=== PATIENT | female | born 1975 | race Caucasian/White ===

== ENCOUNTER 2016-03-07 22:26 | Emergency (ER) | payer OTHER, MEDICAID ==
[~2016-03-07 22:26] MED LIST: CALCCHW12 OR; CELE40TA OR; CLAR5CHW OR; FERRO SEQUELS PO; FISH1000 OR; GABA600T3 OR; LEVO100T OR; LIDO5DIS EX; MULTIVIT PO; OMEP20TA7 OR; TIZA4TAB OR; TRINTAB11 PO; VICO5TAB OR; VITA-113 SQ; VITAMIN D50000 UNT OR
[2016-03-07] MEDS ORDERED: LORazepam 2 MG/ML VIAL (J2060) As Ordered ONE (23:25)
[2016-03-07 23:46] LABS: BASO # 0.2 K/mm3 (0.0-0.2); BASO % 1.3 % (0.0-1.0); EOS # 0.2 K/mm3 (0.0-0.50); EOS % 1.2 % (0.0-3.0); LARGE UNSTAINED CELL # 0.2 K/mm3 (0.0-0.4); LARGE UNSTAINED CELL % 1.7 % (0.0-4.0); LYMPH # 4.6 K/mm3 (1.5-4.5); LYMPH % 34.6 % (24.0-44.0); MEAN CORPUSCULAR HEMOGLOBIN 24.8 pg (27.0-33.0); MEAN CORPUSCULAR HGB CONC 31.6 g/dl (32.0-36.5); MEAN CORPUSCULAR VOLUME 78.5 fl (80.0-96.0); MONO # 0.6 K/mm3 (0.0-0.8); MONO % 4.9 % (0.0-5.0); NEUTROPHILS # 7.1 K/mm3 (1.8-7.7); NEUTROPHILS % 56.2 % (36.0-66.0); PLATELET COUNT, AUTOMATED 387 k/mm3 (150-450); RED CELL DISTRIBUTION WIDTH 17.3 % (11.5-14.5); WHITE BLOOD COUNT 12.6 K/mm3 (4.0-10.0)
[2016-03-08 00:10] LABS: ANION GAP 9 MEQ/L (8-16); BLOOD UREA NITROGEN 5 MG/DL (7-18); CALCIUM LEVEL 8.6 MG/DL (8.5-10.1); CARBON DIOXIDE LEVEL 24 MEQ/L (21-32); CHLORIDE LEVEL 109 MEQ/L (98-107); CREATININE FOR GFR 0.84 MG/DL (0.55-1.02); FREE T4 1.04 NG/DL (0.76-1.46); GLOMERULAR FILTRATION RATE > 60.0 (>60); GLUCOSE, FASTING 99 MG/DL (70-105); MAGNESIUM LEVEL 1.9 MG/DL (1.8-2.4); POTASSIUM SERUM 3.9 MEQ/L (3.5-5.1); SODIUM LEVEL 142 MEQ/L (136-145)
--- NOTE | 2016-03-08 00:45 | REP ---
Clinical: Chest pain and palpitations . Comparison: None . Technique: PA and lateral. Findings: The mediastinum and cardiac silhouette are normal. The lung warren are clear and without acute consolidation, effusion, or pneumothorax. The skeletal structures are intact and normal. Impression: 1. No acute cardiopulmonary process. Signed by Jamshid Morales MD 03/08/2016 12:36 A
--- NOTE | 2016-03-08 01:40 | EDDOCDS ---
Physician Documentation [facility] Name: Jayne Lawson Age: 40 yrs Sex: Female : 1975 Arrival Date: 03/07/2016 Time: 22:26 Bed 10 Private MD: [facility] - [facility] Disposition: 03/08/16 01:29 Discharged to Home/Self Care. Impression: Generalized anxiety disorder. - Condition is Stable. - Discharge Instructions: Panic Attacks, Generalized Anxiety Disorder, Panic Attacks, Aonf-[id number]-Yqtd. - Medication Reconciliation, Local Pharmacy Hours form. - Follow up: [facility] - Ad[facility]; When: As needed; Reason: Continuance of care. - Problem is an acute exacerbation. - Symptoms have improved. Historical: - Allergies: No known drug Allergies; - Home Meds: 1. levothyroxine 100 mcg Oral tab 1 tab once daily 2. [place] 10-325 mg Oral tab 0.5 tab every 8 hours 3. pregabalin 100 mg Oral cap 1 cap 2 times per day 4. tizanidine 4 mg oral cap 1 cap 3 times per day 5. amlodipine 5 mg Oral tab 1 tab once daily 6. paroxetine HCl 10 mg Oral tab 1 tab once daily - PMHx: Anxiety; Hypertension; Hypothyroidism; left leg pain; - PSHx: Cesearean Section; D & C; Gastric Bypass (2004); - Family history: Father has/had cardiac disorder. - Social history: Smoking status: Patient states was never smoker of tobacco. No barriers to communication noted, The patient speaks fluent Maldivian, Speaks appropriately for age, Preferred Language: Maldivian. - : The pt / caregiver states he / she is not on anticoagulants. Home medication list is obtained from the patient. - Exposure Risk Screening:: None identified. 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 5 in. (165.10 cm) (R); Pain 0/10; 23:17 BP 159 / 92 (auto/); mlc 23:20 Pulse 106 MON; Pulse Ox 97% ; mlc 23:37 BP 147 / 76 (auto/); mlc 23:38 Pulse 100 MON; Pulse Ox 98% ; mlc 23:57 BP 133 / 75 (auto/); mlc 23:57 Pulse 98 MON; Pulse Ox 98% ; [facility] 03/08 00:24 BP 156 / 79 (auto/); mlc 00:26 Pulse 96 MON; Pulse Ox 100% ; mlc 00:37 BP 158 / 74 (auto/); mlc 00:38 Pulse 90 MON; Pulse Ox 99% ; mlc 00:56 Pulse 92 MON; Pulse Ox 99% ; mlc 00:57 Pulse 88 MON; Pulse Ox 99% ; mlc 00:57 BP 143 / 70 (auto/); mlc 01:17 Pulse 92 MON; Pulse Ox 99% ; mlc 01:17 BP 151 / 70 (auto/); mlc 01:37 BP 145 / 69; Pulse 89; Resp 16; Temp 99.2(O); Pulse Ox 97% on R/A; Pain 6/10; [facility] 03/07 22:29 Body Mass Index 36.61 (99.79 kg, 165.10 cm) gr2 MDM: 03/07 22:47 ECG WITH READING ER PHYS+CARDIAG ordered. EDMS 23:13 Store Clerk Checker/Pulse Ox/q 30 min VS ordered. mm11 23:13 IV Saline Lock ordered. mm11 23:13 Rhythm Strip to chart ordered. mm11 23:13 Undress patient appropriately for examination ordered. mm11 23:13 LORazepam 1 mg IVP once ordered. mm11 23:13 Basic Metabolic Profile Ordered. EDMS 23:13 CBC with Diff Ordered. EDMS 23:13 Cardiac Injury Profile Ordered. EDMS 23:13 D-Dimer Quant Ordered. EDMS 23:13 Troponin Ordered. EDMS 23:13 Magnesium Level Ordered. EDMS 23:13 TSH with Free T4 Ordered. EDMS 23:15 Chest, 2 View (pa\E\lat) Ordered. EDMS 23:40 Financial registration complete. pm4 03/08 00:13 Basic Metabolic Profile Reviewed. mm11 00:13 CBC with Diff Reviewed. mm11 00:13 D-Dimer Quant Reviewed. mm11 00:13 Troponin Reviewed. mm11 00:13 Magnesium Level Reviewed. mm11 00:21 Basic Metabolic Profile Reviewed. mm11 00:21 Cardiac Injury Profile Reviewed. mm11 00:21 Troponin Reviewed. mm11 00:21 Magnesium Level Reviewed. mm11 00:21 TSH with Free T4 Reviewed. mm11 00:26 [facility] Payment Agreement was scanned into [employer] and attached to record. pm4 01:24 Chest, 2 View (pa\E\lat) Reviewed. mm11 Administered Medications: 03/07 23:38 Drug: LORazepam 1 mg [lorazepam 2 mg/mL injection solution (0.5 mL)] Route: IVP; Site: [facility] left antecubital; 03/08 00:26 Follow up: Response: Anxiety is improved [facility] Signatures: Dispatcher MedHost EDMS Pilar Doll RN RN lf1 Hipolito Brown, DO mm11 Arabella Trivedi RN RN [facility] Danny Payne, Reg Reg pm4 The chart was reviewed and I authenticate all verbal orders and agree with the evaluation and treatment provided.Attachments: 00:26 [facility] Payment Agreement pm4 MTDD
--- NOTE | 2016-03-08 01:40 | EDDOCDS ---
Nurse's Notes [facility] Name: Jayne Lawson Age: 40 yrs Sex: Female : 1975 Arrival Date: 03/07/2016 Time: 22:26 Bed 10 Private MD: [facility] Diagnosis: Generalized anxiety disorder Presentation: 03/07 22:41 Presenting complaint:. lf1 22:42 Presenting complaint: Patient states: Feels like her heart is racing and she is short lf1 of breath. States palpitations began this afternoon around 4 or 5 and are not getting better. Pt appears very anxious. States she feels like she can't catch her breath. denies pain at this time but reports that she feels like she is he=having heartburn. Adult Sepsis Screening: The patient does not have new or worsening altered mentation. Patient's respiratory rate is less than 22. Systolic blood pressure is greater than 100. Patient has a qSOFA score of 0- Negative Sepsis Screen. Suicide/Homicide risk assessment- the patient denies having any suicidal and/or homicidal ideations and does not present with any other emotional, behavioral or mental health complaints. Status: Patient is not a message and delivery service pricer or dependent. Transition of care: patient was not received from another setting of care. 22:42 Acuity: ALBERT Level 3 lf1 22:42 Method Of Arrival: Walkin/Carried/Asstd lf1 Triage Assessment: 22:42 General: Appears obese, Behavior is anxious, restless. Pain: Denies pain. Pt Declines lf1 HIV testing. Neurological: Level of Consciousness is awake, alert. Cardiovascular: Chest pain is denied Reports palpitations. Respiratory: Respiratory effort is even, unlabored, Reports shortness of breath. GI: Reports nausea. Derm: Skin is normal. 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 levothyroxine 100 mcg Oral tab 1 tab once daily 2. [place] 10-325 mg Oral tab 0.5 tab every 8 hours 3. pregabalin 100 mg Oral cap 1 cap 2 times per day 4. tizanidine 4 mg oral cap 1 cap 3 times per day 5. amlodipine 5 mg Oral tab 1 tab once daily 6. paroxetine HCl 10 mg Oral tab 1 tab once daily - PMHx: Anxiety; Hypertension; Hypothyroidism; left leg pain; - PSHx: Cesearean Section; D & C; Gastric Bypass (2004); - Family history: Father has/had cardiac disorder. - Social history: Smoking status: Patient states was never smoker of tobacco. No barriers to communication noted, The patient speaks fluent Kiswahili, Speaks appropriately for age, Preferred Language: Kiswahili. - : The pt / caregiver states he / she is not on anticoagulants. Home medication list is obtained from the patient. - Exposure Risk Screening:: None identified. Screenin:41 Screening information is obtained from the patient. Fall risk: No risks identified. lf1 Assistance ADL's: requires no assistance with activities of daily living. Abuse/DV Screen: The patient / caregiver reports he/she is: not in a situation that causes fear, pain or injury. Nutritional screening: No deficits noted. Advance Directives: Currently, there is no health care proxy. home support is adequate. Assessment: 22:37 General: Appears obese, Behavior is anxious, restless. Pain: Denies pain. Neurological: lf1 Level of Consciousness is awake, alert, Oriented to person, place, time. EENT: No deficits noted. Cardiovascular: Chest pain is denied Reports palpitations, Pt states she feels like her heart is racing. Respiratory: Respiratory effort is even, unlabored, Respiratory pattern is regular, Reports shortness of breath the patient has mild shortness of breath. GI: Reports nausea. Derm: Skin is normal. Injury Description: No known injury. 23:39 General: Appears in no apparent distress, comfortable, Behavior is anxious, mlc cooperative. Pain: Location: thoracic area Pain currently is 6 out of 10 on a pain scale. Neurological: Level of Consciousness is awake, alert, Oriented to person, place, time. Cardiovascular: Capillary refill < 3 seconds Heart tones S1 S2 present Rhythm is regular Chest pain is denied. Respiratory: Airway is patent Respiratory effort is even, unlabored, Respiratory pattern is regular, Breath sounds are clear bilaterally. Reports shortness of breath at rest. Derm: Skin is normal. 03/08 00:26 Reassessment: Patient appears in no apparent distress at this time. Patient states mlc feeling better. pt reports she is feeling better but pain remains the same. resp easy/unlabored. pt watching tv. . 01:37 General: Appears in no apparent distress, comfortable, Behavior is cooperative. Pain: [facility] Pain currently is 6 out of 10 on a pain scale. Neurological: Level of Consciousness is awake, alert, Oriented to person, place, time. Respiratory: Airway is patent Respiratory effort is even, unlabored, Respiratory pattern is regular. Derm: Skin is normal. Vital Signs: 03/07 22:29 BP 175 / 83; Pulse 116; Resp 18 S; Temp 99.1(O); Pulse Ox 100% on R/A; Weight 99.79 kg gr2 (R); Height 5 ft. 5 in. (165.10 cm) (R); Pain 0/10; 23:17 BP 159 / 92 (auto/); mlc 23:20 Pulse 106 MON; Pulse Ox 97% ; mlc 23:37 BP 147 / 76 (auto/); mlc 23:38 Pulse 100 MON; Pulse Ox 98% ; mlc 23:57 BP 133 / 75 (auto/); mlc 23:57 Pulse 98 MON; Pulse Ox 98% ; mlc 03/08 00:24 BP 156 / 79 (auto/); mlc 00:26 Pulse 96 MON; Pulse Ox 100% ; mlc 00:37 BP 158 / 74 (auto/); mlc 00:38 Pulse 90 MON; Pulse Ox 99% ; mlc 00:56 Pulse 92 MON; Pulse Ox 99% ; mlc 00:57 Pulse 88 MON; Pulse Ox 99% ; mlc 00:57 BP 143 / 70 (auto/); mlc 01:17 Pulse 92 MON; Pulse Ox 99% ; mlc 01:17 BP 151 / 70 (auto/); mlc 01:37 BP 145 / 69; Pulse 89; Resp 16; Temp 99.2(O); Pulse Ox 97% on R/A; Pain 6/10; mlc 03/07 22:29 Body Mass Index 36.61 (99.79 kg, 165.10 cm) gr2 Vitals: 03/07 22:29 Log In Time: March 07, 2016 at 22:29. gr2 22:30 RN notified that patient meets Red Flag criteria. gr2 ED Course: 22:28 Patient visited by Cecilio Lopez. gr2 22:28 [facility] is Private Physician. gr2 22:28 Patient moved to Waiting gr2 22:30 Patient visited by Cecilio Lopez. gr2 22:31 Patient visited by Cecilio Lopez. gr2 22:31 Patient moved to Pre RCE gr2 22:44 Triage Initiated lf1 22:46 Patient moved to PD2 / 27 lf1 22:52 EKG done. (by ED staff). Reviewed by Hipolito Brown DO. ar3 22:54 Arabella Trivedi,RN is Primary Nurse. ar3 22:54 Patient moved to 10 ar3 22:59 Hipolito Brown DO is Attending Physician. mm11 22:59 Patient visited by Hipolito Brown DO. mm11 23:12 Patient visited by Hipolito Brown DO. mm11 23:20 The patient / caregiver is instructed regarding the plan of care and ED course. Cardiac mlc monitor on. Pulse ox on. NIBP on. 23:20 Inserted saline lock: 18 gauge in left antecubital area and blood collected. The mlc patient tolerated the procedure well. 23:39 TSH with Free T4 Sent. mlc 23:39 Magnesium Level Sent. mlc 23:39 Basic Metabolic Profile Sent. mlc 23:39 CBC with Diff Sent. mlc 23:39 Cardiac Injury Profile Sent. mlc 23:39 D-Dimer Quant Sent. mlc 23:39 Troponin Sent. mlc 23:40 Patient visited by Arabella Trivedi RN. [facility] 03/08 00:26 [facility] Payment Agreement was scanned into [employer] and attached to record. pm4 00:28 Patient visited by Arabella Trivedi RN. mlc 00:58 Patient visited by Arabella Trivedi RN. mlc 01:20 Chest, 2 View (pa\E\lat) Returned. EDMS 01:29 [facility] is Referral Physician. mm11 01:39 Discontinued IV lock intact, bleeding controlled, pressure dressing applied, No mlc redness/swelling at site. No procedures done that require assistance. Administered Medications: 03/07 23:38 Drug: LORazepam 1 mg [lorazepam 2 mg/mL injection solution (0.5 mL)] Route: IVP; Site: mlc left antecubital; 03/08 00:26 Follow up: Response: Anxiety is improved mlc Order Results: Lab Order: Basic Metabolic Profile; SPEC'M 03/07/16 23:37 Test: GLUCOSE, FASTING; Value: 99; Range: 70-105; Units: MG/DL; Status: F Test: BLOOD UREA NITROGEN; Value: 5; Range: 7-18; Abnormal: Below low normal; Units: MG/DL; Status: F Test: CREATININE FOR GFR; Value: 0.84; Range: 0.55-1.02; Units: MG/DL; Status: F Test: GLOMERULAR FILTRATION RATE; Value: > 60.0; Range: >60; Status: F Test: SODIUM LEVEL; Value: 142; Range: 136-145; Units: MEQ/L; Status: F Test: POTASSIUM SERUM; Value: 3.9; Range: 3.5-5.1; Units: MEQ/L; Status: F Test: CHLORIDE LEVEL; Value: 109; Range: 98-107; Abnormal: Above high normal; Units: MEQ/L; Status: F Test: CARBON DIOXIDE LEVEL; Value: 24; Range: 21-32; Units: MEQ/L; Status: F Test: ANION GAP; Value: 9; Range: 8-16; Units: MEQ/L; Status: F Test: CALCIUM LEVEL; Value: 8.6; Range: 8.5-10.1; Units: MG/DL; Status: F Test Note: ; Units are mL/min/1.73 m2 Chronic Kidney Disease Staging per NKF: Stage I & II GFR >=60 Normal to Mildly Decreased Stage III GFR 30-59 Moderately Decreased Stage IV GFR 15-29 Severely Decreased Stage V GFR <15 Very Little GFR Left ESRD GFR <15 on PURIFICATION OPERATOR Lab Order: CBC with Diff; SPEC'M 03/07/16 23:37 Test: WHITE BLOOD COUNT; Value: 12.6; Range: 4.0-10.0; Abnormal: Above high normal; Units: K/mm3; Status: F Test: RED BLOOD COUNT; Value: 4.84; Range: 4.00-5.40; Units: M/mm3; Status: F Test: HEMOGLOBIN; Value: 12.0; Range: 12.0-16.0; Units: g/dl; Status: F Test: HEMATOCRIT; Value: 38.0; Range: 36.0-47.0; Units: %; Status: F Test: MEAN CORPUSCULAR VOLUME; Value: 78.5; Range: 80.0-96.0; Abnormal: Below low normal; Units: fl; Status: F Test: MEAN CORPUSCULAR HEMOGLOBIN; Value: 24.8; Range: 27.0-33.0; Abnormal: Below low normal; Units: pg; Status: F Test: MEAN CORPUSCULAR HGB CONC; Value: 31.6; Range: 32.0-36.5; Abnormal: Below low normal; Units: g/dl; Status: F Test: RED CELL DISTRIBUTION WIDTH; Value: 17.3; Range: 11.5-14.5; Abnormal: Above high normal; Units: %; Status: F Test: PLATELET COUNT, AUTOMATED; Value: 387; Range: 150-450; Units: k/mm3; Status: F Test: NEUTROPHILS %; Value: 56.2; Range: 36.0-66.0; Units: %; Status: F Test: LYMPH %; Value: 34.6; Range: 24.0-44.0; Units: %; Status: F Test: MONO %; Value: 4.9; Range: 0.0-5.0; Units: %; Status: F Test: EOS %; Value: 1.2; Range: 0.0-3.0; Units: %; Status: F Test: BASO %; Value: 1.3; Range: 0.0-1.0; Abnormal: Above high normal; Units: %; Status: F Test: LARGE UNSTAINED CELL %; Value: 1.7; Range: 0.0-4.0; Units: %; Status: F Test: NEUTROPHILS #; Value: 7.1; Range: 1.8-7.7; Units: K/mm3; Status: F Test: LYMPH #; Value: 4.6; Range: 1.5-4.5; Abnormal: Above high normal; Units: K/mm3; Status: F Test: MONO #; Value: 0.6; Range: 0.0-0.8; Units: K/mm3; Status: F Test: EOS #; Value: 0.2; Range: 0.0-0.50; Units: K/mm3; Status: F Test: BASO #; Value: 0.2; Range: 0.0-0.2; Units: K/mm3; Status: F Test: LARGE UNSTAINED CELL #; Value: 0.2; Range: 0.0-0.4; Units: K/mm3; Status: F Lab Order: Cardiac Injury Profile; [facility]03/07/16 23:37 Test: CPK CREATINE PHOSPHOKINASE; Value: 78; Range: 26-192; Units: U/L; Status: F Test: CK-MB VALUE MASS; Value: 1.0; Range: 0.0-3.6; Units: NG/ML; Status: F Test: MB/CK RELATIVE INDEX; Value: 1.28; Range: < OR =4; Status: F Test Note: ; DIAGNOSIS CRITERIA MMB ng/ml Relative Index (RI) NON-AMI < or = 5 N/A BRO ZONE > 5 < or = 4 AMI > 5 > 4 Lab Order: D-Dimer Quant; [facility]03/07/16 23:36 Test: D-DIMER QUANT; Value: 361.5; Range: <500; Units: ng/ml; Status: F Lab Order: Troponin; 03/07/16 23:37 Test: TROPONIN I; Value: < 0.02; Range: < 0.10; Units: NG/ML; Status: F Test Note: ; Troponin I Reference Interval for [employer] LOCI: 99th Percentile= 0.00-0.045 ng/ml Risk Stratification: <= 0.10 ng/ml Decreased Risk for Adverse Clinical Events. 0.10-1.50 ng/ml Increased Risk for Adverse Clinical Events. Evaluation of additional criterion and/or repeat testing in 2-6 hours is suggested to rule out myocardial damage. >= 1.50 ng/ml Indicative of Myocardial Injury. Lab Order: Magnesium Level; [facility]03/07/16 23:37 Test: MAGNESIUM LEVEL; Value: 1.9; Range: 1.8-2.4; Units: MG/DL; Status: F Lab Order: TSH with Free T4; [facility]03/07/16 23:37 Test: THYROID STIMULATING HORMONE; Value: 3.630; Range: 0.358-3.740; Units: uIU/ML; Status: F Test: FREE T4; Value: 1.04; Range: 0.76-1.46; Units: NG/DL; Status: F Radiology Order: Chest, 2 View (pa\E\lat) Test: Chest, 2 View (pa\E\lat) REASON FOR EXAMINATION: PALPITATIONS; Clinical: Chest pain and palpitations .; ; Comparison: None .; ; Technique: PA and lateral.; ; Findings:; The mediastinum and cardiac silhouette are normal. The lung warren are clear and; without acute consolidation, effusion, or pneumothorax. The skeletal structures; are intact and normal.; ; Impression:; 1. No acute cardiopulmonary process.; ; ; Signed by; Jamshid Morales MD 03/08/2016 12:36 A; Outcome: :29 Discharge ordered by Provider. mm11 01:39 Discharge Assessment: Patient awake, alert and oriented x 3. No cognitive and/or mlc functional deficits noted. Patient verbalized understanding of disposition instructions. patient administered narcotics - no. The following High Risk Discharge criteria are identified: None. Discharged to home ambulatory. Condition: good Condition: stable. Discharge instructions given to patient, Instructed on discharge instructions, Demonstrated understanding of instructions, Pt was receptive of discharge instructions/ teaching. No special radiology studies were completed. Property sent home with patient. 01:39 Patient left the ED. [facility] Signatures: Dispatcher MedHost EDMS Pilar Doll,RN RN lf1 Hipolito Brown, DO DO mm11 Bárbara Moreau, ROOFING TILE SORTER ROOFING TILE SORTER ar3 Cecilio Lopez gr2 Arabella Trivedi RN RN [facility] Danny Payne, Reg Reg pm4 STEPHANIE
--- NOTE | 2016-03-08 20:46 | ECGEPIP ---
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
--- NOTE | 2016-03-10 02:40 | EDDOCDS ---
Physician Documentation [facility] Name: Jayne Lawson Age: 40 yrs Sex: Female : 1975 Arrival Date: 03/07/2016 Time: 22:26 Bed 10 Private MD: [facility] Disposition: 03/08/16 01:29 Discharged to Home/Self Care. Impression: Generalized anxiety disorder. - Condition is Stable. - Discharge Instructions: Panic Attacks, Generalized Anxiety Disorder, Panic Attacks, Metc-hj-Bany. - Medication Reconciliation, Local Pharmacy Hours form. - Follow up: [facility]; When: As needed; Reason: Continuance of care. - Problem is an acute exacerbation. - Symptoms have improved. Historical: - Allergies: No known drug Allergies; - Home Meds: 1. levothyroxine 100 mcg Oral tab 1 tab once daily 2. [place] 10-325 mg Oral tab 0.5 tab every 8 hours 3. pregabalin 100 mg Oral cap 1 cap 2 times per day 4. tizanidine 4 mg oral cap 1 cap 3 times per day 5. amlodipine 5 mg Oral tab 1 tab once daily 6. paroxetine HCl 10 mg Oral tab 1 tab once daily - PMHx: Anxiety; Hypertension; Hypothyroidism; left leg pain; - PSHx: Cesearean Section; D & C; Gastric Bypass (2004); - Family history: Father has/had cardiac disorder. - Social history: Smoking status: Patient states was never smoker of tobacco. No barriers to communication noted, The patient speaks fluent Haitian, Speaks appropriately for age, Preferred Language: Haitian. - : The pt / caregiver states he / she is not on anticoagulants. Home medication list is obtained from the patient. - Exposure Risk Screening:: None identified. 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 5 in. (165.10 cm) (R); Pain 0/10; 23:17 BP 159 / 92 (auto/); mlc 23:20 Pulse 106 MON; Pulse Ox 97% ; mlc 23:37 BP 147 / 76 (auto/); mlc 23:38 Pulse 100 MON; Pulse Ox 98% ; mlc 23:57 BP 133 / 75 (auto/); mlc 23:57 Pulse 98 MON; Pulse Ox 98% ; [facility] [place] 03/08 00:24 BP 156 / 79 (auto/); mlc 00:26 Pulse 96 MON; Pulse Ox 100% ; mlc 00:37 BP 158 / 74 (auto/); mlc 00:38 Pulse 90 MON; Pulse Ox 99% ; mlc 00:56 Pulse 92 MON; Pulse Ox 99% ; mlc 00:57 Pulse 88 MON; Pulse Ox 99% ; mlc 00:57 BP 143 / 70 (auto/); mlc 01:17 Pulse 92 MON; Pulse Ox 99% ; mlc 01:17 BP 151 / 70 (auto/); mlc 01:37 BP 145 / 69; Pulse 89; Resp 16; Temp 99.2(O); Pulse Ox 97% on R/A; Pain 6/10; [facility] [place] [place] 03/07 22:29 Body Mass Index 36.61 (99.79 kg, 165.10 cm) gr2 MDM: 03/07 22:47 ECG WITH READING ER PHYS+CARDIAG ordered. EDMS 23:13 Superintendent Meter Tests/Pulse Ox/q 30 min VS ordered. mm11 23:13 IV Saline Lock ordered. mm11 23:13 Rhythm Strip to chart ordered. mm11 23:13 Undress patient appropriately for examination ordered. mm11 23:13 LORazepam 1 mg IVP once ordered. mm11 23:13 Basic Metabolic Profile Ordered. EDMS 23:13 CBC with Diff Ordered. EDMS 23:13 Cardiac Injury Profile Ordered. EDMS 23:13 D-Dimer Quant Ordered. EDMS 23:13 Troponin Ordered. EDMS 23:13 Magnesium Level Ordered. EDMS 23:13 TSH with Free T4 Ordered. EDMS 23:15 Chest, 2 View (pa\E\lat) Ordered. EDMS 23:40 Financial registration complete. pm4 03/08 00:13 Basic Metabolic Profile Reviewed. mm11 00:13 CBC with Diff Reviewed. mm11 00:13 D-Dimer Quant Reviewed. mm11 00:13 Troponin Reviewed. mm11 00:13 Magnesium Level Reviewed. mm11 00:21 Basic Metabolic Profile Reviewed. mm11 00:21 Cardiac Injury Profile Reviewed. mm11 00:21 Troponin Reviewed. mm11 00:21 Magnesium Level Reviewed. mm11 00:21 TSH with Free T4 Reviewed. mm11 00:26 [facility] Payment Agreement was scanned into [employer] and attached to record. pm4 01:24 Chest, 2 View (pa\E\lat) Reviewed. mm11 10:03 T-Sheet-- Draft Copy was scanned into [employer] and attached to record. gb 10:03 ECG/EKG was scanned into [employer] and attached to record. gb Administered Medications: 03/07 23:38 Drug: LORazepam 1 mg [lorazepam 2 mg/mL injection solution (0.5 mL)] Route: IVP; Site: [facility] [place] [place] left antecubital; 03/08 00:26 Follow up: Response: Anxiety is improved [facility] [place] Signatures: Dispatcher [employer]Host EDYaneth Jerome, Reg Reg gb Pilar Doll,MILLIE RN lf1 Hipolito Brown, DO DO mm11 Arabella Trivedi RN RN [facility] [place] [place] Danny Payne, Reg Reg pm4 The chart was reviewed and I authenticate all verbal orders and agree with the evaluation and treatment provided.Attachments: 00:26 [facility] Payment Agreement pm4 10:03 T-Sheet-- Draft Copy gb 10:03 ECG/EKG gb Chart Complete MTDD
--- NOTE | 2016-03-10 02:40 | EDDOCDS ---
Physician Documentation [facility] Name: Jayne Lawson Age: 40 yrs Sex: Female : 1975 Arrival Date: 03/07/2016 Time: 22:26 Bed 10 Private MD: [facility] Disposition: 03/08/16 01:29 Discharged to Home/Self Care. Impression: Generalized anxiety disorder. - Condition is Stable. - Discharge Instructions: Panic Attacks, Generalized Anxiety Disorder, Panic Attacks, [id number]. - Medication Reconciliation, Local Pharmacy Hours form. - Follow up: [facility]; When: As needed; Reason: Continuance of care. - Problem is an acute exacerbation. - Symptoms have improved. Historical: - Allergies: No known drug Allergies; - Home Meds: 1. levothyroxine 100 mcg Oral tab 1 tab once daily 2. [place] 10-325 mg Oral tab 0.5 tab every 8 hours 3. pregabalin 100 mg Oral cap 1 cap 2 times per day 4. tizanidine 4 mg oral cap 1 cap 3 times per day 5. amlodipine 5 mg Oral tab 1 tab once daily 6. paroxetine HCl 10 mg Oral tab 1 tab once daily - PMHx: Anxiety; Hypertension; Hypothyroidism; left leg pain; - PSHx: Cesearean Section; D & C; Gastric Bypass (2004); - Family history: Father has/had cardiac disorder. - Social history: Smoking status: Patient states was never smoker of tobacco. No barriers to communication noted, The patient speaks fluent Polish, Speaks appropriately for age, Preferred Language: Polish. - : The pt / caregiver states he / she is not on anticoagulants. Home medication list is obtained from the patient. - Exposure Risk Screening:: None identified. 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 5 in. (165.10 cm) (R); Pain 0/10; 23:17 BP 159 / 92 (auto/); mlc 23:20 Pulse 106 MON; Pulse Ox 97% ; mlc 23:37 BP 147 / 76 (auto/); mlc 23:38 Pulse 100 MON; Pulse Ox 98% ; mlc 23:57 BP 133 / 75 (auto/); mlc 23:57 Pulse 98 MON; Pulse Ox 98% ; [facility] [place] 03/08 00:24 BP 156 / 79 (auto/); mlc 00:26 Pulse 96 MON; Pulse Ox 100% ; mlc 00:37 BP 158 / 74 (auto/); mlc 00:38 Pulse 90 MON; Pulse Ox 99% ; mlc 00:56 Pulse 92 MON; Pulse Ox 99% ; mlc 00:57 Pulse 88 MON; Pulse Ox 99% ; mlc 00:57 BP 143 / 70 (auto/); mlc 01:17 Pulse 92 MON; Pulse Ox 99% ; mlc 01:17 BP 151 / 70 (auto/); mlc 01:37 BP 145 / 69; Pulse 89; Resp 16; Temp 99.2(O); Pulse Ox 97% on R/A; Pain 6/10; [facility] [place] 03/07 22:29 Body Mass Index 36.61 (99.79 kg, 165.10 cm) gr2 MDM: 03/07 22:47 ECG WITH READING ER PHYS+CARDIAG ordered. EDMS 23:13 Transition Of Care Specialist/Pulse Ox/q 30 min VS ordered. mm11 23:13 IV Saline Lock ordered. mm11 23:13 Rhythm Strip to chart ordered. mm11 23:13 Undress patient appropriately for examination ordered. mm11 23:13 LORazepam 1 mg IVP once ordered. mm11 23:13 Basic Metabolic Profile Ordered. EDMS 23:13 CBC with Diff Ordered. EDMS 23:13 Cardiac Injury Profile Ordered. EDMS 23:13 D-Dimer Quant Ordered. EDMS 23:13 Troponin Ordered. EDMS 23:13 Magnesium Level Ordered. EDMS 23:13 TSH with Free T4 Ordered. EDMS 23:15 Chest, 2 View (pa\E\lat) Ordered. EDMS 23:40 Financial registration complete. pm4 03/08 00:13 Basic Metabolic Profile Reviewed. mm11 00:13 CBC with Diff Reviewed. mm11 00:13 D-Dimer Quant Reviewed. mm11 00:13 Troponin Reviewed. mm11 00:13 Magnesium Level Reviewed. mm11 00:21 Basic Metabolic Profile Reviewed. mm11 00:21 Cardiac Injury Profile Reviewed. mm11 00:21 Troponin Reviewed. mm11 00:21 Magnesium Level Reviewed. mm11 00:21 TSH with Free T4 Reviewed. mm11 00:26 [facility] [place] Agreement was scanned into [employer] and attached to record. pm4 01:24 Chest, 2 View (pa\E\lat) Reviewed. mm11 10:03 T-Sheet-- Draft Copy was scanned into MED[employer] and attached to record. gb 10:03 ECG/EKG was scanned into [employer] and attached to record. gb Administered Medications: 03/07 23:38 Drug: LORazepam 1 mg [lorazepam 2 mg/mL injection solution (0.5 mL)] Route: IVP; Site: [facility] [place] left antecubital; 03/08 00:26 Follow up: Response: Anxiety is improved [facility] [place] Signatures: Dispatcher [employer] EDYaneth Jeorme, Reg Reg gb Pilar Doll,MILLIE RN lf1 Hipolito Brown, DO DO mm11 Arabella Trivedi RN RN [facility] [place] Danny Payne, Reg Reg pm4 The chart was reviewed and I authenticate all verbal orders and agree with the evaluation and treatment provided.Attachments: 00:26 [facility] Payment Agreement pm4 10:03 T-Sheet-- Draft Copy gb 10:03 ECG/EKG gb Chart Complete MTDD
--- NOTE | 2016-03-10 02:40 | EDDOCDS ---
Nurse's Notes [facility] Name: Jayne Lawson Age: 40 yrs Sex: Female : 1975 Arrival Date: 03/07/2016 Time: 22:26 Bed 10 Private MD: [facility] Diagnosis: Generalized anxiety disorder Presentation: 03/07 22:41 Presenting complaint:. lf1 22:42 Presenting complaint: Patient states: Feels like her heart is racing and she is short lf1 of breath. States palpitations began this afternoon around 4 or 5 and are not getting better. Pt appears very anxious. States she feels like she can't catch her breath. denies pain at this time but reports that she feels like she is he=having heartburn. Adult Sepsis Screening: The patient does not have new or worsening altered mentation. Patient's respiratory rate is less than 22. Systolic blood pressure is greater than 100. Patient has a qSOFA score of 0- Negative Sepsis Screen. Suicide/Homicide risk assessment- the patient denies having any suicidal and/or homicidal ideations and does not present with any other emotional, behavioral or mental health complaints. Status: Patient is not a vehicle service agent or dependent. Transition of care: patient was not received from another setting of care. 22:42 Acuity: ALBERT Level 3 lf1 22:42 Method Of Arrival: Walkin/Carried/Asstd lf1 Triage Assessment: 22:42 General: Appears obese, Behavior is anxious, restless. Pain: Denies pain. Pt Declines lf1 HIV testing. Neurological: Level of Consciousness is awake, alert. Cardiovascular: Chest pain is denied Reports palpitations. Respiratory: Respiratory effort is even, unlabored, Reports shortness of breath. GI: Reports nausea. Derm: Skin is normal. 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 levothyroxine 100 mcg Oral tab 1 tab once daily 2. [place] 10-325 mg Oral tab 0.5 tab every 8 hours 3. pregabalin 100 mg Oral cap 1 cap 2 times per day 4. tizanidine 4 mg oral cap 1 cap 3 times per day 5. amlodipine 5 mg Oral tab 1 tab once daily 6. paroxetine HCl 10 mg Oral tab 1 tab once daily - PMHx: Anxiety; Hypertension; Hypothyroidism; left leg pain; - PSHx: Cesearean Section; D & C; Gastric Bypass (2004); - Family history: Father has/had cardiac disorder. - Social history: Smoking status: Patient states was never smoker of tobacco. No barriers to communication noted, The patient speaks fluent Wolof, Speaks appropriately for age, Preferred Language: Wolof. - : The pt / caregiver states he / she is not on anticoagulants. Home medication list is obtained from the patient. - Exposure Risk Screening:: None identified. Screenin:41 Screening information is obtained from the patient. Fall risk: No risks identified. lf1 Assistance ADL's: requires no assistance with activities of daily living. Abuse/DV Screen: The patient / caregiver reports he/she is: not in a situation that causes fear, pain or injury. Nutritional screening: No deficits noted. Advance Directives: Currently, there is no health care proxy. home support is adequate. Assessment: 22:37 General: Appears obese, Behavior is anxious, restless. Pain: Denies pain. Neurological: lf1 Level of Consciousness is awake, alert, Oriented to person, place, time. EENT: No deficits noted. Cardiovascular: Chest pain is denied Reports palpitations, Pt states she feels like her heart is racing. Respiratory: Respiratory effort is even, unlabored, Respiratory pattern is regular, Reports shortness of breath the patient has mild shortness of breath. GI: Reports nausea. Derm: Skin is normal. Injury Description: No known injury. 23:39 General: Appears in no apparent distress, comfortable, Behavior is anxious, mlc cooperative. Pain: Location: thoracic area Pain currently is 6 out of 10 on a pain scale. Neurological: Level of Consciousness is awake, alert, Oriented to person, place, time. Cardiovascular: Capillary refill < 3 seconds Heart tones S1 S2 present Rhythm is regular Chest pain is denied. Respiratory: Airway is patent Respiratory effort is even, unlabored, Respiratory pattern is regular, Breath sounds are clear bilaterally. Reports shortness of breath at rest. Derm: Skin is normal. 03/08 00:26 Reassessment: Patient appears in no apparent distress at this time. Patient states mlc feeling better. pt reports she is feeling better but pain remains the same. resp easy/unlabored. pt watching tv. . 01:37 General: Appears in no apparent distress, comfortable, Behavior is cooperative. Pain: [facility] [place] Pain currently is 6 out of 10 on a pain scale. Neurological: Level of Consciousness is awake, alert, Oriented to person, place, time. Respiratory: Airway is patent Respiratory effort is even, unlabored, Respiratory pattern is regular. Derm: Skin is normal. Vital Signs: 03/07 22:29 BP 175 / 83; Pulse 116; Resp 18 S; Temp 99.1(O); Pulse Ox 100% on R/A; Weight 99.79 kg gr2 (R); Height 5 ft. 5 in. (165.10 cm) (R); Pain 0/10; 23:17 BP 159 / 92 (auto/); mlc 23:20 Pulse 106 MON; Pulse Ox 97% ; mlc 23:37 BP 147 / 76 (auto/); mlc 23:38 Pulse 100 MON; Pulse Ox 98% ; mlc 23:57 BP 133 / 75 (auto/); mlc 23:57 Pulse 98 MON; Pulse Ox 98% ; mlc 03/08 00:24 BP 156 / 79 (auto/); mlc 00:26 Pulse 96 MON; Pulse Ox 100% ; mlc 00:37 BP 158 / 74 (auto/); mlc 00:38 Pulse 90 MON; Pulse Ox 99% ; mlc 00:56 Pulse 92 MON; Pulse Ox 99% ; mlc 00:57 Pulse 88 MON; Pulse Ox 99% ; mlc 00:57 BP 143 / 70 (auto/); mlc 01:17 Pulse 92 MON; Pulse Ox 99% ; mlc 01:17 BP 151 / 70 (auto/); mlc 01:37 BP 145 / 69; Pulse 89; Resp 16; Temp 99.2(O); Pulse Ox 97% on R/A; Pain 6/10; mlc 03/07 22:29 Body Mass Index 36.61 (99.79 kg, 165.10 cm) gr2 Vitals: 03/07 22:29 Log In Time: March 07, 2016 at 22:29. gr2 22:30 RN notified that patient meets Red Flag criteria. gr2 ED Course: 22:28 Patient visited by Cecilio Lopez. gr2 22:28 [facility] is Private Physician. gr2 22:28 Patient moved to Waiting gr2 22:30 Patient visited by Cecilio Lopez. gr2 22:31 Patient visited by Cecilio Lopez. gr2 22:31 Patient moved to Pre RCE gr2 22:44 Triage Initiated lf1 22:46 Patient moved to PD2 / 27 lf1 22:52 EKG done. (by ED staff). Reviewed by Tristan Brown DO. ar3 22:54 Arabella Trivedi,RN is Primary Nurse. ar3 22:54 Patient moved to 10 ar3 22:59 Tristan Brown DO is Attending Physician. mm11 22:59 Patient visited by Tristan Brown DO. mm11 23:12 Patient visited by Tristan Brown DO. mm11 23:20 The patient / caregiver is instructed regarding the plan of care and ED course. Cardiac mlc monitor on. Pulse ox on. NIBP on. 23:20 Inserted saline lock: 18 gauge in left antecubital area and blood collected. The mlc patient tolerated the procedure well. 23:39 TSH with Free T4 Sent. mlc 23:39 Magnesium Level Sent. mlc 23:39 Basic Metabolic Profile Sent. mlc 23:39 CBC with Diff Sent. mlc 23:39 Cardiac Injury Profile Sent. mlc 23:39 D-Dimer Quant Sent. mlc 23:39 Troponin Sent. mlc 23:40 Patient visited by rAabella Trivedi RN. [facility] [place] 03/08 00:26 [facility] Payment Agreement was scanned into [employer] and attached to record. pm4 00:28 Patient visited by Arabella Trivedi,MILLIE. mlc 00:58 Patient visited by Arabella Trivedi,MILLIE. mlc 01:20 Chest, 2 View (pa\E\lat) Returned. EDMS 01:29 [facility] is Referral Physician. mm11 01:39 Discontinued IV lock intact, bleeding controlled, pressure dressing applied, No mlc redness/swelling at site. No procedures done that require assistance. 10:03 T-Sheet-- Draft Copy was scanned into [employer] and attached to record. gb 10:03 ECG/EKG was scanned into [employer] and attached to record. gb 21:23 EKG-ADULT Returned. EDMS Administered Medications: 03/07 23:38 Drug: LORazepam 1 mg [lorazepam 2 mg/mL injection solution (0.5 mL)] Route: IVP; Site: mlc left antecubital; 03/08 00:26 Follow up: Response: Anxiety is improved [facility] [place] Order Results: Lab Order: Basic Metabolic Profile; SPEC'M 03/07/16 23:37 Test: GLUCOSE, FASTING; Value: 99; Range: 70-105; Units: MG/DL; Status: F Test: BLOOD UREA NITROGEN; Value: 5; Range: 7-18; Abnormal: Below low normal; Units: MG/DL; Status: F Test: CREATININE FOR GFR; Value: 0.84; Range: 0.55-1.02; Units: MG/DL; Status: F Test: GLOMERULAR FILTRATION RATE; Value: > 60.0; Range: >60; Status: F Test: SODIUM LEVEL; Value: 142; Range: 136-145; Units: MEQ/L; Status: F Test: POTASSIUM SERUM; Value: 3.9; Range: 3.5-5.1; Units: MEQ/L; Status: F Test: CHLORIDE LEVEL; Value: 109; Range: 98-107; Abnormal: Above high normal; Units: MEQ/L; Status: F Test: CARBON DIOXIDE LEVEL; Value: 24; Range: 21-32; Units: MEQ/L; Status: F Test: ANION GAP; Value: 9; Range: 8-16; Units: MEQ/L; Status: F Test: CALCIUM LEVEL; Value: 8.6; Range: 8.5-10.1; Units: MG/DL; Status: F Test Note: ; Units are mL/min/1.73 m2 Chronic Kidney Disease Staging per NKF: Stage I & II GFR >=60 Normal to Mildly Decreased Stage III GFR 30-59 Moderately Decreased Stage IV GFR 15-29 Severely Decreased Stage V GFR <15 Very Little GFR Left ESRD GFR <15 on MINISTER HELPER Lab Order: CBC with Diff; SPEC'M 03/07/16 23:37 Test: WHITE BLOOD COUNT; Value: 12.6; Range: 4.0-10.0; Abnormal: Above high normal; Units: K/mm3; Status: F Test: RED BLOOD COUNT; Value: 4.84; Range: 4.00-5.40; Units: M/mm3; Status: F Test: HEMOGLOBIN; Value: 12.0; Range: 12.0-16.0; Units: g/dl; Status: F Test: HEMATOCRIT; Value: 38.0; Range: 36.0-47.0; Units: %; Status: F Test: MEAN CORPUSCULAR VOLUME; Value: 78.5; Range: 80.0-96.0; Abnormal: Below low normal; Units: fl; Status: F Test: MEAN CORPUSCULAR HEMOGLOBIN; Value: 24.8; Range: 27.0-33.0; Abnormal: Below low normal; Units: pg; Status: F Test: MEAN CORPUSCULAR HGB CONC; Value: 31.6; Range: 32.0-36.5; Abnormal: Below low normal; Units: g/dl; Status: F Test: RED CELL DISTRIBUTION WIDTH; Value: 17.3; Range: 11.5-14.5; Abnormal: Above high normal; Units: %; Status: F Test: PLATELET COUNT, AUTOMATED; Value: 387; Range: 150-450; Units: k/mm3; Status: F Test: NEUTROPHILS %; Value: 56.2; Range: 36.0-66.0; Units: %; Status: F Test: LYMPH %; Value: 34.6; Range: 24.0-44.0; Units: %; Status: F Test: MONO %; Value: 4.9; Range: 0.0-5.0; Units: %; Status: F Test: EOS %; Value: 1.2; Range: 0.0-3.0; Units: %; Status: F Test: BASO %; Value: 1.3; Range: 0.0-1.0; Abnormal: Above high normal; Units: %; Status: F Test: LARGE UNSTAINED CELL %; Value: 1.7; Range: 0.0-4.0; Units: %; Status: F Test: NEUTROPHILS #; Value: 7.1; Range: 1.8-7.7; Units: K/mm3; Status: F Test: LYMPH #; Value: 4.6; Range: 1.5-4.5; Abnormal: Above high normal; Units: K/mm3; Status: F Test: MONO #; Value: 0.6; Range: 0.0-0.8; Units: K/mm3; Status: F Test: EOS #; Value: 0.2; Range: 0.0-0.50; Units: K/mm3; Status: F Test: BASO #; Value: 0.2; Range: 0.0-0.2; Units: K/mm3; Status: F Test: LARGE UNSTAINED CELL #; Value: 0.2; Range: 0.0-0.4; Units: K/mm3; Status: F Lab Order: Cardiac Injury Profile; [facility] 03/07/16 23:37 Test: CPK CREATINE PHOSPHOKINASE; Value: 78; Range: 26-192; Units: U/L; Status: F Test: CK-MB VALUE MASS; Value: 1.0; Range: 0.0-3.6; Units: NG/ML; Status: F Test: MB/CK RELATIVE INDEX; Value: 1.28; Range: < OR =4; Status: F Test Note: ; DIAGNOSIS CRITERIA MMB ng/ml Relative Index (RI) NON-AMI < or = 5 N/A BRO ZONE > 5 < or = 4 AMI > 5 > 4 Lab Order: D-Dimer Quant; 03/07/16 23:36 Test: D-DIMER QUANT; Value: 361.5; Range: <500; Units: ng/ml; Status: F Lab Order: Troponin; 03/07/16 23:37 Test: TROPONIN I; Value: < 0.02; Range: < 0.10; Units: NG/ML; Status: F Test Note: ; Troponin I Reference Interval for [facility] LOCI: 99th Percentile= 0.00-0.045 ng/ml Risk Stratification: <= 0.10 ng/ml Decreased Risk for Adverse Clinical Events. 0.10-1.50 ng/ml Increased Risk for Adverse Clinical Events. Evaluation of additional criterion and/or repeat testing in 2-6 hours is suggested to rule out myocardial damage. >= 1.50 ng/ml Indicative of Myocardial Injury. Lab Order: Magnesium Level; 03/07/16 23:37 Test: MAGNESIUM LEVEL; Value: 1.9; Range: 1.8-2.4; Units: MG/DL; Status: F Lab Order: TSH with Free T4; SPEC03/07/16 23:37 Test: THYROID STIMULATING HORMONE; Value: 3.630; Range: 0.358-3.740; Units: uIU/ML; Status: F Test: FREE T4; Value: 1.04; Range: 0.76-1.46; Units: NG/DL; Status: F Radiology Order: EKG-ADULT Test: EKG-ADULT REASON FOR EXAMINATION: palpitations; Stationary ECG Study; 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; : 1975 Requested By: TRISTAN Daniel; Order Number: [id number] Reading MD: Florence Velazquez; Measurements; Intervals [place]; Rate: 107 P: 70; WI: 114 QRS: 62; QRSD: 76 T: 26; QT: 324; QTc: 433; Interpretive Statements; SINUS TACHYCARDIA WITH SHORT WI INTERVAL; POSSIBLE RIGHT ATRIAL ENLARGEMENT; POSSIBLE LEFT ATRIAL ENLARGEMENT; NONSPECIFIC T-WAVE ABNORMALITY; ABNORMAL RHYTHM ECG; ; Electronically Signed On 03-08-2016 20:46:01 EST by Florence Velazquez; Radiology Order: Chest, 2 View (pa\E\lat) Test: Chest, 2 View (pa\E\lat) REASON FOR EXAMINATION: PALPITATIONS; Clinical: Chest pain and palpitations .; ; Comparison: None .; ; Technique: PA and lateral.; ; Findings:; The mediastinum and cardiac silhouette are normal. The lung warren are clear and; without acute consolidation, effusion, or pneumothorax. The skeletal structures; are intact and normal.; ; Impression:; 1. No acute cardiopulmonary process.; ; ; Signed by; Jamshid Morales MD 03/08/2016 12:36 A; Outcome: :29 Discharge ordered by Provider. mm11 01:39 Discharge Assessment: Patient awake, alert and oriented x 3. No cognitive and/or mlc functional deficits noted. Patient verbalized understanding of disposition instructions. patient administered narcotics - no. The following High Risk Discharge criteria are identified: None. Discharged to home ambulatory. Condition: good Condition: stable. Discharge instructions given to patient, Instructed on discharge instructions, Demonstrated understanding of instructions, Pt was receptive of discharge instructions/ teaching. No special radiology studies were completed. Property sent home with patient. 01:39 Patient left the ED. [facility] [place] Signatures: Dispatcher [facility], Yaneth, Reg Reg gb Pilar Doll,MILLIE RN lf1 Tristan Brown, DO mm11 Bárbara Moreau, SHIP RUNNER SHIP RUNNER ar3 Cecilio Lopez gr2 Arabella Trivedi,RN RN mlc Danny Payne, Reg Reg pm4 Chart Complete MTDD
== END 2016-03-08 01:39 | disposition home or self-care (01) ==
LOC: M ED 22:26
DX: K21.9 Gastro-esophageal reflux disease without esophagitis (principal); I10 Essential (primary) hypertension; F41.9 Anxiety disorder, unspecified; E03.9 Hypothyroidism, unspecified; M79.605 Pain in left leg; Z98.84 Bariatric surgery status; Z82.41 Family history of sudden cardiac death; Z79.891 Long term (current) use of opiate analgesic; Z79.899 Other long term (current) drug therapy
CPT/HCPCS: 36415; 71020; 80048; 82550; 82553; 83735; 84439; 84443; 85025; 85379; 93005; 93041; 96374; 99284; J2060

== ENCOUNTER 2016-03-30 00:47 | Emergency (ER) | payer OTHER, MEDICAID ==
[2016-03-30] MEDS ORDERED: ONDANSETRON 4 MG ORAL DISINTEGRATING TAB (S0181) As Ordered ONE (01:24)
[2016-03-30] MEDS ORDERED: METHOCARBAMOL 500 MG TAB As Ordered ONE (01:24)
[2016-03-30] MEDS ORDERED: MORPHINE 4 MG/ML 1ML SYRINGE As Ordered ONE (01:24)
--- NOTE | 2016-03-30 01:54 | EDDOCDS ---
Physician Documentation [facility] Name: Jayne Lawson Age: 41 yrs Sex: Female : 1975 Arrival Date: 03/30/2016 Time: 00:47 Bed Triage 2 Private MD: Disposition: 03/30/16 01:43 Discharged to Home/Self Care. Impression: Lumbago with sciatica, left side. - Condition is Stable. - Discharge Instructions: Back Pain, Adult, Sciatica. - Prescriptions for Robaxin 500 mg Oral Tablet - take 2 tablet by ORAL route every 6 hours As needed; 40 tablet. - Medication Reconciliation, Work Release Form - 2 day, Local Pharmacy Hours form. - Follow up: Private Physician; When: Call to arrange an appointment; Reason: Recheck today's complaints, Continuance of care. - Problem is new. - Symptoms have improved. Historical: - Allergies: No known drug Allergies; - Home Meds: 1. amlodipine 5 mg Oral tab 1 tab once daily 2. pregabalin 100 mg Oral cap 1 cap 2 times per day 3. tizanidine 4 mg oral cap 1 cap 3 times per day 4. paroxetine HCl 20 mg oral tab 5. [place] 10-325 mg Oral tab 0.5 tab every 8 hours 6. levothyroxine 100 mcg Oral tab 1 tab once daily - PMHx: Anxiety; Hypothyroidism; left leg pain; Hypertension; - PSHx: Cesearean Section; D & C; Gastric Bypass (2004); - Social history: Smoking status: Patient states was never smoker of tobacco. No barriers to communication noted, The patient speaks fluent Azeri. - Family history: Not pertinent. - : The pt / caregiver states he / she is not on anticoagulants. Home medication list is obtained from the patient. - Exposure Risk Screening:: None identified. 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 5 in. (165.10 cm) (R); Pain 7/10; 01:47 BP 131 / 85; Pulse 82; Resp 18; Temp 99.2; Pulse Ox 97% ; ajs 01:01 Body Mass Index 38.27 (104.33 kg, 165.10 cm) af2 MDM: 01:20 morphine 4 mg IM once ordered. mo1 01:20 Ondansetron ODT Oral Disintegrating Tablet 4 mg PO once ordered. mo1 01:20 Methocarbamol 1 grams PO once ordered. mo1 01:44 Financial registration complete. hs2 Administered Medications: 01:28 Drug: morphine 4 mg [morphine 4 mg/mL intravenous cartridge (1 mL)] Route: IM; Site: af2 right deltoid; 01:28 Drug: Ondansetron ODT 4 mg [ondansetron 4 mg disintegrating tablet (1 tabs)] Route: PO; af2 01:28 Drug: Methocarbamol 1 grams [methocarbamol 500 mg tablet (2 tabs)] Route: PO; af2 Signatures: Saroj Bravo PA PA mo1 Anita Sarah RN RN af2 Brittany Asif, Reg Reg hs2 MTDD
--- NOTE | 2016-03-30 01:54 | EDDOCDS ---
Nurse's Notes [facility] Name: Jayne Lawson Age: 41 yrs Sex: Female : 1975 Arrival Date: 03/30/2016 Time: 00:47 Bed Triage 2 Private MD: Diagnosis: Lumbago with sciatica, left side Presentation: 03/30 01:02 Presenting complaint: Patient states: sciatic pain from lower left back all the way af2 down hip into leg. Acute neurological deficits are not present. Mechanism of Injury: No Mechanism of Injury. Adult Sepsis Screening: The patient does not have new or worsening altered mentation. Patient's respiratory rate is less than 22. Systolic blood pressure is greater than 100. Patient has a qSOFA score of 0- Negative Sepsis Screen. Suicide/Homicide risk assessment- the patient denies having any suicidal and/or homicidal ideations and does not present with any other emotional, behavioral or mental health complaints. Status: Patient is not a director of residential services or dependent. Transition of care: patient was not received from another setting of care. 01:02 Acuity: ALBERT Level 4 af2 01:02 Method Of Arrival: Walkin/Carried/Asstd af2 Triage Assessment: 01:04 General: Appears in no apparent distress, Behavior is cooperative. Pain: Location: left af2 leg Pain currently is 7 out of 10 on a pain scale. Pt Declines HIV testing. Musculoskeletal: Range of motion intact in all extremities. Reports pain in left leg. 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 amlodipine 5 mg Oral tab 1 tab once daily 2. pregabalin 100 mg Oral cap 1 cap 2 times per day 3. tizanidine 4 mg oral cap 1 cap 3 times per day 4. paroxetine HCl 20 mg oral tab 5. [place] 10-325 mg Oral tab 0.5 tab every 8 hours 6. levothyroxine 100 mcg Oral tab 1 tab once daily - PMHx: Anxiety; Hypothyroidism; left leg pain; Hypertension; - PSHx: Cesearean Section; D & C; Gastric Bypass (2004); - Social history: Smoking status: Patient states was never smoker of tobacco. No barriers to communication noted, The patient speaks fluent Chinese. - Family history: Not pertinent. - : The pt / caregiver states he / she is not on anticoagulants. Home medication list is obtained from the patient. - Exposure Risk Screening:: None identified. Screenin:52 Screening information is obtained from the patient. Fall risk: No risks identified. af2 Assistance ADL's: requires no assistance with activities of daily living. Abuse/DV Screen: The patient / caregiver reports he/she is: not in a situation that causes fear, pain or injury. Nutritional screening: No deficits noted. Advance Directives: Currently, there is no health care proxy. home support is adequate. Assessment: 01:51 General: Appears in no apparent distress, Behavior is cooperative. Awake, alert, af2 oriented. Skin warm and dry. Moves all extremities. Respirations unlabored. No apparent distress. The patient / caregiver is instructed regarding the plan of care and ED course. Physical assessment to be completed by PA/EDMD. Vital Signs: 01:01 BP 181 / 93 LA Sitting (auto/); Pulse 93; Resp 18 S; Temp 98.5(TE); Pulse Ox 97% on af2 R/A; Weight 104.33 kg (R); Height 5 ft. 5 in. (165.10 cm) (R); Pain 7/10; 01:47 BP 131 / 85; Pulse 82; Resp 18; Temp 99.2; Pulse Ox 97% ; ajs 01:01 Body Mass Index 38.27 (104.33 kg, 165.10 cm) af2 Vitals: 01:01 Log In Time: March 30, 2016 at 00:49. af2 ED Course: 00:49 Patient visited by Brittany Asif Reg. hs2 00:49 Patient moved to Waiting hs2 01:00 Patient moved to Triage 3 af2 01:03 Triage Initiated af2 01:05 Patient visited by Anita Sarah RN. af2 01:05 Patient moved to Pre RCE af2 01:12 Patient moved to Triage 2 af2 01:14 Saroj Bravo PA is PHCP. mo1 01:14 Abdifatah Herndon MD is Attending Physician. mo1 01:27 Patient visited by Saroj Bravo PA. mo1 01:48 Patient visited by Romina Lopez. ajs 01:52 No IV's were initiated during this patient's visit. No procedures done that require af2 assistance. 01:53 Patient has correct armband on for positive identification. af2 Administered Medications: 01:28 Drug: morphine 4 mg [morphine 4 mg/mL intravenous cartridge (1 mL)] Route: IM; Site: af2 right deltoid; 01:28 Drug: Ondansetron ODT 4 mg [ondansetron 4 mg disintegrating tablet (1 tabs)] Route: PO; af2 01:28 Drug: Methocarbamol 1 grams [methocarbamol 500 mg tablet (2 tabs)] Route: PO; af2 Order Results: There are currently no results for this order. Outcome: 01:43 Discharge ordered by Provider. mo1 01:52 Discharge Assessment: Patient awake, alert and oriented x 3. No cognitive and/or af2 functional deficits noted. Patient verbalized understanding of disposition instructions. patient administered narcotics - yes. Pt provided with safe discharge. The following High Risk Discharge criteria are identified: None. Discharged to home ambulatory. Condition: stable. Discharge instructions given to patient, Instructed on discharge instructions, follow up and referral plans. medication usage, no driving heavy equipment, no drinking with medication, Demonstrated understanding of instructions, medications, Pt was receptive of discharge instructions/ teaching. No special radiology studies were completed. Property :Personal belongings accompany Pt. 01:53 Patient left the ED. af2 Signatures: Romina Lopez Michael, PA PA mo1 Anita Sarah,MILLIE RN af2 Brittany Asif, Reg Reg hs2 MTDD
--- NOTE | 2016-04-01 02:54 | EDDOCDS ---
Physician Documentation [facility] Name: Jayne Lawson Age: 41 yrs Sex: Female : 1975 Arrival Date: 03/30/2016 Time: 00:47 Bed Triage 2 Private MD: Disposition: 03/30/16 01:43 Discharged to Home/Self Care. Impression: Lumbago with sciatica, left side. - Condition is Stable. - Discharge Instructions: Back Pain, Adult, Sciatica. - Prescriptions for Robaxin 500 mg Oral Tablet - take 2 tablet by ORAL route every 6 hours As needed; 40 tablet. - Medication Reconciliation, Work Release Form - 2 day, Local Pharmacy Hours form. - Follow up: Private Physician; When: Call to arrange an appointment; Reason: Recheck today's complaints, Continuance of care. - Problem is new. - Symptoms have improved. Historical: - Allergies: No known drug Allergies; - Home Meds: 1. amlodipine 5 mg Oral tab 1 tab once daily 2. pregabalin 100 mg Oral cap 1 cap 2 times per day 3. tizanidine 4 mg oral cap 1 cap 3 times per day 4. paroxetine HCl 20 mg oral tab 5. [place] 10-325 mg Oral tab 0.5 tab every 8 hours 6. levothyroxine 100 mcg Oral tab 1 tab once daily - PMHx: Anxiety; Hypothyroidism; left leg pain; Hypertension; - PSHx: Cesearean Section; D & C; Gastric Bypass (2004); - Social history: Smoking status: Patient states was never smoker of tobacco. No barriers to communication noted, The patient speaks fluent Azeri. - Family history: Not pertinent. - : The pt / caregiver states he / she is not on anticoagulants. Home medication list is obtained from the patient. - Exposure Risk Screening:: None identified. 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 5 in. (165.10 cm) (R); Pain 7/10; 01:47 BP 131 / 85; Pulse 82; Resp 18; Temp 99.2; Pulse Ox 97% ; ajs 01:01 Body Mass Index 38.27 (104.33 kg, 165.10 cm) af2 MDM: 01:20 morphine 4 mg IM once ordered. mo1 01:20 Ondansetron ODT Oral Disintegrating Tablet 4 mg PO once ordered. mo1 01:20 Methocarbamol 1 grams PO once ordered. mo1 01:44 Financial registration complete. hs2 03:32 [facility] Payment Agreement was scanned into [employer] and attached to record. hs2 Administered Medications: 01:28 Drug: morphine 4 mg [morphine 4 mg/mL intravenous cartridge (1 mL)] Route: IM; Site: af2 right deltoid; 01:28 Drug: Ondansetron ODT 4 mg [ondansetron 4 mg disintegrating tablet (1 tabs)] Route: PO; af2 01:28 Drug: Methocarbamol 1 grams [methocarbamol 500 mg tablet (2 tabs)] Route: PO; af2 Signatures: Saroj Bravo PA PA mo1 Anita Sarah RN RN af2 Brittany Asif, Reg Reg hs2 The chart was reviewed and I authenticate all verbal orders and agree with the evaluation and treatment provided.Attachments: 03:32 [facility] Payment Agreement hs2 Chart Complete MTDD
--- NOTE | 2016-04-01 02:54 | EDDOCDS ---
Physician Documentation [facility] Name: Jayne Lawson Age: 41 yrs Sex: Female : 1975 Arrival Date: 03/30/2016 Time: 00:47 Bed Triage 2 Private MD: Disposition: 03/30/16 01:43 Discharged to Home/Self Care. Impression: Lumbago with sciatica, left side. - Condition is Stable. - Discharge Instructions: Back Pain, Adult, Sciatica. - Prescriptions for Robaxin 500 mg Oral Tablet - take 2 tablet by ORAL route every 6 hours As needed; 40 tablet. - Medication Reconciliation, Work Release Form - 2 day, Local Pharmacy Hours form. - Follow up: Private Physician; When: Call to arrange an appointment; Reason: Recheck today's complaints, Continuance of care. - Problem is new. - Symptoms have improved. Historical: - Allergies: No known drug Allergies; - Home Meds: 1. amlodipine 5 mg Oral tab 1 tab once daily 2. pregabalin 100 mg Oral cap 1 cap 2 times per day 3. tizanidine 4 mg oral cap 1 cap 3 times per day 4. paroxetine HCl 20 mg oral tab 5. [place] 10-325 mg Oral tab 0.5 tab every 8 hours 6. levothyroxine 100 mcg Oral tab 1 tab once daily - PMHx: Anxiety; Hypothyroidism; left leg pain; Hypertension; - PSHx: Cesearean Section; D & C; Gastric Bypass (2004); - Social history: Smoking status: Patient states was never smoker of tobacco. No barriers to communication noted, The patient speaks fluent Lao. - Family history: Not pertinent. - : The pt / caregiver states he / she is not on anticoagulants. Home medication list is obtained from the patient. - Exposure Risk Screening:: None identified. 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 5 in. (165.10 cm) (R); Pain 7/10; 01:47 BP 131 / 85; Pulse 82; Resp 18; Temp 99.2; Pulse Ox 97% ; ajs 01:01 Body Mass Index 38.27 (104.33 kg, 165.10 cm) af2 MDM: 01:20 morphine 4 mg IM once ordered. mo1 01:20 Ondansetron ODT Oral Disintegrating Tablet 4 mg PO once ordered. mo1 01:20 Methocarbamol 1 grams PO once ordered. mo1 01:44 Financial registration complete. hs2 03:32 [facility] Payment Agreement was scanned into [email or web address] and attached to record. hs2 Administered Medications: 01:28 Drug: morphine 4 mg [morphine 4 mg/mL intravenous cartridge (1 mL)] Route: IM; Site: af2 right deltoid; 01:28 Drug: Ondansetron ODT 4 mg [ondansetron 4 mg disintegrating tablet (1 tabs)] Route: PO; af2 01:28 Drug: Methocarbamol 1 grams [methocarbamol 500 mg tablet (2 tabs)] Route: PO; af2 Signatures: Saroj Bravo PA PA mo1 Anita Sarah RN RN af2 Brittany Asif, Reg Reg hs2 The chart was reviewed and I authenticate all verbal orders and agree with the evaluation and treatment provided.Attachments: 03:32 [facility] Payment Agreement hs2 Chart Complete MTDD
--- NOTE | 2016-04-01 02:54 | EDDOCDS ---
Nurse's Notes [facility] Name: Jayne Lawson Age: 41 yrs Sex: Female : 1975 Arrival Date: 03/30/2016 Time: 00:47 Bed Triage 2 Private MD: Diagnosis: Lumbago with sciatica, left side Presentation: 03/30 01:02 Presenting complaint: Patient states: sciatic pain from lower left back all the way af2 down hip into leg. Acute neurological deficits are not present. Mechanism of Injury: No Mechanism of Injury. Adult Sepsis Screening: The patient does not have new or worsening altered mentation. Patient's respiratory rate is less than 22. Systolic blood pressure is greater than 100. Patient has a qSOFA score of 0- Negative Sepsis Screen. Suicide/Homicide risk assessment- the patient denies having any suicidal and/or homicidal ideations and does not present with any other emotional, behavioral or mental health complaints. 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 Transition of care: patient was not received from another setting of care. 01:02 Acuity: ALBERT Level 4 af2 01:02 Method Of Arrival: Walkin/Carried/Asstd af2 Triage Assessment: 01:04 General: Appears in no apparent distress, Behavior is cooperative. Pain: Location: left af2 leg Pain currently is 7 out of 10 on a pain scale. Pt Declines HIV testing. Musculoskeletal: Range of motion intact in all extremities. Reports pain in left leg. 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 amlodipine 5 mg Oral tab 1 tab once daily 2. pregabalin 100 mg Oral cap 1 cap 2 times per day 3. tizanidine 4 mg oral cap 1 cap 3 times per day 4. paroxetine HCl 20 mg oral tab 5. [place] 10-325 mg Oral tab 0.5 tab every 8 hours 6. levothyroxine 100 mcg Oral tab 1 tab once daily - PMHx: Anxiety; Hypothyroidism; left leg pain; Hypertension; - PSHx: Cesearean Section; D & C; Gastric Bypass (2004); - Social history: Smoking status: Patient states was never smoker of tobacco. No barriers to communication noted, The patient speaks fluent Korean. - Family history: Not pertinent. - : The pt / caregiver states he / she is not on anticoagulants. Home medication list is obtained from the patient. - Exposure Risk Screening:: None identified. Screenin:52 Screening information is obtained from the patient. Fall risk: No risks identified. af2 Assistance ADL's: requires no assistance with activities of daily living. Abuse/DV Screen: The patient / caregiver reports he/she is: not in a situation that causes fear, pain or injury. Nutritional screening: No deficits noted. Advance Directives: Currently, there is no health care proxy. home support is adequate. Assessment: 01:51 General: Appears in no apparent distress, Behavior is cooperative. Awake, alert, af2 oriented. Skin warm and dry. Moves all extremities. Respirations unlabored. No apparent distress. The patient / caregiver is instructed regarding the plan of care and ED course. Physical assessment to be completed by PA/EDMD. Vital Signs: 01:01 BP 181 / 93 LA Sitting (auto/); Pulse 93; Resp 18 S; Temp 98.5(TE); Pulse Ox 97% on af2 R/A; Weight 104.33 kg (R); Height 5 ft. 5 in. (165.10 cm) (R); Pain 7/10; 01:47 BP 131 / 85; Pulse 82; Resp 18; Temp 99.2; Pulse Ox 97% ; ajs 01:01 Body Mass Index 38.27 (104.33 kg, 165.10 cm) af2 Vitals: 01:01 Log In Time: March 30, 2016 at 00:49. af2 ED Course: 00:49 Patient visited by Brittany Asif Reg. hs2 00:49 Patient moved to Waiting hs2 01:00 Patient moved to Triage 3 af2 01:03 Triage Initiated af2 01:05 Patient visited by Anita Sarah RN. af2 01:05 Patient moved to Pre RCE af2 01:12 Patient moved to Triage 2 af2 01:14 Saroj Bravo PA is PHCP. mo1 01:14 Abdifatah Herndon MD is Attending Physician. mo1 01:27 Patient visited by Saroj Bravo PA. mo1 01:48 Patient visited by Romina Lopez. ajs 01:52 No IV's were initiated during this patient's visit. No procedures done that require af2 assistance. 01:53 Patient has correct armband on for positive identification. af2 03:32 [facility] Payment Agreement was scanned into [employer] and attached to record. hs2 Administered Medications: 01:28 Drug: morphine 4 mg [morphine 4 mg/mL intravenous cartridge (1 mL)] Route: IM; Site: af2 right deltoid; 01:28 Drug: Ondansetron ODT 4 mg [ondansetron 4 mg disintegrating tablet (1 tabs)] Route: PO; af2 01:28 Drug: Methocarbamol 1 grams [methocarbamol 500 mg tablet (2 tabs)] Route: PO; af2 Order Results: There are currently no results for this order. Outcome: 01:43 Discharge ordered by Provider. mo1 01:52 Discharge Assessment: Patient awake, alert and oriented x 3. No cognitive and/or af2 functional deficits noted. Patient verbalized understanding of disposition instructions. patient administered narcotics - yes. Pt provided with safe discharge. The following High Risk Discharge criteria are identified: None. Discharged to home ambulatory. Condition: stable. Discharge instructions given to patient, Instructed on discharge instructions, follow up and referral plans. medication usage, no driving heavy equipment, no drinking with medication, Demonstrated understanding of instructions, medications, Pt was receptive of discharge instructions/ teaching. No special radiology studies were completed. Property :Personal belongings accompany Pt. 01:53 Patient left the ED. af2 Signatures: Romina Lopez Michael, PA PA mo1 Anita Sarah RN RN af2 Brittany Asif, Reg Reg hs2 Chart Complete MTDD
--- NOTE | 2016-04-01 08:18 | EDDOCDS ---
Physician Documentation [facility] Name: Jayne Lawson Age: 41 yrs Sex: Female : 1975 Arrival Date: 03/30/2016 Time: 00:47 Bed Triage 2 Private MD: Disposition: 03/30/16 01:43 Discharged to Home/Self Care. Impression: Lumbago with sciatica, left side. - Condition is Stable. - Discharge Instructions: Back Pain, Adult, Sciatica. - Prescriptions for Robaxin 500 mg Oral Tablet - take 2 tablet by ORAL route every 6 hours As needed; 40 tablet. - Medication Reconciliation, Work Release Form - 2 day, Local Pharmacy Hours form. - Follow up: Private Physician; When: Call to arrange an appointment; Reason: Recheck today's complaints, Continuance of care. - Problem is new. - Symptoms have improved. Historical: - Allergies: No known drug Allergies; - Home Meds: 1. amlodipine 5 mg Oral tab 1 tab once daily 2. pregabalin 100 mg Oral cap 1 cap 2 times per day 3. tizanidine 4 mg oral cap 1 cap 3 times per day 4. paroxetine HCl 20 mg oral tab 5. [place] 10-325 mg Oral tab 0.5 tab every 8 hours 6. levothyroxine 100 mcg Oral tab 1 tab once daily - PMHx: Anxiety; Hypothyroidism; left leg pain; Hypertension; - PSHx: Cesearean Section; D & C; Gastric Bypass (2004); - Social history: Smoking status: Patient states was never smoker of tobacco. No barriers to communication noted, The patient speaks fluent Icelandic. - Family history: Not pertinent. - : The pt / caregiver states he / she is not on anticoagulants. Home medication list is obtained from the patient. - Exposure Risk Screening:: None identified. 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 5 in. (165.10 cm) (R); Pain 7/10; 01:47 BP 131 / 85; Pulse 82; Resp 18; Temp 99.2; Pulse Ox 97% ; ajs 01:01 Body Mass Index 38.27 (104.33 kg, 165.10 cm) af2 MDM: 01:20 morphine 4 mg IM once ordered. mo1 01:20 Ondansetron ODT Oral Disintegrating Tablet 4 mg PO once ordered. mo1 01:20 Methocarbamol 1 grams PO once ordered. mo1 01:44 Financial registration complete. hs2 03:32 [facility] Payment Agreement was scanned into [employer] and attached to record. hs2 Administered Medications: 01:28 Drug: morphine 4 mg [morphine 4 mg/mL intravenous cartridge (1 mL)] Route: IM; Site: af2 right deltoid; 01:28 Drug: Ondansetron ODT 4 mg [ondansetron 4 mg disintegrating tablet (1 tabs)] Route: PO; af2 01:28 Drug: Methocarbamol 1 grams [methocarbamol 500 mg tablet (2 tabs)] Route: PO; af2 Signatures: Saroj Bravo PA PA mo1 Anita Sarah RN RN af2 Brittany Asif, Reg Reg hs2 The chart was reviewed and I authenticate all verbal orders and agree with the evaluation and treatment provided.Attachments: 03:32 [facility] Payment Agreement hs2 Chart Complete MTDD
--- NOTE | 2016-04-01 08:18 | EDDOCDS ---
Nurse's Notes [facility] Name: Jayne Lawson Age: 41 yrs Sex: Female : 1975 Arrival Date: 03/30/2016 Time: 00:47 Bed Triage 2 Private MD: Diagnosis: Lumbago with sciatica, left side Presentation: 03/30 01:02 Presenting complaint: Patient states: sciatic pain from lower left back all the way af2 down hip into leg. Acute neurological deficits are not present. Mechanism of Injury: No Mechanism of Injury. Adult Sepsis Screening: The patient does not have new or worsening altered mentation. Patient's respiratory rate is less than 22. Systolic blood pressure is greater than 100. Patient has a qSOFA score of 0- Negative Sepsis Screen. Suicide/Homicide risk assessment- the patient denies having any suicidal and/or homicidal ideations and does not present with any other emotional, behavioral or mental health complaints. 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 Transition of care: patient was not received from another setting of care. 01:02 Acuity: ALBERT Level 4 af2 01:02 Method Of Arrival: Walkin/Carried/Asstd af2 Triage Assessment: 01:04 General: Appears in no apparent distress, Behavior is cooperative. Pain: Location: left af2 leg Pain currently is 7 out of 10 on a pain scale. Pt Declines HIV testing. Musculoskeletal: Range of motion intact in all extremities. Reports pain in left leg. 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 amlodipine 5 mg Oral tab 1 tab once daily 2. pregabalin 100 mg Oral cap 1 cap 2 times per day 3. tizanidine 4 mg oral cap 1 cap 3 times per day 4. paroxetine HCl 20 mg oral tab 5. [place] 10-325 mg Oral tab 0.5 tab every 8 hours 6. levothyroxine 100 mcg Oral tab 1 tab once daily - PMHx: Anxiety; Hypothyroidism; left leg pain; Hypertension; - PSHx: Cesearean Section; D & C; Gastric Bypass (2004); - Social history: Smoking status: Patient states was never smoker of tobacco. No barriers to communication noted, The patient speaks fluent Divehi. - Family history: Not pertinent. - : The pt / caregiver states he / she is not on anticoagulants. Home medication list is obtained from the patient. - Exposure Risk Screening:: None identified. Screenin:52 Screening information is obtained from the patient. Fall risk: No risks identified. af2 Assistance ADL's: requires no assistance with activities of daily living. Abuse/DV Screen: The patient / caregiver reports he/she is: not in a situation that causes fear, pain or injury. Nutritional screening: No deficits noted. Advance Directives: Currently, there is no health care proxy. home support is adequate. Assessment: 01:51 General: Appears in no apparent distress, Behavior is cooperative. Awake, alert, af2 oriented. Skin warm and dry. Moves all extremities. Respirations unlabored. No apparent distress. The patient / caregiver is instructed regarding the plan of care and ED course. Physical assessment to be completed by PA/EDMD. Vital Signs: 01:01 BP 181 / 93 LA Sitting (auto/); Pulse 93; Resp 18 S; Temp 98.5(TE); Pulse Ox 97% on af2 R/A; Weight 104.33 kg (R); Height 5 ft. 5 in. (165.10 cm) (R); Pain 7/10; 01:47 BP 131 / 85; Pulse 82; Resp 18; Temp 99.2; Pulse Ox 97% ; ajs 01:01 Body Mass Index 38.27 (104.33 kg, 165.10 cm) af2 Vitals: 01:01 Log In Time: March 30, 2016 at 00:49. af2 ED Course: 00:49 Patient visited by Brittany Asif Reg. hs2 00:49 Patient moved to Waiting hs2 01:00 Patient moved to Triage 3 af2 01:03 Triage Initiated af2 01:05 Patient visited by Anita Sarah RN. af2 01:05 Patient moved to Pre RCE af2 01:12 Patient moved to Triage 2 af2 01:14 Saroj Bravo PA is PHCP. mo1 01:14 Abdifatah Herndon MD is Attending Physician. mo1 01:27 Patient visited by Saroj Bravo PA. mo1 01:48 Patient visited by Romina Lopez. ajs 01:52 No IV's were initiated during this patient's visit. No procedures done that require af2 assistance. 01:53 Patient has correct armband on for positive identification. af2 03:32 [facility] Payment Agreement was scanned into [employer] and attached to record. hs2 Administered Medications: 01:28 Drug: morphine 4 mg [morphine 4 mg/mL intravenous cartridge (1 mL)] Route: IM; Site: af2 right deltoid; 01:28 Drug: Ondansetron ODT 4 mg [ondansetron 4 mg disintegrating tablet (1 tabs)] Route: PO; af2 01:28 Drug: Methocarbamol 1 grams [methocarbamol 500 mg tablet (2 tabs)] Route: PO; af2 Order Results: There are currently no results for this order. Outcome: 01:43 Discharge ordered by Provider. mo1 01:52 Discharge Assessment: Patient awake, alert and oriented x 3. No cognitive and/or af2 functional deficits noted. Patient verbalized understanding of disposition instructions. patient administered narcotics - yes. Pt provided with safe discharge. The following High Risk Discharge criteria are identified: None. Discharged to home ambulatory. Condition: stable. Discharge instructions given to patient, Instructed on discharge instructions, follow up and referral plans. medication usage, no driving heavy equipment, no drinking with medication, Demonstrated understanding of instructions, medications, Pt was receptive of discharge instructions/ teaching. No special radiology studies were completed. Property :Personal belongings accompany Pt. 01:53 Patient left the ED. af2 Signatures: Romina Lopez Michael, PA PA mo1 Anita Sarah RN RN af2 Brittany Asif, Reg Reg hs2 Chart Complete MTDD
--- NOTE | 2016-04-01 08:18 | EDDOCDS ---
Physician Documentation [facility] Name: Jayne Lawson Age: 41 yrs Sex: Female : 1975 Arrival Date: 03/30/2016 Time: 00:47 Bed Triage 2 Private MD: Disposition: 03/30/16 01:43 Discharged to Home/Self Care. Impression: Lumbago with sciatica, left side. - Condition is Stable. - Discharge Instructions: Back Pain, Adult, Sciatica. - Prescriptions for Robaxin 500 mg Oral Tablet - take 2 tablet by ORAL route every 6 hours As needed; 40 tablet. - Medication Reconciliation, Work Release Form - 2 day, Local Pharmacy Hours form. - Follow up: Private Physician; When: Call to arrange an appointment; Reason: Recheck today's complaints, Continuance of care. - Problem is new. - Symptoms have improved. Historical: - Allergies: No known drug Allergies; - Home Meds: 1. amlodipine 5 mg Oral tab 1 tab once daily 2. pregabalin 100 mg Oral cap 1 cap 2 times per day 3. tizanidine 4 mg oral cap 1 cap 3 times per day 4. paroxetine HCl 20 mg oral tab 5. [place] 10-325 mg Oral tab 0.5 tab every 8 hours 6. levothyroxine 100 mcg Oral tab 1 tab once daily - PMHx: Anxiety; Hypothyroidism; left leg pain; Hypertension; - PSHx: Cesearean Section; D & C; Gastric Bypass (2004); - Social history: Smoking status: Patient states was never smoker of tobacco. No barriers to communication noted, The patient speaks fluent Armenian. - Family history: Not pertinent. - : The pt / caregiver states he / she is not on anticoagulants. Home medication list is obtained from the patient. - Exposure Risk Screening:: None identified. 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 5 in. (165.10 cm) (R); Pain 7/10; 01:47 BP 131 / 85; Pulse 82; Resp 18; Temp 99.2; Pulse Ox 97% ; ajs 01:01 Body Mass Index 38.27 (104.33 kg, 165.10 cm) af2 MDM: 01:20 morphine 4 mg IM once ordered. mo1 01:20 Ondansetron ODT Oral Disintegrating Tablet 4 mg PO once ordered. mo1 01:20 Methocarbamol 1 grams PO once ordered. mo1 01:44 Financial registration complete. hs2 03:32 [facility] Payment Agreement was scanned into [employer] and attached to record. hs2 Administered Medications: 01:28 Drug: morphine 4 mg [morphine 4 mg/mL intravenous cartridge (1 mL)] Route: IM; Site: af2 right deltoid; 01:28 Drug: Ondansetron ODT 4 mg [ondansetron 4 mg disintegrating tablet (1 tabs)] Route: PO; af2 01:28 Drug: Methocarbamol 1 grams [methocarbamol 500 mg tablet (2 tabs)] Route: PO; af2 Signatures: Saroj Bravo PA PA mo1 Anita Sarah RN RN af2 Brittany Asif, Reg Reg hs2 The chart was reviewed and I authenticate all verbal orders and agree with the evaluation and treatment provided.Attachments: 03:32 [facility] Payment Agreement hs2 Chart Complete MTDD
== END 2016-03-30 01:53 | disposition home or self-care (01) ==
LOC: M ED 00:47
DX: M54.32 Sciatica, left side (principal); F41.9 Anxiety disorder, unspecified; E03.9 Hypothyroidism, unspecified; I10 Essential (primary) hypertension; M79.605 Pain in left leg; Z98.84 Bariatric surgery status; Z79.899 Other long term (current) drug therapy

== ENCOUNTER 2016-04-03 18:14 | Emergency (ER) | payer OTHER, MEDICAID ==
[2016-04-03] MEDS ORDERED: NORCO, ANEXSIA 5/325MG TABLET (HYDROcodone/ACETAMINOPHEN) As Ordered ONE (18:59)
[2016-04-03] MEDS ORDERED: KETOROLAC 30 MG/ML VIAL (J1885) As Ordered ONE (19:00)
--- NOTE | 2016-04-03 19:50 | EDDOCDS ---
Nurse's Notes [facility] Name: Jayne Lawson Age: 41 yrs Sex: Female : 1975 Arrival Date: 04/03/2016 Time: 18:14 Bed TR8 Private MD: Jesse London Diagnosis: Lumbago with sciatica, left side;Fever of other and unknown origin Presentation: 04/03 18:28 Presenting complaint: Patient states: Low back pain radiating into left leg began two mlb1 days ago. Adult Sepsis Screening: The patient does not have new or worsening altered mentation. Patient's respiratory rate is less than 22. Systolic blood pressure is greater than 100. Patient has a qSOFA score of 0- Negative Sepsis Screen. Suicide/Homicide risk assessment- the patient denies having any suicidal and/or homicidal ideations and does not present with any other emotional, behavioral or mental health complaints. Status: Patient is not a home service advisor or dependent. Transition of care: patient was not received from another setting of care. 18:28 Acuity: ALBERT Level 4 mlb1 18:28 Method Of Arrival: Walkin/Carried/Asstd mlb1 Triage Assessment: 19:49 HIV screening NA for this visit Offered previously. ms18 Historical: - Allergies: no known allergies; - Home Meds: 1. amlodipine 5 mg Oral tab 1 tab once daily 2. levothyroxine 100 mcg Oral tab 1 tab once daily 3. paroxetine HCl 20 mg Oral tab 4. pregabalin 100 mg Oral cap 1 cap 2 times per day 5. tizanidine 4 mg oral cap 1 cap 3 times per day 6. [place] 10-325 mg Oral tab 0.5 tab every 8 hours - PMHx: Anxiety; Hypertension; Hypothyroidism; left leg pain; Chronic Low Back Pain; - PSHx: Cesearean Section; D & C; Gastric Bypass (2004); - Social history: Smoking status: Patient states was never smoker of tobacco. No barriers to communication noted, The patient speaks fluent Indonesian, Speaks appropriately for age. - Family history: Not pertinent. - : The pt / caregiver states he / she is not on anticoagulants. Home medication list is obtained from the patient. - Exposure Risk Screening:: None identified. Screenin:06 Screening information is obtained from the patient. Fall risk: No risks identified. lf1 Assistance ADL's: requires no assistance with activities of daily living. Abuse/DV Screen: The patient / caregiver reports he/she is: not in a situation that causes fear, pain or injury. Nutritional screening: No deficits noted. Advance Directives: Currently, there is no health care proxy. home support is adequate. Assessment: 19:06 Adult Sepsis Screening: The patient does not have new or worsening altered mentation. lf1 Patient's respiratory rate is less than 22. Systolic blood pressure is greater than 100. Patient has a qSOFA score of 0- Negative Sepsis Screen. General: Appears uncomfortable, Behavior is cooperative. Pain: Location: low back and left leg (chronic) Pain currently is 8 out of 10 on a pain scale. Neurological: Level of Consciousness is awake, alert, obeys commands, Oriented to person, place, time. EENT: No deficits noted. Cardiovascular: No deficits noted. Respiratory: Respiratory effort is even, unlabored. GI: Denies nausea, vomiting. : Denies burning with urination, incontinence, urinary frequency. Derm: No deficits noted. 19:45 General: Appears in no apparent distress, comfortable, Behavior is appropriate for age, ms18 cooperative. Pain: Pain currently is 6 out of 10 on a pain scale. Neurological: Level of Consciousness is awake, alert, obeys commands, Oriented to person, place, time. Respiratory: No deficits noted. Derm: Skin is pink, warm & dry. Vital Signs: 18:17 BP 137 / 68 RA Sitting (auto/reg); Pulse 112; Resp 18; Temp 100.6(O); Pulse Ox 100% on jrd R/A; Weight 102.06 kg (R); Height 5 ft. 5 in. (165.10 cm); Pain 8/10; 18:54 Temp 99.9(O); ar3 19:45 BP 140 / 75; Pulse 94; Resp 18; Temp 98.9; Pulse Ox 98% ; Pain 6/10; ms18 18:17 Body Mass Index 37.44 (102.06 kg, 165.10 cm) [facility] Vitals: 18:17 Log In Time: April 03, 2016 at 18:14. [facility] ED Course: 18:16 Patient visited by Yasmani Durham PCA. d 18:16 Patient moved to Waiting jrd 18:17 Jesse London is Private Physician. jrd 18:18 Patient visited by Yasmani Durham, MABEL. jrd 18:18 Patient moved to Pre RCE jrd 18:28 Patient visited by Saroj Stahl RN. mlb1 18:28 Triage Initiated mlb1 18:30 Patient moved to Triage 3 kc3 18:40 Saroj Bravo PA is PHCP. mo1 18:40 Abdifatah Herndon MD is Attending Physician. mo1 18:52 Patient visited by Saroj Bravo PA. mo1 18:55 Patient visited by Bárbara Moreau PCA. ar3 19:06 Patient visited by Pilar Doll RN. lf1 19:06 The patient / caregiver is instructed regarding the plan of care and ED course. lf1 19:07 Urine Culture Sent. ms18 19:07 UA Sent. ms18 19:08 Patient moved to TR2 ms18 19:10 [facility] Payment Agreement was scanned into [employer] and attached to record. jp5 19:27 Patient moved to PR1 / 25 ms18 19:33 Jesse London is Referral Physician. mo1 19:45 Patient moved to TR8 ms18 19:45 Patient has correct armband on for positive identification. Property sent home with ms18 patient. :Personal belongings accompany Pt. 19:45 No IV's were initiated during this patient's visit. No procedures done that require ms18 assistance. Administered Medications: 19:07 Drug: ketorolac 60 mg [ketorolac 30 mg/mL (1 mL) injection solution (2 mL)] Route: IM; ms18 Site: right gluteus; 19:08 Drug: HYDROcodone-acetaminophen 2 tabs [hydrocodone 5 mg-acetaminophen 325 mg tablet (2 ms18 tabs)] Route: PO; Order Results: Lab Order: UA; SPEC'M 04/03/16 19:03 Test: APPEARANCE, URINE; Value: CLEAR; Range: CLEAR; Status: F Test: COLOR, URINE; Value: YELLOW; Range: YELLOW; Status: F Test: PH,URINE; Value: 6.0; Range: 5.0-9.0; Units: UNITS; Status: F Test: SPECIFIC GRAVITY URINE AUTO; Value: 1.009; Range: 1.002-1.035; Status: F Test: PROTEIN, URINE AUTO; Value: NEGATIVE; Range: NEGATIVE; Units: mg/dL; Status: F Test: GLUCOSE, URINE (UA) AUTO; Value: NEGATIVE; Range: NEGATIVE; Units: mg/dL; Status: F Test: KETONE, URINE AUTO; Value: NEGATIVE; Range: NEGATIVE; Units: mg/dL; Status: F Test: UROBILINOGEN, URINE AUTO; Value: 0.2; Range: 0.0-2.0; Units: mg/dL; Status: F Test: BILIRUBIN, URINE AUTO; Value: NEGATIVE; Range: NEGATIVE; Status: F Test: NITRITE, URINE AUTO; Value: NEGATIVE; Range: NEGATIVE; Status: F Test: LEUKOCYTE ESTERASE, URINE AUTO; Value: NEGATIVE; Range: NEGATIVE; Status: F Test: BLOOD, URINE BLOOD; Value: NEGATIVE; Range: NEGATIVE; Status: F Test: WBC, URINE AUTO; Value: 2; Range: 0-3; Units: /HPF; Status: F Test: RBC, URINE AUTO; Value: 1; Range: 0-3; Units: /HPF; Status: F Test: BACTERIA, URINE AUTO; Value: 1+; Range: NEGATIVE; Abnormal: Above high normal; Status: F Test: SQUAMOUS EPITHELIAL CELL UR AU; Value: 1; Range: 0-6; Units: /HPF; Status: F Test: MUCUS, URINE; Value: SMALL; Range: NEGATIVE; Status: F Test: HYALINE CAST, URINE AUTO; Value: 0; Range: 0-1; Units: /LPF; Status: F Outcome: 19:33 Discharge ordered by Provider. mo1 19:45 Discharge Assessment: Patient awake, alert and oriented x 3. No cognitive and/or ms18 functional deficits noted. Patient verbalized understanding of disposition instructions. patient administered narcotics - yes. Pt provided with safe discharge. The following High Risk Discharge criteria are identified: None. Discharged to home ambulatory. Condition: good Condition: stable Condition: improved. Discharge instructions given to patient, Instructed on discharge instructions, follow up and referral plans. medication usage, no driving heavy equipment, Demonstrated understanding of instructions, medications, Pt was receptive of discharge instructions/ teaching. Prescriptions given X 1. No special radiology studies were completed. 19:50 Patient left the ED. ms18 Signatures: Saroj Stahl RN RN mlb1 Pilar Doll RN RN lf1 Bárbara Moreau, HSPT TUTOR HSPT TUTOR ar3 Saroj Bravo PA PA mo1 Marina Lieberman,RN RN ms18 Yasmani Durham, HSPT TUTOR HSPT TUTOR jrd Mckenzie Alonzo jp5 Keisha Araujo,RN RN kc3 MTDD
--- NOTE | 2016-04-03 19:50 | EDDOCDS ---
Physician Documentation [facility] Name: Jayne Lawson Age: 41 yrs Sex: Female : 1975 Arrival Date: 04/03/2016 Time: 18:14 Bed TR8 Private MD: Jesse London Disposition: 04/03/16 19:33 Discharged to Home/Self Care. Impression: Lumbago with sciatica, left side, Fever of other and unknown origin. - Condition is Stable. - Discharge Instructions: Back Pain, Adult, Sciatica. - Prescriptions for [place] 5- 325 mg Oral Tablet - take 1 tablet by ORAL route every 6 hours As needed MDD: 4 tabs; 12 tablet. - Medication Reconciliation, Local Pharmacy Hours form. - Follow up: Jesse London; When: Call to arrange an appointment; Reason: Recheck today's complaints, Continuance of care. - Problem is new. - Symptoms are unchanged. Historical: - Allergies: no known allergies; - Home Meds: 1. amlodipine 5 mg Oral tab 1 tab once daily 2. levothyroxine 100 mcg Oral tab 1 tab once daily 3. paroxetine HCl 20 mg Oral tab 4. pregabalin 100 mg Oral cap 1 cap 2 times per day 5. tizanidine 4 mg oral cap 1 cap 3 times per day 6. [place] 10-325 mg Oral tab 0.5 tab every 8 hours - PMHx: Anxiety; Hypertension; Hypothyroidism; left leg pain; Chronic Low Back Pain; - PSHx: Cesearean Section; D & C; Gastric Bypass (2004); - Social history: Smoking status: Patient states was never smoker of tobacco. No barriers to communication noted, The patient speaks fluent Greek, Speaks appropriately for age. - Family history: Not pertinent. - : The pt / caregiver states he / she is not on anticoagulants. Home medication list is obtained from the patient. - Exposure Risk Screening:: None identified. Vital Signs: 04/03 18:17 BP 137 / 68 RA Sitting (auto/reg); Pulse 112; Resp 18; Temp 100.6(O); Pulse Ox 100% on jrd R/A; Weight 102.06 kg / 225 lbs (R); Height 5 ft. 5 in. (165.10 cm); Pain 8/10; 18:54 Temp 99.9(O); ar3 19:45 BP 140 / 75; Pulse 94; Resp 18; Temp 98.9; Pulse Ox 98% ; Pain 6/10; ms18 18:17 Body Mass Index 37.44 (102.06 kg, 165.10 cm) jrd MDM: 18:57 HYDROcodone-acetaminophen 5 mg-325 mg 2 tabs PO once ordered. mo1 18:57 ketorolac 60 mg IM once ordered. mo1 18:57 Urine Culture Ordered. EDMS 18:58 UA Ordered. EDMS 19:10 [facility] Payment Agreement was scanned into [employer] and attached to record. jp5 19:10 Financial registration complete. jp5 19:21 UA Reviewed. mo1 Administered Medications: 19:07 Drug: ketorolac 60 mg [ketorolac 30 mg/mL (1 mL) injection solution (2 mL)] Route: IM; ms18 Site: right gluteus; 19:08 Drug: HYDROcodone-acetaminophen 2 tabs [hydrocodone 5 mg-acetaminophen 325 mg tablet (2 ms18 tabs)] Route: PO; Signatures: Dispatcher [employer] EDMS Saroj Stahl, RN RN mlb1 Saroj Bravo PA PA mo1 Marina LiebermanRN RN ms18 Mckenzie Alonzo jp5 The chart was reviewed and I authenticate all verbal orders and agree with the evaluation and treatment provided.Attachments: 19:10 [facility] Payment Agreement jp5 MTDD
--- NOTE | 2016-04-05 20:51 | EDDOCDS ---
Physician Documentation [facility] Name: Jayne Lawson Age: 41 yrs Sex: Female : 1975 Arrival Date: 04/03/2016 Time: 18:14 Bed TR8 Private MD: Jesse London Disposition: 04/03/16 19:33 Discharged to Home/Self Care. Impression: Lumbago with sciatica, left side, Fever of other and unknown origin. - Condition is Stable. - Discharge Instructions: Back Pain, Adult, Sciatica. - Prescriptions for [place] 5- 325 mg Oral Tablet - take 1 tablet by ORAL route every 6 hours As needed MDD: 4 tabs; 12 tablet. - Medication Reconciliation, Local Pharmacy Hours form. - Follow up: Jesse London; When: Call to arrange an appointment; Reason: Recheck today's complaints, Continuance of care. - Problem is new. - Symptoms are unchanged. Historical: - Allergies: no known allergies; - Home Meds: 1. amlodipine 5 mg Oral tab 1 tab once daily 2. levothyroxine 100 mcg Oral tab 1 tab once daily 3. paroxetine HCl 20 mg Oral tab 4. pregabalin 100 mg Oral cap 1 cap 2 times per day 5. tizanidine 4 mg oral cap 1 cap 3 times per day 6. [place] 10-325 mg Oral tab 0.5 tab every 8 hours - PMHx: Anxiety; Hypertension; Hypothyroidism; left leg pain; Chronic Low Back Pain; - PSHx: Cesearean Section; D & C; Gastric Bypass (2004); - Social history: Smoking status: Patient states was never smoker of tobacco. No barriers to communication noted, The patient speaks fluent Romanian, Speaks appropriately for age. - Family history: Not pertinent. - : The pt / caregiver states he / she is not on anticoagulants. Home medication list is obtained from the patient. - Exposure Risk Screening:: None identified. Vital Signs: 04/03 18:17 BP 137 / 68 RA Sitting (auto/reg); Pulse 112; Resp 18; Temp 100.6(O); Pulse Ox 100% on jrd R/A; Weight 102.06 kg / 225 lbs (R); Height 5 ft. 5 in. (165.10 cm); Pain 8/10; 18:54 Temp 99.9(O); ar3 19:45 BP 140 / 75; Pulse 94; Resp 18; Temp 98.9; Pulse Ox 98% ; Pain 6/10; ms18 18:17 Body Mass Index 37.44 (102.06 kg, 165.10 cm) jrd MDM: 18:57 HYDROcodone-acetaminophen 5 mg-325 mg 2 tabs PO once ordered. mo1 18:57 ketorolac 60 mg IM once ordered. mo1 18:57 Urine Culture Ordered. EDMS 18:58 UA Ordered. EDMS 19:10 [facility] Payment Agreement was scanned into [employer] and attached to record. jp5 19:10 Financial registration complete. jp5 19:21 UA Reviewed. mo1 04/04 09:49 T-Sheet-- Draft Copy was scanned into [employer] and attached to record. gb Administered Medications: 04/03 19:07 Drug: ketorolac 60 mg [ketorolac 30 mg/mL (1 mL) injection solution (2 mL)] Route: IM; ms18 Site: right gluteus; 19:08 Drug: HYDROcodone-acetaminophen 2 tabs [hydrocodone 5 mg-acetaminophen 325 mg tablet (2 ms18 tabs)] Route: PO; Signatures: Dispatcher [employer] EDMS Yaneth Angeles, Jame Reg gb Saroj Stahl, RN RN mlb1 Saroj Bravo PA PA mo1 Marina Lieberman,MILLIE RN ms18 Mckenzie Alonzo jp5 The chart was reviewed and I authenticate all verbal orders and agree with the evaluation and treatment provided.Attachments: 19:10 [facility] Payment Agreement jp5 04/04 09:49 T-Sheet-- Draft Copy gb Chart Complete MTDD
--- NOTE | 2016-04-05 20:51 | EDDOCDS ---
Physician Documentation [facility] Name: Jayne Lawson Age: 41 yrs Sex: Female : 1975 Arrival Date: 04/03/2016 Time: 18:14 Bed TR8 Private MD: Jesse London Disposition: 04/03/16 19:33 Discharged to Home/Self Care. Impression: Lumbago with sciatica, left side, Fever of other and unknown origin. - Condition is Stable. - Discharge Instructions: Back Pain, Adult, Sciatica. - Prescriptions for [place] 5- 325 mg Oral Tablet - take 1 tablet by ORAL route every 6 hours As needed MDD: 4 tabs; 12 tablet. - Medication Reconciliation, Local Pharmacy Hours form. - Follow up: Jesse London; When: Call to arrange an appointment; Reason: Recheck today's complaints, Continuance of care. - Problem is new. - Symptoms are unchanged. Historical: - Allergies: no known allergies; - Home Meds: 1. amlodipine 5 mg Oral tab 1 tab once daily 2. levothyroxine 100 mcg Oral tab 1 tab once daily 3. paroxetine HCl 20 mg Oral tab 4. pregabalin 100 mg Oral cap 1 cap 2 times per day 5. tizanidine 4 mg oral cap 1 cap 3 times per day 6. [place] 10-325 mg Oral tab 0.5 tab every 8 hours - PMHx: Anxiety; Hypertension; Hypothyroidism; left leg pain; Chronic Low Back Pain; - PSHx: Cesearean Section; D & C; Gastric Bypass (2004); - Social history: Smoking status: Patient states was never smoker of tobacco. No barriers to communication noted, The patient speaks fluent Sierra Leonean, Speaks appropriately for age. - Family history: Not pertinent. - : The pt / caregiver states he / she is not on anticoagulants. Home medication list is obtained from the patient. - Exposure Risk Screening:: None identified. Vital Signs: 04/03 18:17 BP 137 / 68 RA Sitting (auto/reg); Pulse 112; Resp 18; Temp 100.6(O); Pulse Ox 100% on jrd R/A; Weight 102.06 kg / 225 lbs (R); Height 5 ft. 5 in. (165.10 cm); Pain 8/10; 18:54 Temp 99.9(O); ar3 19:45 BP 140 / 75; Pulse 94; Resp 18; Temp 98.9; Pulse Ox 98% ; Pain 6/10; ms18 18:17 Body Mass Index 37.44 (102.06 kg, 165.10 cm) jrd MDM: 18:57 HYDROcodone-acetaminophen 5 mg-325 mg 2 tabs PO once ordered. mo1 18:57 ketorolac 60 mg IM once ordered. mo1 18:57 Urine Culture Ordered. EDMS 18:58 UA Ordered. EDMS 19:10 [facility] Payment Agreement was scanned into [employer] and attached to record. jp5 19:10 Financial registration complete. jp5 19:21 UA Reviewed. mo1 04/04 09:49 T-Sheet-- Draft Copy was scanned into [employer] and attached to record. gb Administered Medications: 04/03 19:07 Drug: ketorolac 60 mg [ketorolac 30 mg/mL (1 mL) injection solution (2 mL)] Route: IM; ms18 Site: right gluteus; 19:08 Drug: HYDROcodone-acetaminophen 2 tabs [hydrocodone 5 mg-acetaminophen 325 mg tablet (2 ms18 tabs)] Route: PO; Signatures: Dispatcher [employer] EDMS Yaneth Angeles, Jame Reg gb Saroj Stahl, RN RN mlb1 Saroj Bravo PA PA mo1 Marina Lieberman,MILLIE RN ms18 Mckenzie Alonzo jp5 The chart was reviewed and I authenticate all verbal orders and agree with the evaluation and treatment provided.Attachments: 19:10 [facility] Payment Agreement jp5 04/04 09:49 T-Sheet-- Draft Copy gb Chart Complete MTDD
--- NOTE | 2016-04-05 20:51 | EDDOCDS ---
Nurse's Notes [facility] Name: Jayne Lawson Age: 41 yrs Sex: Female : 1975 Arrival Date: 04/03/2016 Time: 18:14 Bed TR8 Private MD: Jesse London Diagnosis: Lumbago with sciatica, left side;Fever of other and unknown origin Presentation: 04/03 18:28 Presenting complaint: Patient states: Low back pain radiating into left leg began two mlb1 days ago. Adult Sepsis Screening: The patient does not have new or worsening altered mentation. Patient's respiratory rate is less than 22. Systolic blood pressure is greater than 100. Patient has a qSOFA score of 0- Negative Sepsis Screen. Suicide/Homicide risk assessment- the patient denies having any suicidal and/or homicidal ideations and does not present with any other emotional, behavioral or mental health complaints. 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 Transition of care: patient was not received from another setting of care. 18:28 Acuity: ALBERT Level 4 mlb1 18:28 Method Of Arrival: Walkin/Carried/Asstd mlb1 Triage Assessment: 19:49 HIV screening NA for this visit Offered previously. ms18 Historical: - Allergies: no known allergies; - Home Meds: 1. amlodipine 5 mg Oral tab 1 tab once daily 2. levothyroxine 100 mcg Oral tab 1 tab once daily 3. paroxetine HCl 20 mg Oral tab 4. pregabalin 100 mg Oral cap 1 cap 2 times per day 5. tizanidine 4 mg oral cap 1 cap 3 times per day 6. [place] 10-325 mg Oral tab 0.5 tab every 8 hours - PMHx: Anxiety; Hypertension; Hypothyroidism; left leg pain; Chronic Low Back Pain; - PSHx: Cesearean Section; D & C; Gastric Bypass (2004); - Social history: Smoking status: Patient states was never smoker of tobacco. No barriers to communication noted, The patient speaks fluent Luxembourgish, Speaks appropriately for age. - Family history: Not pertinent. - : The pt / caregiver states he / she is not on anticoagulants. Home medication list is obtained from the patient. - Exposure Risk Screening:: None identified. Screenin:06 Screening information is obtained from the patient. Fall risk: No risks identified. lf1 Assistance ADL's: requires no assistance with activities of daily living. Abuse/DV Screen: The patient / caregiver reports he/she is: not in a situation that causes fear, pain or injury. Nutritional screening: No deficits noted. Advance Directives: Currently, there is no health care proxy. home support is adequate. Assessment: 19:06 Adult Sepsis Screening: The patient does not have new or worsening altered mentation. lf1 Patient's respiratory rate is less than 22. Systolic blood pressure is greater than 100. Patient has a qSOFA score of 0- Negative Sepsis Screen. General: Appears uncomfortable, Behavior is cooperative. Pain: Location: low back and left leg (chronic) Pain currently is 8 out of 10 on a pain scale. Neurological: Level of Consciousness is awake, alert, obeys commands, Oriented to person, place, time. EENT: No deficits noted. Cardiovascular: No deficits noted. Respiratory: Respiratory effort is even, unlabored. GI: Denies nausea, vomiting. : Denies burning with urination, incontinence, urinary frequency. Derm: No deficits noted. 19:45 General: Appears in no apparent distress, comfortable, Behavior is appropriate for age, ms18 cooperative. Pain: Pain currently is 6 out of 10 on a pain scale. Neurological: Level of Consciousness is awake, alert, obeys commands, Oriented to person, place, time. Respiratory: No deficits noted. Derm: Skin is pink, warm & dry. Vital Signs: 18:17 BP 137 / 68 RA Sitting (auto/reg); Pulse 112; Resp 18; Temp 100.6(O); Pulse Ox 100% on jrd R/A; Weight 102.06 kg (R); Height 5 ft. 5 in. (165.10 cm); Pain 8/10; 18:54 Temp 99.9(O); ar3 19:45 BP 140 / 75; Pulse 94; Resp 18; Temp 98.9; Pulse Ox 98% ; Pain 6/10; ms18 18:17 Body Mass Index 37.44 (102.06 kg, 165.10 cm) [facility] Vitals: 18:17 Log In Time: April 03, 2016 at 18:14. [facility] ED Course: 18:16 Patient visited by Yasmani Durham PCA. d 18:16 Patient moved to Waiting jrd 18:17 Jesse London is Private Physician. jrd 18:18 Patient visited by Yasmani Durham, MABEL. jrd 18:18 Patient moved to Pre RCE jrd 18:28 Patient visited by Saroj Stahl RN. mlb1 18:28 Triage Initiated mlb1 18:30 Patient moved to Triage 3 kc3 18:40 Saroj Bravo PA is PHCP. mo1 18:40 Abdifatah Herndon MD is Attending Physician. mo1 18:52 Patient visited by Saroj Bravo PA. mo1 18:55 Patient visited by Bárbara Moreau PCA. ar3 19:06 Patient visited by Pilar Doll RN. lf1 19:06 The patient / caregiver is instructed regarding the plan of care and ED course. lf1 19:07 Urine Culture Sent. ms18 19:07 UA Sent. ms18 19:08 Patient moved to TR2 ms18 19:10 [facility] Payment Agreement was scanned into [employer] and attached to record. jp5 19:27 Patient moved to PR1 / 25 ms18 19:33 Jesse London is Referral Physician. mo1 19:45 Patient moved to TR8 ms18 19:45 Patient has correct armband on for positive identification. Property sent home with ms18 patient. :Personal belongings accompany Pt. 19:45 No IV's were initiated during this patient's visit. No procedures done that require ms18 assistance. 04/04 09:49 T-Sheet-- Draft Copy was scanned into [employer] and attached to record. gb Administered Medications: 04/03 19:07 Drug: ketorolac 60 mg [ketorolac 30 mg/mL (1 mL) injection solution (2 mL)] Route: IM; ms18 Site: right gluteus; 19:08 Drug: HYDROcodone-acetaminophen 2 tabs [hydrocodone 5 mg-acetaminophen 325 mg tablet (2 ms18 tabs)] Route: PO; Order Results: Lab Order: UA; SPEC'M 04/03/16 19:03 Test: APPEARANCE, URINE; Value: CLEAR; Range: CLEAR; Status: F Test: COLOR, URINE; Value: YELLOW; Range: YELLOW; Status: F Test: PH,URINE; Value: 6.0; Range: 5.0-9.0; Units: UNITS; Status: F Test: SPECIFIC GRAVITY URINE AUTO; Value: 1.009; Range: 1.002-1.035; Status: F Test: PROTEIN, URINE AUTO; Value: NEGATIVE; Range: NEGATIVE; Units: mg/dL; Status: F Test: GLUCOSE, URINE (UA) AUTO; Value: NEGATIVE; Range: NEGATIVE; Units: mg/dL; Status: F Test: KETONE, URINE AUTO; Value: NEGATIVE; Range: NEGATIVE; Units: mg/dL; Status: F Test: UROBILINOGEN, URINE AUTO; Value: 0.2; Range: 0.0-2.0; Units: mg/dL; Status: F Test: BILIRUBIN, URINE AUTO; Value: NEGATIVE; Range: NEGATIVE; Status: F Test: NITRITE, URINE AUTO; Value: NEGATIVE; Range: NEGATIVE; Status: F Test: LEUKOCYTE ESTERASE, URINE AUTO; Value: NEGATIVE; Range: NEGATIVE; Status: F Test: BLOOD, URINE BLOOD; Value: NEGATIVE; Range: NEGATIVE; Status: F Test: WBC, URINE AUTO; Value: 2; Range: 0-3; Units: /HPF; Status: F Test: RBC, URINE AUTO; Value: 1; Range: 0-3; Units: /HPF; Status: F Test: BACTERIA, URINE AUTO; Value: 1+; Range: NEGATIVE; Abnormal: Above high normal; Status: F Test: SQUAMOUS EPITHELIAL CELL UR AU; Value: 1; Range: 0-6; Units: /HPF; Status: F Test: MUCUS, URINE; Value: SMALL; Range: NEGATIVE; Status: F Test: HYALINE CAST, URINE AUTO; Value: 0; Range: 0-1; Units: /LPF; Status: F Lab Order: Urine Culture; SPEC'M 04/03/16 19:03 Test: URINE CULTURE; Value: <EXTERNAL COMMENT eCWMed> FULL REPORT IN LAB NOTES (eCW and Medent).; Status: F Test: URINE CULTURE; Value: URINE CULTURE RESULT NO GROWTH CLINICAL SIGNIFICANCE 1 ORGANISM; Status: F Outcome: 19:33 Discharge ordered by Provider. mo1 19:45 Discharge Assessment: Patient awake, alert and oriented x 3. No cognitive and/or ms18 functional deficits noted. Patient verbalized understanding of disposition instructions. patient administered narcotics - yes. Pt provided with safe discharge. The following High Risk Discharge criteria are identified: None. Discharged to home ambulatory. Condition: good Condition: stable Condition: improved. Discharge instructions given to patient, Instructed on discharge instructions, follow up and referral plans. medication usage, no driving heavy equipment, Demonstrated understanding of instructions, medications, Pt was receptive of discharge instructions/ teaching. Prescriptions given X 1. No special radiology studies were completed. 19:50 Patient left the ED. ms18 Signatures: Yaneth Angeles, Reg Reg gb Saroj Stahl RN RN mlb1 Pilar DollRN RN lf1 Bárbara Moreau, SURGICAL ORDERLY SURGICAL ORDERLY ar3 Saroj Bravo PA PA mo1 Marina Lieberman,MILLIE RN ms18 Yasmani Durham, SURGICAL ORDERLY SURGICAL ORDERLY d Mckenzie Alonzo jp5 Keisha Araujo,RN RN kc3 Chart Complete MTDD
== END 2016-04-03 19:50 | disposition home or self-care (01) ==
LOC: M ED 18:14
DX: M54.42 Lumbago with sciatica, left side (principal); F41.9 Anxiety disorder, unspecified; I10 Essential (primary) hypertension; E03.9 Hypothyroidism, unspecified; G89.29 Other chronic pain; Z98.84 Bariatric surgery status; Z79.891 Long term (current) use of opiate analgesic; Z79.899 Other long term (current) drug therapy
CPT/HCPCS: 81001; 87086; 96372; 99283; J1885

== ENCOUNTER 2016-04-27 04:16 | Emergency (ER) | payer OTHER, MEDICAID ==
[~2016-04-27] VITALS: Ht 165.1 cm; Wt 102.1 kg
[2016-04-27] MEDS ORDERED: PAXI20TA3 PO (04:29)
[2016-04-27] MEDS ORDERED: AMLO5TAB2 PO (04:29)
[2016-04-27] MEDS ORDERED: KETOROLAC 30 MG/ML VIAL (J1885) IM ONE (05:45)
[2016-04-27 07:15] VITALS: BP 138/88
--- NOTE | 2016-04-27 07:49 | REP ---
Clinical: Pain and disability. Technique: AP, lateral, coned-down views of the Lumbar spine. Findings: Three views of the lumbosacral spine demonstrate satisfactory alignment and lordosis without acute fracture / compression injury or subluxation. There is a very subtle chronic-appearing anterior wedge deformity of the L1 vertebral body which may reflect a very mild old compression injury. Mild degenerative changes at the L1-L2 level includes anterior spurring and minimal disc space narrowing. Moderate degenerative change at the L5-S1 level is also identified including endplate sclerosis disc space narrowing and anterior spurring. Impression: 1. Cannot exclude subtle old compression injury at L1 along with mild degenerative disc disease at the L1-L2 level. 2. Moderate degenerative disc disease at the L5-S1 level Signed by Jamshid Morales MD 04/27/2016 07:40 A
== END 2016-04-27 07:17 | disposition home or self-care (01) ==
LOC: M ED 04:57
DX: M54.5 Low back pain (principal); G89.29 Other chronic pain; I10 Essential (primary) hypertension; K21.9 Gastro-esophageal reflux disease without esophagitis; F41.9 Anxiety disorder, unspecified; F32.9 Major depressive disorder, single episode, unspecified; Z79.899 Other long term (current) drug therapy
CPT/HCPCS: 72100; 96372; 99282; J1885

== ENCOUNTER 2016-05-19 01:51 | Emergency (ER) | payer OTHER, MEDICAID ==
[~2016-05-19] VITALS: Ht 165.1 cm; Wt 99.8 kg
[~2016-05-19 01:51] MED LIST changes: +AMLO5TAB2 PO; +PAXI20TA3 PO
[2016-05-19 03:00] LABS: ANION GAP 9 MEQ/L (8-16); BLOOD UREA NITROGEN 6 MG/DL (7-18); CALCIUM LEVEL 7.7 MG/DL (8.5-10.1); CARBON DIOXIDE LEVEL 25 MEQ/L (21-32); CHLORIDE LEVEL 110 MEQ/L (98-107); CREATININE FOR GFR 0.71 MG/DL (0.55-1.02); GLOMERULAR FILTRATION RATE > 60.0 (>58); GLUCOSE, FASTING 90 MG/DL (70-105); POTASSIUM SERUM 3.8 MEQ/L (3.5-5.1); SODIUM LEVEL 144 MEQ/L (136-145)
[2016-05-19] MEDS ORDERED: KETOROLAC 60 MG/2 ML VIAL (J1885) IM ONE (03:15)
[2016-05-19 03:38] VITALS: BP 165/99
== END 2016-05-19 03:38 | disposition home or self-care (01) ==
LOC: M ED 02:48
DX: G89.29 Other chronic pain (principal); Z79.899 Other long term (current) drug therapy
CPT/HCPCS: 36415; 80048; 82550; 96372; 99282; J1885

== ENCOUNTER 2019-01-07 20:20 | Emergency (ER) | payer OTHER, MEDICAID ==
[~2019-01-07] VITALS: Ht 165.1 cm; Wt 81.8 kg
[~2019-01-07 20:20] MED LIST changes: -AMLO5TAB2 PO; +AMLO5TAB6 PO; +PAXI20TA29 PO; -PAXI20TA3 PO
[2019-01-07] MEDS ORDERED: NS 1,000 ML IV SCH (21:43)
[2019-01-07] MEDS ORDERED: ASPIRIN 81 MG CHEW TABLET PO ONE (21:45)
[2019-01-07 22:07] LABS: BASO % 0.5 % (0.0-1.0); EOS # 0.3 10^3/uL (0.0-0.5); EOS % 3.6 % (0.0-3.0); HEMATOCRIT 28.8 % (36.0-47.0); HEMOGLOBIN 7.5 g/dl (12.0-15.5); LYMPH # 2.5 10^3/uL (1.5-5.0); LYMPH % 30.5 % (24.0-44.0); MEAN CORPUSCULAR HEMOGLOBIN 19.4 pg (27.0-33.0); MEAN CORPUSCULAR VOLUME 74.6 fl (80.0-96.0); MONO # 0.6 10^3/uL (0.0-0.8); NEUTROPHILS # 4.7 10^3/uL (1.5-8.5); NEUTROPHILS % 58.2 % (36.0-66.0); PLATELET COUNT, AUTOMATED 385 10^3/uL (150-450); RED BLOOD COUNT 3.86 10^6/uL (4.00-5.40)
[2019-01-07 22:34] LABS: ALT/SGPT 16 U/L (12-78); BILIRUBIN,DIRECT 0.1 MG/DL (0.0-0.2); BILIRUBIN,TOTAL 0.3 MG/DL (0.2-1.0); BLOOD UREA NITROGEN 9 MG/DL (7-18); CALCIUM LEVEL 8.4 MG/DL (8.5-10.1); CARBON DIOXIDE LEVEL 22 MEQ/L (21-32); CHLORIDE LEVEL 115 MEQ/L (98-107); CK-MB VALUE MASS < 1.0 NG/ML (<3.6); CPK CREATINE PHOSPHOKINASE 51 U/L (26-192); CREATININE FOR GFR 0.61 MG/DL (0.55-1.30); GLOMERULAR FILTRATION RATE > 60.0 (>58); GLUCOSE, FASTING 93 MG/DL (70-100); MB/CK RELATIVE INDEX 1.96 (< OR =4); SODIUM LEVEL 144 MEQ/L (136-145); TOTAL PROTEIN 6.3 GM/DL (6.4-8.2); TROPONIN I < 0.02 NG/ML (< 0.10)
[2019-01-08 01:07] LABS: FERRITIN 3 NG/ML (8-252); TOTAL IRON BINDING CAPACITY 443 UG/DL (250-450)
[2019-01-08 01:20] LABS: IRON (FE) 11 UG/DL (50-170); PERCENT SATURATION 2.5 % (13.2-45.0)
[2019-01-08] MEDS ORDERED: FERR32TA PO (02:02)
[2019-01-08] MEDS ORDERED: COLA100C5 PO (02:02)
[2019-01-08 02:31] VITALS: BP 121/68
--- NOTE | 2019-01-08 07:48 | REP ---
Clinical: Chest pain . Comparison: 03/07/2016 . Technique: PA and lateral. Findings: The mediastinum and cardiac silhouette are normal. The lung warren are clear and without acute consolidation, effusion, or pneumothorax. The skeletal structures are intact and normal. Impression: 1. No acute cardiopulmonary process. Electronically Signed by Jamshid Morales MD 01/08/2019 07:39 A
[2019-01-08 12:00] LABS: FOLATE 7.6 NG/ML (>5.4); VITAMIN B12 LEVEL 117 PG/ML (247-911)
--- NOTE | 2019-01-08 16:44 | ECGEPIP ---
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
== END 2019-01-08 02:48 | disposition home or self-care (01) ==
LOC: M ED 20:20
DX: R07.9 Chest pain, unspecified (principal); F41.9 Anxiety disorder, unspecified; D50.9 Iron deficiency anemia, unspecified; I10 Essential (primary) hypertension; Z79.899 Other long term (current) drug therapy

== ENCOUNTER 2019-03-06 06:23 | Inpatient (IN) | payer MEDICAID, OTHER ==
[~2019-03-06] VITALS: Ht 165.1 cm; Wt 88.0 kg
[~2019-03-06 06:23] MED LIST changes: +COLA100C5 PO; +FERR32TA PO
[2019-03-06 07:13] LABS: HEMATOCRIT 39.6 % (36.0-47.0); HEMOGLOBIN 12.1 g/dl (12.0-15.5); MEAN CORPUSCULAR HEMOGLOBIN 26.5 pg (27.0-33.0); MEAN CORPUSCULAR HGB CONC 30.6 g/dl (32.0-36.5); MEAN CORPUSCULAR VOLUME 86.8 fl (80.0-96.0); PLATELET COUNT, AUTOMATED 382 10^3/uL (150-450); RED BLOOD COUNT 4.56 10^6/uL (4.00-5.40); WHITE BLOOD COUNT 10.2 10^3/uL (4.0-10.0)
--- NOTE | 2019-03-06 07:15 | ECGEPIP ---
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
[2019-03-06 07:25] LABS: HCG, SERUM QUALITATIVE NEGATIVE (NEGATIVE)
[2019-03-06 07:37] LABS: AMPHETAMINES LEVEL URINE NEGATIVE (NEGATIVE); BARBITURATES URINE NEGATIVE (NEGATIVE); BENZODIAZEPINES URINE NEGATIVE (NEGATIVE); CANNABINOIDS URINE NEGATIVE (NEGATIVE); COCAINE METABOLITE URINE NEGATIVE (NEGATIVE); METHADONE URINE NEGATIVE (NEGATIVE); OPIATES URINE NEGATIVE (NEGATIVE); PHENCYCLIDINE URINE NEGATIVE (NEGATIVE)
[2019-03-06 07:39] LABS: ACETAMINOPHEN LEVEL < 2.0 UG/ML (10.0-30.0); ALBUMIN 3.8 GM/DL (3.2-5.2); ALT/SGPT 18 U/L (12-78); BILIRUBIN,DIRECT 0.2 MG/DL (0.0-0.2); BILIRUBIN,TOTAL 0.4 MG/DL (0.2-1.0); BLOOD UREA NITROGEN 4 MG/DL (7-18); CALCIUM LEVEL 8.8 MG/DL (8.5-10.1); CARBON DIOXIDE LEVEL 21 MEQ/L (21-32); CHLORIDE LEVEL 117 MEQ/L (98-107); CREATININE FOR GFR 0.75 MG/DL (0.55-1.30); ETHYL ALCOHOL (ETHANOL) < 0.003 % (0.000-0.010); GLOMERULAR FILTRATION RATE > 60.0 (>58); GLUCOSE, FASTING 87 MG/DL (70-100); POTASSIUM SERUM 3.4 MEQ/L (3.5-5.1); SALICYLATE LEVEL < 1.7 MG/DL (5.0-30.0); SODIUM LEVEL 143 MEQ/L (136-145); TOTAL PROTEIN 7.4 GM/DL (6.4-8.2)
[2019-03-06] MEDS ORDERED: MOM 30ML SUSPENSION UDC PO PRN (14:30)
[2019-03-06] MEDS ORDERED: MAALOX 30 ML SUSP *UDC PO PRN (14:30)
[2019-03-06 16:00] VITALS: BP 178/89
[2019-03-06] MEDS: OLANZapine ORAL DISINTEGRATING TAB 5MG PO PRN (16:33)
[2019-03-07 06:25] VITALS: BP 152/98
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
[2019-03-07] MEDS ORDERED: amLODIPine 5 MG TAB PO ONE (10:15)
[2019-03-07] MEDS ORDERED: POTASSIUM CHLORIDE 10 MEQ SR TABLET PO ONE (10:15)
--- NOTE | 2019-03-07 10:26 | HPEPDOC ---
General Date of Admission Mar 06, 2019 at 14:23 Date of Service: Mar 07, 2019 Chief Complaint The patient is a 43-year-old female Who presented to the ER with complaints of suicidal ideation History of Present Illness Patient is a 43 year old female with a PMHx of Sciatica and possible HTN who presented to the ER with complaints of suicidal ideation. Patient was admitted to the psychiatric service and placed in [facility]. Hospital services consultation for medical screening evaluation. Patient denied any headache, nausea, vomiting, chest pain, palpitations, cough, abdominal pain, constipation, diarrhea, discomfort with urination or fevers. . She did report subjective chills. Patient reports that she may have lost weight, but is unable to quantify and reports that her appetite has been fairly normal. Home Medications No Active Prescriptions or Reported Meds Allergies Coded Allergies: No Known Allergies (Verified , 03/06/19) Past Medical History Medical History Sciatica HTN? Surgical History Family History - Mother with history of depression and heart disease - Father with history of heart disease and diabetes - Maternal grandmother with a history of cervical cancer Social History - Denies the use of tobacco; Social alcohol use; Reports the use of marijuana and prescription opiates - Denies recent travel or sick contacts - Lives with two daughters - Occupation; works at [employer]. Review of Systems Other systems 10 point review of systems complete, all negative otherwise stated in HPI Vital Signs - Vitals: BP 152/98, HR 88, RR 18, Sat 100%RA, Temp 97.6F - General: Lying in bed, No acute distress, Speaking in full sentences, AAOx3 - HEENT: NC, AT, PERRLA - CVS: RRR, +S1S2 - Lungs: Fair air entry bilaterally, No appreciable wheezing / rales / rhonchi - Abdomen: Soft, Non-distended, Non-tender - Extremities: No lower extremity edema, No calf tenderness - Neuro: No focal motor or sensory deficit - Skin: No visible rashes Plan / VTE VTE Prophylaxis Ordered?: Yes Plan Plan Suicidal ideation - Who has been admitted to inpatient mental health unit under the care of psychiatry - Currently being managed by psychiatry HTN - BP is moderately elevated - Patient reports that she has a history of hypertension, however, does not take any medications as an outpatient - Will start the patient on low-dose amlodipine and will adjust as needed Sciatica - Patient is a history of opiate abuse - Will continue with Tylenol when necessary DVT prophylaxis - c/w early ambulation Female pleater was present for the duration of his history and physical examination Thank you for the consultation. Please reconsult as needed TOMAS GORDON MD Mar 07, 2019 10:25
[2019-03-07] MEDS ORDERED: FLUoxetine 20 MG CAP PO ONE (11:45)
[2019-03-07] MEDS: POLYVINYL ALCOHOL OPHTH SOLN 15 ML(LIQUITEARS) OU PRN ×2 (14:37→17:51)
[2019-03-07 15:45] VITALS: BP 142/79
[2019-03-07] MEDS: OLANZapine ORAL DISINTEGRATING TAB 5MG PO PRN (18:03)
[2019-03-08] MEDS: hydrOXYzine 50 MG TAB PO PRN (01:00)
[2019-03-08] MEDS: traZODone 50 MG TAB PO PRN (01:00)
[2019-03-08 06:10] VITALS: BP 137/77
[2019-03-08] MEDS ORDERED: INFLUENZA QUADRIVALENT PF VACCINE 0.5ML SYRINGE (90686) IM ONE (09:00)
[2019-03-08] MEDS: FLUoxetine 20 MG CAP PO SCH (10:04)
[2019-03-08] MEDS: amLODIPine 5 MG TAB PO SCH (10:04)
--- NOTE | 2019-03-08 10:44 | MHIPNPDOC ---
[facility] Progress Note Progress Note DATE OF SERVICE: 03/08/19 HISTORY: Patient is a 43 -year-old , female, who was brought to the ER stating that she had a plant to take pills in a bathtub and drown herself in the hopes of dying. Pt states that she "does not deserve to be here" but she is "too much of a coward to go through with killing myself". She states that she is a bad mother and that her kids would be better off if she was . She states that she originally began taking prescription pain medications after she was diagnosed with a low back injury and became addicted. She was seen at pain management but is no longer a patient there. She states that she steals pain medication and manipulates other people for her own gain. She expresses active SI and has expressed a want to overdose on pain medications but states she can't do it. Denied HI/AH/VH. Pt is a 43 year old female who states she's here b/c she was having SI due to her stealing her family's OxyContin and Vicodin to abuse which makes her feel guilty and depressed. States she feels she doesn't have a right to live but knows if she were to kill herself she'd leave her kids without a mother which "isn't fair to them." She has significant distress over her prescription medication abuse and states that she "does not deserve to live anymore". She was tearful on exam stating that her actions are unfair to her children and the people that she manipulates to feed her addition. Pt crying stating she's "so sorry" for what she's been doing. She states that she has had thoughts of dying for her whole life and describes herself as a depressed person. Discussed CBT with pt and encouraged her to focus on things that make her a good mother such as telling her children she loves them, feeding them, etc. Encouraged to go to groups as part of her treatment. Discussed starting prozac for depression and vistaril prn anxiety with pt, risks/benefits discussed, and pt agreeable. Denies intent/plan for SI, endorses passive SI. Denies HI, hallucinations, delusions. Feels safe here. VITAL SIGNS: See below. NEW TEST RESULTS: See below. CURRENT MEDICATIONS: See below. MENTAL STATUS EXAMINATION: General Appearance: unkempt, disheveled, ds/not appear stated age, hospital scubs/clothing Build: overweight Demeanor: withdrawn, other (sad) Eye Contact: poor, other (Looks at ground during interview) Activity: slowed Behavior: cooperative, anhedonia, withdrawn Speech: slow, low in volume Mood: depressed Mood "I'm thinking too much of the past" Affect: constricted, congruent Thought Process: logical/linear, circumstantial, depressed, slow, other (negative cognitive distortions about being a bad mother) Thought Content (Delusions): denies SI, HI, AVH (endorses passive SI) Thought Content (Other): guilty Thought Content (Aggressive): none reported Perception (Hallucinations): none reported Perception (Other): none reported Cognition (Impairment of): none reported Cognition(Intelligence Est.): average Oriented: Awake, Alert, Oriented times three Insight: poor Judgment: Poor Psychosis: Denies DIAGNOSES: Unspecified depression R/O substance induced depression secondary to opiates R/O major depressive d/o recurrent severe w/o psychosis Opiate use disorder ASSESSMENT:Pt seen and states she feels a little better but is preoccupied with thinking of the past and all the people she feels she's urt by taking their narcotics. Pt encouraged to think not of the past as can't change the past but rather think ing of the present and the future and how she can change her actions to that of by being sober and not stealing or abusing narcotics. Pt found this helpful and states she'll work on it. States's she going to group and finding it helpful for her to learn coping skills regarding her depression and cognitive distortions. States she tolerating the prozac and believes it may be beneficial. Will continue to monitor pt to assess over time. Denies intent/plan SI, HI, hallucinations, delusions. Still endorses passive SI occasionally thru out the day. Feels safe here. MANAGEMENT PLAN: continue plan. prozac 20mg daily vistaril 50mg q4hr prn anxiety TIME SPENT: 30 minutes. Vital Signs Vital Signs Date Time Temp Pulse Resp B/P (MAP) Pulse Ox O2 Delivery O2 Flow Rate FiO2 03/08/19 06:10 98.2 77 16 137/77 (97) 03/06/19 16:00 100 Room Air Current Medications Current Medications Medications (Trade) Dose Ordered Sig/Yifan Route PRN Reason Start Time Stop Time Status Last Admin Dose Admin Acetaminophen (Tylenol Tab) 650 mg Q6HP PRN PO HEADACHE or DISCOMFORT 03/06/19 14:30 Al Hydrox/Mg Hydrox/Simethicone (Mylanta) 30 ml Q4HP PRN PO HEARTBURN/INDIGESTION 03/06/19 14:30 Amlodipine Besylate (Norvasc) 5 mg DAILY PO 03/08/19 09:00 Artificial Tears (Akwa Tears) 2 drop QIDP PRN OU DRY EYES 03/07/19 12:45 03/07/19 17:51 Fluoxetine HCl (PROzac) 20 mg DAILY PO 03/08/19 09:00 Home Med (Med Rec Complete!) ASDIRECTED XX 03/06/19 10:45 03/06/19 10:41 DC Hydroxyzine HCl (Atarax) 50 mg Q4HP PRN PO ANXIETY/AGITATION 03/07/19 11:45 03/08/19 01:00 Magnesium Hydroxide (Milk Of Magnesia) 30 ml DAILYPRN PRN PO CONSTIPATION 03/06/19 14:30 Olanzapine (ZyPREXA ZYDIS) 10 mg Q4HP PRN PO AGITATION 03/06/19 15:00 03/07/19 18:03 Trazodone HCl (Desyrel) 50 mg QHSP PRN PO INSOMNIA 03/06/19 21:00 03/08/19 01:00 Allergies Coded Allergies: No Known Allergies (Verified , 03/06/19) DEVAUGHN VERDE DO Mar 08, 2019 9:08 am
[2019-03-08 16:19] VITALS: BP 146/78
[2019-03-09] MEDS: traZODone 50 MG TAB PO PRN (00:41)
[2019-03-09] MEDS: hydrOXYzine 50 MG TAB PO PRN ×2 (00:41→11:16)
[2019-03-09] MEDS: OLANZapine ORAL DISINTEGRATING TAB 5MG PO PRN ×2 (00:41→10:00)
[2019-03-09 06:12] VITALS: BP 110/55
[2019-03-09] MEDS: amLODIPine 5 MG TAB PO SCH (09:46)
[2019-03-09] MEDS: FLUoxetine 20 MG CAP PO SCH (09:46)
[2019-03-09] MEDS: PALIPERIDONE 3 MG ER TAB (INVEGA) PO SCH ×2 (12:26→12:27)
[2019-03-09 15:35] VITALS: BP 135/88
--- NOTE | 2019-03-09 16:12 | MHIPN ---
DATE: 03/09/2019 The patient today appeared to be very psychotic. She thought that she was being poisoned. She was hearing voices giving her various messages. She was denying being suicidal. She was very anxious. MENTAL STATUS EXAMINATION: This patient is alert and oriented times three. Eye contact is poor. She was tearful at times. At times she was guarded and she would say that maybe she should not tell us that she was having voices because that would keep her in the hospital longer. Psychomotor activity was severely impaired. There is no formal thought disorder noted. Mood is depressed and anxious. Affect is flat. She is definitely having auditory hallucinations and some paranoid delusions. She is not suicidal or homicidal. Concentration is poor. Memory is grossly intact. Insight and judgment poor. DIAGNOSES: 1. Unspecified psychotic disorder. 2. Unspecified depressive disorder. 3. Rule out major depressive disorder with psychotic symptoms. 4. Rule out substance induced depression and opioid use disorder, in remission. TREATMENT PLAN: In the admission note, the patient was initially described as unspecified depressive disorder, but I have added unspecified psychotic disorder and most likely this could be a major depression with psychotic disorder and therefore, I will start the patient on Abilify 2 mg daily. She had some Zyprexa Zydis as needed ordered and some Atarax for anxiety. As I said, I added some Abilify 2 mg daily because definitely I think that this patient is very psychotic today. She is also on Prozac, which will continue to be titrated as indicated.
[2019-03-10 06:21] VITALS: BP 133/66
[2019-03-10 10:00] LABS: BLOOD UREA NITROGEN 14 MG/DL (7-18); CALCIUM LEVEL 8.4 MG/DL (8.5-10.1); CARBON DIOXIDE LEVEL 23 MEQ/L (21-32); CHLORIDE LEVEL 112 MEQ/L (98-107); CREATININE FOR GFR 0.67 MG/DL (0.55-1.30); FREE T4 0.75 NG/DL (0.76-1.46); GLOMERULAR FILTRATION RATE > 60.0 (>58); GLUCOSE, FASTING 98 MG/DL (70-100); POTASSIUM SERUM 3.6 MEQ/L (3.5-5.1); SODIUM LEVEL 142 MEQ/L (136-145)
[2019-03-10] MEDS: FLUoxetine 20 MG CAP PO SCH (10:00)
[2019-03-10] MEDS: PALIPERIDONE 3 MG ER TAB (INVEGA) PO SCH (10:00)
[2019-03-10] MEDS: amLODIPine 5 MG TAB PO SCH (10:05)
--- NOTE | 2019-03-10 14:39 | MHIPN ---
DATE: 03/10/2019 The patient today was laying in bed. She was sleeping. She did arouse easily, but she basically appeared like she was just staring in space. She whispered almost inaudibly that she was ready to go home, but other than that, was not really abut to get much response to any further questioning. She did admit that she is still hearing voices. The patient remains very psychotic. As I said, is basically laying in bed, is hard to assess, even her orientation fully. She is oriented to person and to place, and she is still having auditory hallucinations. Insight and judgment is poor. Affect is flat. DIAGNOSES: 1. Unspecified psychotic disorder. 2. Unspecified depressive disorder. 3. Rule out substance-induced depressive disorder. 4. Rule out major depressive disorder with psychotic symptoms. 5. Opioid use disorder. TREATMENT PLAN: At this point, the patient will be further evaluated for her psychotic symptoms. The patient is actually pretty flat today, almost looks a bit catatonic. She had been taking some Zyprexa Zydis 10 mg. I started her on Invega 3 mg and wanted her to get her first dose yesterday, but she refused yesterday's dose, but she took today's dose all right and I am going to go ahead and start her on some Ativan, since the patient, at this point, is very flat, more so than yesterday, and a bit almost catatonic, staring straight into space. I will start her on some Ativan 0.5 mg three times a day.
[2019-03-10] MEDS: LORazepam 0.5 MG TAB PO SCH ×2 (15:49→20:18)
[2019-03-10 16:06] VITALS: BP 121/70
[2019-03-10] MEDS: traZODone 50 MG TAB PO PRN (20:17)
[2019-03-11 06:45] VITALS: BP 116/64
[2019-03-11 08:48] VITALS: BP 118/74
[2019-03-11] MEDS: PALIPERIDONE 3 MG ER TAB (INVEGA) PO SCH (08:48)
[2019-03-11] MEDS: LORazepam 0.5 MG TAB PO SCH ×3 (08:49→21:00)
[2019-03-11] MEDS: amLODIPine 5 MG TAB PO SCH (08:49)
[2019-03-11] MEDS: FLUoxetine 20 MG CAP PO SCH (08:49)
--- NOTE | 2019-03-11 10:54 | MHIPNPDOC ---
[facility] Progress Note Progress Note DATE OF SERVICE: 03/11/19 HISTORY: Patient is a 43 -year-old , female, who was brought to the ER stating that she had a plant to take pills in a bathtub and drown herself in the hopes of dying. Pt states that she "does not deserve to be here" but she is "too much of a coward to go through with killing myself". She states that she is a bad mother and that her kids would be better off if she was . She states that she originally began taking prescription pain medications after she was diagnosed with a low back injury and became addicted. She was seen at pain management but is no longer a patient there. She states that she steals pain medication and manipulates other people for her own gain. She expresses active SI and has expressed a want to overdose on pain medications but states she can't do it. Denied HI/AH/VH. Pt is a 43 year old female who states she's here b/c she was having SI due to her stealing her family's OxyContin and Vicodin to abuse which makes her feel guilty and depressed. States she feels she doesn't have a right to live but knows if she were to kill herself she'd leave her kids without a mother which "isn't fair to them." She has significant distress over her prescription medication abuse and states that she "does not deserve to live anymore". She was tearful on exam stating that her actions are unfair to her children and the people that she manipulates to feed her addition. Pt crying stating she's "so sorry" for what she's been doing. She states that she has had thoughts of dying for her whole life and describes herself as a depressed person. Discussed CBT with pt and encouraged her to focus on things that make her a good mother such as telling her children she loves them, feeding them, etc. Encouraged to go to groups as part of her treatment. Discussed starting prozac for depression and vistaril prn anxiety with pt, risks/benefits discussed, and pt agreeable. Denies intent/plan for SI, endorses passive SI. Denies HI, hallucinations, delusions. Feels safe here. VITAL SIGNS: See below. NEW TEST RESULTS: See below. CURRENT MEDICATIONS: See below. MENTAL STATUS EXAMINATION: General Appearance: clean, ds/not appear stated age, hospital scrubs/clothing Build: overweight Demeanor: worrisome, anxious Eye Contact: fair Activity: less slowed Behavior: cooperative, worrisome, anxious Speech: slow, low in volume Mood: depressed, anxious, worried Mood "I don't know what's going on anymore" Affect: constricted, congruent, anxious, worrisome Thought Process: linear, confused regarding reality testingl, depressed, slow, other (negative cognitive distortions about being a bad mother) Thought Content (Delusions): denies SI, HI, VH (endorses passive SI), AH of p eople and family telling her she's doing "bad things" Thought Content (Other): guilty Thought Content (Aggressive): none reported Perception (Hallucinations): AH of people and family telling her she's doing "bad things" Perception (Other): none reported Cognition (Impairment of): none reported Cognition(Intelligence Est.): average Oriented: Awake, Alert, Oriented times three Insight: poor Judgment: Poor Psychosis: Denies DIAGNOSES: Unspecified psychosis R/O major depressive d/o recurrent severe w/psychosis possible Opiate use disorder ASSESSMENT:Per nursing, pt starting experiencing symptoms of psychosis over the weekend, endorsing delusions and AH that she had been harming her children to the point of calling CPS on herself and telling them she had been harming her children by taking their medication and now CPS report being generated about the pt's compliant. Dr. Yanez started pt on invega over the weekend for psychosis. D/c master planner states they spoke with pt's mother who stated that her outpatient doctor that prescribes her pain meds counts them every time she sees him and that to her knowledge none of her pills are missing. Pt utox was negative on admission so her taking her mother's and children's pills may be a persecutory delusion about her self due to her depressive thoughts and negative cognitive distortions. TSH elevated to 9, T3 pending of thyroid profile, d epression and psychosis could be secondary to hypothyroidism. Pt seen and states she feels "strange" and doesn't know what's going on with her. Endorses AH of people and her family telling her she's been doing "bad things". Beliefs that peers on the unit are trying to send her "messages" and is trying to figure out what the message is (thoughts insertion). States she does know if invega is helping her. Endorses a lot of worry and discussed with pt starting rexulti and discontinuing invega to aid symptoms of psychosis/worry/depression as may be more beneficial and is agreeable (risks/benefits discussed). States she's going to group but is unable to pay attention due to AH and worrisome thoughts. Appears confused as in what is reality and what isn't. Appears anxious and worried. States she tolerating the prozac and believes it may be beneficial. Will continue to monitor pt to assess over time. Denies intent/plan SI, HI. Still endorses passive SI occasionally thru out the day. Feels safe here. MANAGEMENT PLAN: continue plan. d/c invega, start rexulti 1mg daily prozac 20mg daily vistaril 50mg q4hr prn anxiety rexulti 1mg daily TIME SPENT: 30 minutes. Vital Signs Vital Signs Date Time Temp Pulse Resp B/P (MAP) Pulse Ox O2 Delivery O2 Flow Rate FiO2 03/11/19 08:49 102 118/74 03/11/19 06:45 97.3 12 03/08/19 16:19 100 Room Air Current Medications Current Medications Medications (Trade) Dose Ordered Sig/Yifan Route PRN Reason Start Time Stop Time Status Last Admin Dose Admin Acetaminophen (Tylenol Tab) 650 mg Q6HP PRN PO HEADACHE or DISCOMFORT 03/06/19 14:30 Al Hydrox/Mg Hydrox/Simethicone (Mylanta) 30 ml Q4HP PRN PO HEARTBURN/INDIGESTION 03/06/19 14:30 Amlodipine Besylate (Norvasc) 5 mg DAILY PO 03/08/19 09:00 03/11/19 08:49 Artificial Tears (Akwa Tears) 2 drop QIDP PRN OU DRY EYES 03/07/19 12:45 03/07/19 17:51 Fluoxetine HCl (PROzac) 20 mg DAILY PO 03/08/19 09:00 03/11/19 08:49 Home Med (Med Rec Complete!) ASDIRECTED XX 03/06/19 10:45 03/06/19 10:41 DC Hydroxyzine HCl (Atarax) 50 mg Q4HP PRN PO ANXIETY/AGITATION 03/07/19 11:45 03/09/19 11:16 Lorazepam (Ativan) 0.5 mg TID PO 03/10/19 16:00 03/11/19 08:49 Magnesium Hydroxide (Milk Of Magnesia) 30 ml DAILYPRN PRN PO CONSTIPATION 03/06/19 14:30 Olanzapine (ZyPREXA ZYDIS) 10 mg Q4HP PRN PO AGITATION 03/06/19 15:00 03/09/19 10:00 Paliperidone (Invega) 3 mg QAM PO 03/09/19 09:00 03/11/19 08:48 Trazodone HCl (Desyrel) 50 mg QHSP PRN PO INSOMNIA 03/06/19 21:00 03/10/19 20:17 Allergies Coded Allergies: No Known Allergies (Verified , 03/06/19) DEVAUGHN VERDE DO Mar 11, 2019 10:53 am
[2019-03-11 16:00] VITALS: BP 132/90
[2019-03-11] MEDS: traZODone 50 MG TAB PO PRN (21:00)
[2019-03-12 06:19] VITALS: BP 130/65
[2019-03-12] MEDS: LEVOTHYROXINE 25MCG TABLET (0.025MG) PO SCH (06:28)
[2019-03-12] MEDS: LORazepam 0.5 MG TAB PO SCH ×3 (09:05→21:09)
[2019-03-12] MEDS: PALIPERIDONE 3 MG ER TAB (INVEGA) PO SCH (09:05)
[2019-03-12] MEDS: FLUoxetine 20 MG CAP PO SCH (09:05)
[2019-03-12] MEDS: amLODIPine 5 MG TAB PO SCH (09:12)
--- NOTE | 2019-03-12 10:28 | MHIPNPDOC ---
[facility] Progress Note Progress Note DATE OF SERVICE: 03/12/19 HISTORY: Patient is a 43 -year-old , female, who was brought to the ER stating that she had a plant to take pills in a bathtub and drown herself in the hopes of dying. Pt states that she "does not deserve to be here" but she is "too much of a coward to go through with killing myself". She states that she is a bad mother and that her kids would be better off if she was . She states that she originally began taking prescription pain medications after she was diagnosed with a low back injury and became addicted. She was seen at pain management but is no longer a patient there. She states that she steals pain medication and manipulates other people for her own gain. She expresses active SI and has expressed a want to overdose on pain medications but states she can't do it. Denied HI/AH/VH. Pt is a 43 year old female who states she's here b/c she was having SI due to her stealing her family's OxyContin and Vicodin to abuse which makes her feel guilty and depressed. States she feels she doesn't have a right to live but knows if she were to kill herself she'd leave her kids without a mother which "isn't fair to them." She has significant distress over her prescription medication abuse and states that she "does not deserve to live anymore". She was tearful on exam stating that her actions are unfair to her children and the people that she manipulates to feed her addition. Pt crying stating she's "so sorry" for what she's been doing. She states that she has had thoughts of dying for her whole life and describes herself as a depressed person. Discussed CBT with pt and encouraged her to focus on things that make her a good mother such as telling her children she loves them, feeding them, etc. Encouraged to go to groups as part of her treatment. Discussed starting prozac for depression and vistaril prn anxiety with pt, risks/benefits discussed, and pt agreeable. Denies intent/plan for SI, endorses passive SI. Denies HI, hallucinations, delusions. Feels safe here. VITAL SIGNS: See below. NEW TEST RESULTS:T3 wnl 102.0. CURRENT MEDICATIONS: See below. MENTAL STATUS EXAMINATION: General Appearance: clean, ds/not appear stated age, hospital scrubs/clothing Build: overweight Demeanor: worrisome, anxious Eye Contact: fair Activity: less slowed Behavior: cooperative, worrisome, anxious Speech: slow, low in volume Mood: depressed, anxious, worried Mood "I don't know what's going on anymore" Affect: constricted, congruent, anxious, worrisome Thought Process: concrete, confused regarding reality testing, depressed, slow, other (negative cognitive distortions about being a bad mother), confused with the sound of the heater turning on in my office and looked slightly started thinking it was something else Thought Content (Delusions): denies SI, HI, VH (endorses passive SI), AH of people and family telling her she's doing "bad things" and "weird noises" Thought Content (Other): guilty Thought Content (Aggressive): none reported Perception (Hallucinations): AH of people and family telling her she's doing "bad things" and "weird noises" Perception (Other): none reported Cognition (Impairment of): none reported Cognition(Intelligence Est.): average Oriented: Awake, Alert, Oriented times three Insight: poor Judgment: Poor Psychosis: Denies DIAGNOSES: Unspecified psychosis R/O major depressive d/o recurrent severe w/psychosis possible Opiate use disorder ASSESSMENT:Pt seen this am and continues to endorses AH and paranoia "that everyone is against me." Her thoughts are concrete and she endorses confusion at time, confused with the sound of the heater turning on in my office and looked slightly started thinking it was something else. States her worry is still there but a little better with start of rexulti that she's tolerating well. States "I just feel scared all the time" due to AH and paranoia. Discussed starting haldol tid for pt to improve AH, paranoia, and fear and she is agreeable. (risks/benefits discussed). Continues to endorse depressed mood and negative cognitive distortions that she's a horrible person that was harming her family and children by taking there meds which may be a persecutory delusion as pt's mother denies her narcotic pain meds were missing. D/c cyber intel planner states they spoke with pt's mother who stated that her outpatient doctor that prescribes her pain meds counts them every time she sees him and that to her knowledge none of her pills are missing. Pt utox was negative on admission so her taking her mother's and children's pills may be a persecutory delusion about her self due to her depressive thoughts and negative cognitive distortions. T3 102.0 which is wnl in thyroid profile will await medicine follow-up regarding possible start of synthroid for possible hypothyroidism although they may recommend further lab testing to determine if the pt is suffering from hypothyroidism as T3 is wnl. Pt's depression and psychosis could be secondary to hypothyroidism. Continues to endorses AH of people and her family telling her she's been doing "bad things" and now "weird things". Beliefs that peers on the unit are "against me" (paranoia) and still endorses (thoughts insertion). States she's going to group but is unable to pay attention due to AH, paranoia, fear, and worrisome thoughts. Appears confused as in what is reality and what isn't. Appears depressed, anxious, and worried. States she tolerating the prozac and believes it may be beneficial. Will continue to monitor pt to assess over time. Denies intent/plan SI, HI. Still endorses passive SI occasionally thru out the day. Feels safe here. MANAGEMENT PLAN: continue plan. start haldol 2.5mg tid prozac 20mg daily vistaril 50mg q4hr prn anxiety rexulti 1mg daily TIME SPENT: 30 minutes. Vital Signs Vital Signs Date Time Temp Pulse Resp B/P (MAP) Pulse Ox O2 Delivery O2 Flow Rate FiO2 03/12/19 09:12 78 136/80 03/12/19 06:19 98.1 16 03/08/19 16:19 100 Room Air Current Medications Current Medications Medications (Trade) Dose Ordered Sig/Yifan Route PRN Reason Start Time Stop Time Status Last Admin Dose Admin Acetaminophen (Tylenol Tab) 650 mg Q6HP PRN PO HEADACHE or DISCOMFORT 03/06/19 14:30 Al Hydrox/Mg Hydrox/Simethicone (Mylanta) 30 ml Q4HP PRN PO HEARTBURN/INDIGESTION 03/06/19 14:30 Amlodipine Besylate (Norvasc) 5 mg DAILY PO 03/08/19 09:00 03/12/19 09:12 Artificial Tears (Akwa Tears) 2 drop QIDP PRN OU DRY EYES 03/07/19 12:45 03/07/19 17:51 Fluoxetine HCl (PROzac) 20 mg DAILY PO 03/08/19 09:00 03/12/19 09:05 Home Med (Med Rec Complete!) ASDIRECTED XX 03/06/19 10:45 03/06/19 10:41 DC Hydroxyzine HCl (Atarax) 50 mg Q4HP PRN PO ANXIETY/AGITATION 03/07/19 11:45 03/09/19 11:16 Levothyroxine Sodium (Synthroid) 25 mcg DAILY@06 PO 03/12/19 06:00 03/12/19 06:28 Lorazepam (Ativan) 0.5 mg TID PO 03/10/19 16:00 03/12/19 09:05 Magnesium Hydroxide (Milk Of Magnesia) 30 ml DAILYPRN PRN PO CONSTIPATION 03/06/19 14:30 Olanzapine (ZyPREXA ZYDIS) 10 mg Q4HP PRN PO AGITATION 03/06/19 15:00 03/09/19 10:00 Paliperidone (Invega) 3 mg QAM PO 03/09/19 09:00 03/12/19 09:05 Trazodone HCl (Desyrel) 50 mg QHSP PRN PO INSOMNIA 03/06/19 21:00 03/11/19 21:00 Allergies Coded Allergies: No Known Allergies (Verified , 03/06/19) DEVAUGHN VERDE DO Mar 12, 2019 10:28 am
[2019-03-12] MEDS ORDERED: haloperidoL 5 MG TAB PO ONE (10:45)
[2019-03-12] MEDS ORDERED: BREXPIPRAZOLE 0.5MG TABLET (REXULTI) PO ONE (10:45)
[2019-03-12] MEDS: PILL CUTTER 1 EACH XX PRN ×3 (11:35→21:09)
[2019-03-12] MEDS: haloperidoL 5 MG TAB PO SCH ×2 (15:04→21:09)
[2019-03-12 16:08] VITALS: BP 110/56
[2019-03-13] MEDS: LEVOTHYROXINE 25MCG TABLET (0.025MG) PO SCH (06:04)
[2019-03-13 07:20] VITALS: BP 130/73
[2019-03-13] MEDS: LORazepam 0.5 MG TAB PO SCH ×3 (09:07→21:33)
[2019-03-13] MEDS: haloperidoL 5 MG TAB PO SCH ×3 (09:08→21:34)
[2019-03-13] MEDS: amLODIPine 5 MG TAB PO SCH (09:08)
[2019-03-13] MEDS: PILL CUTTER 1 EACH XX PRN ×3 (09:08→21:34)
[2019-03-13] MEDS: FLUoxetine 20 MG CAP PO SCH (09:08)
[2019-03-13] MEDS: BREXPIPRAZOLE 0.5MG TABLET (REXULTI) PO SCH (09:08)
--- NOTE | 2019-03-13 10:47 | MHIPNPDOC ---
[facility] Progress Note Progress Note DATE OF SERVICE: 03/13/19 HISTORY: Patient is a 43 -year-old , female, who was brought to the ER stating that she had a plant to take pills in a bathtub and drown herself in the hopes of dying. Pt states that she "does not deserve to be here" but she is "too much of a coward to go through with killing myself". She states that she is a bad mother and that her kids would be better off if she was . She states that she originally began taking prescription pain medications after she was diagnosed with a low back injury and became addicted. She was seen at pain management but is no longer a patient there. She states that she steals pain medication and manipulates other people for her own gain. She expresses active SI and has expressed a want to overdose on pain medications but states she can't do it. Denied HI/AH/VH. Pt is a 43 year old female who states she's here b/c she was having SI due to her stealing her family's OxyContin and Vicodin to abuse which makes her feel guilty and depressed. States she feels she doesn't have a right to live but knows if she were to kill herself she'd leave her kids without a mother which "isn't fair to them." She has significant distress over her prescription medication abuse and states that she "does not deserve to live anymore". Encouraged to go to groups as part of her treatment. Discussed starting prozac for depression and vistaril prn anxiety with pt, risks/benefits discussed, and pt agreeable. Denies intent/plan for SI, endorses passive SI. Denies HI, hallucinations, delusions. Feels safe here. VITAL SIGNS: See below. NEW TEST RESULTS:T3 wnl 102.0. CURRENT MEDICATIONS: See below. MENTAL STATUS EXAMINATION: Roughly no change General Appearance: clean, ds/not appear stated age, hospital scrubs/clothing Build: overweight Demeanor: worrisome, anxious Eye Contact: fair Activity: less slowed Behavior: cooperative, worrisome, anxious Speech: slow, low in volume Mood: depressed, anxious, worried Mood "I feel like people are against me" Affect: constricted, congruent, anxious, worrisome Thought Process: concrete, confused regarding reality testing, depressed, slow, other (negative cognitive distortions about being a bad mother), confused with the sound of the heater turning on in my office and looked slightly started thinking it was something else Thought Content (Delusions): denies SI, HI, VH (endorses passive SI), AH of people and family telling her she's doing "bad things" and "weird noises" Thought Content (Other): guilty Thought Content (Aggressive): none reported Perception (Hallucinations): AH of people and family telling her she's doing "bad things" and "weird noises" Perception (Other): none reported Cognition (Impairment of): none reported Cognition(Intelligence Est.): average Oriented: Awake, Alert, Oriented times three Insight: poor Judgment: Poor Psychosis: Denies DIAGNOSES: Unspecified psychosis R/O major depressive d/o recurrent severe w/psychosis possible Opiate use disorder ASSESSMENT:Pt seen this am and continues to endorses AH and paranoia "that everyone is against me" although slightly better but still feeling "scared" overall she states. Her thoughts remain concrete and she endorses confusion at times. Continues to endorse worry and the feeling like "something's wrong." Will continue haldol and rexulti that she's tolerating will see if worry, paranoia, AH with continued use over time. States "I just feel scared all the time" due to AH and paranoia. Discussed starting haldol tid for pt to improve AH, paranoia, and fear and she is agreeable. (risks/benefits discussed). Светлана nues to endorse depressed mood and negative cognitive distortions that she's a horrible person that was harming her family and children by taking there meds which may be a persecutory delusion as pt's mother denies her narcotic pain meds were missing. D/c party planner states they spoke with pt's mother who stated that her outpatient doctor that prescribes her pain meds counts them every time she sees him and that to her knowledge none of her pills are missing. Pt seen by medicine yesterday and started on synthroid for hypothyroidism. Pt's depression and psychosis could be secondary to hypothyroidism. Continues to endorses AH of people and her family telling her she's been doing "bad things" and now "weird things". Beliefs that peers on the unit are "against me" (paranoia) and still endorses (thoughts insertion). States she's going to group but is unable to pay attention due to AH, paranoia, fear, and worrisome thoughts. Appears confused as in what is reality and what isn't. Appears depressed, anxious, and worried. States she tolerating the prozac and believes it may be beneficial. Will continue to monitor pt to assess over time. Denies intent/plan SI, HI. Still endorses passive SI occasionally thru out the day. Feels safe here. MANAGEMENT PLAN: continue plan. start haldol 2.5mg tid prozac 20mg daily vistaril 50mg q4hr prn anxiety rexulti 1mg daily TIME SPENT: 30 minutes. Vital Signs Vital Signs Date Time Temp Pulse Resp B/P (MAP) Pulse Ox O2 Delivery O2 Flow Rate FiO2 03/13/19 09:08 104 121/76 03/13/19 07:20 97.4 16 03/08/19 16:19 100 Room Air Current Medications Current Medications Medications (Trade) Dose Ordered Sig/Yifan Route PRN Reason Start Time Stop Time Status Last Admin Dose Admin Acetaminophen (Tylenol Tab) 650 mg Q6HP PRN PO HEADACHE or DISCOMFORT 03/06/19 14:30 Al Hydrox/Mg Hydrox/Simethicone (Mylanta) 30 ml Q4HP PRN PO HEARTBURN/INDIGESTION 03/06/19 14:30 Amlodipine Besylate (Norvasc) 5 mg DAILY PO 03/08/19 09:00 03/13/19 09:08 Artificial Tears (Akwa Tears) 2 drop QIDP PRN OU DRY EYES 03/07/19 12:45 03/07/19 17:51 Brexpiprazole (Rexulti) 1 mg DAILY PO 03/13/19 09:00 03/13/19 09:08 Fluoxetine HCl (PROzac) 20 mg DAILY PO 03/08/19 09:00 03/13/19 09:08 Haloperidol (Haldol) 2.5 mg TID PO 03/12/19 16:00 03/13/19 09:08 Home Med (Med Rec Complete!) ASDIRECTED XX 03/06/19 10:45 03/06/19 10:41 DC Hydroxyzine HCl (Atarax) 50 mg Q4HP PRN PO ANXIETY/AGITATION 03/07/19 11:45 03/09/19 11:16 Levothyroxine Sodium (Synthroid) 25 mcg DAILY@06 PO 03/12/19 06:00 03/13/19 06:04 Lorazepam (Ativan) 0.5 mg TID PO 03/10/19 16:00 03/13/19 09:07 Magnesium Hydroxide (Milk Of Magnesia) 30 ml DAILYPRN PRN PO CONSTIPATION 03/06/19 14:30 Olanzapine (ZyPREXA ZYDIS) 10 mg Q4HP PRN PO AGITATION 03/06/19 15:00 03/09/19 10:00 Paliperidone (Invega) 3 mg QAM PO 03/09/19 09:00 03/12/19 10:31 DC 03/12/19 09:05 Trazodone HCl (Desyrel) 50 mg QHSP PRN PO INSOMNIA 03/06/19 21:00 03/11/19 21:00 Allergies Coded Allergies: No Known Allergies (Verified , 03/06/19) DEVAUGHN VERDE DO Mar 13, 2019 10:47 am
[2019-03-13 16:33] VITALS: BP 111/60
[2019-03-14] MEDS: LEVOTHYROXINE 25MCG TABLET (0.025MG) PO SCH (05:54)
[2019-03-14 06:31] VITALS: BP 141/72
[2019-03-14] MEDS: BREXPIPRAZOLE 0.5MG TABLET (REXULTI) PO SCH (08:56)
[2019-03-14] MEDS: haloperidoL 5 MG TAB PO SCH ×3 (08:56→21:45)
[2019-03-14] MEDS: LORazepam 0.5 MG TAB PO SCH ×3 (08:56→21:45)
[2019-03-14] MEDS: FLUoxetine 20 MG CAP PO SCH (08:57)
[2019-03-14] MEDS: amLODIPine 5 MG TAB PO SCH (08:57)
--- NOTE | 2019-03-14 10:25 | MHIPNPDOC ---
[facility] Progress Note Progress Note DATE OF SERVICE: 03/14/19 HISTORY: Patient is a 43 -year-old , female, who was brought to the ER stating that she had a plant to take pills in a bathtub and drown herself in the hopes of dying. Pt states that she "does not deserve to be here" but she is "too much of a coward to go through with killing myself". She states that she is a bad mother and that her kids would be better off if she was . She states that she originally began taking prescription pain medications after she was diagnosed with a low back injury and became addicted. She was seen at pain management but is no longer a patient there. She states that she steals pain medication and manipulates other people for her own gain. She expresses active SI and has expressed a want to overdose on pain medications but states she can't do it. Denied HI/AH/VH. Pt is a 43 year old female who states she's here b/c she was having SI due to her stealing her family's OxyContin and Vicodin to abuse which makes her feel guilty and depressed. States she feels she doesn't have a right to live but knows if she were to kill herself she'd leave her kids without a mother which "isn't fair to them." She has significant distress over her prescription medication abuse and states that she "does not deserve to live anymore". Encouraged to go to groups as part of her treatment. Discussed starting prozac for depression and vistaril prn anxiety with pt, risks/benefits discussed, and pt agreeable. Denies intent/plan for SI, endorses passive SI. Denies HI, hallucinations, delusions. Feels safe here. VITAL SIGNS: See below. NEW TEST RESULTS:T3 wnl 102.0. CURRENT MEDICATIONS: See below. MENTAL STATUS EXAMINATION: Roughly no change General Appearance: clean, ds/not appear stated age, hospital scrubs/clothing Build: overweight Demeanor: worrisome, anxious Eye Contact: fair Activity: less slowed Behavior: cooperative, worrisome, anxious Speech: slow, low in volume Mood: depressed, anxious, worried Mood "confused" Affect: constricted, congruent, anxious, worrisome Thought Process: concrete, confused regarding reality testing, depressed, slow, other (negative cognitive distortions about being a bad mother) Thought Content (Delusions): denies SI, HI, VH (endorses passive SI), AH of people she states are "all around but I can't understand what they're saying" Thought Content (Other): guilty Thought Content (Aggressive): none reported Perception (Hallucinations): AH of people she states are "all around but I can't understand what they're saying" Perception (Other): none reported Cognition (Impairment of): none reported Cognition(Intelligence Est.): average Oriented: Awake, Alert, Oriented times three Insight: poor Judgment: Poor Psychosis: Denies DIAGNOSES: Unspecified psychosis R/O major depressive d/o recurrent severe w/psychosis possible Opiate use disorder ASSESSMENT:Pt seen this am in her room stating she has a stomach ache and feels "confused." Continues to endorse the belief that "everyone is aginst me and AH and that are "all around me... I don't understand what they're saying" which is some improvement in AH. Her thoughts remain concrete and confusion at times. Will continue hall and aylini that she's tolerating them well with mild improvement in AH when started. Will see if worry, paranoia, AH continue to improve with use over time. Continues to endorse depressed mood and negative cognitive distortions that she's a horrible person that was harming her family and children by taking there meds which may be a persecutory delusion as pt's mother denies her narcotic pain meds were missing. D/c marshal states they spoke with pt's mother who stated that her outpatient doctor that prescribes her pain meds counts them every time she sees him and that to her knowledge none of her pills are missing. Pt seen by medicine yesterday and started on synthroid for hypothyroidism. Pt's depression and psychosis could be secondary to hypothyroidism. States she's going to group but is unable to pay attention due to AH, paranoia, fear, and worrisome thoughts. Encouraged to still go to help her with negative cognitive distortions and depression. Appears confused as in what is reality and what isn't. Appears depressed, anxious, and worried. States she tolerating the prozac and believes it may be beneficial. Will continue to monitor pt to assess over time. Denies intent/plan SI, HI. Still endorses passive SI occasionally thru out the day. Feels safe here. MANAGEMENT PLAN: continue plan. May need [place] [place] [facility]. prozac 20mg daily vistaril 50mg q4hr prn anxiety rexulti 1mg daily haldol 2.5mg tid TIME SPENT: 30 minutes. Vital Signs Vital Signs Date Time Temp Pulse Resp B/P (MAP) Pulse Ox O2 Delivery O2 Flow Rate FiO2 03/14/19 08:57 10 154/2 03/14/19 06:31 97.5 16 03/08/19 16:19 100 Room Air Current Medications Current Medications Medications (Trade) Dose Ordered Sig/Yifan Route PRN Reason Start Time Stop Time Status Last Admin Dose Admin Acetaminophen (Tylenol Tab) 650 mg Q6HP PRN PO HEADACHE or DISCOMFORT 03/06/19 14:30 Al Hydrox/Mg Hydrox/Simethicone (Mylanta) 30 ml Q4HP PRN PO HEARTBURN/INDIGESTION 03/06/19 14:30 Amlodipine Besylate (Norvasc) 5 mg DAILY PO 03/08/19 09:00 03/14/19 08:57 Artificial Tears (Akwa Tears) 2 drop QIDP PRN OU DRY EYES 03/07/19 12:45 03/07/19 17:51 Brexpiprazole (Rexulti) 1 mg DAILY PO 03/13/19 09:00 03/14/19 08:56 Fluoxetine HCl (PROzac) 20 mg DAILY PO 03/08/19 09:00 03/14/19 08:57 Haloperidol (Haldol) 2.5 mg TID PO 03/12/19 16:00 03/14/19 08:56 Home Med (Med Rec Complete!) ASDIRECTED XX 03/06/19 10:45 03/06/19 10:41 DC Hydroxyzine HCl (Atarax) 50 mg Q4HP PRN PO ANXIETY/AGITATION 03/07/19 11:45 03/09/19 11:16 Levothyroxine Sodium (Synthroid) 25 mcg DAILY@06 PO 03/12/19 06:00 03/14/19 05:54 Lorazepam (Ativan) 0.5 mg TID PO 03/10/19 16:00 03/14/19 08:56 Magnesium Hydroxide (Milk Of Magnesia) 30 ml DAILYPRN PRN PO CONSTIPATION 03/06/19 14:30 Olanzapine (ZyPREXA ZYDIS) 10 mg Q4HP PRN PO AGITATION 03/06/19 15:00 03/09/19 10:00 Paliperidone (Invega) 3 mg QAM PO 03/09/19 09:00 03/12/19 10:31 DC 03/12/19 09:05 Trazodone HCl (Desyrel) 50 mg QHSP PRN PO INSOMNIA 03/06/19 21:00 03/11/19 21:00 Allergies Coded Allergies: No Known Allergies (Verified , 03/06/19) DEVAUGHN VERDE DO Mar 14, 2019 10:25 am
[2019-03-14 18:48] VITALS: BP 131/75
[2019-03-14] MEDS: PILL CUTTER 1 EACH XX PRN (21:44)
[2019-03-15] MEDS: LEVOTHYROXINE 25MCG TABLET (0.025MG) PO SCH (06:01)
[2019-03-15 06:14] VITALS: BP 113/66
[2019-03-15] MEDS ORDERED: **PENDING PPD ENTRY XX SCH (09:00)
[2019-03-15] MEDS: LORazepam 0.5 MG TAB PO SCH ×3 (09:08→21:54)
[2019-03-15] MEDS: FLUoxetine 20 MG CAP PO SCH (09:08)
[2019-03-15] MEDS: haloperidoL 5 MG TAB PO SCH ×3 (09:08→21:54)
[2019-03-15] MEDS: BREXPIPRAZOLE 0.5MG TABLET (REXULTI) PO SCH (09:08)
[2019-03-15] MEDS: amLODIPine 5 MG TAB PO SCH (09:08)
[2019-03-15] MEDS: PILL CUTTER 1 EACH XX PRN ×2 (09:08→15:18)
[2019-03-15] MEDS ORDERED: TUBERCULIN PPD 5 UNITS/0.1 ML ID ONE ×2 (09:30→12:00)
[2019-03-15] MEDS ORDERED: FLUoxetine 20 MG CAP PO ONE (10:00)
--- NOTE | 2019-03-15 10:44 | MHIPNPDOC ---
[facility] Progress Note Progress Note DATE OF SERVICE: 03/15/19 HISTORY: Patient is a 43 -year-old , female, who was brought to the ER stating that she had a plant to take pills in a bathtub and drown herself in the hopes of dying. Pt states that she "does not deserve to be here" but she is "too much of a coward to go through with killing myself". She states that she is a bad mother and that her kids would be better off if she was . She states that she originally began taking prescription pain medications after she was diagnosed with a low back injury and became addicted. She was seen at pain management but is no longer a patient there. She states that she steals pain medication and manipulates other people for her own gain. She expresses active SI and has expressed a want to overdose on pain medications but states she can't do it. Denied HI/AH/VH. Pt is a 43 year old female who states she's here b/c she was having SI due to her stealing her family's OxyContin and Vicodin to abuse which makes her feel guilty and depressed. States she feels she doesn't have a right to live but knows if she were to kill herself she'd leave her kids without a mother which "isn't fair to them." She has significant distress over her prescription medication abuse and states that she "does not deserve to live anymore". Encouraged to go to groups as part of her treatment. Discussed starting prozac for depression and vistaril prn anxiety with pt, risks/benefits discussed, and pt agreeable. Denies intent/plan for SI, endorses passive SI. Denies HI, hallucinations, delusions. Feels safe here. VITAL SIGNS: See below. NEW TEST RESULTS:T3 wnl 102.0. CURRENT MEDICATIONS: See below. MENTAL STATUS EXAMINATION: Roughly no change General Appearance: clean, ds/not appear stated age, hospital scrubs/clothing Build: overweight Demeanor: worrisome, anxious Eye Contact: fair Activity: less slowed Behavior: cooperative, worrisome, anxious Speech: slow, low in volume Mood: depressed, anxious, worried Mood "a little better" Affect: constricted, congruent, anxious, worrisome Thought Process: concrete, confused regarding reality testing, depressed, slow, other (negative cognitive distortions about being a bad mother) Thought Content (Delusions): denies SI, HI, VH (endorses passive SI), AH of people she states are "all around but I can't understand what they're saying" Thought Content (Other): guilty Thought Content (Aggressive): none reported Perception (Hallucinations): AH of people she states are "all around but I can't understand what they're saying" Perception (Other): none reported Cognition (Impairment of): none reported Cognition(Intelligence Est.): average Oriented: Awake, Alert, Oriented times three Insight: poor Judgment: Poor Psychosis: Denies DIAGNOSES: Unspecified psychosis R/O major depressive d/o recurrent severe w/psychosis possible Opiate use disorder ASSESSMENT:Pt seen this am in her room stating she feels "a little better." Continues to endorse the belief that "everyone is against me" that is only mildly less. States ehr AH are "better" today. Her thoughts remain concrete and confusion at times. Will increase haldol and continue rexulti as she's tolerating them well with mild improvement in AH and paranoia when started. Will continues see if worry, paranoia, AH continue to improve with use over time. Continues to endorse depressed mood and negative cognitive distortions that she's a horrible person that was harming her family and children by taking there meds which may be a persecutory delusion as pt's mother denies her narcotic pain meds were missing. D/c planner intern states they spoke with pt's mother who stated that her outpatient doctor that prescribes her pain meds counts them every time she sees him and that to her knowledge none of her pills are missing. Pt seen by medicine yesterday and started on synthroid for hypothyroidism. Pt 's depression and psychosis could be secondary to hypothyroidism. States she's going to group but is unable to pay attention due to AH, paranoia, fear, and worrisome thoughts. Encouraged to still go to help her with negative cognitive distortions and depression. Appears confused as in what is reality and what isn't. Appears depressed, anxious, and worried. States she tolerating the prozac and believes it may be beneficial. Will continue to monitor pt to assess over time. Denies intent/plan SI, HI. Still endorses passive SI occasionally thru out the day. Feels safe here. MANAGEMENT PLAN: continue plan. increase prozac to 40mg daily, increase haldol to 5mg tid. 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 prozac 40mg daily vistaril 50mg q4hr prn anxiety rexulti 1mg daily haldol 5mg tid TIME SPENT: 30 minutes. Vital Signs Vital Signs Date Time Temp Pulse Resp B/P (MAP) Pulse Ox O2 Delivery O2 Flow Rate FiO2 03/15/19 09:08 98 132/79 03/15/19 06:14 96.9 16 Current Medications Current Medications Medications (Trade) Dose Ordered Sig/Yifan Route PRN Reason Start Time Stop Time Status Last Admin Dose Admin Acetaminophen (Tylenol Tab) 650 mg Q6HP PRN PO HEADACHE or DISCOMFORT 03/06/19 14:30 Al Hydrox/Mg Hydrox/Simethicone (Mylanta) 30 ml Q4HP PRN PO HEARTBURN/INDIGESTION 03/06/19 14:30 Amlodipine Besylate (Norvasc) 5 mg DAILY PO 03/08/19 09:00 03/15/19 09:08 Artificial Tears (Akwa Tears) 2 drop QIDP PRN OU DRY EYES 03/07/19 12:45 03/07/19 17:51 Brexpiprazole (Rexulti) 1 mg DAILY PO 03/13/19 09:00 03/15/19 09:08 Fluoxetine HCl (PROzac) 20 mg DAILY PO 03/08/19 09:00 03/15/19 09:08 Haloperidol (Haldol) 2.5 mg TID PO 03/12/19 16:00 03/15/19 09:08 Home Med (Med Rec Complete!) ASDIRECTED XX 03/06/19 10:45 03/06/19 10:41 DC Hydroxyzine HCl (Atarax) 50 mg Q4HP PRN PO ANXIETY/AGITATION 03/07/19 11:45 03/09/19 11:16 Levothyroxine Sodium (Synthroid) 25 mcg DAILY@06 PO 03/12/19 06:00 03/15/19 06:01 Lorazepam (Ativan) 0.5 mg TID PO 03/10/19 16:00 03/15/19 09:08 Magnesium Hydroxide (Milk Of Magnesia) 30 ml DAILYPRN PRN PO CONSTIPATION 03/06/19 14:30 Olanzapine (ZyPREXA ZYDIS) 10 mg Q4HP PRN PO AGITATION 03/06/19 15:00 03/09/19 10:00 Paliperidone (Invega) 3 mg QAM PO 03/09/19 09:00 03/12/19 10:31 DC 03/12/19 09:05 Trazodone HCl (Desyrel) 50 mg QHSP PRN PO INSOMNIA 03/06/19 21:00 03/11/19 21:00 Allergies Coded Allergies: No Known Allergies (Verified , 03/06/19) DEVAUGHN VERDE DO Mar 15, 2019 9:24 am
--- NOTE | 2019-03-15 13:40 | MHIPNPDOC ---
[facility] Progress Note Progress Note Seen for 2pc eval, agree with Dr. Alonso, psychotic and unable to care for self Vital Signs Vital Signs Date Time Temp Pulse Resp B/P (MAP) Pulse Ox O2 Delivery O2 Flow Rate FiO2 03/15/19 09:08 98 132/79 03/15/19 06:14 96.9 16 Current Medications Current Medications Medications (Trade) Dose Ordered Sig/Yifan Route PRN Reason Start Time Stop Time Status Last Admin Dose Admin Acetaminophen (Tylenol Tab) 650 mg Q6HP PRN PO HEADACHE or DISCOMFORT 03/06/19 14:30 Al Hydrox/Mg Hydrox/Simethicone (Mylanta) 30 ml Q4HP PRN PO HEARTBURN/INDIGESTION 03/06/19 14:30 Amlodipine Besylate (Norvasc) 5 mg DAILY PO 03/08/19 09:00 03/15/19 09:08 Artificial Tears (Akwa Tears) 2 drop QIDP PRN OU DRY EYES 03/07/19 12:45 03/07/19 17:51 Brexpiprazole (Rexulti) 1 mg DAILY PO 03/13/19 09:00 03/15/19 09:08 Fluoxetine HCl (PROzac) 20 mg DAILY PO 03/08/19 09:00 03/15/19 09:25 DC 03/15/19 09:08 Fluoxetine HCl (PROzac) 40 mg DAILY PO 03/16/19 09:00 Haloperidol (Haldol) 2.5 mg TID PO 03/12/19 16:00 03/15/19 09:25 DC 03/15/19 09:08 Haloperidol (Haldol) 5 mg TID PO 03/15/19 16:00 Home Med (Med Rec Complete!) ASDIRECTED XX 03/06/19 10:45 03/06/19 10:41 DC Hydroxyzine HCl (Atarax) 50 mg Q4HP PRN PO ANXIETY/AGITATION 03/07/19 11:45 03/09/19 11:16 Levothyroxine Sodium (Synthroid) 25 mcg DAILY@06 PO 03/12/19 06:00 03/15/19 06:01 Lorazepam (Ativan) 0.5 mg TID PO 03/10/19 16:00 03/15/19 09:08 Magnesium Hydroxide (Milk Of Magnesia) 30 ml DAILYPRN PRN PO CONSTIPATION 03/06/19 14:30 Non-Formulary Medication ( See Comment Field Below ) SEE COMMENTS SECTION 1T@10 ID 03/17/19 10:00 03/15/19 09:27 DC Non-Formulary Medication ( See Comment Field Below ) SEE LABEL COMMENTS DAILY XX 03/15/19 09:00 03/15/19 10:14 DC Olanzapine (ZyPREXA ZYDIS) 10 mg Q4HP PRN PO AGITATION 03/06/19 15:00 03/09/19 10:00 Paliperidone (Invega) 3 mg QAM PO 03/09/19 09:00 03/12/19 10:31 DC 03/12/19 09:05 Trazodone HCl (Desyrel) 50 mg QHSP PRN PO INSOMNIA 03/06/19 21:00 03/11/19 21:00 Allergies Coded Allergies: No Known Allergies (Verified , 03/06/19) NAREN SWAIN DO Mar 15, 2019 13:40
[2019-03-15 16:30] VITALS: BP 129/92
[2019-03-16] MEDS: LEVOTHYROXINE 25MCG TABLET (0.025MG) PO SCH (06:16)
[2019-03-16 06:26] VITALS: BP 137/72
[2019-03-16] MEDS: BREXPIPRAZOLE 0.5MG TABLET (REXULTI) PO SCH (08:44)
[2019-03-16] MEDS: LORazepam 0.5 MG TAB PO SCH ×3 (08:44→20:54)
[2019-03-16] MEDS: FLUoxetine 20 MG CAP PO SCH (08:44)
[2019-03-16] MEDS: haloperidoL 5 MG TAB PO SCH ×3 (08:44→20:54)
[2019-03-16] MEDS: amLODIPine 5 MG TAB PO SCH (08:45)
[2019-03-16 16:21] VITALS: BP 136/78
[2019-03-17] MEDS: LEVOTHYROXINE 25MCG TABLET (0.025MG) PO SCH (06:04)
[2019-03-17 06:51] VITALS: BP 131/69
[2019-03-17] MEDS: FLUoxetine 20 MG CAP PO SCH (08:21)
[2019-03-17] MEDS: BREXPIPRAZOLE 0.5MG TABLET (REXULTI) PO SCH (08:21)
[2019-03-17] MEDS: amLODIPine 5 MG TAB PO SCH (08:22)
[2019-03-17] MEDS: LORazepam 0.5 MG TAB PO SCH ×3 (08:22→20:26)
[2019-03-17] MEDS: haloperidoL 5 MG TAB PO SCH ×3 (08:22→20:26)
[2019-03-17] MEDS ORDERED: PPD DOCUMENTATION ENTRY MISC ID SCH (10:00)
[2019-03-17] MEDS ORDERED: PPD DOCUMENTATION ENTRY MISC XX ONE (12:00)
[2019-03-17 16:09] VITALS: BP 131/67
[2019-03-17] MEDS: traZODone 50 MG TAB PO PRN (20:27)
[2019-03-18] MEDS: LEVOTHYROXINE 25MCG TABLET (0.025MG) PO SCH (05:54)
[2019-03-18 06:53] VITALS: BP 112/62
[2019-03-18] MEDS: FLUoxetine 20 MG CAP PO SCH (08:40)
[2019-03-18] MEDS: LORazepam 0.5 MG TAB PO SCH ×3 (08:41→20:49)
[2019-03-18] MEDS: haloperidoL 5 MG TAB PO SCH ×3 (08:41→20:49)
[2019-03-18] MEDS: BREXPIPRAZOLE 0.5MG TABLET (REXULTI) PO SCH (08:41)
[2019-03-18] MEDS: amLODIPine 5 MG TAB PO SCH (08:41)
--- NOTE | 2019-03-18 09:25 | MHIPNPDOC ---
[facility] Progress Note Progress Note DATE OF SERVICE: 03/18/19 HISTORY: Patient is a 43 -year-old , female, who was brought to the ER stating that she had a plant to take pills in a bathtub and drown herself in the hopes of dying. Pt states that she "does not deserve to be here" but she is "too much of a coward to go through with killing myself". She states that she is a bad mother and that her kids would be better off if she was . She states that she originally began taking prescription pain medications after she was diagnosed with a low back injury and became addicted. She was seen at pain management but is no longer a patient there. She states that she steals pain medication and manipulates other people for her own gain. She expresses active SI and has expressed a want to overdose on pain medications but states she can't do it. Denied HI/AH/VH. Pt is a 43 year old female who states she's here b/c she was having SI due to her stealing her family's OxyContin and Vicodin to abuse which makes her feel guilty and depressed. States she feels she doesn't have a right to live but knows if she were to kill herself she'd leave her kids without a mother which "isn't fair to them." She has significant distress over her prescription medication abuse and states that she "does not deserve to live anymore". Encouraged to go to groups as part of her treatment. Discussed starting prozac for depression and vistaril prn anxiety with pt, risks/benefits discussed, and pt agreeable. Denies intent/plan for SI, endorses passive SI. Denies HI, hallucinations, delusions. Feels safe here. VITAL SIGNS: See below. NEW TEST RESULTS:T3 wnl 102.0. CURRENT MEDICATIONS: See below. MENTAL STATUS EXAMINATION: Roughly no change General Appearance: clean, ds/not appear stated age, hospital scrubs/clothing Build: overweight Demeanor: cooperative Eye Contact: fair Activity: less slowed Behavior: cooperative, less worrisome and anxious Speech: slow, low in volume Mood: depressed, less anxious, less worried Mood "better" Affect: constricted, congruent, less anxious, less worrisome Thought Process: concrete, less confused regarding reality testing, depressed, slow, other (negative cognitive distortions about being a bad mother) Thought Content (Delusions): denies SI, HI, VH (endorses passive SI), AH of people she states are "all around but I can't understand what they're saying" Thought Content (Other): guilty Thought Content (Aggressive): none reported Perception (Hallucinations): denies AH of people she states are "all around but I can't understand what they're saying" Perception (Other): none reported Cognition (Impairment of): none reported Cognition(Intelligence Est.): average Oriented: Awake, Alert, Oriented times three Insight: poor Judgment: Poor Psychosis: Denies DIAGNOSES: Unspecified psychosis R/O major depressive d/o recurrent severe w/psychosis possible Opiate use disorder ASSESSMENT:Pt seen in office stating she's feeling "better." States that the increase in prozac and haldol is beneficial for her mood and AH and she's tolerating them well. Denies AH today. Continues to endorse the belief that "everyone is against me" but states it's getting better to the point she's able to now attending groups and feels less like everyone else in there is "against" her. Her thoughts less concrete with less confusion, they are more linear and logical. Will continue to see if worry, paranoia, AH continue to improve with use over time. States her mood is less depressed today but she still appears very constricted and dysthymic in affect. Pt still is struggling with persecutory delusions regarding her having been taking her mother and her children's medicine/narcotics. Reassured pt that her mother has not found and narcotic pills missing and that her mother doesn't believe the pt was taking her medicine. Pt stated "OK." As stated previously "D/c exercise planner states they spoke with pt's mother who stated that her outpatient doctor that prescribes her pain meds counts them every time she sees him and that to her knowledge none of her pills are missing." Medicine started pt on synthroid for hypothyroidism last week and will follow her thyroid profile for improvement. Pt's depression and psychosis could be secondary to hypothyroidism. Less confused as in what is reality and what isn't. Less anxious and worried. Denies intent/plan SI, HI. Denies passive SI currently. Feels safe here. MANAGEMENT PLAN: continue plan. Continue plan.. Refer to oysterman placement at [facility]. prozac 40mg daily vistaril 50mg q4hr prn anxiety rexulti 1mg daily haldol 5mg tid TIME SPENT: 30 minutes. Vital Signs Vital Signs Date Time Temp Pulse Resp B/P (MAP) Pulse Ox O2 Delivery O2 Flow Rate FiO2 03/18/19 08:41 100 133/83 03/18/19 06:53 97.9 14 Room Air Current Medications Current Medications Medications (Trade) Dose Ordered Sig/Yifan Route PRN Reason Start Time Stop Time Status Last Admin Dose Admin Acetaminophen (Tylenol Tab) 650 mg Q6HP PRN PO HEADACHE or DISCOMFORT 03/06/19 14:30 Al Hydrox/Mg Hydrox/Simethicone (Mylanta) 30 ml Q4HP PRN PO HEARTBURN/INDIGESTION 03/06/19 14:30 Amlodipine Besylate (Norvasc) 5 mg DAILY PO 03/08/19 09:00 03/18/19 08:41 Artificial Tears (Akwa Tears) 2 drop QIDP PRN OU DRY EYES 03/07/19 12:45 03/07/19 17:51 Brexpiprazole (Rexulti) 1 mg DAILY PO 03/13/19 09:00 03/18/19 08:41 Fluoxetine HCl (PROzac) 20 mg DAILY PO 03/08/19 09:00 03/15/19 09:25 DC 03/15/19 09:08 Fluoxetine HCl (PROzac) 40 mg DAILY PO 03/16/19 09:00 03/18/19 08:40 Haloperidol (Haldol) 2.5 mg TID PO 03/12/19 16:00 03/15/19 09:25 DC 03/15/19 09:08 Haloperidol (Haldol) 5 mg TID PO 03/15/19 16:00 03/18/19 08:41 Home Med (Med Rec Complete!) ASDIRECTED XX 03/06/19 10:45 03/06/19 10:41 DC Hydroxyzine HCl (Atarax) 50 mg Q4HP PRN PO ANXIETY/AGITATION 03/07/19 11:45 03/09/19 11:16 Levothyroxine Sodium (Synthroid) 25 mcg DAILY@06 PO 03/12/19 06:00 03/18/19 05:54 Lorazepam (Ativan) 0.5 mg TID PO 03/10/19 16:00 03/18/19 08:41 Magnesium Hydroxide (Milk Of Magnesia) 30 ml DAILYPRN PRN PO CONSTIPATION 03/06/19 14:30 Miscellaneous (Unresolved Clarification Entry) SEE LABEL COMMENTS DAILY XX 03/16/19 09:00 03/16/19 17:43 DC Non-Formulary Medication ( See Comment Field Below ) SEE COMMENTS SECTION 1T@10 ID 03/17/19 10:00 03/15/19 09:27 DC Non-Formulary Medication ( See Comment Field Below ) SEE LABEL COMMENTS DAILY XX 03/15/19 09:00 03/15/19 10:14 DC Olanzapine (ZyPREXA ZYDIS) 10 mg Q4HP PRN PO AGITATION 03/06/19 15:00 03/09/19 10:00 Paliperidone (Invega) 3 mg QAM PO 03/09/19 09:00 03/12/19 10:31 DC 03/12/19 09:05 Trazodone HCl (Desyrel) 50 mg QHSP PRN PO INSOMNIA 03/06/19 21:00 03/17/19 20:27 Allergies Coded Allergies: No Known Allergies (Verified , 03/06/19) DEVAUGHN VERDE DO Mar 18, 2019 9:25 am
[2019-03-18 16:24] VITALS: BP 131/82
[2019-03-19] MEDS: LEVOTHYROXINE 25MCG TABLET (0.025MG) PO SCH (05:55)
[2019-03-19 06:33] VITALS: BP 126/66
[2019-03-19] MEDS: BREXPIPRAZOLE 0.5MG TABLET (REXULTI) PO SCH (08:36)
[2019-03-19] MEDS: haloperidoL 5 MG TAB PO SCH ×3 (08:36→20:27)
[2019-03-19] MEDS: LORazepam 0.5 MG TAB PO SCH ×3 (08:36→20:27)
[2019-03-19] MEDS: amLODIPine 5 MG TAB PO SCH (08:36)
[2019-03-19] MEDS: FLUoxetine 20 MG CAP PO SCH (08:36)
--- NOTE | 2019-03-19 09:36 | MHIPNPDOC ---
[facility] Progress Note Progress Note DATE OF SERVICE: 03/19/19 HISTORY: Patient is a 43 -year-old , female, who was brought to the ER stating that she had a plant to take pills in a bathtub and drown herself in the hopes of dying. Pt states that she "does not deserve to be here" but she is "too much of a coward to go through with killing myself". She states that she is a bad mother and that her kids would be better off if she was . She states that she originally began taking prescription pain medications after she was diagnosed with a low back injury and became addicted. She was seen at pain management but is no longer a patient there. She states that she steals pain medication and manipulates other people for her own gain. She expresses active SI and has expressed a want to overdose on pain medications but states she can't do it. Denied HI/AH/VH. Pt is a 43 year old female who states she's here b/c she was having SI due to her stealing her family's OxyContin and Vicodin to abuse which makes her feel guilty and depressed. States she feels she doesn't have a right to live but knows if she were to kill herself she'd leave her kids without a mother which "isn't fair to them." She has significant distress over her prescription medication abuse and states that she "does not deserve to live anymore". Encouraged to go to groups as part of her treatment. Discussed starting prozac for depression and vistaril prn anxiety with pt, risks/benefits discussed, and pt agreeable. Denies intent/plan for SI, endorses passive SI. Denies HI, hallucinations, delusions. Feels safe here. VITAL SIGNS: See below. NEW TEST RESULTS:TSH 7.501 improving but still high with synthroid CURRENT MEDICATIONS: See below. MENTAL STATUS EXAMINATION: Roughly no change General Appearance: clean, ds/not appear stated age, hospital scrubs/clothing Build: overweight Demeanor: cooperative Eye Contact: good Activity: slowed Behavior: cooperative, less worrisome and anxious Speech: slow, low in volume Mood: depressed, less anxious, less worried Mood "ok" Affect: constricted, congruent, less anxious, less worrisome Thought Process: concrete, less confused regarding reality testing, depressed, slow, improved negative cognitive distortions about being a bad mother Thought Content (Delusions): denies SI, HI, VH (denies passive SI), Thought Content (Other): improved guilt Thought Content (Aggressive): none reported Perception (Hallucinations): denies AVH Perception (Other): none reported Cognition (Impairment of): none reported Cognition(Intelligence Est.): average Oriented: Awake, Alert, Oriented times three Insight: improving Judgement: improving Psychosis: Denies DIAGNOSES: Unspecified psychosis R/O major depressive d/o recurrent severe w/psychosis possible Opiate use disorder ASSESSMENT:Pt seen in office stating she's feeling "ok" just has a headache whi ch she just took tylenol for to help. She continues to look dysthymic, slow, with a very low voice that non-spontaneous which she says is b/c she was lying down due to feeling tired prior to seeing me. Pt though looks consistently dysthymic though which may be do to on going hypothyroidism that's improving with synthroid. Continues to states that prozac and haldol are beneficial for her mood and AH and she's tolerating them well. Denies AH today. Denies the belief that "everyone is against me" is able to attend groups and feels less anxious in them. Her thoughts less concrete with less confusion, they are more linear and logical. Denies persecutory delusions regarding her having been taking her mother and her children's medicine/narcotics after advised that her mother has not found and narcotic pills missing and that her mother doesn't believe the pt was taking her medicine. Medicine started pt on synthroid for hypothyroidism last week and pt's mood and psychosis appears to be improving with use and improvement in hypothyroidism. Will check thyroid profile today. Pt's depression and psychosis could be secondary to hypothyroidism. Less confused as in what is reality and what isn't. Less anxious and worried. Denies intent/plan SI, HI. Denies passive SI currently. Feels safe here. MANAGEMENT PLAN: continue plan. Continue plan. D/c home this week or next week pending pt status. prozac 40mg daily vistaril 50mg q4hr prn anxiety rexulti 1mg daily haldol 5mg tid TIME SPENT: 30 minutes. Vital Signs Vital Signs Date Time Temp Pulse Resp B/P (MAP) Pulse Ox O2 Delivery O2 Flow Rate FiO2 03/19/19 08:36 115 133/74 03/19/19 06:33 97.6 16 03/18/19 16:24 Room Air Current Medications Current Medications Medications (Trade) Dose Ordered Sig/Yifan Route PRN Reason Start Time Stop Time Status Last Admin Dose Admin Acetaminophen (Tylenol Tab) 650 mg Q6HP PRN PO HEADACHE or DISCOMFORT 03/06/19 14:30 Al Hydrox/Mg Hydrox/Simethicone (Mylanta) 30 ml Q4HP PRN PO HEARTBURN/INDIGESTION 03/06/19 14:30 Amlodipine Besylate (Norvasc) 5 mg DAILY PO 03/08/19 09:00 03/19/19 08:36 Artificial Tears (Akwa Tears) 2 drop QIDP PRN OU DRY EYES 03/07/19 12:45 03/07/19 17:51 Brexpiprazole (Rexulti) 1 mg DAILY PO 03/13/19 09:00 03/19/19 08:36 Fluoxetine HCl (PROzac) 20 mg DAILY PO 03/08/19 09:00 03/15/19 09:25 DC 03/15/19 09:08 Fluoxetine HCl (PROzac) 40 mg DAILY PO 03/16/19 09:00 03/19/19 08:36 Haloperidol (Haldol) 2.5 mg TID PO 03/12/19 16:00 03/15/19 09:25 DC 03/15/19 09:08 Haloperidol (Haldol) 5 mg TID PO 03/15/19 16:00 03/19/19 08:36 Home Med (Med Rec Complete!) ASDIRECTED XX 03/06/19 10:45 03/06/19 10:41 DC Hydroxyzine HCl (Atarax) 50 mg Q4HP PRN PO ANXIETY/AGITATION 03/07/19 11:45 03/09/19 11:16 Levothyroxine Sodium (Synthroid) 25 mcg DAILY@06 PO 03/12/19 06:00 03/19/19 05:55 Lorazepam (Ativan) 0.5 mg TID PO 03/10/19 16:00 03/19/19 08:36 Magnesium Hydroxide (Milk Of Magnesia) 30 ml DAILYPRN PRN PO CONSTIPATION 03/06/19 14:30 Miscellaneous (Unresolved Clarification Entry) SEE LABEL COMMENTS DAILY XX 03/16/19 09:00 03/16/19 17:43 DC Non-Formulary Medication ( See Comment Field Below ) SEE COMMENTS SECTION 1T@10 ID 03/17/19 10:00 03/15/19 09:27 DC Non-Formulary Medication ( See Comment Field Below ) SEE LABEL COMMENTS DAILY XX 03/15/19 09:00 03/15/19 10:14 DC Olanzapine (ZyPREXA ZYDIS) 10 mg Q4HP PRN PO AGITATION 03/06/19 15:00 03/09/19 10:00 Paliperidone (Invega) 3 mg QAM PO 03/09/19 09:00 03/12/19 10:31 DC 03/12/19 09:05 Trazodone HCl (Desyrel) 50 mg QHSP PRN PO INSOMNIA 03/06/19 21:00 03/17/19 20:27 Allergies Coded Allergies: No Known Allergies (Verified , 03/06/19) DEVAUGHN VERDE DO Mar 19, 2019 9:36 am
[2019-03-19 11:25] LABS: FREE THYROXINE INDEX 1.4 % (1.3-4.8); THYROID STIMULATING HORMONE 7.51 uIU/ML (0.358-3.740); THYROXINE (T4) 4.9 UG/DL (4.5-12.0)
[2019-03-19 15:44] VITALS: BP 165/89
[2019-03-19] MEDS: traZODone 50 MG TAB PO PRN (21:29)
[2019-03-20] MEDS: LEVOTHYROXINE 25MCG TABLET (0.025MG) PO SCH (05:55)
[2019-03-20 06:12] VITALS: BP 118/59
[2019-03-20] MEDS: haloperidoL 5 MG TAB PO SCH ×3 (08:37→20:29)
[2019-03-20] MEDS: LORazepam 0.5 MG TAB PO SCH ×3 (08:37→20:29)
[2019-03-20] MEDS: FLUoxetine 20 MG CAP PO SCH (08:37)
[2019-03-20] MEDS: amLODIPine 5 MG TAB PO SCH (08:38)
[2019-03-20] MEDS: ACETAMINOPHEN TAB 650MG DOSE (2X325MG) PO PRN (08:38)
[2019-03-20] MEDS: BREXPIPRAZOLE 0.5MG TABLET (REXULTI) PO SCH (08:38)
[2019-03-20 17:15] VITALS: BP 135/82
[2019-03-20] MEDS: traZODone 50 MG TAB PO PRN (20:31)
[2019-03-21] MEDS: LEVOTHYROXINE 25MCG TABLET (0.025MG) PO SCH (05:57)
[2019-03-21 06:07] VITALS: BP 124/73
--- NOTE | 2019-03-21 08:24 | MHIPNPDOC ---
[facility] Progress Note Progress Note Inpatient Progress Note Jayne Lawson MRN: N/A Date of : N/A Date of Service: 03/21/2019 History of Present Illness 43-year-old woman with a history of psychotic illness, being treated on multiple neuroleptics while on the inpatient unit, has had an extensive admission. Interval History Narrative: The patient is met with today. She reports she is feeling better. She smiles more. She had a visit from her family member earlier this week. She is hoping to potentially be discharged at the end of this week. Affective: The patient denies any significant problems with depression. Psychotic: The patient reports improving ability to smile, less slowness and no current voices. Anxiety: The patient reports feeling better about anxious thoughts. Eating and sleeping behaviors: Normalizing. Group Attendance: Intermittent. Medication Side effects: See ROS below Behavioral problems/significant events overnight: None reported. Staff Report: The patient has been improving, more reactive, more smiles and more able to discuss meaningful topics. Review Of Systems General: Denies fever or appetite changes Cardiovascular: Denies Chest pain or palpitations GI: Denies Nausea, vomiting, or bowel changes Respiratory: Denies shortness of breath or cough Neuro: Denies dizziness, tremors Derm: Denies any rashes or pruritus : Denies any dysuria or urinary problems MSK: Denies any muscle tightness or stiffness HEENT: Denies any vision changes or headaches Psychotherapy None on this visit. Vital Signs Reviewed. Mental Status Examination General: Well dressed with good hygiene Speech: Spontaneous and fluid Thought processes: Linear and logical MSK: Some slowed movements at times but appears to be improving. Thought content: Future orientated Abstract reasoning, and computation: Intact Description of associations: Intact Description of abnormal or psychotic thoughts: Denies any suicidal or homicidal ideation. Denies any auditory or visual hallucinations. Does not appear to be responding to internal stimuli. Does not appear to be endorsing any bizarre or paranoid ideation. Judgment: fair Insight: fair Orientation: Alert and orientated 3 Cognition: Grossly normal Recent and remote memory: Intact Attention span and concentration: Intact Fund of knowledge: Adequate Mood: "okay" Affect: Reactive. Diagnoses Schizophrenia. Assessment and Plan Schizophrenia: Continue patient's neuroleptics as per Dr. Alonso. Disposition Discharge tomorrow as patient's collateral information reveals that she has made strong improvement and the patient wishes to be discharged tomorrow. She does not meet involuntary criteria in all likelihood tomorrow. Time Spent 15 minutes. Vital Signs Vital Signs Date Time Temp Pulse Resp B/P (MAP) Pulse Ox O2 Delivery O2 Flow Rate FiO2 03/21/19 06:07 97.9 79 16 124/73 (90) 03/18/19 16:24 Room Air Current Medications Current Medications Medications (Trade) Dose Ordered Sig/Yifan Route PRN Reason Start Time Stop Time Status Last Admin Dose Admin Acetaminophen (Tylenol Tab) 650 mg Q6HP PRN PO HEADACHE or DISCOMFORT 03/06/19 14:30 03/20/19 08:38 Al Hydrox/Mg Hydrox/Simethicone (Mylanta) 30 ml Q4HP PRN PO HEARTBURN/INDIGESTION 03/06/19 14:30 Amlodipine Besylate (Norvasc) 5 mg DAILY PO 03/08/19 09:00 03/20/19 08:38 Artificial Tears (Akwa Tears) 2 drop QIDP PRN OU DRY EYES 03/07/19 12:45 03/07/19 17:51 Brexpiprazole (Rexulti) 1 mg DAILY PO 03/13/19 09:00 03/20/19 08:38 Fluoxetine HCl (PROzac) 20 mg DAILY PO 03/08/19 09:00 03/15/19 09:25 DC 03/15/19 09:08 Fluoxetine HCl (PROzac) 40 mg DAILY PO 03/16/19 09:00 03/20/19 08:37 Haloperidol (Haldol) 2.5 mg TID PO 03/12/19 16:00 03/15/19 09:25 DC 03/15/19 09:08 Haloperidol (Haldol) 5 mg TID PO 03/15/19 16:00 03/20/19 20:29 Home Med (Med Rec Complete!) ASDIRECTED XX 03/06/19 10:45 03/06/19 10:41 DC Hydroxyzine HCl (Atarax) 50 mg Q4HP PRN PO ANXIETY/AGITATION 03/07/19 11:45 03/09/19 11:16 Levothyroxine Sodium (Synthroid) 25 mcg DAILY@06 PO 03/12/19 06:00 03/21/19 05:57 Lorazepam (Ativan) 0.5 mg TID PO 03/10/19 16:00 03/20/19 20:29 Magnesium Hydroxide (Milk Of Magnesia) 30 ml DAILYPRN PRN PO CONSTIPATION 03/06/19 14:30 Miscellaneous (Unresolved Clarification Entry) SEE LABEL COMMENTS DAILY XX 03/16/19 09:00 03/16/19 17:43 DC Non-Formulary Medication ( See Comment Field Below ) SEE COMMENTS SECTION 1T@10 ID 03/17/19 10:00 03/15/19 09:27 DC Non-Formulary Medication ( See Comment Field Below ) SEE LABEL COMMENTS DAILY XX 03/15/19 09:00 03/15/19 10:14 DC Olanzapine (ZyPREXA ZYDIS) 10 mg Q4HP PRN PO AGITATION 03/06/19 15:00 03/09/19 10:00 Paliperidone (Invega) 3 mg QAM PO 03/09/19 09:00 03/12/19 10:31 DC 03/12/19 09:05 Trazodone HCl (Desyrel) 50 mg QHSP PRN PO INSOMNIA 03/06/19 21:00 03/20/19 20:31 Allergies Coded Allergies: No Known Allergies (Verified , 03/06/19) NAREN SWAIN DO Mar 21, 2019 08:24
[2019-03-21] MEDS: BREXPIPRAZOLE 0.5MG TABLET (REXULTI) PO SCH (08:52)
[2019-03-21] MEDS: LORazepam 0.5 MG TAB PO SCH ×3 (08:53→20:07)
[2019-03-21] MEDS: FLUoxetine 20 MG CAP PO SCH (08:53)
[2019-03-21] MEDS: haloperidoL 5 MG TAB PO SCH ×3 (08:53→20:07)
[2019-03-21] MEDS: amLODIPine 5 MG TAB PO SCH (08:53)
[2019-03-21 16:30] VITALS: BP 129/71
[2019-03-21] MEDS: ACETAMINOPHEN TAB 650MG DOSE (2X325MG) PO PRN (18:37)
[2019-03-21] MEDS: traZODone 50 MG TAB PO PRN (20:07)
[2019-03-22] MEDS: LEVOTHYROXINE 25MCG TABLET (0.025MG) PO SCH (05:31)
[2019-03-22 06:22] VITALS: BP 146/79
--- NOTE | 2019-03-22 08:27 | MHDSPDOC ---
[facility] Discharge Summary Discharge Summary DATE OF ADMISSION: Mar 06, 2019 at 14:23 DATE OF DISCHARGE: 03/22/19 Discharge Jayne Lawson MRN: N/A Date of : N/A Date of Service: 03/22/2019 Diagnoses MDD, severe, recurrent. Opiate use disorder, moderate to severe. History of Present Illness Patient, a 43-year-old woman who presented initially to [facility] after reporting suicidal ideation after experiencing significant depression. She is admitted out of an abundance of caution. She has a significant opiate problem as well upon presentation. Consultants Involved Hospitalist/PCP screening Treatment and Progress On The Unit The patient was admitted to the inpatient unit and is admitted for an extended period of time where she is treated with a combination of Prozac, Rexulti and Haldol for what appears to be very complex depression with patient makes improvements while on the medications over nearly 2-3 weeks stay on the inpatient unit. She starts to attend groups more often, becomes more euthymic, more reactive and had been denying suicidal or homicidal ideation. For the last week prior to her discharge she made good improvement, her depression started to resolve and she had her hyperthyroidism treated on the unit which helped improve her ability. Discharge Assessment 43-year-old woman with history of opioid use and what appears to be severe depression is treated on a combination of Prozac and Rexulti. She does well on the unit making good improvement over 2 weeks. On the day of discharge she does not meet involuntary criteria as she has a normal mental status exam. Has been denying suicidal or homicidal ideation. Has made good progress on the unit. Judgment is fair. Insight into the situation and she still need to focus on her after care. She declines further voluntary admission and is discharged in good cierra. Mental Status Examination General: Well dressed with good hygiene Speech: Spontaneous and fluid Thought processes: Linear and logical MSK: Smooth and coordinated gait, no signs of tremors or involuntary orofacial movements Thought content: Future orientated Abstract reasoning, and computation: Intact Description of associations: Intact Description of abnormal or psychotic thoughts: Denies any suicidal or homicidal ideation. Denies any auditory or visual hallucinations. Does not appear to be responding to internal stimuli. Does not appear to be endorsing any bizarre or paranoid ideation. Judgment: fair Insight: fair Orientation: Alert and orientated 3 Cognition: Grossly normal Recent and remote memory: Intact Attention span and concentration: Intact Fund of knowledge: Adequate Mood: "okay" Affect: Euthymic with a full range Follow Up The social work team worked during the predischarge meeting in order to evaluate for further issues of lethality address them fully before discharge. They worked on safety planning with the patient's family members in order to ensure that the patient will have a safe and effective discharge. Time Spent The amount of time spent in the coordination of care for this patient was approximately 40 minutes. Monday Vital Signs/I&Os Vital Signs Date Time Temp Pulse Resp B/P (MAP) Pulse Ox O2 Delivery O2 Flow Rate FiO2 03/22/19 06:22 98.0 72 18 146/79 (101) 03/18/19 16:24 Room Air Medications Scheduled Brexpiprazole (Rexulti) 0.5 Mg Tablet, 1 MG PO DAILY for mood for 7 Days, #7 Fluoxetine Hcl (Fluoxetine HCl) 20 Mg Capsule, 40 MG PO DAILY for mood for 7 Days, #14 Levothyroxine Sodium (Levothyroxine Sodium) 25 Mcg Tablet, 25 MCG PO DAILY@06 for thyroid for 7 Days, #7 Allergies Coded Allergies: No Known Allergies (Verified , 03/06/19) NAREN SWAIN DO Mar 22, 2019 08:27
[2019-03-22] MEDS: FLUoxetine 20 MG CAP PO SCH (08:35)
[2019-03-22 08:36] VITALS: BP 129/74
[2019-03-22] MEDS: amLODIPine 5 MG TAB PO SCH (08:36)
[2019-03-22] MEDS: BREXPIPRAZOLE 0.5MG TABLET (REXULTI) PO SCH (08:37)
[2019-03-22] MEDS: haloperidoL 5 MG TAB PO SCH (08:37)
[2019-03-22] MEDS: LORazepam 0.5 MG TAB PO SCH (08:37)
[2019-03-22] MEDS ORDERED: REXU1TAB2 PO (09:45)
[2019-03-22] MEDS ORDERED: LEVO25TA5 PO (09:46)
[2019-03-22] MEDS ORDERED: FLUO20CA22 PO (09:46)
== END 2019-03-22 11:20 | disposition home or self-care (01) | DRG 885 ==
LOC: M ED 06:23 → M ED INP 14:23 → M PSY 15:23
PROVIDERS: ADMIT Psychiatry & Neurology Psychiatry; ATTEND Psychiatry & Neurology Addiction Medicine
DX: F33.3 Major depressive disorder, recurrent, severe with psychotic symptoms (principal); F11.14 Opioid abuse with opioid-induced mood disorder; I10 Essential (primary) hypertension; M54.30 Sciatica, unspecified side; Z62.810 Personal history of physical and sexual abuse in childhood

== ENCOUNTER 2019-03-25 12:13 | Inpatient (IN) | payer OTHER ==
[~2019-03-25] VITALS: Ht 165.1 cm; Wt 91.1 kg
[~2019-03-25 12:13] MED LIST changes: +FLUO20CA22 PO; +LEVO25TA5 PO; +REXU1TAB2 PO
[2019-03-25 12:46] LABS: BASO % 0.4 % (0.0-1.0); EOS % 0.4 % (0.0-3.0); LYMPH # 2.1 10^3/uL (1.5-5.0); LYMPH % 19.1 % (24.0-44.0); MEAN CORPUSCULAR HEMOGLOBIN 27.4 pg (27.0-33.0); MEAN CORPUSCULAR HGB CONC 31.6 g/dl (32.0-36.5); MEAN CORPUSCULAR VOLUME 86.8 fl (80.0-96.0); MONO # 0.9 10^3/uL (0.0-0.8); MONO % 8.4 % (0.0-5.0); NEUTROPHILS # 7.8 10^3/uL (1.5-8.5); NEUTROPHILS % 71.3 % (36.0-66.0); PLATELET COUNT, AUTOMATED 361 10^3/uL (150-450); RED BLOOD COUNT 4.38 10^6/uL (4.00-5.40); WHITE BLOOD COUNT 10.9 10^3/uL (4.0-10.0)
[2019-03-25] MEDS ORDERED: MAALOX 30 ML SUSP *UDC PO PRN (13:00)
[2019-03-25] MEDS ORDERED: OLANZapine 5 MG TAB PO PRN (13:00)
[2019-03-25] MEDS ORDERED: haloperidoL 5 MG TAB PO PRN (13:00)
[2019-03-25] MEDS ORDERED: MOM 30ML SUSPENSION UDC PO PRN (13:00)
[2019-03-25 13:07] LABS: ACETAMINOPHEN LEVEL < 2.0 UG/ML (10.0-30.0); ETHYL ALCOHOL (ETHANOL) < 0.003 % (0.000-0.010); SALICYLATE LEVEL < 1.7 MG/DL (5.0-30.0)
[2019-03-25 13:18] LABS: ALBUMIN 3.6 GM/DL (3.2-5.2); ALT/SGPT 35 U/L (12-78); BILIRUBIN,DIRECT 0.2 MG/DL (0.0-0.2); BILIRUBIN,TOTAL 0.5 MG/DL (0.2-1.0); BLOOD UREA NITROGEN 5 MG/DL (7-18); CALCIUM LEVEL 8.9 MG/DL (8.5-10.1); CARBON DIOXIDE LEVEL 24 MEQ/L (21-32); CHLORIDE LEVEL 110 MEQ/L (98-107); CREATININE FOR GFR 0.63 MG/DL (0.55-1.30); GLOMERULAR FILTRATION RATE > 60.0 (>58); GLUCOSE, FASTING 111 MG/DL (70-100); POTASSIUM SERUM 3.4 MEQ/L (3.5-5.1); SODIUM LEVEL 140 MEQ/L (136-145); TOTAL PROTEIN 7.4 GM/DL (6.4-8.2)
[2019-03-25] MEDS ORDERED: FLUO20CA20 PO (13:24)
[2019-03-25] MEDS ORDERED: REXU1TAB3 PO (13:24)
[2019-03-25] MEDS ORDERED: IBUP200C25 PO (13:24)
[2019-03-25] MEDS ORDERED: LEVO25TA34 PO (13:24)
[2019-03-25 13:27] LABS: INFLUENZA A AMPLIFICATION NEGATIVE (NEGATIVE); INFLUENZA B AMPLIFICATION NEGATIVE (NEGATIVE)
[2019-03-25] MEDS: LORazepam 0.5 MG TAB PO SCH ×2 (16:55→22:12)
[2019-03-25 19:01] VITALS: BP 118/73
[2019-03-25] MEDS ORDERED: POTASSIUM CHLORIDE 10 MEQ SR TABLET PO ONE (19:15)
[2019-03-25 19:32] VITALS: BP 144/88
--- NOTE | 2019-03-25 19:45 | ECGEPIP ---
[facility] - ED Test Date: 2019-03-25 Pat Name: RADHA OSPINA Department: Room: [place] [address] Gender: Female [employer] Technician: SHABANA : 1975 Requested By: Pb Anderson Order Number: [id number] Reading MD: Florence Velazquez Measurements Intervals [place] Rate: 84 P: 61 MO: 132 QRS: 68 QRSD: 90 T: 33 QT: 390 QTc: 462 Interpretive Statements SINUS RHYTHM INCREASED RATE 03/06/19 Electronically Signed on 03-25-2019 19:44:32 EST by Florence Velazquez
[2019-03-26 05:39] VITALS: BP 140/75
[2019-03-26] MEDS: LORazepam 0.5 MG TAB PO SCH (08:46)
[2019-03-26] MEDS: ACETAMINOPHEN TAB 650MG DOSE (2X325MG) PO PRN ×2 (08:51→17:58)
[2019-03-26] MEDS ORDERED: INFLUENZA QUADRIVALENT PF VACCINE 0.5ML SYRINGE (90686) IM ONE (09:00)
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
[2019-03-26 14:44] LABS: CPK CREATINE PHOSPHOKINASE 385 U/L (26-192)
[2019-03-26] MEDS: LORazepam 1 MG TAB PO SCH ×2 (15:30→21:25)
[2019-03-26] MEDS: IBUPROFEN 400 MG TAB PO PRN (15:30)
[2019-03-26 16:21] VITALS: BP 138/75
[2019-03-26] MEDS ORDERED: BENZTROPINE 1 MG TAB PO ONE (19:15)
[2019-03-26] MEDS ORDERED: LORazepam 0.5 MG TAB PO ONE (19:30)
[2019-03-26] MEDS: traZODone 50 MG TAB PO PRN (21:25)
--- NOTE | 2019-03-27 00:18 | HPEPDOC ---
General Date of Admission Mar 25, 2019 at 12:48 Date of Service: Mar 26, 2019 Attending Physician: DEBBIE MCCRACKEN MD Chief Complaint The patient is a 44-year-old female admitted with a reason for visit of Mdd With Psychotic Features. Source: Patient Exam Limitations: Clinical conditions (catatonic) Timing/Duration: Unsure Severity: Severe Associated Symptoms: Other History of Present Illness 44 yo W with MDD who was brought in for evaluation of worsening depression in the setting of a history of MDD with catatonia. Today she is catatonic with slowed movement. Medicine was consulted for a history and physical examination. Of note, patient has a history of hypothyroidism on synthroid with elevated TSH without record of her free T4. She is otherwise doing well without complaints physically. The rest of her lab evaluation was normal. Home Medications Scheduled Brexpiprazole (Rexulti) 1 Mg Tablet, 1 MG PO DAILY, (Reported) Fluoxetine Hcl (Fluoxetine HCl) 20 Mg Capsule, 40 MG PO DAILY, (Reported) Levothyroxine Sodium (Levoxyl) 25 Mcg Tablet, 25 MCG PO DAILY, (Reported) Scheduled PRN Ibuprofen (Ibuprofen) 200 Mg Capsule, 800 MG PO TID PRN for PAIN, (Reported) Allergies Coded Allergies: No Known Allergies (Verified , 03/06/19) Past Medical History Medical History MDD hypothyroidsm Family History Significant Family History: No pertinent family hx Social History * Smoker: Denies Alcohol: Denies Drugs: denies Recent Travel/Sick Contacts: Denies: Recent travel, Recent sick contacts Psychosocial History: Decreased mood, Depression A-FIB/CHADSVASC A-FIB History Current/History of A-Fib/PAF?: No Current PO Anticoag Therapy: No Age/Risk Factor Scoring CHADSVASC: CHADSVASC Response (Comments) Value Age Risk Factor Age < 65 years old 0 Gender Risk Factor Female 1 Hx of CHF No 0 Hx of HTN No 0 Hx of Stroke/TIA/or VTE No 0 Hx of Diabetes No 0 Hx of Vascular Disease No 0 Total 1 Treatment Treatment ordered: NONE Reason Anticoagulant not given: Not indicated/[id number] Review of Systems Constitutional: Denies: Chills, Fever, Night Sweats Eyes: Denies: Pain, Vision change ENT: Denies: Head Aches, Ear Pain, Dysphagia, Sinus Congestion, Post Nasal Drip, Sore Throat, Epistaxis, Other Symptoms Skin: Denies: Rash, Lesions, Breakdown Pulmonary: Denies: Dyspnea, Cough Cardiovascular: Denies: Chest Pain, Palpitations, Orthopnea, Paroxysmal Noc. Dyspnea, Lt Headedness Gastrointestinal: Denies: Nausea, Vomiting, Abdominal Pain, Diarrhea Genitourinary: Denies: Dysuria, Frequency, Incontinence, Retention Hematologic: Denies: Bruising, Bleeding Excessively Endocrine: Denies: Polydipsia, Polyphagia, Polyuria, Heat Intolerance, Cold Intolerance, Other Endocrine Sx Musculoskeletal: Denies: Neck Pain, Back Pain, Joint Pain, Muscle Pain, Spasms Neurological: Denies: Weakness, Numbness, Change in speech, Confusion Psych: Reports: Depression Physical Examination General Exam: Positive: Alert, No Acute Distress Eye Exam: Positive: PERRLA, Conjunctiva & lids normal, EOMI; Negative: Sclera icteric ENT Exam: Positive: Atraumatic, Mucous membr. moist/pink, Pharynx Normal Neck Exam: Positive: Supple; Negative: JVD, thyromegaly Chest Exam: Positive: Clear to auscultation, Normal air movement Heart Exam: Positive: Rate Normal, Regular Rhythm, Normal S1, Normal S2; Negative: Murmurs, Rubs Abdomen Exam: Positive: Normal bowel sounds, Soft; Negative: Tenderness, Hepatospenomegaly Extremity Exam: Positive: Normal pulses; Negative: Clubbing, Cyanosis, Edema Skin Exam: Positive: Nl turgor and temperature; Negative: Breakdown, Lesion Neuro Exam: Positive: Normal Speech, Strength at 5/5 X4 ext, Normal Tone, Cranial Nerves 3-12 NL Psych Exam: Positive: Anxiety, Oriented x 3 Vital Signs Vital Signs Date Time Temp Pulse Resp B/P (MAP) Pulse Ox O2 Delivery O2 Flow Rate FiO2 03/26/19 16:21 97.9 89 16 138/75 (96) 03/26/19 05:39 Room Air 03/25/19 19:32 99 Assessment/Plan 44 yo W with a history of severe MDD with catatonia who presented with severe depressive episode with severe catatonia. From a medicine perspective she is on 25mg of synthroid daiily and TSH is high, will check free t4. Will follow lab in the morning and will otherwise sign off with plan to restart her synthroid and recheck her free T4 with potential adjustment of her hypothyroidism medication. Plan / VTE VTE Prophylaxis Ordered?: No VTE Exclusion Mechanical Proph: Low Risk for VTE VTE Exclusion Pharmacological: At Low Risk for VTE DEBBIE MCCRACKEN MD Mar 27, 2019 00:18
[2019-03-27] MEDS: LEVOTHYROXINE 25MCG TABLET (0.025MG) PO SCH (05:51)
[2019-03-27 05:55] VITALS: BP 139/81
[2019-03-27] MEDS: diphenhydrAMINE 25MG CAP PO PRN ×2 (07:47→22:32)
[2019-03-27] MEDS: IBUPROFEN 400 MG TAB PO PRN ×3 (07:52→22:32)
[2019-03-27] MEDS: LORazepam 1 MG TAB PO SCH ×3 (08:07→21:48)
[2019-03-27 09:01] LABS: FREE T4 0.81 NG/DL (0.76-1.46)
--- NOTE | 2019-03-27 09:53 | MHIPNPDOC ---
[facility] Progress Note Progress Note Inpatient Progress Note Jayne Lawson MRN: N/A Date of : N/A Date of Service: 03/27/2019 History of Present Illness Patient is a 44-year-old woman with a history of reported severe depression, presents catatonic after ceasing her medications after being recently discharged from our care unit. She had done well on a combination of Prozac and brexpiprazole, but reportedly had not been able to take the medications, suddenly became more frozen and unable to interact point where she started to have suicidal thoughts and was brought in. The patient is too catatonic to engage in a full and comprehensive review of systems and psychosocial derived from previous note. Interval History Narrative: The patient is attempted to be met with. She appears to be frozen in place and generally unable to engage in interview other than states she's "weak." Affective: Appears quite depressed. Psychotic: Unknown. Anxiety: Unknown. Eating and sleeping behaviors: Dysregulated, appears to need prompting for eating and sleeps good majority. Group Attendance: None. Medication Side effects: See ROS below Behavioral problems/significant events overnight: None. Staff Report: The patient generally appears catatonic at times. Unable to engage. Review Of Systems Unable to determine due to mental status. Psychotherapy None on this visit. Vital Signs Reviewed. Mental Status Examination General: Fair hygiene Speech: monotone Thought processes: Linear MSK: Severe slowing Thought content: Hopeless Abstract reasoning, and computation: Impaired Description of associations: Impaired Description of abnormal or psychotic thoughts: Some suicidal thoughts Judgment: Impaired Insight: fair Orientation: Alert and orientated 3 Cognition: slowed Recent and remote memory: Intact Attention span and concentration: Impaired Fund of knowledge: Adequate Mood: "fine" Affect: Profoundly flat with little reactivity. Diagnoses MDD, severe with psychotic features. Opioid use disorder. Cannabis. Catatonia. Assessment and Plan MDD: Will currently hold off on medications. Will need address catatonia first. Catatonia: Ativan 1 mg TID. Opioid use disorder: Not relevant at this time. Cannabis use disorder: Recommend outpatient rehab. Disposition The patient will need a further inpatient admission in order to treat her catatonia and difficulties with suicidal thoughts. Time Spent 15 minutes [id number]. Monday Vital Signs Vital Signs Date Time Temp Pulse Resp B/P (MAP) Pulse Ox O2 Delivery O2 Flow Rate FiO2 03/27/19 05:55 97.8 80 16 139/81 (100) 03/26/19 05:39 Room Air 03/25/19 19:32 99 Laboratory Data 24H Labs Laboratory Tests 2 03/27/19 08:02: Free Thyroxine 0.81 Current Medications Current Medications Medications (Trade) Dose Ordered Sig/Yifan Route PRN Reason Start Time Stop Time Status Last Admin Dose Admin Acetaminophen (Tylenol Tab) 650 mg Q6HP PRN PO HEADACHE or DISCOMFORT 03/25/19 13:00 03/26/19 17:58 Al Hydrox/Mg Hydrox/Simethicone (Mylanta) 30 ml Q4HP PRN PO HEARTBURN/INDIGESTION 03/25/19 13:00 Diphenhydramine HCl (Benadryl) 25 mg Q6HP PRN PO ANXIETY/AGITATION 03/25/19 13:00 03/27/19 07:47 Haloperidol (Haldol) 5 mg Q6HP PRN PO ANXIETY/AGITATION 03/25/19 13:00 Home Med (Med Rec Complete!) ASDIRECTED XX 03/25/19 13:30 03/25/19 13:31 DC Ibuprofen (Advil) 400 mg Q6HP PRN PO PAIN 03/25/19 13:00 03/27/19 07:52 Levothyroxine Sodium (Synthroid) 25 mcg DAILY@0600 PO 03/27/19 06:00 03/27/19 05:51 Lorazepam (Ativan) 0.5 mg TID PO 03/25/19 16:00 03/26/19 14:13 DC 03/26/19 08:46 Lorazepam (Ativan) 1 mg TID PO 03/26/19 16:00 03/27/19 08:07 Magnesium Hydroxide (Milk Of Magnesia) 30 ml DAILYPRN PRN PO CONSTIPATION 03/25/19 13:00 Olanzapine (ZyPREXA) 5 mg Q4HP PRN PO AGITATION 03/25/19 13:00 Trazodone HCl (Desyrel) 50 mg QHSP PRN PO INSOMNIA 03/25/19 13:00 03/26/19 21:25 Allergies Coded Allergies: No Known Allergies (Verified , 03/06/19) NAREN SWAIN DO Mar 27, 2019 09:53
[2019-03-27 10:44] LABS: FREE THYROXINE INDEX 1.8 % (1.3-4.8); THYROID STIMULATING HORMONE 11.4 uIU/ML (0.358-3.740); THYROXINE (T4) 6.2 UG/DL (4.5-12.0)
[2019-03-27] MEDS ORDERED: BENZTROPINE 1 MG TAB PO ONE (13:30)
[2019-03-27 16:00] VITALS: BP 124/70
[2019-03-27] MEDS: traZODone 50 MG TAB PO PRN (22:32)
[2019-03-28 06:16] VITALS: BP 117/69
[2019-03-28] MEDS: LEVOTHYROXINE 25MCG TABLET (0.025MG) PO SCH (06:20)
--- NOTE | 2019-03-28 09:02 | MHIPNPDOC ---
[facility] Progress Note Progress Note DATE OF SERVICE: 03/28/19 HISTORY: Per Dr. Sarabia: "Patient is a 44-year-old woman with a history of reported severe depression, presents catatonic after ceasing her medications after being recently discharged from our care unit. She had done well on a combination of Prozac and brexpiprazole, but reportedly had not been able to take the medications, suddenly became more frozen and unable to interact point where she started to have suicidal thoughts and was brought in. The patient is too catatonic to engage in a full and comprehensive review of systems and psychosocial derived from previous note." VITAL SIGNS: See below. NEW TEST RESULTS: See below. CURRENT MEDICATIONS: See below. MENTAL STATUS EXAMINATION: General: Fair hygiene Speech: monotone Thought processes: Linear MSK: Severe slowing Thought content: Hopeless Abstract reasoning, and computation: Impaired Description of associations: Impaired Description of abnormal or psychotic thoughts: Some suicidal thoughts and continues to want to be Judgment: Impaired Insight: poor Orientation: Alert and orientated 3 Cognition: slowed Recent and remote memory: Intact Attention span and concentration: Impaired Fund of knowledge: Adequate Mood: "I want to " Affect: Profoundly flat with little reactivity. DIAGNOSES: MDD, severe with psychotic features. Opioid use disorder. Cannabis. Catatonia. ASSESSMENT:Pt seen in her room in bed staring at the ceiling stating she continues to want to be and only acted like she was feeling better when previously d/c b/c she wanted to go home. States she was taking her medication when she was home. She appears very depressed and flat with psychomotor retardation and internal preoccupation with worrisome/anxious thoughts. States she hurts all over and doesn't know why. Encouraged to get tylenol from nurse for her pain which she states she will later. Pt feels safe here. MANAGEMENT PLAN: re=-initiate Prozac, haldol, rexulti once catatonia resolved. Continue ativan 1mg tid for catatonia currently. TIME SPENT: 30 minutes. Vital Signs Vital Signs Date Time Temp Pulse Resp B/P (MAP) Pulse Ox O2 Delivery O2 Flow Rate FiO2 03/28/19 06:16 97.2 67 18 117/69 (85) 03/26/19 05:39 Room Air 03/25/19 19:32 99 Current Medications Current Medications Medications (Trade) Dose Ordered Sig/Yifan Route PRN Reason Start Time Stop Time Status Last Admin Dose Admin Acetaminophen (Tylenol Tab) 650 mg Q6HP PRN PO HEADACHE or DISCOMFORT 03/25/19 13:00 03/26/19 17:58 Al Hydrox/Mg Hydrox/Simethicone (Mylanta) 30 ml Q4HP PRN PO HEARTBURN/INDIGESTION 03/25/19 13:00 Diphenhydramine HCl (Benadryl) 25 mg Q6HP PRN PO ANXIETY/AGITATION 03/25/19 13:00 03/27/19 22:32 Haloperidol (Haldol) 5 mg Q6HP PRN PO ANXIETY/AGITATION 03/25/19 13:00 Home Med (Med Rec Complete!) ASDIRECTED XX 03/25/19 13:30 03/25/19 13:31 DC Ibuprofen (Advil) 400 mg Q6HP PRN PO PAIN 03/25/19 13:00 03/27/19 22:32 Levothyroxine Sodium (Synthroid) 25 mcg DAILY@0600 PO 03/27/19 06:00 03/28/19 06:20 Lorazepam (Ativan) 0.5 mg TID PO 03/25/19 16:00 03/26/19 14:13 DC 03/26/19 08:46 Lorazepam (Ativan) 1 mg TID PO 03/26/19 16:00 03/27/19 21:48 Magnesium Hydroxide (Milk Of Magnesia) 30 ml DAILYPRN PRN PO CONSTIPATION 03/25/19 13:00 Olanzapine (ZyPREXA) 5 mg Q4HP PRN PO AGITATION 03/25/19 13:00 Trazodone HCl (Desyrel) 50 mg QHSP PRN PO INSOMNIA 03/25/19 13:00 03/27/19 22:32 Allergies Coded Allergies: No Known Allergies (Verified , 03/06/19) DEVAUGHN VERDE DO Mar 28, 2019 9:02 am
[2019-03-28] MEDS: LORazepam 1 MG TAB PO SCH ×3 (09:16→21:11)
[2019-03-28] MEDS: IBUPROFEN 400 MG TAB PO PRN ×2 (09:16→23:18)
[2019-03-28 16:00] VITALS: BP 112/69
[2019-03-28] MEDS: ACETAMINOPHEN TAB 650MG DOSE (2X325MG) PO PRN (16:28)
[2019-03-28 17:25] VITALS: BP 137/74
[2019-03-28] MEDS: traZODone 50 MG TAB PO PRN (23:18)
[2019-03-29 06:30] VITALS: BP 116/58
[2019-03-29] MEDS: LEVOTHYROXINE 25MCG TABLET (0.025MG) PO SCH (06:38)
[2019-03-29] MEDS: LORazepam 1 MG TAB PO SCH (08:58)
[2019-03-29] MEDS: ACETAMINOPHEN TAB 650MG DOSE (2X325MG) PO PRN (08:59)
--- NOTE | 2019-03-29 10:34 | MHIPNPDOC ---
[facility] Progress Note Progress Note DATE OF SERVICE: 03/29/19 HISTORY: Per Dr. Sarabia: "Patient is a 44-year-old woman with a history of reported severe depression, presents catatonic after ceasing her medications after being recently discharged from our care unit. She had done well on a combination of Prozac and brexpiprazole, but reportedly had not been able to take the medications, suddenly became more frozen and unable to interact point where she started to have suicidal thoughts and was brought in. The patient is too catatonic to engage in a full and comprehensive review of systems and psychosocial derived from previous note." VITAL SIGNS: See below. NEW TEST RESULTS: See below. CURRENT MEDICATIONS: See below. MENTAL STATUS EXAMINATION: General: Fair hygiene Speech: monotone Thought processes: Linear MSK: Severe slowing Thought content: Hopeless Abstract reasoning, and computation: Impaired Description of associations: Impaired Description of abnormal or psychotic thoughts: Some suicidal thoughts and continues to want to be Judgment: Impaired Insight: poor Orientation: Alert and orientated 3 Cognition: slowed Recent and remote memory: Intact Attention span and concentration: Impaired Fund of knowledge: Adequate Mood: "Let me ... I'm a burden." Affect: Profoundly flat with little reactivity. DIAGNOSES: MDD, severe with psychotic features. Opioid use disorder. Cannabis. ASSESSMENT:Pt seen in her room in bed again stating she continues to want to be and "why won't you let me ... I'm a burden". Explained to pt that she isn't a burden and that we are her to help her feel better about herself and living. Reminded that her family love her and her kids need her. Appearred to not really affect her though. Advised that I will restart her prozac and rexulti to improve her mood. Spoke with d/c convention planner and will refer pt to [facility] again for buttermaker helper treatment as pt is very depressed, flat with psychomotor retardation and internal preoccupation with worrisome/anxious thoughts. Pt feels safe here. MANAGEMENT PLAN: Change ativan to prn anxiety. Restart prozac and rexulti for mood. prozac 20mg daily rexulti 1mg daily TIME SPENT: 30 minutes. Vital Signs Vital Signs Date Time Temp Pulse Resp B/P (MAP) Pulse Ox O2 Delivery O2 Flow Rate FiO2 2/21/20 06:30 97.1 66 14 116/58 (77) 03/26/19 05:39 Room Air 03/25/19 19:32 99 Current Medications Current Medications Medications (Trade) Dose Ordered Sig/Yifan Route PRN Reason Start Time Stop Time Status Last Admin Dose Admin Acetaminophen (Tylenol Tab) 650 mg Q6HP PRN PO HEADACHE or DISCOMFORT 03/25/19 13:00 03/29/19 08:59 Al Hydrox/Mg Hydrox/Simethicone (Mylanta) 30 ml Q4HP PRN PO HEARTBURN/INDIGESTION 03/25/19 13:00 Diphenhydramine HCl (Benadryl) 25 mg Q6HP PRN PO ANXIETY/AGITATION 03/25/19 13:00 03/27/19 22:32 Haloperidol (Haldol) 5 mg Q6HP PRN PO ANXIETY/AGITATION 03/25/19 13:00 Home Med (Med Rec Complete!) ASDIRECTED XX 03/25/19 13:30 03/25/19 13:31 DC Ibuprofen (Advil) 400 mg Q6HP PRN PO PAIN 03/25/19 13:00 03/28/19 23:18 Levothyroxine Sodium (Synthroid) 25 mcg DAILY@0600 PO 03/27/19 06:00 03/29/19 06:38 Lorazepam (Ativan) 0.5 mg TID PO 03/25/19 16:00 03/26/19 14:13 DC 03/26/19 08:46 Lorazepam (Ativan) 1 mg TID PO 03/26/19 16:00 03/29/19 08:58 Magnesium Hydroxide (Milk Of Magnesia) 30 ml DAILYPRN PRN PO CONSTIPATION 03/25/19 13:00 Olanzapine (ZyPREXA) 5 mg Q4HP PRN PO AGITATION 03/25/19 13:00 Trazodone HCl (Desyrel) 50 mg QHSP PRN PO INSOMNIA 03/25/19 13:00 03/28/19 23:18 Allergies Coded Allergies: No Known Allergies (Verified , 03/06/19) DEVAUGHN VERDE DO Mar 29, 2019 10:34
[2019-03-29] MEDS ORDERED: BREXPIPRAZOLE 0.5MG TABLET (REXULTI) PO ONE (11:00)
[2019-03-29] MEDS ORDERED: FLUoxetine 20 MG CAP PO ONE (11:00)
[2019-03-29 16:40] VITALS: BP 100/56
[2019-03-29] MEDS: IBUPROFEN 400 MG TAB PO PRN (16:42)
[2019-03-29] MEDS: diphenhydrAMINE 25MG CAP PO PRN (16:42)
[2019-03-30] MEDS: LEVOTHYROXINE 25MCG TABLET (0.025MG) PO SCH (06:06)
[2019-03-30 06:13] VITALS: BP 117/70
[2019-03-30] MEDS: FLUoxetine 20 MG CAP PO SCH (09:32)
[2019-03-30] MEDS: BREXPIPRAZOLE 0.5MG TABLET (REXULTI) PO SCH (09:32)
[2019-03-30] MEDS: diphenhydrAMINE 25MG CAP PO PRN ×2 (09:32→18:48)
[2019-03-30] MEDS: IBUPROFEN 400 MG TAB PO PRN ×2 (09:32→18:48)
[2019-03-30] MEDS: ACETAMINOPHEN TAB 650MG DOSE (2X325MG) PO PRN (10:31)
[2019-03-30 16:08] VITALS: BP 127/65
[2019-03-30] MEDS: traZODone 50 MG TAB PO PRN (20:51)
[2019-03-31 06:30] VITALS: BP 109/58
[2019-03-31] MEDS: LEVOTHYROXINE 25MCG TABLET (0.025MG) PO SCH (06:42)
[2019-03-31] MEDS: BREXPIPRAZOLE 0.5MG TABLET (REXULTI) PO SCH (09:19)
[2019-03-31] MEDS: FLUoxetine 20 MG CAP PO SCH (09:20)
[2019-03-31 16:00] VITALS: BP 106/57
[2019-03-31] MEDS: traZODone 50 MG TAB PO PRN (20:48)
[2019-03-31] MEDS: IBUPROFEN 400 MG TAB PO PRN (20:48)
[2019-04-01] MEDS: LEVOTHYROXINE 25MCG TABLET (0.025MG) PO SCH (05:54)
[2019-04-01 06:42] VITALS: BP 108/49
[2019-04-01] MEDS: BREXPIPRAZOLE 0.5MG TABLET (REXULTI) PO SCH (08:38)
[2019-04-01] MEDS: FLUoxetine 20 MG CAP PO SCH (08:39)
[2019-04-01 15:46] VITALS: BP 133/76
[2019-04-01] MEDS: traZODone 50 MG TAB PO PRN (20:52)
[2019-04-02] MEDS: LEVOTHYROXINE 25MCG TABLET (0.025MG) PO SCH (05:55)
[2019-04-02 06:47] VITALS: BP 125/77
[2019-04-02] MEDS: BREXPIPRAZOLE 0.5MG TABLET (REXULTI) PO SCH (08:29)
[2019-04-02] MEDS: FLUoxetine 20 MG CAP PO SCH (08:29)
[2019-04-02 16:00] VITALS: BP 131/78
[2019-04-02] MEDS: IBUPROFEN 400 MG TAB PO PRN (20:53)
[2019-04-02] MEDS: traZODone 50 MG TAB PO PRN (20:53)
[2019-04-03] MEDS: LEVOTHYROXINE 25MCG TABLET (0.025MG) PO SCH (05:56)
[2019-04-03 06:46] VITALS: BP 137/83
[2019-04-03] MEDS: FLUoxetine 20 MG CAP PO SCH (08:37)
[2019-04-03] MEDS: BREXPIPRAZOLE 0.5MG TABLET (REXULTI) PO SCH (08:37)
--- NOTE | 2019-04-03 10:04 | MHIPNPDOC ---
[facility] Progress Note Progress Note Jayne Lawson Inpatient Progress Note Jayne Lawson Select Gender MRN: N/A Date of : MM/DD/YYYY Date of Service: 04/03/2019 History of Present Illness Patient is a 44-year-old woman with a history of reported severe depression, presents catatonic after ceasing her medications after being recently discharged from our care unit. She had done well on a combination of Prozac and brexpiprazole, but reportedly had not been able to take the medications, suddenly became more frozen and unable to interact point where she started to have suicidal thoughts and was brought in. The patient is too catatonic to engage in a full and comprehensive review of systems and psychosocial derived from previous note. Interval History Narrative: The patient has met with in her room. She reports that she is doing somewhat better. Affective: The patient reports low mood and consistent thoughts of wanting to , additionally loss of interest and focus problems present. Psychotic: None elicited, generally appears catatonic. Anxiety: Reports worries about her social situation. Eating and sleeping behaviors: Systole dysregulated. Needs prompting for eating and sleeps a good majority of the day. Group Attendance: None. Medication Side effects: See ROS below Behavioral problems/significant events overnight: None. Staff Report: The patient generally appears slowed, although it has made some mild progress in its resolution. Review Of Systems General: Denies fever or appetite changes Cardiovascular: Denies Chest pain or palpations GI: Denies Nausea, vomiting, or bowel changes Respiratory: Denies shortness of breath or cough Neuro: Denies dizziness, tremors Derm: Denies any rashes or pruritus : Denies any dysuria or urinary problems HEENT: Denies any vision changes or headaches Psychotherapy None on this visit. Vital Signs Reviewed. Mental Status Examination General: Fair hygiene Speech: monotone Thought processes: Linear MSK: Severe slowing Thought content: Hopeless Abstract reasoning, and computation: Impaired Description of associations: Impaired Description of abnormal or psychotic thoughts: Suicidal thoughts present, denies homicidal thoughts. Denies auditory or visual hallucinations. Judgment: Impaired Insight: fair Orientation: Alert and orientated 3 Cognition: slowed Recent and remote memory: Intact Attention span and concentration: Impaired Fund of knowledge: Adequate Mood: "fine" Affect: Profoundly flat with little reactivity. Diagnoses MDD, severe with psychotic features. Opioid use disorder. Cannabis use disorder, moderate. Opioid use disorder, moderate. Catatonia. Assessment and Plan MDD: Increase Prozac to 30 mg daily. Continue Rexulti 1 mg daily. Catatonia: Continue Ativan, patient making some improvements. Opioid use disorder: Not relevant at this time. Cannabis use disorder: Recommend outpatient rehab. Disposition The patient will need a further inpatient admission due to her severe depression, catatonia and suicidal thoughts. Referral to [facility] will be undertaken. Time Spent 15 minutes [id number]. Vital Signs Vital Signs Date Time Temp Pulse Resp B/P (MAP) Pulse Ox O2 Delivery O2 Flow Rate FiO2 04/03/19 06:46 97.4 64 16 137/83 (101) 04/01/19 06:42 Room Air Current Medications Current Medications Medications (Trade) Dose Ordered Sig/Yifan Route PRN Reason Start Time Stop Time Status Last Admin Dose Admin Acetaminophen (Tylenol Tab) 650 mg Q6HP PRN PO HEADACHE or DISCOMFORT 03/25/19 13:00 03/30/19 10:31 Al Hydrox/Mg Hydrox/Simethicone (Mylanta) 30 ml Q4HP PRN PO HEARTBURN/INDIGESTION 03/25/19 13:00 Brexpiprazole (Rexulti) 1 mg DAILY PO 03/30/19 09:00 04/03/19 08:37 Diphenhydramine HCl (Benadryl) 25 mg Q6HP PRN PO ANXIETY/AGITATION 03/25/19 13:00 03/30/19 18:48 Fluoxetine HCl (PROzac) 20 mg DAILY PO 03/30/19 09:00 04/03/19 08:37 Haloperidol (Haldol) 5 mg Q6HP PRN PO ANXIETY/AGITATION 03/25/19 13:00 Home Med (Med Rec Complete!) ASDIRECTED XX 03/25/19 13:30 03/25/19 13:31 DC Ibuprofen (Advil) 400 mg Q6HP PRN PO PAIN 03/25/19 13:00 04/02/19 20:53 Levothyroxine Sodium (Synthroid) 25 mcg DAILY@0600 PO 03/27/19 06:00 04/03/19 05:56 Lorazepam (Ativan) 0.5 mg TID PO 03/25/19 16:00 03/26/19 14:13 DC 03/26/19 08:46 Lorazepam (Ativan) 1 mg TID PO 03/26/19 16:00 03/29/19 10:34 DC 03/29/19 08:58 Lorazepam (Ativan) 1 mg TIDP PRN PO ANXIETY 03/29/19 10:30 Magnesium Hydroxide (Milk Of Magnesia) 30 ml DAILYPRN PRN PO CONSTIPATION 03/25/19 13:00 Olanzapine (ZyPREXA) 5 mg Q4HP PRN PO AGITATION 03/25/19 13:00 Trazodone HCl (Desyrel) 50 mg QHSP PRN PO INSOMNIA 03/25/19 13:00 04/02/19 20:53 Allergies Coded Allergies: No Known Allergies (Verified , 03/06/19) NAREN SWAIN DO Apr 03, 2019 10:04
[2019-04-03 16:00] VITALS: BP 150/87
[2019-04-03] MEDS: traZODone 50 MG TAB PO PRN (21:41)
[2019-04-04] MEDS: LEVOTHYROXINE 25MCG TABLET (0.025MG) PO SCH (05:55)
[2019-04-04 06:30] VITALS: BP 143/85
--- NOTE | 2019-04-04 08:43 | MHIPNPDOC ---
[facility] Progress Note Progress Note Jayne Lawson Inpatient Progress Note Jayne Lawson Select Gender MRN: N/A Date of : MM/DD/YYYY Date of Service: 04/04/2019 History of Present Illness Patient is a 44-year-old woman with a history of reported severe depression, presents catatonic after ceasing her medications after being recently discharged from our care unit. She had done well on a combination of Prozac and brexpiprazole, but reportedly had not been able to take the medications, suddenly became more frozen and unable to interact point where she started to have suicidal thoughts and was brought in. The patient is too catatonic to engage in a full and comprehensive review of systems and psychosocial derived from previous note. Interval History Narrative: The patient is met within the group setting. She reports doing mildly better, is more amenable to going to [facility] after discussion. Affective: The patient continues to report low mood, suicidal thoughts and difficulty with interest and focus. Psychotic: Patient less catatonic. Anxiety: The patient reports worries about her situation. Eating and sleeping behaviors: Still dysregulated, although normalizing.. Group Attendance: None. Medication Side effects: See ROS below Behavioral problems/significant events overnight: None. Staff Report: The patient appears slowed but has been making some mild progress. Review Of Systems General: Denies fever or appetite changes Cardiovascular: Denies Chest pain or palpations GI: Denies Nausea, vomiting, or bowel changes Respiratory: Denies shortness of breath or cough Neuro: Denies dizziness, tremors Derm: Denies any rashes or pruritus : Denies any dysuria or urinary problems HEENT: Denies any vision changes or headaches Psychotherapy None on this visit. Vital Signs Reviewed. Mental Status Examination General: Fair hygiene Speech: monotone Thought processes: Linear MSK: Severe slowing Thought content: Hopeless Abstract reasoning, and computation: Impaired Description of associations: Impaired Description of abnormal or psychotic thoughts: Suicidal thoughts present, denies homicidal thoughts. Denies auditory or visual hallucinations. Judgment: Impaired Insight: fair Orientation: Alert and orientated 3 Cognition: slowed Recent and remote memory: Intact Attention span and concentration: Impaired Fund of knowledge: Adequate Mood: "fine" Affect: Profoundly flat with little reactivity. Diagnoses MDD, severe with psychotic features. Opioid use disorder. Cannabis use disorder, moderate. Opioid use disorder, moderate. Catatonia. Assessment and Plan MDD: Continue Prozac 30 mg daily, continue Rexulti 1 mg daily. Catatonia: Continue Ativan, patient making some improvements. Opioid use disorder: Not relevant at this time. Cannabis use disorder: Recommend outpatient rehab. Disposition The patient will need a further inpatient admission due to her severe depression, catatonia and suicidal thoughts. Referral to [facility] will be undertaken. Time Spent 15 minutes [id number]. Vital Signs Vital Signs Date Time Temp Pulse Resp B/P (MAP) Pulse Ox O2 Delivery O2 Flow Rate FiO2 04/04/19 06:30 98.0 74 16 143/85 (104) 04/01/19 06:42 Room Air Current Medications Current Medications Medications (Trade) Dose Ordered Sig/Yifan Route PRN Reason Start Time Stop Time Status Last Admin Dose Admin Acetaminophen (Tylenol Tab) 650 mg Q6HP PRN PO HEADACHE or DISCOMFORT 03/25/19 13:00 03/30/19 10:31 Al Hydrox/Mg Hydrox/Simethicone (Mylanta) 30 ml Q4HP PRN PO HEARTBURN/INDIGESTION 03/25/19 13:00 Brexpiprazole (Rexulti) 1 mg DAILY PO 03/30/19 09:00 04/03/19 08:37 Diphenhydramine HCl (Benadryl) 25 mg Q6HP PRN PO ANXIETY/AGITATION 03/25/19 13:00 03/30/19 18:48 Fluoxetine HCl (PROzac) 20 mg DAILY PO 03/30/19 09:00 04/03/19 13:52 DC 04/03/19 08:37 Fluoxetine HCl (PROzac) 30 mg DAILY PO 04/04/19 09:00 Haloperidol (Haldol) 5 mg Q6HP PRN PO ANXIETY/AGITATION 03/25/19 13:00 Home Med (Med Rec Complete!) ASDIRECTED XX 03/25/19 13:30 03/25/19 13:31 DC Ibuprofen (Advil) 400 mg Q6HP PRN PO PAIN 03/25/19 13:00 04/02/19 20:53 Levothyroxine Sodium (Synthroid) 25 mcg DAILY@0600 PO 03/27/19 06:00 04/04/19 05:55 Lorazepam (Ativan) 0.5 mg TID PO 03/25/19 16:00 2/18/20 14:13 DC 03/26/19 08:46 Lorazepam (Ativan) 1 mg TID PO 03/26/19 16:00 03/29/19 10:34 DC 03/29/19 08:58 Lorazepam (Ativan) 1 mg TIDP PRN PO ANXIETY 03/29/19 10:30 Magnesium Hydroxide (Milk Of Magnesia) 30 ml DAILYPRN PRN PO CONSTIPATION 03/25/19 13:00 Olanzapine (ZyPREXA) 5 mg Q4HP PRN PO AGITATION 03/25/19 13:00 Trazodone HCl (Desyrel) 50 mg QHSP PRN PO INSOMNIA 03/25/19 13:00 04/03/19 21:41 Allergies Coded Allergies: No Known Allergies (Verified , 03/06/19) NAREN SWAIN DO Apr 04, 2019 08:43
[2019-04-04] MEDS: BREXPIPRAZOLE 0.5MG TABLET (REXULTI) PO SCH (08:46)
[2019-04-04] MEDS ORDERED: FLUoxetine 10 MG CAP PO SCH (09:00)
[2019-04-04 17:50] VITALS: BP 137/78
[2019-04-05] MEDS: LEVOTHYROXINE 25MCG TABLET (0.025MG) PO SCH (05:55)
[2019-04-05 06:19] VITALS: BP 135/77
[2019-04-05] MEDS: FLUoxetine 20 MG CAP PO SCH (08:49)
[2019-04-05] MEDS: BREXPIPRAZOLE 0.5MG TABLET (REXULTI) PO SCH (08:49)
[2019-04-05 16:00] VITALS: BP 130/78
[2019-04-06] MEDS: LEVOTHYROXINE 25MCG TABLET (0.025MG) PO SCH (05:57)
[2019-04-06 06:36] VITALS: BP 153/94
[2019-04-06] MEDS: FLUoxetine 20 MG CAP PO SCH (08:27)
[2019-04-06] MEDS: BREXPIPRAZOLE 0.5MG TABLET (REXULTI) PO SCH (08:27)
[2019-04-06 16:11] VITALS: BP 112/75
[2019-04-06] MEDS: traZODone 50 MG TAB PO PRN (21:13)
[2019-04-07] MEDS: LEVOTHYROXINE 25MCG TABLET (0.025MG) PO SCH (05:51)
[2019-04-07 06:32] VITALS: BP 129/87
[2019-04-07] MEDS: BREXPIPRAZOLE 0.5MG TABLET (REXULTI) PO SCH (08:05)
[2019-04-07] MEDS: FLUoxetine 20 MG CAP PO SCH (08:05)
[2019-04-07 16:05] VITALS: BP 132/76
[2019-04-07] MEDS: ACETAMINOPHEN TAB 650MG DOSE (2X325MG) PO PRN (21:22)
[2019-04-07] MEDS: traZODone 50 MG TAB PO PRN (21:22)
[2019-04-08] MEDS: LEVOTHYROXINE 25MCG TABLET (0.025MG) PO SCH (05:55)
[2019-04-08 06:30] VITALS: BP 130/88
[2019-04-08] MEDS: BREXPIPRAZOLE 0.5MG TABLET (REXULTI) PO SCH (08:21)
[2019-04-08] MEDS: FLUoxetine 20 MG CAP PO SCH (08:21)
[2019-04-08 16:18] VITALS: BP 125/73
[2019-04-08] MEDS: traZODone 50 MG TAB PO PRN (22:00)
[2019-04-09] MEDS: LEVOTHYROXINE 25MCG TABLET (0.025MG) PO SCH (06:13)
[2019-04-09 06:27] VITALS: BP 134/73
[2019-04-09] MEDS: BREXPIPRAZOLE 0.5MG TABLET (REXULTI) PO SCH (08:06)
[2019-04-09] MEDS: FLUoxetine 20 MG CAP PO SCH (08:06)
--- NOTE | 2019-04-09 15:04 | MHIPNPDOC ---
[facility] Progress Note Progress Note DATE OF SERVICE: 04/09/19 HISTORY: Per Dr. Sarabia: "Patient is a 44-year-old woman with a history of reported severe depression, presents catatonic after ceasing her medications after being recently discharged from our care unit. She had done well on a combination of Prozac and brexpiprazole, but reportedly had not been able to take the medications, suddenly became more frozen and unable to interact point where she started to have suicidal thoughts and was brought in. The patient is too catatonic to engage in a full and comprehensive review of systems and psychosocial derived from previous note." VITAL SIGNS: See below. NEW TEST RESULTS: See below. CURRENT MEDICATIONS: See below. MENTAL STATUS EXAMINATION: General: Pleasaqnt, cooperative, with good hygiene, proper attire Speech: Not spontaneous, not fluent, monotone, slow, low volume Thought processes: Linear and coherent a this time MSK: psychomotor retardation Thought content: future orientated, she wants to get better, she wants to go to [facility], she has passive suicidal ideation that she tries to fight. Denies Hi, denies thought delusions, denies TAV hallucinations Abstract reasoning, and computation: Not assessed at this time Description of associations: Impaired Description of abnormal or psychotic thoughts: Reports passive suicidal ideation, feels helpless, denies thought delusions. Judgment: slowly improving Insight: slowly improving Orientation: Alert and orientated 3 Cognition: slow Recent and remote memory: Intact Attention span and concentration: improving Fund of knowledge: Adequate Mood: "I'm anxious" Affect: constricted, flat DIAGNOSES: MDD, severe with psychotic features. Opioid use disorder. Cannabis. Catatonia. ASSESSMENT: Patient is still depressed, she's anxious about sweetie transferred to [facility] but she wants to go because she knows she needs it. MANAGEMENT PLAN: Continue current treatment plan TIME SPENT: 30 minutes. Vital Signs Vital Signs Date Time Temp Pulse Resp B/P (MAP) Pulse Ox O2 Delivery O2 Flow Rate FiO2 04/09/19 06:27 97.6 76 14 134/73 (93) Room Air Current Medications Current Medications Medications (Trade) Dose Ordered Sig/Yifan Route PRN Reason Start Time Stop Time Status Last Admin Dose Admin Acetaminophen (Tylenol Tab) 650 mg Q6HP PRN PO HEADACHE or DISCOMFORT 03/25/19 13:00 04/07/19 21:22 Al Hydrox/Mg Hydrox/Simethicone (Mylanta) 30 ml Q4HP PRN PO HEARTBURN/INDIGESTION 03/25/19 13:00 Brexpiprazole (Rexulti) 1 mg DAILY PO 03/30/19 09:00 04/09/19 08:06 Diphenhydramine HCl (Benadryl) 25 mg Q6HP PRN PO ANXIETY/AGITATION 03/25/19 13:00 03/30/19 18:48 Fluoxetine HCl (PROzac) 20 mg DAILY PO 03/30/19 09:00 04/03/19 13:52 DC 04/03/19 08:37 Fluoxetine HCl (PROzac) 30 mg DAILY PO 04/04/19 09:00 04/04/19 09:57 DC 04/04/19 08:46 Fluoxetine HCl (PROzac) 40 mg DAILY PO 04/05/19 09:00 04/09/19 08:06 Haloperidol (Haldol) 5 mg Q6HP PRN PO ANXIETY/AGITATION 03/25/19 13:00 Home Med (Med Rec Complete!) ASDIRECTED XX 03/25/19 13:30 03/25/19 13:31 DC Ibuprofen (Advil) 400 mg Q6HP PRN PO PAIN 03/25/19 13:00 04/02/19 20:53 Levothyroxine Sodium (Synthroid) 25 mcg DAILY@0600 PO 03/27/19 06:00 04/09/19 06:13 Lorazepam (Ativan) 0.5 mg TID PO 03/25/19 16:00 03/26/19 14:13 DC 03/26/19 08:46 Lorazepam (Ativan) 1 mg TID PO 03/26/19 16:00 03/29/19 10:34 DC 03/29/19 08:58 Lorazepam (Ativan) 1 mg TIDP PRN PO ANXIETY 03/29/19 10:30 Magnesium Hydroxide (Milk Of Magnesia) 30 ml DAILYPRN PRN PO CONSTIPATION 03/25/19 13:00 Miscellaneous (Unresolved Clarification Entry) SEE LABEL COMMENTS DAILY XX 04/09/19 09:00 Olanzapine (ZyPREXA) 5 mg Q4HP PRN PO AGITATION 03/25/19 13:00 Trazodone HCl (Desyrel) 50 mg QHSP PRN PO INSOMNIA 03/25/19 13:00 04/08/19 22:00 Allergies Coded Allergies: No Known Allergies (Verified , 03/06/19) BAYLEE REYES MD Apr 09, 2019 15:04
[2019-04-09 16:01] VITALS: BP 129/70
[2019-04-09] MEDS: ACETAMINOPHEN TAB 650MG DOSE (2X325MG) PO PRN (20:16)
[2019-04-09] MEDS: traZODone 50 MG TAB PO PRN (21:14)
[2019-04-10 06:26] VITALS: BP 148/68
[2019-04-10] MEDS: LEVOTHYROXINE 25MCG TABLET (0.025MG) PO SCH (06:34)
[2019-04-10] MEDS: BREXPIPRAZOLE 0.5MG TABLET (REXULTI) PO SCH (08:20)
[2019-04-10] MEDS: FLUoxetine 20 MG CAP PO SCH (08:21)
[2019-04-10 16:22] VITALS: BP 130/71
--- NOTE | 2019-04-10 19:18 | MHIPN ---
DATE: 04/10/2019 VITAL SIGNS: Blood pressure 148/68, pulse 74, temperature 98. CHIEF COMPLAINT: Feels depressed. SUBJECTIVE: Seen for followup in the presence of staff. Says feels depressed and wishes she could . Says if she were home she would take an overdose. MENTAL STATUS EXAMINATION: Neat, cooperative though possibly a bit guarded. Some psychomotor retardation. Answers questions briefly, coherently. Has suicidal thoughts. Affect is restricted with very limited range. Currently does not appear internally preoccupied. No delusional ideations are elicited. Cognition is grossly intact. Judgment and insight are poor. ASSESSMENT: 1. Major depressive disorder with psychotic features. 2. Opioid use disorder. 3. Cannabis use disorder. PLAN: Remains significantly depressed. I would suggest continuing current care. She is on Prozac and Rexulti (brexpiprazole). Is awaiting transfer for long-term care, from what I understand. She will be seen by the assignee psychiatrist tomorrow.
[2019-04-10] MEDS: traZODone 50 MG TAB PO PRN (20:58)
[2019-04-10] MEDS: IBUPROFEN 400 MG TAB PO PRN (20:59)
[2019-04-11] MEDS: LEVOTHYROXINE 25MCG TABLET (0.025MG) PO SCH (06:06)
[2019-04-11 07:10] VITALS: BP 159/80
[2019-04-11] MEDS: FLUoxetine 20 MG CAP PO SCH (08:17)
[2019-04-11] MEDS: BREXPIPRAZOLE 0.5MG TABLET (REXULTI) PO SCH (08:17)
--- NOTE | 2019-04-11 10:10 | MHIPNPDOC ---
[facility] Progress Note Progress Note DATE OF SERVICE: 04/11/19 HISTORY: Per Dr. Sarabia: "Patient is a 44-year-old woman with a history of reported severe depression, presents catatonic after ceasing her medications after being recently discharged from our care unit. She had done well on a combination of Prozac and brexpiprazole, but reportedly had not been able to take the medications, suddenly became more frozen and unable to interact point where she started to have suicidal thoughts and was brought in. The patient is too catatonic to engage in a full and comprehensive review of systems and psychosocial derived from previous note." VITAL SIGNS: See below. NEW TEST RESULTS: See below. CURRENT MEDICATIONS: See below. MENTAL STATUS EXAMINATION: General: good hygiene Speech: monotone Thought processes: Linear MSK: some slowing Thought content: less Hopeless Abstract reasoning, and computation: improved Description of associations: improved Description of abnormal or psychotic thoughts: Some suicidal thoughts and occasional desire to be Judgment: Impaired Insight: poor Orientation: Alert and orientated 3 Cognition: slowed Recent and remote memory: Intact Attention span and concentration: Impaired Fund of knowledge: Adequate Mood: "alright." Affect: less flat and more reactivity. DIAGNOSES: MDD, severe with psychotic features. Opioid use disorder. Cannabis. ASSESSMENT:Pt seen in room and states she doing better today as her meds are beneficial and she's tolerating them well. Admits she still has occasional thoughts of being a burden and not wanting to live but are slowly getting less daily. 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 Pt feels safe here. MANAGEMENT PLAN: continue plan and [facility] referral. prozac 20mg daily rexulti 1mg daily TIME SPENT: 30 minutes. Vital Signs Vital Signs Date Time Temp Pulse Resp B/P (MAP) Pulse Ox O2 Delivery O2 Flow Rate FiO2 04/11/19 07:10 98.9 77 14 159/80 (106) 04/09/19 06:27 Room Air Current Medications Current Medications Medications (Trade) Dose Ordered Sig/Yifan Route PRN Reason Start Time Stop Time Status Last Admin Dose Admin Acetaminophen (Tylenol Tab) 650 mg Q6HP PRN PO HEADACHE or DISCOMFORT 03/25/19 13:00 3/3/20 20:16 Al Hydrox/Mg Hydrox/Simethicone (Mylanta) 30 ml Q4HP PRN PO HEARTBURN/INDIGESTION 03/25/19 13:00 Brexpiprazole (Rexulti) 1 mg DAILY PO 03/30/19 09:00 04/11/19 08:17 Diphenhydramine HCl (Benadryl) 25 mg Q6HP PRN PO ANXIETY/AGITATION 03/25/19 13:00 03/30/19 18:48 Fluoxetine HCl (PROzac) 20 mg DAILY PO 03/30/19 09:00 04/03/19 13:52 DC 04/03/19 08:37 Fluoxetine HCl (PROzac) 30 mg DAILY PO 04/04/19 09:00 04/04/19 09:57 DC 04/04/19 08:46 Fluoxetine HCl (PROzac) 40 mg DAILY PO 04/05/19 09:00 04/11/19 08:17 Haloperidol (Haldol) 5 mg Q6HP PRN PO ANXIETY/AGITATION 03/25/19 13:00 Home Med (Med Rec Complete!) ASDIRECTED XX 03/25/19 13:30 03/25/19 13:31 DC Ibuprofen (Advil) 400 mg Q6HP PRN PO PAIN 03/25/19 13:00 04/10/19 20:59 Levothyroxine Sodium (Synthroid) 25 mcg DAILY@0600 PO 03/27/19 06:00 04/11/19 06:06 Lorazepam (Ativan) 0.5 mg TID PO 03/25/19 16:00 03/26/19 14:13 DC 03/26/19 08:46 Lorazepam (Ativan) 1 mg TID PO 03/26/19 16:00 03/29/19 10:34 DC 03/29/19 08:58 Lorazepam (Ativan) 1 mg TIDP PRN PO ANXIETY 03/29/19 10:30 Magnesium Hydroxide (Milk Of Magnesia) 30 ml DAILYPRN PRN PO CONSTIPATION 03/25/19 13:00 Miscellaneous (Unresolved Clarification Entry) SEE LABEL COMMENTS DAILY XX 04/09/19 09:00 04/09/19 16:22 DC Olanzapine (ZyPREXA) 5 mg Q4HP PRN PO AGITATION 03/25/19 13:00 Trazodone HCl (Desyrel) 50 mg QHSP PRN PO INSOMNIA 03/25/19 13:00 04/10/19 20:58 Allergies Coded Allergies: No Known Allergies (Verified , 03/06/19) DEVAUGHN VERDE DO Apr 11, 2019 10:10 am
[2019-04-11 16:18] VITALS: BP 123/74
[2019-04-11] MEDS: traZODone 50 MG TAB PO PRN (21:32)
[2019-04-12] MEDS: LEVOTHYROXINE 25MCG TABLET (0.025MG) PO SCH (05:58)
[2019-04-12 06:37] VITALS: BP 137/70
[2019-04-12] MEDS: FLUoxetine 20 MG CAP PO SCH (08:34)
[2019-04-12] MEDS: BREXPIPRAZOLE 0.5MG TABLET (REXULTI) PO SCH (08:34)
--- NOTE | 2019-04-12 09:01 | MHIPNPDOC ---
[facility] Progress Note Progress Note DATE OF SERVICE: 04/12/19 HISTORY: Per Dr. Sarabia: "Patient is a 44-year-old woman with a history of reported severe depression, presents catatonic after ceasing her medications after being recently discharged from our care unit. She had done well on a combination of Prozac and brexpiprazole, but reportedly had not been able to take the medications, suddenly became more frozen and unable to interact point where she started to have suicidal thoughts and was brought in. The patient is too catatonic to engage in a full and comprehensive review of systems and psychosocial derived from previous note." VITAL SIGNS: See below. NEW TEST RESULTS: See below. CURRENT MEDICATIONS: See below. MENTAL STATUS EXAMINATION: General: good hygiene Speech: monotone Thought processes: Linear MSK: some slowing Thought content: less Hopeless Abstract reasoning, and computation: improved Description of associations: improved Description of abnormal or psychotic thoughts: Some suicidal thoughts and occasional desire to be Judgment: Impaired Insight: poor Orientation: Alert and orientated 3 Cognition: slowed Recent and remote memory: Intact Attention span and concentration: Impaired Fund of knowledge: Adequate Mood: "alright." Affect: less flat and more reactivity. DIAGNOSES: MDD, severe with psychotic features. Opioid use disorder. Cannabis. ASSESSMENT:Pt seen in room and states she "ok" today. States her meds are beneficial and she's tolerating them well. Continues to have occasional thoughts of being a burden and not wanting to live but are slowly getting less daily. States she's trying not to focus on her thoughts and that the groups aid her to take her mind off them. Pt referred to [facility] for residential treatment for depression, psychomotor retardation, and internal preoccupation with worrisome/anxious thoughts. She denies HI, hallucinations, delusions. Pt feels safe here. MANAGEMENT PLAN: continue plan and [facility] referral. prozac 40mg daily rexulti 1mg daily TIME SPENT: 30 minutes. Vital Signs Vital Signs Date Time Temp Pulse Resp B/P (MAP) Pulse Ox O2 Delivery O2 Flow Rate FiO2 04/12/19 06:37 98.3 74 16 137/70 (92) Room Air Current Medications Current Medications Medications (Trade) Dose Ordered Sig/Yifan Route PRN Reason Start Time Stop Time Status Last Admin Dose Admin Acetaminophen (Tylenol Tab) 650 mg Q6HP PRN PO HEADACHE or DISCOMFORT 03/25/19 13:00 04/09/19 20:16 Al Hydrox/Mg Hydrox/Simethicone (Mylanta) 30 ml Q4HP PRN PO HEARTBURN/INDIGESTION 03/25/19 13:00 Brexpiprazole (Rexulti) 1 mg DAILY PO 03/30/19 09:00 04/12/19 08:34 Diphenhydramine HCl (Benadryl) 25 mg Q6HP PRN PO ANXIETY/AGITATION 03/25/19 13:00 03/30/19 18:48 Fluoxetine HCl (PROzac) 20 mg DAILY PO 03/30/19 09:00 04/03/19 13:52 DC 04/03/19 08:37 Fluoxetine HCl (PROzac) 30 mg DAILY PO 04/04/19 09:00 04/04/19 09:57 DC 04/04/19 08:46 Fluoxetine HCl (PROzac) 40 mg DAILY PO 04/05/19 09:00 04/12/19 08:34 Haloperidol (Haldol) 5 mg Q6HP PRN PO ANXIETY/AGITATION 03/25/19 13:00 Home Med (Med Rec Complete!) ASDIRECTED XX 03/25/19 13:30 03/25/19 13:31 DC Ibuprofen (Advil) 400 mg Q6HP PRN PO PAIN 03/25/19 13:00 04/10/19 20:59 Levothyroxine Sodium (Synthroid) 25 mcg DAILY@0600 PO 03/27/19 06:00 04/12/19 05:58 Lorazepam (Ativan) 0.5 mg TID PO 03/25/19 16:00 03/26/19 14:13 DC 03/26/19 08:46 Lorazepam (Ativan) 1 mg TID PO 03/26/19 16:00 03/29/19 10:34 DC 03/29/19 08:58 Lorazepam (Ativan) 1 mg TIDP PRN PO ANXIETY 03/29/19 10:30 Magnesium Hydroxide (Milk Of Magnesia) 30 ml DAILYPRN PRN PO CONSTIPATION 03/25/19 13:00 Miscellaneous (Unresolved Clarification Entry) SEE LABEL COMMENTS DAILY XX 04/09/19 09:00 04/09/19 16:22 DC Olanzapine (ZyPREXA) 5 mg Q4HP PRN PO AGITATION 03/25/19 13:00 Trazodone HCl (Desyrel) 50 mg QHSP PRN PO INSOMNIA 03/25/19 13:00 04/11/19 21:32 Allergies Coded Allergies: No Known Allergies (Verified , 03/06/19) DEVAUGHN VERDE DO Apr 12, 2019 9:01 am
[2019-04-12 16:08] VITALS: BP 130/71
[2019-04-12] MEDS: traZODone 50 MG TAB PO PRN (20:45)
[2019-04-13] MEDS: LEVOTHYROXINE 25MCG TABLET (0.025MG) PO SCH (05:27)
[2019-04-13 05:46] VITALS: BP 138/78
[2019-04-13] MEDS: FLUoxetine 20 MG CAP PO SCH (08:32)
[2019-04-13] MEDS: BREXPIPRAZOLE 0.5MG TABLET (REXULTI) PO SCH (08:32)
[2019-04-13 16:04] VITALS: BP 136/73
[2019-04-13] MEDS: traZODone 50 MG TAB PO PRN (21:23)
[2019-04-14] MEDS: LEVOTHYROXINE 25MCG TABLET (0.025MG) PO SCH (06:11)
[2019-04-14 06:18] VITALS: BP 140/78
[2019-04-14] MEDS: FLUoxetine 20 MG CAP PO SCH (08:31)
[2019-04-14] MEDS: BREXPIPRAZOLE 0.5MG TABLET (REXULTI) PO SCH (08:31)
[2019-04-14 16:15] VITALS: BP 134/68
[2019-04-14] MEDS: traZODone 50 MG TAB PO PRN (22:03)
[2019-04-15] MEDS: LEVOTHYROXINE 25MCG TABLET (0.025MG) PO SCH (05:52)
[2019-04-15 06:11] VITALS: BP 135/80
[2019-04-15] MEDS: BREXPIPRAZOLE 0.5MG TABLET (REXULTI) PO SCH (09:07)
[2019-04-15] MEDS: FLUoxetine 20 MG CAP PO SCH (09:07)
--- NOTE | 2019-04-15 10:23 | MHIPNPDOC ---
[facility] Progress Note Progress Note DATE OF SERVICE: 04/15/19 HISTORY: Per Dr. Sarabia: "Patient is a 44-year-old woman with a history of reported severe depression, presents catatonic after ceasing her medications after being recently discharged from our care unit. She had done well on a combination of Prozac and brexpiprazole, but reportedly had not been able to take the medications, suddenly became more frozen and unable to interact point where she started to have suicidal thoughts and was brought in. The patient is too catatonic to engage in a full and comprehensive review of systems and psychosocial derived from previous note." VITAL SIGNS: See below. NEW TEST RESULTS: See below. CURRENT MEDICATIONS: See below. MENTAL STATUS EXAMINATION: General: good hygiene Speech: monotone Thought processes: Linear MSK: some slowing Thought content: less Hopeless, continuous guilt feelings Abstract reasoning, and computation: improved Description of associations: improved Description of abnormal or psychotic thoughts: Some suicidal thoughts and occasional desire to be , guilt feelings Judgment: Impaired Insight: poor Orientation: Alert and orientated 3 Cognition: slowed Recent and remote memory: Intact Attention span and concentration: Impaired Fund of knowledge: Adequate Mood: "alright." Affect: less flat and more reactivity. DIAGNOSES: MDD, severe with psychotic features. Opioid use disorder. Cannabis. ASSESSMENT:Pt seen in day room and states she's "ok" today. States she continues to endorse a lot of "guilt" that makes her feel depressed. Agreeable to increasing her prozac to see if it aids her depression and anxiety symptoms. States her meds are beneficial and she's tolerating them well. Continues to have occasional thoughts of being a burden and not wanting to live but are slowly getting less daily. States she's trying not to focus on her thoughts and that the groups aid her to take her mind off them. Given permission on Monday to to facetime on phone with staff present with her kids as pt believes this will benefit her mood as she has been unable to see her kids since admission due to them being less than 18y/o. Pt referred to [facility] for [facility] treatment for depression, psychomotor retardation, and internal preoccupation with worrisome/anxious thoughts. She denies HI, hallucinations, delusions. Pt feels safe here. MANAGEMENT PLAN: continue plan and [facility] referral. increase prozac to 60mg daily. prozac 60mg daily rexulti 1mg daily TIME SPENT: 30 minutes. Vital Signs Vital Signs Date Time Temp Pulse Resp B/P (MAP) Pulse Ox O2 Delivery O2 Flow Rate FiO2 04/15/19 06:11 98.5 77 16 135/80 (98) 04/12/19 06:37 Room Air Current Medications Current Medications Medications (Trade) Dose Ordered Sig/Yifan Route PRN Reason Start Time Stop Time Status Last Admin Dose Admin Acetaminophen (Tylenol Tab) 650 mg Q6HP PRN PO HEADACHE or DISCOMFORT 03/25/19 13:00 04/09/19 20:16 Al Hydrox/Mg Hydrox/Simethicone (Mylanta) 30 ml Q4HP PRN PO HEARTBURN/INDIGESTION 03/25/19 13:00 Brexpiprazole (Rexulti) 1 mg DAILY PO 03/30/19 09:00 04/15/19 09:07 Diphenhydramine HCl (Benadryl) 25 mg Q6HP PRN PO ANXIETY/AGITATION 03/25/19 13:00 03/30/19 18:48 Fluoxetine HCl (PROzac) 20 mg DAILY PO 03/30/19 09:00 04/03/19 13:52 DC 04/03/19 08:37 Fluoxetine HCl (PROzac) 30 mg DAILY PO 04/04/19 09:00 04/04/19 09:57 DC 04/04/19 08:46 Fluoxetine HCl (PROzac) 40 mg DAILY PO 04/05/19 09:00 04/15/19 09:07 Haloperidol (Haldol) 5 mg Q6HP PRN PO ANXIETY/AGITATION 03/25/19 13:00 Home Med (Med Rec Complete!) ASDIRECTED XX 03/25/19 13:30 03/25/19 13:31 DC Ibuprofen (Advil) 400 mg Q6HP PRN PO PAIN 03/25/19 13:00 04/10/19 20:59 Levothyroxine Sodium (Synthroid) 25 mcg DAILY@0600 PO 03/27/19 06:00 04/15/19 05:52 Lorazepam (Ativan) 0.5 mg TID PO 03/25/19 16:00 03/26/19 14:13 DC 03/26/19 08:46 Lorazepam (Ativan) 1 mg TID PO 03/26/19 16:00 03/29/19 10:34 DC 03/29/19 08:58 Lorazepam (Ativan) 1 mg TIDP PRN PO ANXIETY 03/29/19 10:30 Magnesium Hydroxide (Milk Of Magnesia) 30 ml DAILYPRN PRN PO CONSTIPATION 03/25/19 13:00 Miscellaneous (Unresolved Clarification Entry) SEE LABEL COMMENTS DAILY XX 04/09/19 09:00 04/09/19 16:22 DC Olanzapine (ZyPREXA) 5 mg Q4HP PRN PO AGITATION 03/25/19 13:00 Trazodone HCl (Desyrel) 50 mg QHSP PRN PO INSOMNIA 03/25/19 13:00 04/14/19 22:03 Allergies Coded Allergies: No Known Allergies (Verified , 03/06/19) DEVAUGHN VERDE DO Apr 15, 2019 10:23 am
[2019-04-15] MEDS ORDERED: FLUoxetine 20 MG CAP PO ONE (10:30)
[2019-04-15 11:46] LABS: FREE THYROXINE INDEX 1.8 % (1.3-4.8); THYROID STIMULATING HORMONE 8.68 uIU/ML (0.358-3.740); THYROXINE (T4) 6.4 UG/DL (4.5-12.0)
[2019-04-15 15:37] VITALS: BP 129/67
[2019-04-15] MEDS: traZODone 50 MG TAB PO PRN (20:52)
[2019-04-16] MEDS: LEVOTHYROXINE 25MCG TABLET (0.025MG) PO SCH (05:47)
[2019-04-16 05:49] VITALS: BP 126/79
[2019-04-16] MEDS: BREXPIPRAZOLE 0.5MG TABLET (REXULTI) PO SCH (08:38)
[2019-04-16] MEDS: FLUoxetine 20 MG CAP PO SCH (08:39)
--- NOTE | 2019-04-16 09:08 | MHIPNPDOC ---
[facility] Progress Note Progress Note DATE OF SERVICE: 04/16/19 HISTORY: Per Dr. Sarabia: "Patient is a 44-year-old woman with a history of reported severe depression, presents catatonic after ceasing her medications after being recently discharged from our care unit. She had done well on a combination of Prozac and brexpiprazole, but reportedly had not been able to take the medications, suddenly became more frozen and unable to interact point where she started to have suicidal thoughts and was brought in. The patient is too catatonic to engage in a full and comprehensive review of systems and psychosocial derived from previous note." VITAL SIGNS: See below. NEW TEST RESULTS: See below. CURRENT MEDICATIONS: See below. MENTAL STATUS EXAMINATION: roughly no change General: good hygiene Speech: monotone Thought processes: Linear MSK: some slowing Thought content: less Hopeless, continuous guilt feelings Abstract reasoning, and computation: improved Description of associations: improved Description of abnormal or psychotic thoughts: Some suicidal thoughts and occasional desire to be , guilt feelings Judgment: Impaired Insight: poor Orientation: Alert and orientated 3 Cognition: slowed Recent and remote memory: Intact Attention span and concentration: Impaired Fund of knowledge: Adequate Mood: "alright." Affect: less flat and more reactivity. DIAGNOSES: MDD, severe with psychotic features. Opioid use disorder. Cannabis. ASSESSMENT:Pt seen in her room and states she's "alright" today. States she continues to endorse a lot of "guilt" that makes her feel depressed. Started prozac 60mg daily for depression yesterday and is waiting to see if mood and guilt improve with increase. She is tolerating the medication well. States her meds are beneficial and she's tolerating them well. Continues to have occasional thoughts of being a burden and not wanting to live but are slowly getting less daily. States she's trying not to focus on her thoughts and that the groups aid her to take her mind off them. Given permission on Monday to to facetime on phone with staff present with her kids as pt believes this will benefit her mood as she has been unable to see her kids since admission due to them being less than 18y/o. 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 She denies HI, hallucinations, delusions. Pt feels safe here. MANAGEMENT PLAN: continue plan and [facility] referral. increase prozac to 60mg daily. prozac 60mg daily rexulti 1mg daily TIME SPENT: 30 minutes. Vital Signs Vital Signs Date Time Temp Pulse Resp B/P (MAP) Pulse Ox O2 Delivery O2 Flow Rate FiO2 04/16/19 05:49 98.2 69 14 126/79 (95) 04/12/19 06:37 Room Air Laboratory Data 24H Labs Laboratory Tests 2 04/15/19 10:42: Thyroid Stimulating Hormone (TSH) 8.680H, Free Thyroxine Index 1.8, Thyroxine (T4) 6.4, Triiodothyronine (T3) Uptake 28L Current Medications Current Medications Medications (Trade) Dose Ordered Sig/Yifan Route PRN Reason Start Time Stop Time Status Last Admin Dose Admin Acetaminophen (Tylenol Tab) 650 mg Q6HP PRN PO HEADACHE or DISCOMFORT 03/25/19 13:00 04/09/19 20:16 Al Hydrox/Mg Hydrox/Simethicone (Mylanta) 30 ml Q4HP PRN PO HEARTBURN/INDIGESTION 03/25/19 13:00 Brexpiprazole (Rexulti) 1 mg DAILY PO 03/30/19 09:00 04/16/19 08:38 Diphenhydramine HCl (Benadryl) 25 mg Q6HP PRN PO ANXIETY/AGITATION 03/25/19 13:00 03/30/19 18:48 Fluoxetine HCl (PROzac) 20 mg DAILY PO 03/30/19 09:00 04/03/19 13:52 DC 04/03/19 08:37 Fluoxetine HCl (PROzac) 30 mg DAILY PO 04/04/19 09:00 04/04/19 09:57 DC 04/04/19 08:46 Fluoxetine HCl (PROzac) 40 mg DAILY PO 04/05/19 09:00 04/15/19 10:24 DC 04/15/19 09:07 Fluoxetine HCl (PROzac) 60 mg DAILY PO 04/16/19 09:00 04/16/19 08:39 Haloperidol (Haldol) 5 mg Q6HP PRN PO ANXIETY/AGITATION 03/25/19 13:00 Home Med (Med Rec Complete!) ASDIRECTED XX 03/25/19 13:30 03/25/19 13:31 DC Ibuprofen (Advil) 400 mg Q6HP PRN PO PAIN 03/25/19 13:00 04/10/19 20:59 Levothyroxine Sodium (Synthroid) 25 mcg DAILY@0600 PO 03/27/19 06:00 04/16/19 05:47 Lorazepam (Ativan) 0.5 mg TID PO 03/25/19 16:00 03/26/19 14:13 DC 03/26/19 08:46 Lorazepam (Ativan) 1 mg TID PO 03/26/19 16:00 03/29/19 10:34 DC 03/29/19 08:58 Lorazepam (Ativan) 1 mg TIDP PRN PO ANXIETY 03/29/19 10:30 Magnesium Hydroxide (Milk Of Magnesia) 30 ml DAILYPRN PRN PO CONSTIPATION 03/25/19 13:00 Miscellaneous (Unresolved Clarification Entry) SEE LABEL COMMENTS DAILY XX 04/16/19 09:00 04/16/19 08:40 DC Miscellaneous (Unresolved Clarification Entry) SEE LABEL COMMENTS DAILY XX 04/09/19 09:00 04/09/19 16:22 DC Miscellaneous (Unresolved Clarification Entry) SEE LABEL COMMENTS DAILY XX 04/15/19 09:00 04/16/19 07:40 DC Olanzapine (ZyPREXA) 5 mg Q4HP PRN PO AGITATION 03/25/19 13:00 Trazodone HCl (Desyrel) 50 mg QHSP PRN PO INSOMNIA 03/25/19 13:00 04/15/19 20:52 Allergies Coded Allergies: No Known Allergies (Verified , 03/06/19) DEVAUGHN VERDE DO Apr 16, 2019 9:08 am
[2019-04-16 17:50] VITALS: BP 143/83
[2019-04-16] MEDS: traZODone 50 MG TAB PO PRN (21:20)
[2019-04-17] MEDS: LEVOTHYROXINE 25MCG TABLET (0.025MG) PO SCH (06:02)
[2019-04-17 07:11] VITALS: BP 134/76
[2019-04-17] MEDS: BREXPIPRAZOLE 0.5MG TABLET (REXULTI) PO SCH (08:11)
[2019-04-17] MEDS: ACETAMINOPHEN TAB 650MG DOSE (2X325MG) PO PRN (08:11)
[2019-04-17] MEDS: FLUoxetine 20 MG CAP PO SCH (08:11)
--- NOTE | 2019-04-17 09:29 | MHIPNPDOC ---
[facility] Progress Note Progress Note DATE OF SERVICE: 04/17/19 HISTORY: Per Dr. Sarabia: "Patient is a 44-year-old woman with a history of reported severe depression, presents catatonic after ceasing her medications after being recently discharged from our care unit. She had done well on a combination of Prozac and brexpiprazole, but reportedly had not been able to take the medications, suddenly became more frozen and unable to interact point where she started to have suicidal thoughts and was brought in. The patient is too catatonic to engage in a full and comprehensive review of systems and psychosocial derived from previous note." VITAL SIGNS: See below. NEW TEST RESULTS: TSH 8.6 improved from previous. CURRENT MEDICATIONS: See below. MENTAL STATUS EXAMINATION: roughly no change General: good hygiene Speech: monotone Thought processes: Linear MSK: some slowing Thought content: less Hopeless, continuous guilt feelings Abstract reasoning, and computation: improved Description of associations: improved Description of abnormal or psychotic thoughts: Some suicidal thoughts and occasional desire to be , guilt feelings Judgment: Impaired Insight: poor Orientation: Alert and orientated 3 Cognition: slowed Recent and remote memory: Intact Attention span and concentration: Impaired Fund of knowledge: Adequate Mood: "I'm still having the thoughts." Affect: less flat and more reactivity. DIAGNOSES: MDD, severe with psychotic features. Opioid use disorder. Cannabis. ASSESSMENT:Pt seen in her room and states she's "ok" today. States she continues to endorse a lot of "guilt" that makes her feel depressed. Agreeable to increasing rexulti today to improve augmentation of prozac increased earlier this week. She is tolerating her medication well. States her meds are beneficial and she's tolerating them well. Continues to have occasional thoughts of being a burden and not wanting to live but are slowly getting less daily. States she's trying not to focus on her thoughts and that the groups aid her to take her mind off them. Given permission on Monday to to facetime on phone with staff present with her kids as pt believes this will benefit her mood as she has been unable to see her kids since admission due to them being less than 18y/o. Looking forward to speaking to her kids on facetime tonight with staff present. Pt referred to [facility] for penitentiary treatment for depression, psychomotor retardation, and internal preoccupation with worrisome/anxious thoughts. She denies HI, hallucinations, delusions. Pt feels safe here. MANAGEMENT PLAN: continue plan and [facility] referral. increase rexulti to 2mg daily to augment prozac. prozac 60mg daily rexulti 2mg daily TIME SPENT: 30 minutes. Vital Signs Vital Signs Date Time Temp Pulse Resp B/P (MAP) Pulse Ox O2 Delivery O2 Flow Rate FiO2 04/17/19 08:40 Room Air 04/17/19 07:11 98.5 81 14 134/76 (95) Current Medications Current Medications Medications (Trade) Dose Ordered Sig/Yifan Route PRN Reason Start Time Stop Time Status Last Admin Dose Admin Acetaminophen (Tylenol Tab) 650 mg Q6HP PRN PO HEADACHE or DISCOMFORT 03/25/19 13:00 04/17/19 08:11 Al Hydrox/Mg Hydrox/Simethicone (Mylanta) 30 ml Q4HP PRN PO HEARTBURN/INDIGESTION 03/25/19 13:00 Brexpiprazole (Rexulti) 1 mg DAILY PO 03/30/19 09:00 04/17/19 08:11 Diphenhydramine HCl (Benadryl) 25 mg Q6HP PRN PO ANXIETY/AGITATION 03/25/19 13:00 03/30/19 18:48 Fluoxetine HCl (PROzac) 20 mg DAILY PO 03/30/19 09:00 04/03/19 13:52 DC 04/03/19 08:37 Fluoxetine HCl (PROzac) 30 mg DAILY PO 04/04/19 09:00 04/04/19 09:57 DC 04/04/19 08:46 Fluoxetine HCl (PROzac) 40 mg DAILY PO 04/05/19 09:00 04/15/19 10:24 DC 04/15/19 09:07 Fluoxetine HCl (PROzac) 60 mg DAILY PO 04/16/19 09:00 04/17/19 08:11 Haloperidol (Haldol) 5 mg Q6HP PRN PO ANXIETY/AGITATION 03/25/19 13:00 Home Med (Med Rec Complete!) ASDIRECTED XX 03/25/19 13:30 03/25/19 13:31 DC Ibuprofen (Advil) 400 mg Q6HP PRN PO PAIN 03/25/19 13:00 04/10/19 20:59 Levothyroxine Sodium (Synthroid) 25 mcg DAILY@0600 PO 03/27/19 06:00 04/17/19 06:02 Lorazepam (Ativan) 0.5 mg TID PO 03/25/19 16:00 03/26/19 14:13 DC 03/26/19 08:46 Lorazepam (Ativan) 1 mg TID PO 03/26/19 16:00 03/29/19 10:34 DC 03/29/19 08:58 Lorazepam (Ativan) 1 mg TIDP PRN PO ANXIETY 03/29/19 10:30 Magnesium Hydroxide (Milk Of Magnesia) 30 ml DAILYPRN PRN PO CONSTIPATION 03/25/19 13:00 Miscellaneous (Unresolved Clarification Entry) SEE LABEL COMMENTS DAILY XX 04/16/19 09:00 04/16/19 08:40 DC Miscellaneous (Unresolved Clarification Entry) SEE LABEL COMMENTS DAILY XX 04/09/19 09:00 04/09/19 16:22 DC Miscellaneous (Unresolved Clarification Entry) SEE LABEL COMMENTS DAILY XX 04/15/19 09:00 04/16/19 07:40 DC Olanzapine (ZyPREXA) 5 mg Q4HP PRN PO AGITATION 03/25/19 13:00 Trazodone HCl (Desyrel) 50 mg QHSP PRN PO INSOMNIA 03/25/19 13:00 04/16/19 21:20 Allergies Coded Allergies: No Known Allergies (Verified , 03/06/19) DEVAUGHN VERDE DO Apr 17, 2019 09:29
[2019-04-17] MEDS ORDERED: BREXPIPRAZOLE 0.5MG TABLET (REXULTI) PO ONE (10:00)
[2019-04-17 17:46] VITALS: BP 136/74
[2019-04-18 06:11] VITALS: BP 144/85
[2019-04-18] MEDS: LEVOTHYROXINE 25MCG TABLET (0.025MG) PO SCH (06:13)
[2019-04-18] MEDS: BREXPIPRAZOLE 2MG TABLET (REXULTI) PO SCH (08:43)
[2019-04-18] MEDS: ACETAMINOPHEN TAB 650MG DOSE (2X325MG) PO PRN (08:43)
[2019-04-18] MEDS: FLUoxetine 20 MG CAP PO SCH (08:43)
--- NOTE | 2019-04-18 10:02 | MHIPNPDOC ---
[facility] Progress Note Progress Note DATE OF SERVICE: 04/18/19 HISTORY: Per Dr. Sarabia: "Patient is a 44-year-old woman with a history of reported severe depression, presents catatonic after ceasing her medications after being recently discharged from our care unit. She had done well on a combination of Prozac and brexpiprazole, but reportedly had not been able to take the medications, suddenly became more frozen and unable to interact point where she started to have suicidal thoughts and was brought in. The patient is too catatonic to engage in a full and comprehensive review of systems and psychosocial derived from previous note." VITAL SIGNS: See below. NEW TEST RESULTS: TSH 8.6 improved from previous. CURRENT MEDICATIONS: See below. MENTAL STATUS EXAMINATION: roughly no change General: good hygiene Speech: monotone Thought processes: Linear MSK: some slowing Thought content: less Hopeless, continuous guilt feelings Abstract reasoning, and computation: improved Description of associations: improved Description of abnormal or psychotic thoughts: Some suicidal thoughts and occasional desire to be , guilt feelings Judgment: Impaired Insight: poor Orientation: Alert and orientated 3 Cognition: slowed Recent and remote memory: Intact Attention span and concentration: Impaired Fund of knowledge: Adequate Mood: "alright." Affect: flat with minor improvement in reactivity. DIAGNOSES: MDD, severe with psychotic features. Opioid use disorder. Cannabis. ASSESSMENT:Pt seen in her room and states she's "alright" today. She is appreciative of being able to facetime with staff present with her kids yesterday and states it was helpful for her mood but knows she isn't fully better yet due to continued thoughts of wanting to be and is determined to get better for them. States she continues to endorse a lot of "guilt" that makes her feel depressed still. She is waiting to see if recent increases in prozac and rexulti are beneficial with continued use. States her meds are beneficial and she's tolerating them well. Continues to have occasional thoughts of being a burden and not wanting to live but are slowly getting less daily. States she's trying not to focus on her thoughts and that the groups aid her to take her mind off them. Pt referred to [facility] for terminal carman treatment for depression, psychomotor retardation, and internal preoccupation with worrisome/anxious thoughts. She denies HI, hallucinations, delusions. Pt feels safe here. MANAGEMENT PLAN: continue plan and [facility] referral. increase rexulti to 2mg daily to augment prozac. prozac 60mg daily rexulti 2mg daily TIME SPENT: 30 minutes. Vital Signs Vital Signs Date Time Temp Pulse Resp B/P (MAP) Pulse Ox O2 Delivery O2 Flow Rate FiO2 04/18/19 06:11 99.4 73 18 144/85 (104) 04/17/19 08:40 Room Air Current Medications Current Medications Medications (Trade) Dose Ordered Sig/Yifan Route PRN Reason Start Time Stop Time Status Last Admin Dose Admin Acetaminophen (Tylenol Tab) 650 mg Q6HP PRN PO HEADACHE or DISCOMFORT 03/25/19 13:00 04/18/19 08:43 Al Hydrox/Mg Hydrox/Simethicone (Mylanta) 30 ml Q4HP PRN PO HEARTBURN/INDIGESTION 03/25/19 13:00 Brexpiprazole (Rexulti) 1 mg DAILY PO 03/30/19 09:00 04/17/19 09:31 DC 04/17/19 08:11 Brexpiprazole (Rexulti) 2 mg DAILY PO 04/18/19 09:00 04/18/19 08:43 Diphenhydramine HCl (Benadryl) 25 mg Q6HP PRN PO ANXIETY/AGITATION 03/25/19 13:00 03/30/19 18:48 Fluoxetine HCl (PROzac) 20 mg DAILY PO 03/30/19 09:00 04/03/19 13:52 DC 04/03/19 08:37 Fluoxetine HCl (PROzac) 30 mg DAILY PO 04/04/19 09:00 04/04/19 09:57 DC 04/04/19 08:46 Fluoxetine HCl (PROzac) 40 mg DAILY PO 04/05/19 09:00 04/15/19 10:24 DC 04/15/19 09:07 Fluoxetine HCl (PROzac) 60 mg DAILY PO 04/16/19 09:00 04/18/19 08:43 Haloperidol (Haldol) 5 mg Q6HP PRN PO ANXIETY/AGITATION 03/25/19 13:00 Home Med (Med Rec Complete!) ASDIRECTED XX 03/25/19 13:30 03/25/19 13:31 DC Ibuprofen (Advil) 400 mg Q6HP PRN PO PAIN 03/25/19 13:00 04/10/19 20:59 Levothyroxine Sodium (Synthroid) 25 mcg DAILY@0600 PO 03/27/19 06:00 04/18/19 06:13 Lorazepam (Ativan) 0.5 mg TID PO 03/25/19 16:00 03/26/19 14:13 DC 03/26/19 08:46 Lorazepam (Ativan) 1 mg TID PO 03/26/19 16:00 03/29/19 10:34 DC 03/29/19 08:58 Lorazepam (Ativan) 1 mg TIDP PRN PO ANXIETY 03/29/19 10:30 Magnesium Hydroxide (Milk Of Magnesia) 30 ml DAILYPRN PRN PO CONSTIPATION 03/25/19 13:00 Miscellaneous (Unresolved Clarification Entry) SEE LABEL COMMENTS DAILY XX 04/16/19 09:00 04/16/19 08:40 DC Miscellaneous (Unresolved Clarification Entry) SEE LABEL COMMENTS DAILY XX 04/09/19 09:00 04/09/19 16:22 DC Miscellaneous (Unresolved Clarification Entry) SEE LABEL COMMENTS DAILY XX 04/15/19 09:00 04/16/19 07:40 DC Olanzapine (ZyPREXA) 5 mg Q4HP PRN PO AGITATION 03/25/19 13:00 Trazodone HCl (Desyrel) 50 mg QHSP PRN PO INSOMNIA 03/25/19 13:00 04/16/19 21:20 Allergies Coded Allergies: No Known Allergies (Verified , 03/06/19) DEVAUGHN VERDE DO Apr 18, 2019 10:02 am
[2019-04-18 15:31] VITALS: BP 132/73
[2019-04-18] MEDS: traZODone 50 MG TAB PO PRN (21:01)
[2019-04-19 06:23] VITALS: BP 135/77
[2019-04-19] MEDS: LEVOTHYROXINE 25MCG TABLET (0.025MG) PO SCH (06:30)
[2019-04-19] MEDS: BREXPIPRAZOLE 2MG TABLET (REXULTI) PO SCH (08:13)
[2019-04-19] MEDS: FLUoxetine 20 MG CAP PO SCH (08:13)
[2019-04-19] MEDS: LORazepam 1 MG TAB PO PRN (08:54)
--- NOTE | 2019-04-19 09:15 | MHIPNPDOC ---
[facility] Progress Note Progress Note DATE OF SERVICE: 04/19/19 HISTORY: Per Dr. Sarabia: "Patient is a 44-year-old woman with a history of reported severe depression, presents catatonic after ceasing her medications after being recently discharged from our care unit. She had done well on a combination of Prozac and brexpiprazole, but reportedly had not been able to take the medications, suddenly became more frozen and unable to interact point where she started to have suicidal thoughts and was brought in. The patient is too catatonic to engage in a full and comprehensive review of systems and psychosocial derived from previous note." VITAL SIGNS: See below. NEW TEST RESULTS: TSH 8.6 improved from previous. CURRENT MEDICATIONS: See below. MENTAL STATUS EXAMINATION: roughly no change General: good hygiene Speech: monotone Thought processes: Linear MSK: some slowing Thought content: less Hopeless, continuous guilt feelings Abstract reasoning, and computation: improved Description of associations: improved Description of abnormal or psychotic thoughts: Some suicidal thoughts and occasional desire to be , guilt feelings Judgment: Impaired Insight: poor Orientation: Alert and orientated 3 Cognition: slowed Recent and remote memory: Intact Attention span and concentration: Impaired Fund of knowledge: Adequate Mood: "I'm worried about my kids." Affect: flat with limited reactivity. DIAGNOSES: MDD, severe with psychotic features. Opioid use disorder. Cannabis. ASSESSMENT:Pt seen stating she worried about her kids becoming sick with Coronavirus 14. Pt reassured that there have been no positive Coronavirus 14 cases in the area and that kids usually do not become sick but rather older, unhealthy individual over 55. States she continues to endorse a lot of "guilt" that makes her feel depressed still. She is waiting to see if recent increases in prozac and rexulti are beneficial with continued use. States her meds are beneficial and she's tolerating them well. Continues to have occasional thoughts of being a burden and not wanting to live but are slowly getting less daily. States she's trying not to focus on her thoughts and that the groups aid her to take her mind off them. Pt referred to [facility] for residential treatment for depression, psychomotor retardation, and internal preoccupation with worrisome/anxious thoughts. She denies HI, hallucinations, delusions. Pt feels safe here. MANAGEMENT PLAN: continue plan and [facility] referral. Medicine to follow-up with pt regarding increase in synthroid for hypothyroidism. prozac 60mg daily rexulti 2mg daily TIME SPENT: 30 minutes. Vital Signs Vital Signs Date Time Temp Pulse Resp B/P (MAP) Pulse Ox O2 Delivery O2 Flow Rate FiO2 04/19/19 06:23 99.1 86 12 135/77 (96) Room Air Current Medications Current Medications Medications (Trade) Dose Ordered Sig/Yifan Route PRN Reason Start Time Stop Time Status Last Admin Dose Admin Acetaminophen (Tylenol Tab) 650 mg Q6HP PRN PO HEADACHE or DISCOMFORT 03/25/19 13:00 04/18/19 08:43 Al Hydrox/Mg Hydrox/Simethicone (Mylanta) 30 ml Q4HP PRN PO HEARTBURN/INDIGESTION 03/25/19 13:00 Brexpiprazole (Rexulti) 1 mg DAILY PO 03/30/19 09:00 04/17/19 09:31 DC 04/17/19 08:11 Brexpiprazole (Rexulti) 2 mg DAILY PO 04/18/19 09:00 04/19/19 08:13 Diphenhydramine HCl (Benadryl) 25 mg Q6HP PRN PO ANXIETY/AGITATION 03/25/19 13:00 03/30/19 18:48 Fluoxetine HCl (PROzac) 20 mg DAILY PO 03/30/19 09:00 04/03/19 13:52 DC 04/03/19 08:37 Fluoxetine HCl (PROzac) 30 mg DAILY PO 04/04/19 09:00 04/04/19 09:57 DC 04/04/19 08:46 Fluoxetine HCl (PROzac) 40 mg DAILY PO 04/05/19 09:00 04/15/19 10:24 DC 04/15/19 09:07 Fluoxetine HCl (PROzac) 60 mg DAILY PO 04/16/19 09:00 04/19/19 08:13 Haloperidol (Haldol) 5 mg Q6HP PRN PO ANXIETY/AGITATION 03/25/19 13:00 Home Med (Med Rec Complete!) ASDIRECTED XX 03/25/19 13:30 03/25/19 13:31 DC Ibuprofen (Advil) 400 mg Q6HP PRN PO PAIN 03/25/19 13:00 04/10/19 20:59 Levothyroxine Sodium (Synthroid) 25 mcg DAILY@0600 PO 03/27/19 06:00 04/19/19 06:30 Lorazepam (Ativan) 0.5 mg TID PO 03/25/19 16:00 03/26/19 14:13 DC 03/26/19 08:46 Lorazepam (Ativan) 1 mg TID PO 03/26/19 16:00 03/29/19 10:34 DC 03/29/19 08:58 Lorazepam (Ativan) 1 mg TIDP PRN PO ANXIETY 03/29/19 10:30 04/19/19 08:54 Magnesium Hydroxide (Milk Of Magnesia) 30 ml DAILYPRN PRN PO CONSTIPATION 03/25/19 13:00 Miscellaneous (Unresolved Clarification Entry) SEE LABEL COMMENTS DAILY XX 04/16/19 09:00 04/16/19 08:40 DC Miscellaneous (Unresolved Clarification Entry) SEE LABEL COMMENTS DAILY XX 04/09/19 09:00 04/09/19 16:22 DC Miscellaneous (Unresolved Clarification Entry) SEE LABEL COMMENTS DAILY XX 04/15/19 09:00 04/16/19 07:40 DC Olanzapine (ZyPREXA) 5 mg Q4HP PRN PO AGITATION 03/25/19 13:00 Trazodone HCl (Desyrel) 50 mg QHSP PRN PO INSOMNIA 03/25/19 13:00 04/18/19 21:01 Allergies Coded Allergies: No Known Allergies (Verified , 03/06/19) DEVAUGHN VERDE DO Apr 19, 2019 9:15 am
[2019-04-19 16:00] VITALS: BP 128/71
[2019-04-19] MEDS: traZODone 50 MG TAB PO PRN (21:14)
[2019-04-20] MEDS: LEVOTHYROXINE 25MCG TABLET (0.025MG) PO SCH (05:57)
[2019-04-20 06:38] VITALS: BP 140/82
[2019-04-20] MEDS: BREXPIPRAZOLE 2MG TABLET (REXULTI) PO SCH (08:29)
[2019-04-20] MEDS: FLUoxetine 20 MG CAP PO SCH (08:30)
[2019-04-20] MEDS: LORazepam 1 MG TAB PO PRN (08:30)
[2019-04-20 17:20] VITALS: BP 133/74
[2019-04-21] MEDS: LEVOTHYROXINE 25MCG TABLET (0.025MG) PO SCH (05:54)
[2019-04-21 06:22] VITALS: BP 134/75
[2019-04-21] MEDS: BREXPIPRAZOLE 2MG TABLET (REXULTI) PO SCH (08:39)
[2019-04-21] MEDS: LORazepam 1 MG TAB PO PRN (08:39)
[2019-04-21] MEDS: FLUoxetine 20 MG CAP PO SCH (08:39)
[2019-04-21 15:00] VITALS: BP 127/59
[2019-04-21] MEDS: traZODone 50 MG TAB PO PRN (20:53)
[2019-04-22] MEDS: LEVOTHYROXINE 25MCG TABLET (0.025MG) PO SCH (06:03)
[2019-04-22 06:06] VITALS: BP 130/68
[2019-04-22] MEDS: LORazepam 1 MG TAB PO PRN ×2 (08:14→17:19)
[2019-04-22] MEDS: FLUoxetine 20 MG CAP PO SCH (08:14)
[2019-04-22] MEDS: BREXPIPRAZOLE 2MG TABLET (REXULTI) PO SCH (08:14)
--- NOTE | 2019-04-22 10:06 | MHIPNPDOC ---
[facility] Progress Note Progress Note DATE OF SERVICE: 04/22/19 HISTORY: Per Dr. Sarabia: "Patient is a 44-year-old woman with a history of reported severe depression, presents catatonic after ceasing her medications after being recently discharged from our care unit. She had done well on a combination of Prozac and brexpiprazole, but reportedly had not been able to take the medications, suddenly became more frozen and unable to interact point where she started to have suicidal thoughts and was brought in. The patient is too catatonic to engage in a full and comprehensive review of systems and psychosocial derived from previous note." VITAL SIGNS: See below. NEW TEST RESULTS: TSH 8.6 improved from previous. Seen by medicine over the weekend and her synthroid was increased to 25mcg daily. CURRENT MEDICATIONS: See below. MENTAL STATUS EXAMINATION: roughly no change General: good hygiene Speech: monotone Thought processes: Linear MSK: some slowing Thought content: less Hopeless, continuous guilt feelings Abstract reasoning, and computation: improved Description of associations: improved Description of abnormal or psychotic thoughts: occasional desire to be , guilt feelings Judgment: Impaired Insight: poor Orientation: Alert and orientated 3 Cognition: slowed Recent and remote memory: Intact Attention span and concentration: Impaired Fund of knowledge: Adequate Mood: "ok." Affect: flat with limited reactivity. DIAGNOSES: MDD, severe with psychotic features. Opioid use disorder. Cannabis. ASSESSMENT:Pt seen stating she feels a bit better. States she no longer has thoughts about killing herself but continues to have excessive guilt thoughts and of being a burden to her family. Endorses anxiety today as her mother has court today regarding custody of her kids while she is here and than at [facility] [place] being [place]. States her prozac and rexulti are starting to be somewhat beneficial with continued use and is tolerating them well. States she's trying not to focus on her thoughts daily and that the groups aid her to take her mind off them. Pt referred to [facility] for [facility] treatment for depression, psychomotor retardation, and internal preoccupation with worrisome/anxious thoughts. She denies HI, hallucinations, delusions. Pt feels safe here. MANAGEMENT PLAN: continue plan and [facility] referral. Medicine to follow-up with pt regarding increase in synthroid for hypothyroidism. prozac 60mg daily rexulti 2mg daily TIME SPENT: 30 minutes. Vital Signs Vital Signs Date Time Temp Pulse Resp B/P (MAP) Pulse Ox O2 Delivery O2 Flow Rate FiO2 04/22/19 06:06 97.6 65 18 130/68 (88) 04/21/19 15:00 100 Room Air Current Medications Current Medications Medications (Trade) Dose Ordered Sig/Yifan Route PRN Reason Start Time Stop Time Status Last Admin Dose Admin Acetaminophen (Tylenol Tab) 650 mg Q6HP PRN PO HEADACHE or DISCOMFORT 03/25/19 13:00 04/18/19 08:43 Al Hydrox/Mg Hydrox/Simethicone (Mylanta) 30 ml Q4HP PRN PO HEARTBURN/INDIGESTION 03/25/19 13:00 Brexpiprazole (Rexulti) 1 mg DAILY PO 03/30/19 09:00 04/17/19 09:31 DC 04/17/19 08:11 Brexpiprazole (Rexulti) 2 mg DAILY PO 04/18/19 09:00 04/22/19 08:14 Diphenhydramine HCl (Benadryl) 25 mg Q6HP PRN PO ANXIETY/AGITATION 03/25/19 13:00 03/30/19 18:48 Fluoxetine HCl (PROzac) 20 mg DAILY PO 03/30/19 09:00 04/03/19 13:52 DC 04/03/19 08:37 Fluoxetine HCl (PROzac) 30 mg DAILY PO 04/04/19 09:00 04/04/19 09:57 DC 04/04/19 08:46 Fluoxetine HCl (PROzac) 40 mg DAILY PO 04/05/19 09:00 04/15/19 10:24 DC 04/15/19 09:07 Fluoxetine HCl (PROzac) 60 mg DAILY PO 04/16/19 09:00 04/22/19 08:14 Haloperidol (Haldol) 5 mg Q6HP PRN PO ANXIETY/AGITATION 03/25/19 13:00 Home Med (Med Rec Complete!) ASDIRECTED XX 03/25/19 13:30 03/25/19 13:31 DC Ibuprofen (Advil) 400 mg Q6HP PRN PO PAIN 03/25/19 13:00 04/10/19 20:59 Levothyroxine Sodium (Synthroid) 25 mcg DAILY@0600 PO 03/27/19 06:00 04/22/19 06:03 Lorazepam (Ativan) 0.5 mg TID PO 03/25/19 16:00 03/26/19 14:13 DC 03/26/19 08:46 Lorazepam (Ativan) 1 mg TID PO 03/26/19 16:00 03/29/19 10:34 DC 03/29/19 08:58 Lorazepam (Ativan) 1 mg TIDP PRN PO ANXIETY 03/29/19 10:30 04/22/19 08:14 Magnesium Hydroxide (Milk Of Magnesia) 30 ml DAILYPRN PRN PO CONSTIPATION 03/25/19 13:00 Miscellaneous (Unresolved Clarification Entry) SEE LABEL COMMENTS DAILY XX 04/16/19 09:00 04/16/19 08:40 DC Miscellaneous (Unresolved Clarification Entry) SEE LABEL COMMENTS DAILY XX 04/22/19 09:00 Miscellaneous (Unresolved Clarification Entry) SEE LABEL COMMENTS DAILY XX 04/09/19 09:00 04/09/19 16:22 DC Miscellaneous (Unresolved Clarification Entry) SEE LABEL COMMENTS DAILY XX 04/15/19 09:00 04/16/19 07:40 DC Olanzapine (ZyPREXA) 5 mg Q4HP PRN PO AGITATION 03/25/19 13:00 Trazodone HCl (Desyrel) 50 mg QHSP PRN PO INSOMNIA 03/25/19 13:00 04/21/19 20:53 Allergies Coded Allergies: No Known Allergies (Verified , 03/06/19) DEVAUGHN VERDE DO Apr 22, 2019 10:05 am
[2019-04-22 16:00] VITALS: BP 145/73
[2019-04-23] MEDS: LEVOTHYROXINE 25MCG TABLET (0.025MG) PO SCH (05:52)
[2019-04-23 06:22] VITALS: BP 142/77
[2019-04-23] MEDS: LORazepam 1 MG TAB PO PRN (08:34)
[2019-04-23] MEDS: FLUoxetine 20 MG CAP PO SCH (08:34)
[2019-04-23] MEDS: BREXPIPRAZOLE 2MG TABLET (REXULTI) PO SCH (08:34)
--- NOTE | 2019-04-23 09:37 | MHIPNPDOC ---
[facility] Progress Note Progress Note DATE OF SERVICE: 04/23/19 HISTORY: Per Dr. Sarabia: "Patient is a 44-year-old woman with a history of reported severe depression, presents catatonic after ceasing her medications after being recently discharged from our care unit. She had done well on a combination of Prozac and brexpiprazole, but reportedly had not been able to take the medications, suddenly became more frozen and unable to interact point where she started to have suicidal thoughts and was brought in. The patient is too catatonic to engage in a full and comprehensive review of systems and psychosocial derived from previous note." VITAL SIGNS: See below. NEW TEST RESULTS: TSH 8.6 improved from previous. Seen by medicine over the weekend and her synthroid was increased to 25mcg daily. CURRENT MEDICATIONS: See below. MENTAL STATUS EXAMINATION: roughly no change General: good hygiene Speech: monotone Thought processes: Linear MSK: some slowing Thought content: less Hopeless, continuous guilt feelings Abstract reasoning, and computation: improved Description of associations: improved Description of abnormal or psychotic thoughts: occasional desire to be , guilt feelings, worrisome thoughts Judgment: Impaired Insight: poor Orientation: Alert and orientated 3 Cognition: slowed Recent and remote memory: Intact Attention span and concentration: Impaired Fund of knowledge: Adequate Mood: "anxious." Affect: flat with limited reactivity, worried DIAGNOSES: MDD, severe with psychotic features. Opioid use disorder. Cannabis. ASSESSMENT:Pt seen in her room and states she feels "anxious" today as her mother's court hearing regarding custody of her children was canceled yesterday due to COV19 out break. States she feels guilty that her mother has to care for her kids while she is here. Pt advised that it's not her fault that she is ill and to not feely guilty that her mother has to help her with her kids as her mother loves her and her kids and wants to help her most likely during this difficult time. Continues to state she no longer has thoughts about killing herself but continues to have excessive guilt thoughts and of being a burden to her family. Endorses anxiety today as her mother has court today regarding custody of her kids while she is here and than at [facility] being treated. States her prozac and rexulti are starting to be somewhat beneficial with continued use and is tolerating them well. States she's trying not to focus on her thoughts daily and that the groups aid her to take her mind off them. Pt referred to [facility] for residential treatment for depression, psychomotor retardation, and i nternal preoccupation with worrisome/anxious thoughts. She denies HI, hallucinations, delusions. Pt feels safe here. MANAGEMENT PLAN: continue plan and [facility] referral. prozac 60mg daily rexulti 2mg daily TIME SPENT: 30 minutes. Vital Signs Vital Signs Date Time Temp Pulse Resp B/P (MAP) Pulse Ox O2 Delivery O2 Flow Rate FiO2 04/23/19 06:22 97.6 74 18 142/77 (98) 04/21/19 15:00 100 Room Air Current Medications Current Medications Medications (Trade) Dose Ordered Sig/Yifan Route PRN Reason Start Time Stop Time Status Last Admin Dose Admin Acetaminophen (Tylenol Tab) 650 mg Q6HP PRN PO HEADACHE or DISCOMFORT 03/25/19 13:00 04/18/19 08:43 Al Hydrox/Mg Hydrox/Simethicone (Mylanta) 30 ml Q4HP PRN PO HEARTBURN/INDIGESTION 03/25/19 13:00 Brexpiprazole (Rexulti) 1 mg DAILY PO 03/30/19 09:00 04/17/19 09:31 DC 04/17/19 08:11 Brexpiprazole (Rexulti) 2 mg DAILY PO 04/18/19 09:00 04/23/19 08:34 Diphenhydramine HCl (Benadryl) 25 mg Q6HP PRN PO ANXIETY/AGITATION 03/25/19 13:00 03/30/19 18:48 Fluoxetine HCl (PROzac) 20 mg DAILY PO 03/30/19 09:00 04/03/19 13:52 DC 04/03/19 08:37 Fluoxetine HCl (PROzac) 30 mg DAILY PO 04/04/19 09:00 04/04/19 09:57 DC 04/04/19 08:46 Fluoxetine HCl (PROzac) 40 mg DAILY PO 04/05/19 09:00 04/15/19 10:24 DC 04/15/19 09:07 Fluoxetine HCl (PROzac) 60 mg DAILY PO 04/16/19 09:00 04/23/19 08:34 Haloperidol (Haldol) 5 mg Q6HP PRN PO ANXIETY/AGITATION 03/25/19 13:00 Home Med (Med Rec Complete!) ASDIRECTED XX 03/25/19 13:30 03/25/19 13:31 DC Ibuprofen (Advil) 400 mg Q6HP PRN PO PAIN 03/25/19 13:00 04/10/19 20:59 Levothyroxine Sodium (Synthroid) 25 mcg DAILY@0600 PO 03/27/19 06:00 04/23/19 05:52 Lorazepam (Ativan) 0.5 mg TID PO 03/25/19 16:00 03/26/19 14:13 DC 03/26/19 08:46 Lorazepam (Ativan) 1 mg TID PO 03/26/19 16:00 03/29/19 10:34 DC 03/29/19 08:58 Lorazepam (Ativan) 1 mg TIDP PRN PO ANXIETY 03/29/19 10:30 04/23/19 08:34 Magnesium Hydroxide (Milk Of Magnesia) 30 ml DAILYPRN PRN PO CONSTIPATION 03/25/19 13:00 Miscellaneous (Unresolved Clarification Entry) SEE LABEL COMMENTS DAILY XX 04/16/19 09:00 04/16/19 08:40 DC Miscellaneous (Unresolved Clarification Entry) SEE LABEL COMMENTS DAILY XX 04/22/19 09:00 04/22/19 11:19 DC Miscellaneous (Unresolved Clarification Entry) SEE LABEL COMMENTS DAILY XX 04/09/19 09:00 04/09/19 16:22 DC Miscellaneous (Unresolved Clarification Entry) SEE LABEL COMMENTS DAILY XX 04/15/19 09:00 04/16/19 07:40 DC Olanzapine (ZyPREXA) 5 mg Q4HP PRN PO AGITATION 03/25/19 13:00 Trazodone HCl (Desyrel) 50 mg QHSP PRN PO INSOMNIA 03/25/19 13:00 04/21/19 20:53 Allergies Coded Allergies: No Known Allergies (Verified , 03/06/19) DEVAUGHN VERDE DO Apr 23, 2019 9:37 am
[2019-04-23 16:02] VITALS: BP 133/71
[2019-04-23] MEDS: diphenhydrAMINE 25MG CAP PO PRN (20:09)
[2019-04-23] MEDS: traZODone 50 MG TAB PO PRN (20:57)
[2019-04-24 06:23] VITALS: BP 124/73
[2019-04-24] MEDS: LEVOTHYROXINE 25MCG TABLET (0.025MG) PO SCH (06:44)
[2019-04-24] MEDS: LORazepam 1 MG TAB PO PRN (08:21)
[2019-04-24] MEDS: BREXPIPRAZOLE 2MG TABLET (REXULTI) PO SCH (08:21)
[2019-04-24] MEDS: FLUoxetine 20 MG CAP PO SCH (08:22)
--- NOTE | 2019-04-24 08:46 | MHIPNPDOC ---
[facility] Progress Note Progress Note DATE OF SERVICE: 04/24/19 HISTORY: Per Dr. Sarabia: "Patient is a 44-year-old woman with a history of reported severe depression, presents catatonic after ceasing her medications aft er being recently discharged from our care unit. She had done well on a combination of Prozac and brexpiprazole, but reportedly had not been able to take the medications, suddenly became more frozen and unable to interact point where she started to have suicidal thoughts and was brought in. The patient is too catatonic to engage in a full and comprehensive review of systems and psychosocial derived from previous note." VITAL SIGNS: See below. NEW TEST RESULTS: TSH 8.6 improved from previous. Seen by medicine over the weekend and her synthroid was increased to 25mcg daily. CURRENT MEDICATIONS: See below. MENTAL STATUS EXAMINATION: roughly no change General: good hygiene Speech: monotone Thought processes: Linear MSK: some slowing Thought content: less Hopeless, continuous guilt feelings Abstract reasoning, and computation: improved Description of associations: improved Description of abnormal or psychotic thoughts: occasional desire to be , guilt feelings, worrisome thoughts Judgment: Impaired Insight: poor Orientation: Alert and orientated 3 Cognition: slowed Recent and remote memory: Intact Attention span and concentration: Impaired Fund of knowledge: Adequate Mood: "ok." Affect: flat with limited reactivity, worried DIAGNOSES: MDD, severe with psychotic features. Opioid use disorder. Cannabis. ASSESSMENT:Pt seen and states she feels "ok". Continues to state she feels guilty that her mother has to care for her kids while she is here. Continues to state she no longer has thoughts about killing herself but continues to have excessive guilt thoughts and of being a burden to her family. Continues to endorse anxiety due to worrisome and guilty thoughts daily that she's a burden. States her prozac and rexulti are starting to be beneficial with continued use and is tolerating them well. States she's trying not to focus on her thoughts daily and that the groups aid her to take her mind off them. Pt referred to [facility] for intermediate treatment for depression, psychomotor retardation, and internal preoccupation with worrisome/anxious thoughts. She denies HI, hallucinations, delusions. Pt feels safe here. MANAGEMENT PLAN: continue plan and [facility] referral. prozac 60mg daily rexulti 2mg daily TIME SPENT: 30 minutes. Vital Signs Vital Signs Date Time Temp Pulse Resp B/P (MAP) Pulse Ox O2 Delivery O2 Flow Rate FiO2 04/24/19 06:23 97.4 65 16 124/73 (90) 04/21/19 15:00 100 Room Air Laboratory Data 24H Labs Laboratory Tests 2 04/23/19 18:39: Thyroid Stimulating Hormone (TSH) 13.100H Current Medications Current Medications Medications (Trade) Dose Ordered Sig/Yifan Route PRN Reason Start Time Stop Time Status Last Admin Dose Admin Acetaminophen (Tylenol Tab) 650 mg Q6HP PRN PO HEADACHE or DISCOMFORT 03/25/19 13:00 04/18/19 08:43 Al Hydrox/Mg Hydrox/Simethicone (Mylanta) 30 ml Q4HP PRN PO HEARTBURN/INDIGESTION 03/25/19 13:00 Brexpiprazole (Rexulti) 1 mg DAILY PO 03/30/19 09:00 04/17/19 09:31 DC 04/17/19 08:11 Brexpiprazole (Rexulti) 2 mg DAILY PO 04/18/19 09:00 04/24/19 08:21 Diphenhydramine HCl (Benadryl) 25 mg Q6HP PRN PO ANXIETY/AGITATION 03/25/19 13:00 04/23/19 20:09 Fluoxetine HCl (PROzac) 20 mg DAILY PO 03/30/19 09:00 04/03/19 13:52 DC 04/03/19 08:37 Fluoxetine HCl (PROzac) 30 mg DAILY PO 04/04/19 09:00 04/04/19 09:57 DC 04/04/19 08:46 Fluoxetine HCl (PROzac) 40 mg DAILY PO 04/05/19 09:00 04/15/19 10:24 DC 04/15/19 09:07 Fluoxetine HCl (PROzac) 60 mg DAILY PO 04/16/19 09:00 04/24/19 08:22 Haloperidol (Haldol) 5 mg Q6HP PRN PO ANXIETY/AGITATION 03/25/19 13:00 Home Med (Med Rec Complete!) ASDIRECTED XX 03/25/19 13:30 03/25/19 13:31 DC Ibuprofen (Advil) 400 mg Q6HP PRN PO PAIN 03/25/19 13:00 04/10/19 20:59 Levothyroxine Sodium (Synthroid) 25 mcg DAILY@0600 PO 03/27/19 06:00 04/24/19 06:44 Lorazepam (Ativan) 0.5 mg TID PO 03/25/19 16:00 03/26/19 14:13 DC 03/26/19 08:46 Lorazepam (Ativan) 1 mg TID PO 03/26/19 16:00 03/29/19 10:34 DC 03/29/19 08:58 Lorazepam (Ativan) 1 mg TIDP PRN PO ANXIETY 03/29/19 10:30 04/24/19 08:21 Magnesium Hydroxide (Milk Of Magnesia) 30 ml DAILYPRN PRN PO CONSTIPATION 03/25/19 13:00 Miscellaneous (Unresolved Clarification Entry) SEE LABEL COMMENTS DAILY XX 04/16/19 09:00 04/16/19 08:40 DC Miscellaneous (Unresolved Clarification Entry) SEE LABEL COMMENTS DAILY XX 04/22/19 09:00 04/22/19 11:19 DC Miscellaneous (Unresolved Clarification Entry) SEE LABEL COMMENTS DAILY XX 04/23/19 09:00 04/23/19 13:57 DC Miscellaneous (Unresolved Clarification Entry) SEE LABEL COMMENTS DAILY XX 04/09/19 09:00 04/09/19 16:22 DC Miscellaneous (Unresolved Clarification Entry) SEE LABEL COMMENTS DAILY XX 04/15/19 09:00 04/16/19 07:40 DC Olanzapine (ZyPREXA) 5 mg Q4HP PRN PO AGITATION 03/25/19 13:00 Trazodone HCl (Desyrel) 50 mg QHSP PRN PO INSOMNIA 03/25/19 13:00 04/23/19 20:57 Allergies Coded Allergies: No Known Allergies (Verified , 03/06/19) DEVAUGHN VERDE DO Apr 24, 2019 8:45 am
--- NOTE | 2019-04-24 12:39 | IPNPDOC ---
Text Note Date of Service The patient was seen on 04/24/19. NOTE I was asked to re-assess the patient's elevated TSH. Per the medical record, the patient was worked up by the hospitalist for an elevated TSH, with normal free T4 March 2019. Subsequently, her Synthroid was appropriately restarted at the 25mcg dose. I was asked to reassess her TSH on 04/22 at the request of the long-term treatment facility where the patient will be transferred. At this time, there is no medical indication to keep re-checking the TSH levels on this patient, nor is there any indication to increase her dose of Synthroid. Her response to the medication should be reassessed and followed on an outpatient basis, in May. Medicine will sign off on the patient at this time. Please feel free to re- consult as needed. VS,Fishbone, I+O VS, Fishbone, I+O Vital Signs Date Time Temp Pulse Resp B/P (MAP) Pulse Ox O2 Delivery O2 Flow Rate FiO2 04/24/19 06:23 97.4 65 16 124/73 (90) 04/21/19 15:00 100 Room Air GALI ROSS PA-C Apr 24, 2019 12:39
[2019-04-24 16:01] VITALS: BP 127/62
[2019-04-24] MEDS: traZODone 50 MG TAB PO PRN (21:02)
[2019-04-25] MEDS: LEVOTHYROXINE 25MCG TABLET (0.025MG) PO SCH (06:02)
[2019-04-25 06:26] VITALS: BP 139/74
[2019-04-25] MEDS: BREXPIPRAZOLE 2MG TABLET (REXULTI) PO SCH (08:21)
[2019-04-25] MEDS: FLUoxetine 20 MG CAP PO SCH (08:21)
[2019-04-25] MEDS: LORazepam 1 MG TAB PO PRN (08:21)
--- NOTE | 2019-04-25 08:58 | MHIPNPDOC ---
[facility] Progress Note Progress Note DATE OF SERVICE: 04/25/19 HISTORY: Per Dr. Sarabia: "Patient is a 44-year-old woman with a history of reported severe depression, presents catatonic after ceasing her medications aft er being recently discharged from our care unit. She had done well on a combination of Prozac and brexpiprazole, but reportedly had not been able to take the medications, suddenly became more frozen and unable to interact point where she started to have suicidal thoughts and was brought in. The patient is too catatonic to engage in a full and comprehensive review of systems and psychosocial derived from previous note." VITAL SIGNS: See below. NEW TEST RESULTS: TSH 8.6 improved from previous. Seen by medicine over the weekend and her synthroid was increased to 25mcg daily. CURRENT MEDICATIONS: See below. MENTAL STATUS EXAMINATION: roughly no change General: good hygiene Speech: monotone Thought processes: Linear MSK: some slowing Thought content: less Hopeless, continuous guilt feelings Abstract reasoning, and computation: improved Description of associations: improved Description of abnormal or psychotic thoughts: occasional desire to be , guilt feelings, worrisome thoughts Judgment: Impaired Insight: poor Orientation: Alert and orientated 3 Cognition: slowed Recent and remote memory: Intact Attention span and concentration: Impaired Fund of knowledge: Adequate Mood: "I feel like a burden." Affect: flat with limited reactivity, worried DIAGNOSES: MDD, severe with psychotic features. Opioid use disorder. Cannabis. ASSESSMENT:Pt seen and stating she just got done crying b/c she feels like such a "burden" to her mother who is watching her kids while she's here. Pt again advised that it isn't her fault she's sick and that her mother is most likely wants to help her while she's here getting better. Continues to state she no longer has thoughts about killing herself but continues to have excessive guilt thoughts and of being a burden to her family. Continues to endorse anxiety due to worrisome and guilty thoughts daily that she's a burden. States her prozac and rexulti are starting to be beneficial with continued use and is tolerating them well. States she's trying not to focus on her thoughts daily and that the groups aid her to take her mind off them. 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 She denies HI, hallucinations, delusions. Pt feels safe here. MANAGEMENT PLAN: continue plan and [facility] referral. prozac 60mg daily rexulti 2mg daily TIME SPENT: 30 minutes. Vital Signs Vital Signs Date Time Temp Pulse Resp B/P (MAP) Pulse Ox O2 Delivery O2 Flow Rate FiO2 04/25/19 06:26 97.7 68 16 139/74 (95) 04/21/19 15:00 100 Room Air Current Medications Current Medications Medications (Trade) Dose Ordered Sig/Yifan Route PRN Reason Start Time Stop Time Status Last Admin Dose Admin Acetaminophen (Tylenol Tab) 650 mg Q6HP PRN PO HEADACHE or DISCOMFORT 03/25/19 13:00 04/18/19 08:43 Al Hydrox/Mg Hydrox/Simethicone (Mylanta) 30 ml Q4HP PRN PO HEARTBURN/INDIGESTION 03/25/19 13:00 Brexpiprazole (Rexulti) 1 mg DAILY PO 03/30/19 09:00 04/17/19 09:31 DC 04/17/19 08:11 Brexpiprazole (Rexulti) 2 mg DAILY PO 04/18/19 09:00 04/25/19 08:21 Diphenhydramine HCl (Benadryl) 25 mg Q6HP PRN PO ANXIETY/AGITATION 03/25/19 13:00 04/23/19 20:09 Fluoxetine HCl (PROzac) 20 mg DAILY PO 03/30/19 09:00 04/03/19 13:52 DC 04/03/19 08:37 Fluoxetine HCl (PROzac) 30 mg DAILY PO 04/04/19 09:00 04/04/19 09:57 DC 04/04/19 08:46 Fluoxetine HCl (PROzac) 40 mg DAILY PO 04/05/19 09:00 04/15/19 10:24 DC 04/15/19 09:07 Fluoxetine HCl (PROzac) 60 mg DAILY PO 04/16/19 09:00 04/25/19 08:21 Haloperidol (Haldol) 5 mg Q6HP PRN PO ANXIETY/AGITATION 03/25/19 13:00 Home Med (Med Rec Complete!) ASDIRECTED XX 03/25/19 13:30 03/25/19 13:31 DC Ibuprofen (Advil) 400 mg Q6HP PRN PO PAIN 03/25/19 13:00 04/10/19 20:59 Levothyroxine Sodium (Synthroid) 25 mcg DAILY@0600 PO 03/27/19 06:00 04/25/19 06:02 Lorazepam (Ativan) 0.5 mg TID PO 03/25/19 16:00 03/26/19 14:13 DC 03/26/19 08:46 Lorazepam (Ativan) 1 mg TID PO 03/26/19 16:00 03/29/19 10:34 DC 03/29/19 08:58 Lorazepam (Ativan) 1 mg TIDP PRN PO ANXIETY 03/29/19 10:30 04/25/19 08:21 Magnesium Hydroxide (Milk Of Magnesia) 30 ml DAILYPRN PRN PO CONSTIPATION 03/25/19 13:00 Miscellaneous (Unresolved Clarification Entry) SEE LABEL COMMENTS DAILY XX 04/16/19 09:00 04/16/19 08:40 DC Miscellaneous (Unresolved Clarification Entry) SEE LABEL COMMENTS DAILY XX 04/22/19 09:00 04/22/19 11:19 DC Miscellaneous (Unresolved Clarification Entry) SEE LABEL COMMENTS DAILY XX 04/23/19 09:00 04/23/19 13:57 DC Miscellaneous (Unresolved Clarification Entry) SEE LABEL COMMENTS DAILY XX 04/09/19 09:00 04/09/19 16:22 DC Miscellaneous (Unresolved Clarification Entry) SEE LABEL COMMENTS DAILY XX 04/15/19 09:00 04/16/19 07:40 DC Olanzapine (ZyPREXA) 5 mg Q4HP PRN PO AGITATION 03/25/19 13:00 Trazodone HCl (Desyrel) 50 mg QHSP PRN PO INSOMNIA 03/25/19 13:00 04/24/19 21:02 Allergies Coded Allergies: No Known Allergies (Verified , 03/06/19) DEVAUGHN VERDE DO Apr 25, 2019 8:58 am
[2019-04-25 16:00] VITALS: BP 137/75
[2019-04-25] MEDS: traZODone 50 MG TAB PO PRN (20:37)
[2019-04-26] MEDS: LEVOTHYROXINE 25MCG TABLET (0.025MG) PO SCH (06:03)
[2019-04-26 06:27] VITALS: BP 132/76
[2019-04-26] MEDS: BREXPIPRAZOLE 2MG TABLET (REXULTI) PO SCH (08:20)
[2019-04-26] MEDS: LORazepam 1 MG TAB PO PRN (08:20)
[2019-04-26] MEDS: FLUoxetine 20 MG CAP PO SCH (08:20)
--- NOTE | 2019-04-26 08:53 | MHIPNPDOC ---
[facility] Progress Note Progress Note DATE OF SERVICE: 04/26/19 HISTORY: Per Dr. Sarabia: "Patient is a 44-year-old woman with a history of reported severe depression, presents catatonic after ceasing her medications after being recently discharged from our care unit. She had done well on a combination of Prozac and brexpiprazole, but reportedly had not been able to take the medications, suddenly became more frozen and unable to interact point where she started to have suicidal thoughts and was brought in. The patient is too catatonic to engage in a full and comprehensive review of systems and psychosocial derived from previous note." VITAL SIGNS: See below. NEW TEST RESULTS: TSH 8.6 improved from previous. Seen by medicine over the weekend and her synthroid was increased to 25mcg daily. CURRENT MEDICATIONS: See below. MENTAL STATUS EXAMINATION: roughly no change General: good hygiene Speech: monotone Thought processes: Linear MSK: some slowing Thought content: less Hopeless, continuous guilt feelings Abstract reasoning, and computation: improved Description of associations: improved Description of abnormal or psychotic thoughts: occasional desire to be , guilt feelings, worrisome thoughts Judgment: Impaired Insight: poor Orientation: Alert and orientated 3 Cognition: slowed Recent and remote memory: Intact Attention span and concentration: Impaired Fund of knowledge: Adequate Mood: "I feel like a burden." Affect: flat with limited reactivity, worried DIAGNOSES: MDD, severe with psychotic features. Opioid use disorder. Cannabis. ASSESSMENT:Pt seen states she's "anxious" today b/c she worried about her kids with the COV19 outbreak and reassured that her kids are unable to go anywhere and should be safe at home with the pt's mother who is caring for them. Continues to feel like such a "burden" to her mother who is watching her kids while she's here. Pt again advised that it isn't her fault she's sick and that her mother is most likely wants to help her while she's here getting better. Continues to state she no longer has thoughts about killing herself but continues to have excessive guilt thoughts and of being a burden to her family. Continues to endorse anxiety due to worrisome and guilty thoughts daily that she's a burden. States her prozac and rexulti are starting to be beneficial with continued use and is tolerating them well. States she's trying not to focus on her thoughts daily and that the groups aid her to take her mind off them. 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 She denies HI, hallucinations, delusions. Pt feels safe here. MANAGEMENT PLAN: continue plan and [facility] referral. prozac 60mg daily rexulti 2mg daily TIME SPENT: 30 minutes. Vital Signs Vital Signs Date Time Temp Pulse Resp B/P (MAP) Pulse Ox O2 Delivery O2 Flow Rate FiO2 04/26/19 06:27 98.2 67 16 132/76 (94) 04/21/19 15:00 100 Room Air Current Medications Current Medications Medications (Trade) Dose Ordered Sig/Yifan Route PRN Reason Start Time Stop Time Status Last Admin Dose Admin Acetaminophen (Tylenol Tab) 650 mg Q6HP PRN PO HEADACHE or DISCOMFORT 03/25/19 13:00 04/18/19 08:43 Al Hydrox/Mg Hydrox/Simethicone (Mylanta) 30 ml Q4HP PRN PO HEARTBURN/INDIGESTION 03/25/19 13:00 Brexpiprazole (Rexulti) 1 mg DAILY PO 03/30/19 09:00 04/17/19 09:31 DC 04/17/19 08:11 Brexpiprazole (Rexulti) 2 mg DAILY PO 04/18/19 09:00 04/26/19 08:20 Diphenhydramine HCl (Benadryl) 25 mg Q6HP PRN PO ANXIETY/AGITATION 03/25/19 13:00 04/23/19 20:09 Fluoxetine HCl (PROzac) 20 mg DAILY PO 03/30/19 09:00 04/03/19 13:52 DC 04/03/19 08:37 Fluoxetine HCl (PROzac) 30 mg DAILY PO 04/04/19 09:00 04/04/19 09:57 DC 04/04/19 08:46 Fluoxetine HCl (PROzac) 40 mg DAILY PO 04/05/19 09:00 04/15/19 10:24 DC 04/15/19 09:07 Fluoxetine HCl (PROzac) 60 mg DAILY PO 04/16/19 09:00 04/26/19 08:20 Haloperidol (Haldol) 5 mg Q6HP PRN PO ANXIETY/AGITATION 03/25/19 13:00 Home Med (Med Rec Complete!) ASDIRECTED XX 03/25/19 13:30 03/25/19 13:31 DC Ibuprofen (Advil) 400 mg Q6HP PRN PO PAIN 03/25/19 13:00 04/10/19 20:59 Levothyroxine Sodium (Synthroid) 25 mcg DAILY@0600 PO 03/27/19 06:00 04/26/19 06:03 Lorazepam (Ativan) 0.5 mg TID PO 03/25/19 16:00 03/26/19 14:13 DC 03/26/19 08:46 Lorazepam (Ativan) 1 mg TID PO 03/26/19 16:00 03/29/19 10:34 DC 03/29/19 08:58 Lorazepam (Ativan) 1 mg TIDP PRN PO ANXIETY 03/29/19 10:30 04/26/19 08:20 Magnesium Hydroxide (Milk Of Magnesia) 30 ml DAILYPRN PRN PO CONSTIPATION 03/25/19 13:00 Miscellaneous (Unresolved Clarification Entry) SEE LABEL COMMENTS DAILY XX 04/16/19 09:00 04/16/19 08:40 DC Miscellaneous (Unresolved Clarification Entry) SEE LABEL COMMENTS DAILY XX 04/22/19 09:00 04/22/19 11:19 DC Miscellaneous (Unresolved Clarification Entry) SEE LABEL COMMENTS DAILY XX 04/23/19 09:00 04/23/19 13:57 DC Miscellaneous (Unresolved Clarification Entry) SEE LABEL COMMENTS DAILY XX 04/09/19 09:00 04/09/19 16:22 DC Miscellaneous (Unresolved Clarification Entry) SEE LABEL COMMENTS DAILY XX 04/15/19 09:00 04/16/19 07:40 DC Olanzapine (ZyPREXA) 5 mg Q4HP PRN PO AGITATION 03/25/19 13:00 Trazodone HCl (Desyrel) 50 mg QHSP PRN PO INSOMNIA 03/25/19 13:00 04/25/19 20:37 Allergies Coded Allergies: No Known Allergies (Verified , 03/06/19) DEVAUGHN VERDE DO Apr 26, 2019 8:53 am
[2019-04-26 16:24] VITALS: BP 118/65
[2019-04-26] MEDS: traZODone 50 MG TAB PO PRN (20:50)
[2019-04-27] MEDS: LEVOTHYROXINE 25MCG TABLET (0.025MG) PO SCH (06:04)
[2019-04-27 06:13] VITALS: BP 125/77
[2019-04-27] MEDS: LORazepam 1 MG TAB PO PRN (08:18)
[2019-04-27] MEDS: FLUoxetine 20 MG CAP PO SCH (08:19)
[2019-04-27] MEDS: BREXPIPRAZOLE 2MG TABLET (REXULTI) PO SCH (08:19)
[2019-04-27 16:00] VITALS: BP 116/63
[2019-04-27] MEDS: traZODone 50 MG TAB PO PRN (20:28)
[2019-04-28 06:13] VITALS: BP 116/67
[2019-04-28] MEDS: LEVOTHYROXINE 25MCG TABLET (0.025MG) PO SCH (06:30)
[2019-04-28] MEDS: FLUoxetine 20 MG CAP PO SCH (08:03)
[2019-04-28] MEDS: BREXPIPRAZOLE 2MG TABLET (REXULTI) PO SCH (08:03)
[2019-04-28] MEDS: LORazepam 1 MG TAB PO PRN (08:03)
[2019-04-28 16:04] VITALS: BP 123/62
[2019-04-28] MEDS: traZODone 50 MG TAB PO PRN (20:22)
[2019-04-29 06:00] VITALS: BP 136/62
[2019-04-29] MEDS: LEVOTHYROXINE 25MCG TABLET (0.025MG) PO SCH (06:47)
[2019-04-29] MEDS: BREXPIPRAZOLE 2MG TABLET (REXULTI) PO SCH (08:09)
[2019-04-29] MEDS: FLUoxetine 20 MG CAP PO SCH (08:09)
[2019-04-29] MEDS: LORazepam 1 MG TAB PO PRN (08:10)
--- NOTE | 2019-04-29 09:11 | MHIPNPDOC ---
[facility] Progress Note Progress Note DATE OF SERVICE: 04/29/19 HISTORY: Per Dr. Sarabia: "Patient is a 44-year-old woman with a history of reported severe depression, presents catatonic after ceasing her medications after being recently discharged from our care unit. She had done well on a combination of Prozac and brexpiprazole, but reportedly had not been able to take the medications, suddenly became more frozen and unable to interact point where she started to have suicidal thoughts and was brought in. The patient is too catatonic to engage in a full and comprehensive review of systems and psychosocial derived from previous note." VITAL SIGNS: See below. NEW TEST RESULTS: TSH 8.6 improved from previous. Seen by medicine over the weekend and her synthroid was increased to 25mcg daily. CURRENT MEDICATIONS: See below. MENTAL STATUS EXAMINATION: roughly no change General: good hygiene Speech: monotone Thought processes: Linear MSK: some slowing Thought content: less Hopeless, continuous guilt feelings Abstract reasoning, and computation: improved Description of associations: improved Description of abnormal or psychotic thoughts: occasional desire to be , guilt feelings, worrisome thoughts Judgment: Impaired Insight: poor Orientation: Alert and orientated 3 Cognition: slowed Recent and remote memory: Intact Attention span and concentration: Impaired Fund of knowledge: Adequate Mood: "I feel like a burden." Affect: flat with limited reactivity, worried DIAGNOSES: MDD, severe with psychotic features. Opioid use disorder. Cannabis. ASSESSMENT:Pt seen states she's "anxious" again today due to her same concerns on Monday that she worried about her kids with the COV19 outbreak and reassured that her kids are unable to go anywhere and should be safe at home with the pt's mother who is caring for them. Continues to feel like such a "burden" to her mother who is watching her kids while she's here. Pt again advised that it isn't her fault she's sick and that her mother is most likely wants to help her while she's here getting better. Continues to state she no longer has thoughts about killing herself but continues to have excessive guilt thoughts and of being a burden to her family. Continues to endorse anxiety due to worrisome and guilty thoughts daily that she's a burden. States her prozac and rexulti are starting to be beneficial with continued use and is tolerating them well. States she's trying not to focus on her thoughts daily and that the groups aid her to take her mind off them. Pt referred to [facility] for terminal superintendent treatment for depression, psychomotor retardation, and internal preoccupation with worrisome/anxious thoughts. She denies HI, hallucinations, delusions. Pt feels safe here. MANAGEMENT PLAN: continue plan and [facility] referral. prozac 60mg daily rexulti 2mg daily TIME SPENT: 30 minutes. Vital Signs Vital Signs Date Time Temp Pulse Resp B/P (MAP) Pulse Ox O2 Delivery O2 Flow Rate FiO2 04/29/19 06:00 97.7 64 18 136/62 (86) Room Air Current Medications Current Medications Medications (Trade) Dose Ordered Sig/Yifan Route PRN Reason Start Time Stop Time Status Last Admin Dose Admin Acetaminophen (Tylenol Tab) 650 mg Q6HP PRN PO HEADACHE or DISCOMFORT 03/25/19 13:00 04/18/19 08:43 Al Hydrox/Mg Hydrox/Simethicone (Mylanta) 30 ml Q4HP PRN PO HEARTBURN/INDIGESTION 03/25/19 13:00 Brexpiprazole (Rexulti) 1 mg DAILY PO 03/30/19 09:00 04/17/19 09:31 DC 04/17/19 08:11 Brexpiprazole (Rexulti) 2 mg DAILY PO 04/18/19 09:00 04/29/19 08:09 Diphenhydramine HCl (Benadryl) 25 mg Q6HP PRN PO ANXIETY/AGITATION 03/25/19 13:00 04/23/19 20:09 Fluoxetine HCl (PROzac) 20 mg DAILY PO 03/30/19 09:00 04/03/19 13:52 DC 04/03/19 08:37 Fluoxetine HCl (PROzac) 30 mg DAILY PO 04/04/19 09:00 04/04/19 09:57 DC 04/04/19 08:46 Fluoxetine HCl (PROzac) 40 mg DAILY PO 04/05/19 09:00 04/15/19 10:24 DC 04/15/19 09:07 Fluoxetine HCl (PROzac) 60 mg DAILY PO 04/16/19 09:00 04/29/19 08:09 Haloperidol (Haldol) 5 mg Q6HP PRN PO ANXIETY/AGITATION 03/25/19 13:00 04/29/19 08:10 Home Med (Med Rec Complete!) ASDIRECTED XX 03/25/19 13:30 03/25/19 13:31 DC Ibuprofen (Advil) 400 mg Q6HP PRN PO PAIN 03/25/19 13:00 04/10/19 20:59 Levothyroxine Sodium (Synthroid) 25 mcg DAILY@0600 PO 03/27/19 06:00 04/29/19 06:47 Lorazepam (Ativan) 0.5 mg TID PO 03/25/19 16:00 03/26/19 14:13 DC 03/26/19 08:46 Lorazepam (Ativan) 1 mg TID PO 03/26/19 16:00 03/29/19 10:34 DC 03/29/19 08:58 Lorazepam (Ativan) 1 mg TIDP PRN PO ANXIETY 03/29/19 10:30 04/29/19 08:10 Magnesium Hydroxide (Milk Of Magnesia) 30 ml DAILYPRN PRN PO CONSTIPATION 03/25/19 13:00 Miscellaneous (Unresolved Clarification Entry) SEE LABEL COMMENTS DAILY XX 04/16/19 09:00 04/16/19 08:40 DC Miscellaneous (Unresolved Clarification Entry) SEE LABEL COMMENTS DAILY XX 04/22/19 09:00 04/22/19 11:19 DC Miscellaneous (Unresolved Clarification Entry) SEE LABEL COMMENTS DAILY XX 04/23/19 09:00 04/23/19 13:57 DC Miscellaneous (Unresolved Clarification Entry) SEE LABEL COMMENTS DAILY XX 04/28/19 09:00 04/29/19 07:55 DC Miscellaneous (Unresolved Clarification Entry) SEE LABEL COMMENTS DAILY XX 04/09/19 09:00 04/09/19 16:22 DC Miscellaneous (Unresolved Clarification Entry) SEE LABEL COMMENTS DAILY XX 04/15/19 09:00 04/16/19 07:40 DC Olanzapine (ZyPREXA) 5 mg Q4HP PRN PO AGITATION 03/25/19 13:00 Trazodone HCl (Desyrel) 50 mg QHSP PRN PO INSOMNIA 03/25/19 13:00 04/28/19 20:22 Allergies Coded Allergies: No Known Allergies (Verified , 03/06/19) DEVAUGHN VERDE 23, 2020 9:11 am
[2019-04-29] MEDS: ACETAMINOPHEN TAB 650MG DOSE (2X325MG) PO PRN (14:17)
[2019-04-29 17:25] VITALS: BP 127/74
[2019-04-29] MEDS: traZODone 50 MG TAB PO PRN (20:13)
[2019-04-30] MEDS: LEVOTHYROXINE 25MCG TABLET (0.025MG) PO SCH (05:52)
[2019-04-30 06:15] VITALS: BP 119/55
[2019-04-30] MEDS: BREXPIPRAZOLE 2MG TABLET (REXULTI) PO SCH (08:25)
[2019-04-30] MEDS: FLUoxetine 20 MG CAP PO SCH (08:25)
--- NOTE | 2019-04-30 08:36 | MHIPNPDOC ---
[facility] Progress Note Progress Note DATE OF SERVICE: 04/30/19 HISTORY: Per Dr. Sarabia: "Patient is a 44-year-old woman with a history of reported severe depression, presents catatonic after ceasing her medications after being recently discharged from our care unit. She had done well on a combination of Prozac and brexpiprazole, but reportedly had not been able to take the medications, suddenly became more frozen and unable to interact point where she started to have suicidal thoughts and was brought in. The patient is too catatonic to engage in a full and comprehensive review of systems and psychosocial derived from previous note." VITAL SIGNS: See below. NEW TEST RESULTS: TSH 8.6 improved from previous. Seen by medicine over the weekend and her synthroid was increased to 25mcg daily. CURRENT MEDICATIONS: See below. MENTAL STATUS EXAMINATION: roughly no change General: good hygiene Speech: monotone Thought processes: Linear MSK: some slowing Thought content: less Hopeless, continuous guilt feelings Abstract reasoning, and computation: improved Description of associations: improved Description of abnormal or psychotic thoughts: occasional desire to be , guilt feelings, worrisome thoughts Judgment: Impaired Insight: poor Orientation: Alert and orientated 3 Cognition: slowed Recent and remote memory: Intact Attention span and concentration: Impaired Fund of knowledge: Adequate Mood: "I feel like a burden." Affect: flat with limited reactivity, worried DIAGNOSES: MDD, severe with psychotic features. Opioid use disorder. Cannabis. ASSESSMENT:Pt seen states she's a little less anxious today with reassureance that her kids are home safe and not around others during this pandemic. Admits she does take ativan often to relieve her anxiety and recommended to pt that we change it to klonopin which has a longer half-life so she won't have to take a medication so often for her anxiety, med risk/benefit discussed, and pt agrees to try it. Continues to feel like such a "burden" to her mother who is watching her kids while she's here. Pt again advised that it isn't her fault she's sick and that her mother is most likely wants to help her while she's here getting better. Continues to state she no longer has thoughts about killing herself but continues to have excessive guilt thoughts and of being a burden to her family. Continues to endorse anxiety due to worrisome and guilty thoughts daily that she's a burden. States her prozac and rexulti are starting to be beneficial w ith continued use and is tolerating them well. States she's trying not to focus on her thoughts daily and that the groups aid her to take her mind off them. 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 She denies HI, hallucinations, delusions. Pt feels safe here. MANAGEMENT PLAN: continue plan and [facility] referral. d/c ativan and start klonopin prn anxiety prozac 60mg daily rexulti 2mg daily klonopin 1mg bid prn anxiety TIME SPENT: 30 minutes. Vital Signs Vital Signs Date Time Temp Pulse Resp B/P (MAP) Pulse Ox O2 Delivery O2 Flow Rate FiO2 04/30/19 06:15 97.7 70 14 119/55 (76) 04/29/19 17:25 97 Room Air Current Medications Current Medications Medications (Trade) Dose Ordered Sig/Yifan Route PRN Reason Start Time Stop Time Status Last Admin Dose Admin Acetaminophen (Tylenol Tab) 650 mg Q6HP PRN PO HEADACHE or DISCOMFORT 03/25/19 13:00 04/29/19 14:17 Al Hydrox/Mg Hydrox/Simethicone (Mylanta) 30 ml Q4HP PRN PO HEARTBURN/INDIGESTION 03/25/19 13:00 Brexpiprazole (Rexulti) 1 mg DAILY PO 03/30/19 09:00 04/17/19 09:31 DC 04/17/19 08:11 Brexpiprazole (Rexulti) 2 mg DAILY PO 04/18/19 09:00 04/30/19 08:25 Diphenhydramine HCl (Benadryl) 25 mg Q6HP PRN PO ANXIETY/AGITATION 03/25/19 13:00 04/23/19 20:09 Fluoxetine HCl (PROzac) 20 mg DAILY PO 03/30/19 09:00 04/03/19 13:52 DC 04/03/19 08:37 Fluoxetine HCl (PROzac) 30 mg DAILY PO 04/04/19 09:00 04/04/19 09:57 DC 04/04/19 08:46 Fluoxetine HCl (PROzac) 40 mg DAILY PO 04/05/19 09:00 3/9/20 10:24 DC 04/15/19 09:07 Fluoxetine HCl (PROzac) 60 mg DAILY PO 04/16/19 09:00 04/30/19 08:25 Haloperidol (Haldol) 5 mg Q6HP PRN PO ANXIETY/AGITATION 03/25/19 13:00 04/29/19 08:10 Home Med (Med Rec Complete!) ASDIRECTED XX 03/25/19 13:30 03/25/19 13:31 DC Ibuprofen (Advil) 400 mg Q6HP PRN PO PAIN 03/25/19 13:00 04/10/19 20:59 Levothyroxine Sodium (Synthroid) 25 mcg DAILY@0600 PO 03/27/19 06:00 04/30/19 05:52 Lorazepam (Ativan) 0.5 mg TID PO 03/25/19 16:00 03/26/19 14:13 DC 03/26/19 08:46 Lorazepam (Ativan) 1 mg TID PO 03/26/19 16:00 03/29/19 10:34 DC 03/29/19 08:58 Lorazepam (Ativan) 1 mg TIDP PRN PO ANXIETY 03/29/19 10:30 04/29/19 08:10 Magnesium Hydroxide (Milk Of Magnesia) 30 ml DAILYPRN PRN PO CONSTIPATION 03/25/19 13:00 Miscellaneous (Unresolved Clarification Entry) SEE LABEL COMMENTS DAILY XX 04/16/19 09:00 04/16/19 08:40 DC Miscellaneous (Unresolved Clarification Entry) SEE LABEL COMMENTS DAILY XX 04/22/19 09:00 04/22/19 11:19 DC Miscellaneous (Unresolved Clarification Entry) SEE LABEL COMMENTS DAILY XX 04/23/19 09:00 04/23/19 13:57 DC Miscellaneous (Unresolved Clarification Entry) SEE LABEL COMMENTS DAILY XX 04/28/19 09:00 04/29/19 07:55 DC Miscellaneous (Unresolved Clarification Entry) SEE LABEL COMMENTS DAILY XX 04/09/19 09:00 04/09/19 16:22 DC Miscellaneous (Unresolved Clarification Entry) SEE LABEL COMMENTS DAILY XX 04/15/19 09:00 04/16/19 07:40 DC Olanzapine (ZyPREXA) 5 mg Q4HP PRN PO AGITATION 03/25/19 13:00 Trazodone HCl (Desyrel) 50 mg QHSP PRN PO INSOMNIA 03/25/19 13:00 04/29/19 20:13 Allergies Coded Allergies: No Known Allergies (Verified , 03/06/19) DEVAUGHN VERDE DO Apr 30, 2019 8:36 am
[2019-04-30] MEDS: clonazePAM 1 MG TAB PO PRN (09:12)
[2019-04-30 15:50] VITALS: BP 132/79
[2019-04-30] MEDS: traZODone 50 MG TAB PO PRN (20:10)
[2019-05-01] MEDS: LEVOTHYROXINE 25MCG TABLET (0.025MG) PO SCH (05:49)
[2019-05-01 06:24] VITALS: BP 115/79
--- NOTE | 2019-05-01 08:35 | MHIPNPDOC ---
[facility] Progress Note Progress Note DATE OF SERVICE: 05/01/19 HISTORY: Per Dr. Sarabia: "Patient is a 44-year-old woman with a history of reported severe depression, presents catatonic after ceasing her medications after being recently discharged from our care unit. She had done well on a combination of Prozac and brexpiprazole, but reportedly had not been able to take the medications, suddenly became more frozen and unable to interact point where she started to have suicidal thoughts and was brought in. The patient is too catatonic to engage in a full and comprehensive review of systems and psychosocial derived from previous note." VITAL SIGNS: See below. NEW TEST RESULTS: TSH 8.6 improved from previous. Seen by medicine over the weekend and her synthroid was increased to 25mcg daily. CURRENT MEDICATIONS: See below. MENTAL STATUS EXAMINATION: roughly no change General: good hygiene Speech: monotone Thought processes: Linear MSK: some slowing Thought content: less Hopeless, continuous guilt feelings Abstract reasoning, and computation: improved Description of associations: improved Description of abnormal or psychotic thoughts: occasional desire to be , guilt feelings, worrisome thoughts Judgment: Impaired Insight: poor Orientation: Alert and orientated 3 Cognition: slowed Recent and remote memory: Intact Attention span and concentration: Impaired Fund of knowledge: Adequate Mood: "less anxious." Affect: flat with limited reactivity, worried DIAGNOSES: MDD, severe with psychotic features. Opioid use disorder. Cannabis. ASSESSMENT:Pt seen states she's a "less anxious" today with reassurance that her kids are home safe and not around others during this pandemic again. States that klonopin is beneficial for her anxiety as she feels less anxious as often thru out the day and is tolerating it well. Continues to feel like such a "burden" to her mother who is watching her kids while she's here. Pt again advised that it isn't her fault she's sick and that her mother is most likely wants to help her while she's here getting better. Continues to state she no longer has thoughts about killing herself but continues to have excessive guilt thoughts and of being a burden to her family. Continues to endorse anxiety due to worrisome and guilty thoughts daily that she's a burden. States her prozac and rexulti are starting to be beneficial with continued use and is tolerating them well. States she's trying not to focus on her thoughts daily and that the groups aid her to take her mind off them. 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 She denies HI, hallucinations, delusions. Pt feels safe here. MANAGEMENT PLAN: continue plan and [facility] referral. d/c ativan and start klonopin prn anxiety prozac 60mg daily rexulti 2mg daily klonopin 1mg bid prn anxiety TIME SPENT: 30 minutes. Vital Signs Vital Signs Date Time Temp Pulse Resp B/P (MAP) Pulse Ox O2 Delivery O2 Flow Rate FiO2 05/01/19 06:24 98.5 75 16 115/79 (91) 04/29/19 17:25 97 Room Air Current Medications Current Medications Medications (Trade) Dose Ordered Sig/Yifan Route PRN Reason Start Time Stop Time Status Last Admin Dose Admin Acetaminophen (Tylenol Tab) 650 mg Q6HP PRN PO HEADACHE or DISCOMFORT 03/25/19 13:00 04/29/19 14:17 Al Hydrox/Mg Hydrox/Simethicone (Mylanta) 30 ml Q4HP PRN PO HEARTBURN/INDIGESTION 03/25/19 13:00 Brexpiprazole (Rexulti) 1 mg DAILY PO 03/30/19 09:00 04/17/19 09:31 DC 04/17/19 08:11 Brexpiprazole (Rexulti) 2 mg DAILY PO 04/18/19 09:00 04/30/19 08:25 Clonazepam (KlonoPIN) 1 mg BID PRN PO ANXIETY 04/30/19 08:45 04/30/19 09:12 Diphenhydramine HCl (Benadryl) 25 mg Q6HP PRN PO ANXIETY/AGITATION 03/25/19 13:00 04/23/19 20:09 Fluoxetine HCl (PROzac) 20 mg DAILY PO 03/30/19 09:00 04/03/19 13:52 DC 04/03/19 08:37 Fluoxetine HCl (PROzac) 30 mg DAILY PO 04/04/19 09:00 04/04/19 09:57 DC 04/04/19 08:46 Fluoxetine HCl (PROzac) 40 mg DAILY PO 04/05/19 09:00 04/15/19 10:24 DC 04/15/19 09:07 Fluoxetine HCl (PROzac) 60 mg DAILY PO 04/16/19 09:00 04/30/19 08:25 Haloperidol (Haldol) 5 mg Q6HP PRN PO ANXIETY/AGITATION 03/25/19 13:00 04/29/19 08:10 Home Med (Med Rec Complete!) ASDIRECTED XX 03/25/19 13:30 03/25/19 13:31 DC Ibuprofen (Advil) 400 mg Q6HP PRN PO PAIN 03/25/19 13:00 04/10/19 20:59 Levothyroxine Sodium (Synthroid) 25 mcg DAILY@0600 PO 03/27/19 06:00 05/01/19 05:49 Lorazepam (Ativan) 0.5 mg TID PO 03/25/19 16:00 03/26/19 14:13 DC 03/26/19 08:46 Lorazepam (Ativan) 1 mg TID PO 03/26/19 16:00 03/29/19 10:34 DC 03/29/19 08:58 Lorazepam (Ativan) 1 mg TIDP PRN PO ANXIETY 03/29/19 10:30 04/30/19 08:36 DC 04/29/19 08:10 Magnesium Hydroxide (Milk Of Magnesia) 30 ml DAILYPRN PRN PO CONSTIPATION 03/25/19 13:00 Miscellaneous (Unresolved Clarification Entry) SEE LABEL COMMENTS DAILY XX 04/16/19 09:00 04/16/19 08:40 DC Miscellaneous (Unresolved Clarification Entry) SEE LABEL COMMENTS DAILY XX 04/22/19 09:00 04/22/19 11:19 DC Miscellaneous (Unresolved Clarification Entry) SEE LABEL COMMENTS DAILY XX 04/23/19 09:00 04/23/19 13:57 DC Miscellaneous (Unresolved Clarification Entry) SEE LABEL COMMENTS DAILY XX 04/28/19 09:00 04/29/19 07:55 DC Miscellaneous (Unresolved Clarification Entry) SEE LABEL COMMENTS DAILY XX 04/09/19 09:00 04/09/19 16:22 DC Miscellaneous (Unresolved Clarification Entry) SEE LABEL COMMENTS DAILY XX 04/15/19 09:00 04/16/19 07:40 DC Olanzapine (ZyPREXA) 5 mg Q4HP PRN PO AGITATION 03/25/19 13:00 Trazodone HCl (Desyrel) 50 mg QHSP PRN PO INSOMNIA 03/25/19 13:00 04/30/19 20:10 Allergies Coded Allergies: No Known Allergies (Verified , 03/06/19) DEVAUGHN VERDE DO May 01, 2019 8:35 am
[2019-05-01] MEDS: BREXPIPRAZOLE 2MG TABLET (REXULTI) PO SCH (08:39)
[2019-05-01] MEDS: FLUoxetine 20 MG CAP PO SCH (08:40)
[2019-05-01] MEDS: clonazePAM 1 MG TAB PO PRN (08:40)
[2019-05-01 16:00] VITALS: BP 128/77
[2019-05-01] MEDS: traZODone 50 MG TAB PO PRN (20:22)
[2019-05-02] MEDS: LEVOTHYROXINE 25MCG TABLET (0.025MG) PO SCH (05:39)
[2019-05-02 06:14] VITALS: BP 127/72
[2019-05-02] MEDS: FLUoxetine 20 MG CAP PO SCH (08:18)
[2019-05-02] MEDS: BREXPIPRAZOLE 2MG TABLET (REXULTI) PO SCH (08:19)
[2019-05-02] MEDS: clonazePAM 1 MG TAB PO PRN (08:20)
--- NOTE | 2019-05-02 08:57 | MHIPNPDOC ---
[facility] Progress Note Progress Note DATE OF SERVICE: 05/02/19 HISTORY: Per Dr. Sarabia: "Patient is a 44-year-old woman with a history of reported severe depression, presents catatonic after ceasing her medications after being recently discharged from our care unit. She had done well on a combination of Prozac and brexpiprazole, but reportedly had not been able to take the medications, suddenly became more frozen and unable to interact point where she started to have suicidal thoughts and was brought in. The patient is too catatonic to engage in a full and comprehensive review of systems and psychosocial derived from previous note." VITAL SIGNS: See below. NEW TEST RESULTS: TSH 8.6 improved from previous. Seen by medicine over the weekend and her synthroid was increased to 25mcg daily. CURRENT MEDICATIONS: See below. MENTAL STATUS EXAMINATION: roughly no change General: good hygiene Speech: monotone Thought processes: Linear MSK: some slowing Thought content: less Hopeless, continuous guilt feelings Abstract reasoning, and computation: improved Description of associations: improved Description of abnormal or psychotic thoughts: occasional desire to be , guilt feelings, worrisome thoughts Judgment: Impaired Insight: poor Orientation: Alert and orientated 3 Cognition: slowed Recent and remote memory: Intact Attention span and concentration: Impaired Fund of knowledge: Adequate Mood: "anxious." Affect: flat with limited reactivity, worried DIAGNOSES: MDD, severe with psychotic features. Opioid use disorder. Cannabis. ASSESSMENT:No change from yesterday as pt still reports she feels "anxious" today due to the same reasons as stated previously "reassurance that her kids are home safe and not around others during this pandemic again. States that klonopin is beneficial for her anxiety as she feels less anxious as often thru out the day and is tolerating it well. Continues to feel like such a "burden" to her mother who is watching her kids while she's here. Pt again advised that it isn't her fault she's sick and that her mother is most likely wants to help her while she's here getting better. Continues to state she no longer has thoughts about killing herself but continues to have excessive guilt thoughts and of b eing a burden to her family. Continues to endorse anxiety due to worrisome and guilty thoughts daily that she's a burden. States her prozac and rexulti are starting to be beneficial with continued use and is tolerating them well. States she's trying not to focus on her thoughts daily and that the groups aid her to take her mind off them. Pt referred to [facility] for correction treatment for depression, psychomotor retardation, and internal preoccupation with worrisome/anxious thoughts. She denies HI, hallucinations, delusions. Pt feels safe here." MANAGEMENT PLAN: continue plan and [facility] referral. prozac 60mg daily rexulti 2mg daily klonopin 1mg bid prn anxiety TIME SPENT: 30 minutes. Vital Signs Vital Signs Date Time Temp Pulse Resp B/P (MAP) Pulse Ox O2 Delivery O2 Flow Rate FiO2 05/02/19 06:14 98.7 78 18 127/72 (90) 04/29/19 17:25 97 Room Air Current Medications Current Medications Medications (Trade) Dose Ordered Sig/Yifan Route PRN Reason Start Time Stop Time Status Last Admin Dose Admin Acetaminophen (Tylenol Tab) 650 mg Q6HP PRN PO HEADACHE or DISCOMFORT 03/25/19 13:00 04/29/19 14:17 Al Hydrox/Mg Hydrox/Simethicone (Mylanta) 30 ml Q4HP PRN PO HEARTBURN/INDIGESTION 03/25/19 13:00 Brexpiprazole (Rexulti) 1 mg DAILY PO 03/30/19 09:00 04/17/19 09:31 DC 04/17/19 08:11 Brexpiprazole (Rexulti) 2 mg DAILY PO 04/18/19 09:00 05/02/19 08:19 Clonazepam (KlonoPIN) 1 mg BID PRN PO ANXIETY 04/30/19 08:45 05/02/19 08:20 Diphenhydramine HCl (Benadryl) 25 mg Q6HP PRN PO ANXIETY/AGITATION 03/25/19 13:00 04/23/19 20:09 Fluoxetine HCl (PROzac) 20 mg DAILY PO 03/30/19 09:00 04/03/19 13:52 DC 04/03/19 08:37 Fluoxetine HCl (PROzac) 30 mg DAILY PO 04/04/19 09:00 04/04/19 09:57 DC 04/04/19 08:46 Fluoxetine HCl (PROzac) 40 mg DAILY PO 04/05/19 09:00 3/20 10:24 DC 04/15/19 09:07 Fluoxetine HCl (PROzac) 60 mg DAILY PO 04/16/19 09:00 05/02/19 08:18 Haloperidol (Haldol) 5 mg Q6HP PRN PO ANXIETY/AGITATION 03/25/19 13:00 04/29/19 08:10 Home Med (Med Rec Complete!) ASDIRECTED XX 03/25/19 13:30 03/25/19 13:31 DC Ibuprofen (Advil) 400 mg Q6HP PRN PO PAIN 03/25/19 13:00 04/10/19 20:59 Levothyroxine Sodium (Synthroid) 25 mcg DAILY@0600 PO 03/27/19 06:00 05/02/19 05:39 Lorazepam (Ativan) 0.5 mg TID PO 03/25/19 16:00 03/26/19 14:13 DC 03/26/19 08:46 Lorazepam (Ativan) 1 mg TID PO 03/26/19 16:00 03/29/19 10:34 DC 03/29/19 08:58 Lorazepam (Ativan) 1 mg TIDP PRN PO ANXIETY 03/29/19 10:30 04/30/19 08:36 DC 04/29/19 08:10 Magnesium Hydroxide (Milk Of Magnesia) 30 ml DAILYPRN PRN PO CONSTIPATION 03/25/19 13:00 Miscellaneous (Unresolved Clarification Entry) SEE LABEL COMMENTS DAILY XX 04/16/19 09:00 04/16/19 08:40 DC Miscellaneous (Unresolved Clarification Entry) SEE LABEL COMMENTS DAILY XX 04/22/19 09:00 04/22/19 11:19 DC Miscellaneous (Unresolved Clarification Entry) SEE LABEL COMMENTS DAILY XX 04/23/19 09:00 04/23/19 13:57 DC Miscellaneous (Unresolved Clarification Entry) SEE LABEL COMMENTS DAILY XX 04/28/19 09:00 04/29/19 07:55 DC Miscellaneous (Unresolved Clarification Entry) SEE LABEL COMMENTS DAILY XX 04/09/19 09:00 04/09/19 16:22 DC Miscellaneous (Unresolved Clarification Entry) SEE LABEL COMMENTS DAILY XX 04/15/19 09:00 04/16/19 07:40 DC Olanzapine (ZyPREXA) 5 mg Q4HP PRN PO AGITATION 03/25/19 13:00 Trazodone HCl (Desyrel) 50 mg QHSP PRN PO INSOMNIA 03/25/19 13:00 05/01/19 20:22 Allergies Coded Allergies: No Known Allergies (Verified , 03/06/19) DEVAUGHN VERDE DO May 02, 2019 8:57 am
[2019-05-02 16:00] VITALS: BP 140/82
[2019-05-02] MEDS: traZODone 50 MG TAB PO PRN (20:57)
[2019-05-03] MEDS: LEVOTHYROXINE 25MCG TABLET (0.025MG) PO SCH (05:42)
[2019-05-03 06:26] VITALS: BP 129/69
--- NOTE | 2019-05-03 08:49 | MHIPNPDOC ---
[facility] Progress Note Progress Note DATE OF SERVICE: 05/03/19 HISTORY: Per Dr. Sarabia: "Patient is a 44-year-old woman with a history of reported severe depression, presents catatonic after ceasing her medications aft er being recently discharged from our care unit. She had done well on a combination of Prozac and brexpiprazole, but reportedly had not been able to take the medications, suddenly became more frozen and unable to interact point where she started to have suicidal thoughts and was brought in. The patient is too catatonic to engage in a full and comprehensive review of systems and psychosocial derived from previous note." VITAL SIGNS: See below. NEW TEST RESULTS: TSH 8.6 improved from previous. Seen by medicine over the weekend and her synthroid was increased to 25mcg daily. CURRENT MEDICATIONS: See below. MENTAL STATUS EXAMINATION: roughly no change General: good hygiene Speech: monotone Thought processes: Linear MSK: some slowing Thought content: less Hopeless, continuous guilt feelings Abstract reasoning, and computation: improved Description of associations: improved Description of abnormal or psychotic thoughts: occasional desire to be , guilt feelings, worrisome thoughts Judgment: Impaired Insight: poor Orientation: Alert and orientated 3 Cognition: slowed Recent and remote memory: Intact Attention span and concentration: Impaired Fund of knowledge: Adequate Mood: "anxious." Affect: flat with limited reactivity, worried DIAGNOSES: MDD, severe with psychotic features. Opioid use disorder. Cannabis. ASSESSMENT:No change from yesterday againd as pt still reports she feels "anxious" today due to the same reasons as stated previously "reassurance that her kids are home safe and not around others during this pandemic again. States that klonopin is beneficial for her anxiety as she feels less anxious as often thru out the day and is tolerating it well. Continues to feel like such a "burden" to her mother who is watching her kids while she's here. Pt again advised that it isn't her fault she's sick and that her mother is most likely wants to help her while she's here getting better. Continues to state she no longer has thoughts about killing herself but continues to have excessive guilt thoughts and of being a burden to her family. Continues to endorse anxiety due to worrisome and guilty thoughts daily that she's a burden. States her prozac and rexulti are starting to be beneficial with continued use and is tolerating them well. States she's trying not to focus on her thoughts daily and that the groups aid her to take her mind off them. May add lithium after the weekend to see if mood stabilization med will aid pt's depression and anxiety. 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 She denies HI, hallucinations, delusions. Pt feels safe here." MANAGEMENT PLAN: continue plan and [facility] referral. possibly will add lithium for mood stabilization prozac 60mg daily rexulti 2mg daily klonopin 1mg bid prn anxiety TIME SPENT: 30 minutes. Vital Signs Vital Signs Date Time Temp Pulse Resp B/P (MAP) Pulse Ox O2 Delivery O2 Flow Rate FiO2 05/03/19 06:26 98.3 78 16 129/69 (89) 04/29/19 17:25 97 Room Air Current Medications Current Medications Medications (Trade) Dose Ordered Sig/Yifan Route PRN Reason Start Time Stop Time Status Last Admin Dose Admin Acetaminophen (Tylenol Tab) 650 mg Q6HP PRN PO HEADACHE or DISCOMFORT 03/25/19 13:00 04/29/19 14:17 Al Hydrox/Mg Hydrox/Simethicone (Mylanta) 30 ml Q4HP PRN PO HEARTBURN/INDIGESTION 03/25/19 13:00 Brexpiprazole (Rexulti) 1 mg DAILY PO 03/30/19 09:00 04/17/19 09:31 DC 04/17/19 08:11 Brexpiprazole (Rexulti) 2 mg DAILY PO 04/18/19 09:00 05/02/19 08:19 Clonazepam (KlonoPIN) 1 mg BID PRN PO ANXIETY 04/30/19 08:45 05/02/19 08:20 Diphenhydramine HCl (Benadryl) 25 mg Q6HP PRN PO ANXIETY/AGITATION 03/25/19 13:00 04/23/19 20:09 Fluoxetine HCl (PROzac) 20 mg DAILY PO 03/30/19 09:00 04/03/19 13:52 DC 04/03/19 08:37 Fluoxetine HCl (PROzac) 30 mg DAILY PO 04/04/19 09:00 04/04/19 09:57 DC 04/04/19 08:46 Fluoxetine HCl (PROzac) 40 mg DAILY PO 04/05/19 09:00 04/15/19 10:24 DC 04/15/19 09:07 Fluoxetine HCl (PROzac) 60 mg DAILY PO 04/16/19 09:00 05/02/19 08:18 Haloperidol (Haldol) 5 mg Q6HP PRN PO ANXIETY/AGITATION 03/25/19 13:00 04/29/19 08:10 Home Med (Med Rec Complete!) ASDIRECTED XX 03/25/19 13:30 03/25/19 13:31 DC Ibuprofen (Advil) 400 mg Q6HP PRN PO PAIN 03/25/19 13:00 04/10/19 20:59 Levothyroxine Sodium (Synthroid) 25 mcg DAILY@0600 PO 03/27/19 06:00 05/03/19 05:42 Lorazepam (Ativan) 0.5 mg TID PO 03/25/19 16:00 03/26/19 14:13 DC 03/26/19 08:46 Lorazepam (Ativan) 1 mg TID PO 03/26/19 16:00 03/29/19 10:34 DC 03/29/19 08:58 Lorazepam (Ativan) 1 mg TIDP PRN PO ANXIETY 03/29/19 10:30 04/30/19 08:36 DC 04/29/19 08:10 Magnesium Hydroxide (Milk Of Magnesia) 30 ml DAILYPRN PRN PO CONSTIPATION 03/25/19 13:00 Miscellaneous (Unresolved Clarification Entry) SEE LABEL COMMENTS DAILY XX 04/16/19 09:00 04/16/19 08:40 DC Miscellaneous (Unresolved Clarification Entry) SEE LABEL COMMENTS DAILY XX 04/22/19 09:00 04/22/19 11:19 DC Miscellaneous (Unresolved Clarification Entry) SEE LABEL COMMENTS DAILY XX 04/23/19 09:00 04/23/19 13:57 DC Miscellaneous (Unresolved Clarification Entry) SEE LABEL COMMENTS DAILY XX 04/28/19 09:00 04/29/19 07:55 DC Miscellaneous (Unresolved Clarification Entry) SEE LABEL COMMENTS DAILY XX 04/09/19 09:00 04/09/19 16:22 DC Miscellaneous (Unresolved Clarification Entry) SEE LABEL COMMENTS DAILY XX 04/15/19 09:00 04/16/19 07:40 DC Olanzapine (ZyPREXA) 5 mg Q4HP PRN PO AGITATION 03/25/19 13:00 Trazodone HCl (Desyrel) 50 mg QHSP PRN PO INSOMNIA 03/25/19 13:00 05/02/19 20:57 Allergies Coded Allergies: No Known Allergies (Verified , 03/06/19) DEVAUGHN VERDE DO May 03, 2019 8:49 am
[2019-05-03] MEDS: BREXPIPRAZOLE 2MG TABLET (REXULTI) PO SCH (08:54)
[2019-05-03] MEDS: FLUoxetine 20 MG CAP PO SCH (08:54)
[2019-05-03] MEDS: clonazePAM 1 MG TAB PO PRN (08:55)
[2019-05-03 15:56] VITALS: BP 120/72
[2019-05-03] MEDS: traZODone 50 MG TAB PO PRN (21:17)
[2019-05-04] MEDS: LEVOTHYROXINE 25MCG TABLET (0.025MG) PO SCH (05:48)
[2019-05-04 06:19] VITALS: BP 110/60
[2019-05-04] MEDS: FLUoxetine 20 MG CAP PO SCH (08:59)
[2019-05-04] MEDS: BREXPIPRAZOLE 2MG TABLET (REXULTI) PO SCH (08:59)
[2019-05-04] MEDS: clonazePAM 1 MG TAB PO PRN (09:00)
[2019-05-04 15:36] VITALS: BP 121/82
[2019-05-04 17:05] VITALS: BP 121/82
[2019-05-04] MEDS: traZODone 50 MG TAB PO PRN (22:18)
[2019-05-05] MEDS: LEVOTHYROXINE 25MCG TABLET (0.025MG) PO SCH (05:52)
[2019-05-05 06:28] VITALS: BP 116/65
[2019-05-05 08:35] VITALS: BP 116/65
[2019-05-05] MEDS: BREXPIPRAZOLE 2MG TABLET (REXULTI) PO SCH (09:04)
[2019-05-05] MEDS: FLUoxetine 20 MG CAP PO SCH (09:04)
[2019-05-05] MEDS: clonazePAM 1 MG TAB PO PRN (09:04)
[2019-05-05 18:09] VITALS: BP 123/56
[2019-05-06] MEDS: LEVOTHYROXINE 25MCG TABLET (0.025MG) PO SCH (05:59)
[2019-05-06 06:16] VITALS: BP 114/65
[2019-05-06] MEDS: clonazePAM 1 MG TAB PO PRN (08:12)
[2019-05-06] MEDS: FLUoxetine 20 MG CAP PO SCH (08:12)
[2019-05-06] MEDS: BREXPIPRAZOLE 2MG TABLET (REXULTI) PO SCH (08:13)
--- NOTE | 2019-05-06 09:38 | MHIPNPDOC ---
[facility] Progress Note Progress Note DATE OF SERVICE: 05/06/19 HISTORY: Per Dr. Sarabia: "Patient is a 44-year-old woman with a history of reported severe depression, presents catatonic after ceasing her medications after being recently discharged from our care unit. She had done well on a combination of Prozac and brexpiprazole, but reportedly had not been able to take the medications, suddenly became more frozen and unable to interact point where she started to have suicidal thoughts and was brought in. The patient is too catatonic to engage in a full and comprehensive review of systems and psychosocial derived from previous note." VITAL SIGNS: See below. NEW TEST RESULTS: TSH 8.6 improved from previous. Seen by medicine over the weekend and her synthroid was increased to 25mcg daily. CURRENT MEDICATIONS: See below. MENTAL STATUS EXAMINATION: roughly no change General: good hygiene Speech: monotone Thought processes: Linear MSK: some slowing Thought content: less Hopeless, continuous guilt feelings Abstract reasoning, and computation: improved Description of associations: improved Description of abnormal or psychotic thoughts: occasional desire to be , guilt feelings, worrisome thoughts Judgment: Impaired Insight: poor Orientation: Alert and orientated 3 Cognition: slowed Recent and remote memory: Intact Attention span and concentration: Impaired Fund of knowledge: Adequate Mood: "anxious." Affect: flat with limited reactivity, worried DIAGNOSES: MDD, severe with psychotic features. Opioid use disorder. Cannabis. ASSESSMENT:No change from last week roughly as again pt still reports she feels "anxious" today due to the same reasons as stated previously "reassurance that her kids are home safe and not around others during this pandemic again. States that klonopin is beneficial for her anxiety and is tolerating it well. Continues to feel like such a "burden" to her mother who is watching her kids while she's here. Pt again advised that it isn't her fault she's sick and that her mother is most likely wants to help her while she's here getting better. Continues to state she no longer has thoughts about killing herself but continues to have excessive guilt thoughts and of being a burden to her family. Continues to endorse anxiety due to worrisome and guilty thoughts daily that she's a burden. States her prozac and rexulti are starting to be beneficial with continued use and is tolerating them well. States she's trying not to focus on her thoughts daily and that the groups aid her to take her mind off them. May add lithium after the weekend to see if mood stabilization med will aid pt's depression and anxiety. 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 will increase levothyroxine as TSH is still high. She denies HI, hallucinations, delusions. Pt feels safe here." MANAGEMENT PLAN: continue plan and [facility] referral. increase levothyroxine to 37.5 for hypothyroidism possibly causing/worsening depression prozac 60mg daily rexulti 2mg daily klonopin 1mg bid prn anxiety levothyroxine to 37.5 daily TIME SPENT: 30 minutes. Vital Signs Vital Signs Date Time Temp Pulse Resp B/P (MAP) Pulse Ox O2 Delivery O2 Flow Rate FiO2 05/06/19 06:16 98.2 66 14 114/65 (81) Room Air 05/05/19 08:35 97 Current Medications Current Medications Medications (Trade) Dose Ordered Sig/Yifan Route PRN Reason Start Time Stop Time Status Last Admin Dose Admin Acetaminophen (Tylenol Tab) 650 mg Q6HP PRN PO HEADACHE or DISCOMFORT 03/25/19 13:00 04/29/19 14:17 Al Hydrox/Mg Hydrox/Simethicone (Mylanta) 30 ml Q4HP PRN PO HEARTBURN/INDIGESTION 03/25/19 13:00 Brexpiprazole (Rexulti) 1 mg DAILY PO 03/30/19 09:00 04/17/19 09:31 DC 04/17/19 08:11 Brexpiprazole (Rexulti) 2 mg DAILY PO 04/18/19 09:00 05/06/19 08:13 Clonazepam (KlonoPIN) 1 mg BID PRN PO ANXIETY 04/30/19 08:45 05/06/19 08:12 Diphenhydramine HCl (Benadryl) 25 mg Q6HP PRN PO ANXIETY/AGITATION 03/25/19 13:00 04/23/19 20:09 Fluoxetine HCl (PROzac) 20 mg DAILY PO 03/30/19 09:00 04/03/19 13:52 DC 04/03/19 08:37 Fluoxetine HCl (PROzac) 30 mg DAILY PO 04/04/19 09:00 04/04/19 09:57 DC 04/04/19 08:46 Fluoxetine HCl (PROzac) 40 mg DAILY PO 04/05/19 09:00 04/15/19 10:24 DC 04/15/19 09:07 Fluoxetine HCl (PROzac) 60 mg DAILY PO 04/16/19 09:00 05/06/19 08:12 Haloperidol (Haldol) 5 mg Q6HP PRN PO ANXIETY/AGITATION 03/25/19 13:00 04/29/19 08:10 Home Med (Med Rec Complete!) ASDIRECTED XX 03/25/19 13:30 03/25/19 13:31 DC Ibuprofen (Advil) 400 mg Q6HP PRN PO PAIN 03/25/19 13:00 04/10/19 20:59 Levothyroxine Sodium (Synthroid) 25 mcg DAILY@0600 PO 03/27/19 06:00 05/06/19 05:59 Lorazepam (Ativan) 0.5 mg TID PO 03/25/19 16:00 03/26/19 14:13 DC 03/26/19 08:46 Lorazepam (Ativan) 1 mg TID PO 03/26/19 16:00 03/29/19 10:34 DC 03/29/19 08:58 Lorazepam (Ativan) 1 mg TIDP PRN PO ANXIETY 03/29/19 10:30 04/30/19 08:36 DC 04/29/19 08:10 Magnesium Hydroxide (Milk Of Magnesia) 30 ml DAILYPRN PRN PO CONSTIPATION 03/25/19 13:00 Miscellaneous (Unresolved Clarification Entry) SEE LABEL COMMENTS DAILY XX 04/16/19 09:00 04/16/19 08:40 DC Miscellaneous (Unresolved Clarification Entry) SEE LABEL COMMENTS DAILY XX 04/22/19 09:00 04/22/19 11:19 DC Miscellaneous (Unresolved Clarification Entry) SEE LABEL COMMENTS DAILY XX 04/23/19 09:00 04/23/19 13:57 DC Miscellaneous (Unresolved Clarification Entry) SEE LABEL COMMENTS DAILY XX 04/28/19 09:00 04/29/19 07:55 DC Miscellaneous (Unresolved Clarification Entry) SEE LABEL COMMENTS DAILY XX 04/09/19 09:00 04/09/19 16:22 DC Miscellaneous (Unresolved Clarification Entry) SEE LABEL COMMENTS DAILY XX 05/06/19 09:00 Miscellaneous (Unresolved Clarification Entry) SEE LABEL COMMENTS DAILY XX 04/15/19 09:00 04/16/19 07:40 DC Olanzapine (ZyPREXA) 5 mg Q4HP PRN PO AGITATION 03/25/19 13:00 Trazodone HCl (Desyrel) 50 mg QHSP PRN PO INSOMNIA 03/25/19 13:00 05/04/19 22:18 Allergies Coded Allergies: No Known Allergies (Verified , 03/06/19) DEVAUGHN VERDE DO May 06, 2019 9:38 am
[2019-05-06] MEDS ORDERED: LEVOTHYROXINE 12.5MCG PER 1/2 TAB (0.0125MG) PO ONE (10:00)
[2019-05-06 18:00] VITALS: BP 113/67
[2019-05-06] MEDS: diphenhydrAMINE 25MG CAP PO PRN (20:49)
[2019-05-06] MEDS: traZODone 50 MG TAB PO PRN (21:23)
[2019-05-07] MEDS ORDERED: LEVOTHYROXINE 37.5MCG PER 1/2TAB (0.0375MG) PO SCH (06:00)
[2019-05-07 06:48] VITALS: BP 121/67
[2019-05-07] MEDS: clonazePAM 1 MG TAB PO PRN (08:30)
[2019-05-07] MEDS: FLUoxetine 20 MG CAP PO SCH (08:30)
[2019-05-07] MEDS: BREXPIPRAZOLE 2MG TABLET (REXULTI) PO SCH (08:30)
--- NOTE | 2019-05-07 08:47 | MHIPNPDOC ---
[facility] Progress Note Progress Note DATE OF SERVICE: 05/07/19 HISTORY: Per Dr. Sarabia: "Patient is a 44-year-old woman with a history of reported severe depression, presents catatonic after ceasing her medications after being recently discharged from our care unit. She had done well on a combination of Prozac and brexpiprazole, but reportedly had not been able to take the medications, suddenly became more frozen and unable to interact point where she started to have suicidal thoughts and was brought in. The patient is too catatonic to engage in a full and comprehensive review of systems and psychosocial derived from previous note." VITAL SIGNS: See below. NEW TEST RESULTS: TSH 8.6 improved from previous. Spoke with [employer] Dr. Ryan, regarding assessment and treatment of pt's hypothyroidism and after Dr. Ryan reviewed pt's labs (as will not come to hospital and expose herself to risk of shiraz COVID19 at this time) recommended increase of pt's levothyro xine to 75mcg and monitor thyroid profile. Dr. Ryan is willing to [place] outpatient [place] [facility] [place] of [place]. CURRENT MEDICATIONS: See below. MENTAL STATUS EXAMINATION: roughly no change General: good hygiene Speech: monotone Thought processes: Linear MSK: some slowing Thought content: less Hopeless, continuous guilt feelings Abstract reasoning, and computation: improved Description of associations: improved Description of abnormal or psychotic thoughts: occasional desire to be , guilt feelings, worrisome thoughts Judgment: Impaired Insight: poor Orientation: Alert and orientated 3 Cognition: slowed Recent and remote memory: Intact Attention span and concentration: Impaired Fund of knowledge: Adequate Mood: "a little better." Affect: flat with limited reactivity, worried DIAGNOSES: MDD, severe with psychotic features. Opioid use disorder. Cannabis. ASSESSMENT:No change from last week roughly but does state she feels "a little better" today after her leothryroxine was increased for hypothyroidism yesterday. Continues to endorse anxiety due to worries about her kids are home during this pandemic again. States that klonopin is beneficial for her anxiety and is tolerating it well. Continues to feel like such a "burden" to her mother who is watching her kids while she's here. Pt again advised that it isn't her fault she's sick and that her mother is most likely wants to help her while she's here getting better. Continues to state she no longer has thoughts about killing herself but continues to have excessive guilt thoughts and of being a burden to her family. Continues to endorse anxiety due to worrisome and guilty thoughts daily that she's a burden. States her prozac and rexulti are starting to be beneficial with continued use and is tolerating them well. States she's trying not to focus on her thoughts daily and that the groups aid her to take her mind off them. May add lithium after the weekend to see if mood stabilization med will aid pt's depression and anxiety. Pt referred to [facility] for [facility]p treatment for depression, psychomotor retardation, and internal preoccupation with worrisome/anxious thoughts. will increase levothyroxine as TSH is still high. She denies HI, hallucinations, delusions. Pt feels safe here." MANAGEMENT PLAN: continue plan and [facility] referral. increase levothyroxine to 37.5 for hypothyroidism possibly causing/worsening depression. Consult Endocrinology - recommended increase levothyroxine to 75mcg daily. Check Thyroid panel tomorrow prozac 60mg daily rexulti 2mg daily klonopin 1mg bid prn anxiety levothyroxine to 75 daily TIME SPENT: 30 minutes. Vital Signs Vital Signs Date Time Temp Pulse Resp B/P (MAP) Pulse Ox O2 Delivery O2 Flow Rate FiO2 05/07/19 06:48 98.0 73 12 121/67 (85) 05/06/19 18:00 Room Air 05/05/19 08:35 97 Current Medications Current Medications Medications (Trade) Dose Ordered Sig/Yifan Route PRN Reason Start Time Stop Time Status Last Admin Dose Admin Acetaminophen (Tylenol Tab) 650 mg Q6HP PRN PO HEADACHE or DISCOMFORT 03/25/19 13:00 04/29/19 14:17 Al Hydrox/Mg Hydrox/Simethicone (Mylanta) 30 ml Q4HP PRN PO HEARTBURN/INDIGESTION 03/25/19 13:00 Brexpiprazole (Rexulti) 1 mg DAILY PO 03/30/19 09:00 04/17/19 09:31 DC 04/17/19 08:11 Brexpiprazole (Rexulti) 2 mg DAILY PO 04/18/19 09:00 05/07/19 08:30 Clonazepam (KlonoPIN) 1 mg BID PRN PO ANXIETY 04/30/19 08:45 05/07/19 08:30 Diphenhydramine HCl (Benadryl) 25 mg Q6HP PRN PO ANXIETY/AGITATION 03/25/19 13:00 05/06/19 20:49 Fluoxetine HCl (PROzac) 20 mg DAILY PO 03/30/19 09:00 04/03/19 13:52 DC 04/03/19 08:37 Fluoxetine HCl (PROzac) 30 mg DAILY PO 04/04/19 09:00 04/04/19 09:57 DC 04/04/19 08:46 Fluoxetine HCl (PROzac) 40 mg DAILY PO 04/05/19 09:00 04/15/19 10:24 DC 04/15/19 09:07 Fluoxetine HCl (PROzac) 60 mg DAILY PO 04/16/19 09:00 05/07/19 08:30 Haloperidol (Haldol) 5 mg Q6HP PRN PO ANXIETY/AGITATION 03/25/19 13:00 04/29/19 08:10 Home Med (Med Rec Complete!) ASDIRECTED XX 03/25/19 13:30 03/25/19 13:31 DC Ibuprofen (Advil) 400 mg Q6HP PRN PO PAIN 03/25/19 13:00 04/10/19 20:59 Levothyroxine Sodium (Synthroid) 25 mcg DAILY@0600 PO 03/27/19 06:00 05/06/19 09:36 DC 05/06/19 05:59 Levothyroxine Sodium (Synthroid) 37.5 mcg DAILY@06 PO 05/07/19 06:00 05/07/19 05:57 Lorazepam (Ativan) 0.5 mg TID PO 03/25/19 16:00 03/26/19 14:13 DC 03/26/19 08:46 Lorazepam (Ativan) 1 mg TID PO 03/26/19 16:00 03/29/19 10:34 DC 03/29/19 08:58 Lorazepam (Ativan) 1 mg TIDP PRN PO ANXIETY 03/29/19 10:30 04/30/19 08:36 DC 04/29/19 08:10 Magnesium Hydroxide (Milk Of Magnesia) 30 ml DAILYPRN PRN PO CONSTIPATION 03/25/19 13:00 Miscellaneous (Unresolved Clarification Entry) SEE LABEL COMMENTS DAILY XX 04/16/19 09:00 04/16/19 08:40 DC Miscellaneous (Unresolved Clarification Entry) SEE LABEL COMMENTS DAILY XX 04/22/19 09:00 04/22/19 11:19 DC Miscellaneous (Unresolved Clarification Entry) SEE LABEL COMMENTS DAILY XX 04/23/19 09:00 04/23/19 13:57 DC Miscellaneous (Unresolved Clarification Entry) SEE LABEL COMMENTS DAILY XX 04/28/19 09:00 04/29/19 07:55 DC Miscellaneous (Unresolved Clarification Entry) SEE LABEL COMMENTS DAILY XX 04/09/19 09:00 04/09/19 16:22 DC Miscellaneous (Unresolved Clarification Entry) SEE LABEL COMMENTS DAILY XX 05/06/19 09:00 05/06/19 10:08 DC Miscellaneous (Unresolved Clarification Entry) SEE LABEL COMMENTS DAILY XX 04/15/19 09:00 04/16/19 07:40 DC Olanzapine (ZyPREXA) 5 mg Q4HP PRN PO AGITATION 03/25/19 13:00 Trazodone HCl (Desyrel) 50 mg QHSP PRN PO INSOMNIA 03/25/19 13:00 05/06/19 21:23 Allergies Coded Allergies: No Known Allergies (Verified , 03/06/19) DEVAUGHN VERDE DO May 07, 2019 8:47 am
[2019-05-07] MEDS ORDERED: LEVOTHYROXINE 37.5MCG PER 1/2TAB (0.0375MG) PO ONE (11:00)
[2019-05-07 15:00] VITALS: BP 127/65
[2019-05-07] MEDS: ACETAMINOPHEN TAB 650MG DOSE (2X325MG) PO PRN (20:55)
[2019-05-07] MEDS: traZODone 50 MG TAB PO PRN (20:55)
[2019-05-08 05:56] VITALS: BP 110/71
[2019-05-08] MEDS ORDERED: LEVOTHYROXINE 75MCG TABLET (0.075MG) PO SCH (06:00)
[2019-05-08] MEDS: BREXPIPRAZOLE 2MG TABLET (REXULTI) PO SCH (08:26)
[2019-05-08] MEDS: clonazePAM 1 MG TAB PO PRN (08:27)
[2019-05-08] MEDS: FLUoxetine 20 MG CAP PO SCH (08:27)
[2019-05-08 09:13] VITALS: BP 117/63
[2019-05-08] MEDS ORDERED: CLON1TAB8 PO (12:40)
[2019-05-08] MEDS ORDERED: LEVO75TA4 PO (12:40)
[2019-05-08] MEDS ORDERED: REXU1TAB4 PO (12:40)
[2019-05-08] MEDS ORDERED: FLUO20CA22 PO (12:40)
[2019-05-08] MEDS ORDERED: DIPH25CA32 PO (12:54)
[2019-05-08] MEDS ORDERED: COLA100C5 PO (12:55)
--- NOTE | 2019-05-14 17:11 | MHDSPDOC ---
[facility] Discharge Summary Discharge Summary DATE OF ADMISSION: Mar 25, 2019 at 12:48 DATE OF DISCHARGE: May 08, 2019 at 15:07 Jayne Lawson Discharge Jayne Lawson Select Gender MRN: N/A Date of : MM/DD/YYYY Date of Service: 05/08/2019 Diagnoses MDD, severe with psychotic features. Opioid use disorder. Cannabis use disorder, moderate. Opioid use disorder, moderate. Catatonia. History of Present Illness Patient is a 44-year-old woman with a history of reported severe depression, presents catatonic after ceasing her medications after being recently discharged from our care unit. She had done well on a combination of Prozac and brexpiprazole, but reportedly had not been able to take the medications, suddenly became more frozen and unable to interact point where she started to have suicidal thoughts and was brought in. The patient is too catatonic to engage in a full and comprehensive review of systems and psychosocial derived from previous note. Consultants Involved Hospitalist/PCP screening Treatment and Progress On The Unit The patient was admitted to the inpatient unit and had a fairly long and protracted hospital course, where she had been resumed on her Rexulti and Prozac, at 1 mg and 20 mg respectively, in addition she was started on 1 mg TID of Ativan due to catatonia observed on her presentation. The patient then was increased to Prozac at 60 mg over the coming weeks and Rexulti 2 mg and generally discontinued on Ativan as her catatonia resolved slowly. She had d ifficulty attending groups and engaging in any meaningful interactions for several weeks, however, she began to improve significantly over the next weeks becoming more stable and having an affect that was much more reactive. She did well and was able to start to identify the stressors that had made it difficult for her to have a successful discharge on her last admission. She reported that she would be returning home as the CPS evaluation would be over and that she would no longer have to be with others that "stressed her out." She did well and had no behavioral problems and denied suicidality for nearly a week prior to her discharge. She was initially triaged for long-term care, however, she had made enough progress that was no longer necessary as she had improved well enough that she was able to be discharged and no longer met involuntary criteria. Discharge Assessment 44-year-old woman with a history of severe depression with psychotic features as well as substance use problems presents after relapsing quite quickly, she has a long and protracted admission, but is treated on high dose of Prozac and Rexulti that certainly helped resolve her depression as well as catatonia. She will likely need to be on these medications for the rest of her life. She had been triaged for long-term care, but eventually did not meet involuntary criteria to be held against her well. She improved well enough that she had surpassed her previous baseline. The patient at the time of discharge did not meet criteria for involuntary adm ission/extension due to having a much improved mental status exam, fair insight into the situation, They are engaged in the discharge process, as well as being friendly and amenable in behavioral control and havent been engaging in any observed concerning behavior or ideation recently. They decline voluntary extension/admission at this time and must be discharged in good cierra, as Im unable to make a case for holding the patient against their will. They may have historical risk factors of admissions and other interactions with psychiatry however, those are not modifiable from a clinical perspective. The patient will need to be discharged in good cierra. Mental Status Examination General: Well dressed with good hygiene Speech: Spontaneous and fluid Thought processes: Linear and logical MSK: Smooth and coordinated gait, no signs of tremors or involuntary orofacial movements Thought content: Future orientated Abstract reasoning, and computation: Intact Description of associations: Intact Description of abnormal or psychotic thoughts: Denies any suicidal or homicidal ideation. Denies any auditory or visual hallucinations. Does not appear to be responding to internal stimuli. Does not appear to be endorsing any bizarre or paranoid ideation. Judgment: fair Insight: fair Orientation: Alert and orientated 3 Cognition: Grossly normal Recent and remote memory: Intact Attention span and concentration: Intact Fund of knowledge: Adequate Mood: "okay" Affect: Much more euthymic. Follow Up The social work team worked during the predischarge meeting in order to evaluate for further issues of lethality address them fully before discharge. They worked on safety planning with the patient's family members in order to ensure that the patient will have a safe and effective discharge. Time Spent The amount of time spent in the coordination of care for this patient was approximately 45 minutes. Vital Signs/I&Os Vital Signs Date Time Temp Pulse Resp B/P (MAP) Pulse Ox O2 Delivery O2 Flow Rate FiO2 05/08/19 09:13 98.7 87 16 117/63 (81) Room Air Medications Scheduled Brexpiprazole (Rexulti) 2 Mg Tablet, 2 MG PO DAILY for mood for 7 Days, #7 Docusate Sodium (Colace) 100 Mg Capsule, 1 CAP PO BID for constipation for 30 Days, #60 Fluoxetine Hcl (Fluoxetine HCl) 20 Mg Capsule, 60 MG PO DAILY for mood for 7 Days, #21 Levothyroxine Sodium (Levothyroxine Sodium) 75 Mcg Tablet, 75 MCG PO DAILY@06 for thyroid for 7 Days, #7 Scheduled PRN Clonazepam (Clonazepam) 1 Mg Tablet, 1 MG PO BID PRN for ANXIETY for 7 Days, #14 Diphenhydramine HCl (Diphenhydramine HCl) 25 Mg Capsule, 25 MG PO Q6HP PRN for ANXIETY/AGITATION for 7 Days, #14 Ibuprofen (Ibuprofen) 200 Mg Capsule, 800 MG PO TID PRN for PAIN, (Reported) Allergies Coded Allergies: No Known Allergies (Verified , 03/06/19) NAREN SWAIN DO May 14, 2019 17:11
== END 2019-05-08 15:07 | disposition home or self-care (01) | DRG 885 ==
LOC: M ED 12:13 → M ED INP 12:48 → M PSY 19:33
PROVIDERS: ADMIT Psychiatry & Neurology Addiction Medicine; ATTEND Psychiatry & Neurology Psychiatry
DX: F32.3 Major depressive disorder, single episode, severe with psychotic features (principal); F11.10 Opioid abuse, uncomplicated; F12.10 Cannabis abuse, uncomplicated; Z79.899 Other long term (current) drug therapy; E03.9 Hypothyroidism, unspecified; Z91.14 Patient's other noncompliance with medication regimen

== ENCOUNTER 2019-06-10 10:17 | Emergency (ER) | payer OTHER ==
[~2019-06-10] VITALS: Ht 165.1 cm; Wt 88.8 kg
[~2019-06-10 10:17] MED LIST changes: +CLON1TAB8 PO; +DIPH25CA32 PO; +FLUO20CA20 PO; +IBUP200C25 PO; +LEVO25TA34 PO; +LEVO75TA4 PO; +REXU1TAB3 PO; +REXU1TAB4 PO
[2019-06-10 12:17] LABS: HEMATOCRIT 36.2 % (36.0-47.0); HEMOGLOBIN 11.2 g/dl (12.0-15.5); MEAN CORPUSCULAR HEMOGLOBIN 26.4 pg (27.0-33.0); MEAN CORPUSCULAR HGB CONC 30.9 g/dl (32.0-36.5); MEAN CORPUSCULAR VOLUME 85.4 fl (80.0-96.0); PLATELET COUNT, AUTOMATED 468 10^3/uL (150-450); RED BLOOD COUNT 4.24 10^6/uL (4.00-5.40); WHITE BLOOD COUNT 10.2 10^3/uL (4.0-10.0)
[2019-06-10 12:37] LABS: AMPHETAMINES LEVEL URINE NEGATIVE (NEGATIVE); BARBITURATES URINE NEGATIVE (NEGATIVE); BENZODIAZEPINES URINE NEGATIVE (NEGATIVE); CANNABINOIDS URINE NEGATIVE (NEGATIVE); COCAINE METABOLITE URINE NEGATIVE (NEGATIVE); METHADONE URINE NEGATIVE (NEGATIVE); OPIATES URINE NEGATIVE (NEGATIVE); PHENCYCLIDINE URINE NEGATIVE (NEGATIVE)
[2019-06-10 12:49] LABS: ACETAMINOPHEN LEVEL < 2.0 UG/ML (10.0-30.0); ALBUMIN 3.4 GM/DL (3.2-5.2); ALT/SGPT 24 U/L (12-78); BILIRUBIN,DIRECT 0.2 MG/DL (0.0-0.2); BILIRUBIN,TOTAL 0.6 MG/DL (0.2-1.0); BLOOD UREA NITROGEN 5 MG/DL (7-18); CALCIUM LEVEL 8.5 MG/DL (8.5-10.1); CARBON DIOXIDE LEVEL 20 MEQ/L (21-32); CHLORIDE LEVEL 111 MEQ/L (98-107); CREATININE FOR GFR 0.73 MG/DL (0.55-1.30); ETHYL ALCOHOL (ETHANOL) < 0.003 % (0.000-0.010); GLOMERULAR FILTRATION RATE > 60.0 (>58); GLUCOSE, FASTING 117 MG/DL (70-100); POTASSIUM SERUM 3.1 MEQ/L (3.5-5.1); SALICYLATE LEVEL < 1.7 MG/DL (5.0-30.0); SODIUM LEVEL 142 MEQ/L (136-145); TOTAL PROTEIN 7.1 GM/DL (6.4-8.2)
[2019-06-10 12:51] LABS: HCG, SERUM QUALITATIVE NEGATIVE (NEGATIVE)
[2019-06-10] MEDS ORDERED: LORazepam 2 MG TAB PO STA (14:59)
[2019-06-10] MEDS ORDERED: POTASSIUM CHLORIDE 10 MEQ SR TABLET PO ONE (17:45)
--- NOTE | 2019-06-10 18:42 | ECGEPIP ---
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
[2019-06-11 00:16] VITALS: BP 156/92
== END 2019-06-11 00:25 ==
LOC: M ED 10:17
DX: F32.9 Major depressive disorder, single episode, unspecified (principal); R45.851 Suicidal ideations; Z91.5 Personal history of self-harm; Z81.8 Family history of other mental and behavioral disorders; F11.11 Opioid abuse, in remission; Z79.899 Other long term (current) drug therapy
CPT/HCPCS: 36415; 80048; 80076; 80307; 84443; 84703; 85027; 93005; 99285; G0480

== ENCOUNTER 2020-04-13 16:32 | Emergency (ER) | payer OTHER, MEDICAID ==
[~2020-04-13] VITALS: Ht 165.1 cm; Wt 134.2 kg
[~2020-04-13 16:32] MED LIST changes: +AMLO1TAB24 PO; -AMLO5TAB6 PO
[2020-04-13] MEDS ORDERED: TRAZ-252 PO (18:16)
[2020-04-13] MEDS ORDERED: REXU1TAB6 PO (18:16)
[2020-04-13] MEDS ORDERED: FLUO20CA20 PO (18:16)
[2020-04-13] MEDS ORDERED: CLON1TAB8 PO ×2 (18:16)
[2020-04-13] MEDS ORDERED: BENZ0.5T23 PO (18:16)
[2020-04-13 18:25] LABS: HEMATOCRIT 28.9 % (36.0-47.0); HEMOGLOBIN 7.8 g/dl (12.0-15.5); MEAN CORPUSCULAR HEMOGLOBIN 20.4 pg (27.0-33.0); MEAN CORPUSCULAR VOLUME 75.5 fl (80.0-96.0); PLATELET COUNT, AUTOMATED 371 10^3/uL (150-450); RED BLOOD COUNT 3.83 10^6/uL (4.00-5.40); WHITE BLOOD COUNT 9.3 10^3/uL (4.0-10.0)
[2020-04-13 18:46] LABS: ALBUMIN 3.1 GM/DL (3.2-5.2); ALT/SGPT 18 U/L (12-78); BILIRUBIN,TOTAL 0.1 MG/DL (0.2-1.0); BLOOD UREA NITROGEN 9 MG/DL (7-18); CALCIUM LEVEL 8.5 MG/DL (8.5-10.1); CARBON DIOXIDE LEVEL 26 MEQ/L (21-32); CHLORIDE LEVEL 110 MEQ/L (98-107); GLOMERULAR FILTRATION RATE > 60.0 (>58); GLUCOSE, FASTING 100 MG/DL (70-100); POTASSIUM SERUM 3.9 MEQ/L (3.5-5.1); SODIUM LEVEL 139 MEQ/L (136-145); TOTAL PROTEIN 6.9 GM/DL (6.4-8.2)
[2020-04-13 19:12] LABS: IRON (FE) 15 UG/DL (50-170); PERCENT SATURATION 3.1 % (13.2-45.0); TOTAL IRON BINDING CAPACITY 485 UG/DL (250-450)
[2020-04-13] MEDS ORDERED: FUROSEMIDE 20 MG TAB PO ONE (20:20)
[2020-04-13] MEDS ORDERED: FERROUS SULFATE 325MG TAB PO STA (20:20)
[2020-04-13] MEDS ORDERED: NITROFURANTOIN (MACROBID) 100 MG CAP PO ONE (20:20)
[2020-04-13] MEDS ORDERED: MACR100C43 PO (20:25)
[2020-04-13] MEDS ORDERED: FERR325T3 PO (20:25)
[2020-04-13] MEDS ORDERED: LASI20TA3 PO (20:25)
[2020-04-13 20:32] VITALS: BP 119/67
== END 2020-04-13 20:41 | disposition home or self-care (01) ==
LOC: M ED 16:32
DX: N39.0 Urinary tract infection, site not specified (principal); D50.9 Iron deficiency anemia, unspecified; R60.0 Localized edema; F33.9 Major depressive disorder, recurrent, unspecified; F41.9 Anxiety disorder, unspecified; K21.9 Gastro-esophageal reflux disease without esophagitis; Z79.899 Other long term (current) drug therapy; Z98.84 Bariatric surgery status

== ENCOUNTER 2020-05-26 18:12 | Emergency (ER) | payer OTHER, MEDICAID ==
[~2020-05-26] VITALS: Ht 165.1 cm; Wt 137.8 kg
[~2020-05-26 18:12] MED LIST changes: +BENZ0.5T23 PO; +FERR325T3 PO; +LASI20TA3 PO; +MACR100C43 PO; +REXU1TAB6 PO; +TRAZ-252 PO
--- NOTE | 2020-05-26 18:53 | REP ---
INDICATION: DYSPNEA/COUGH COMPARISON: 01/07/2019 TECHNIQUE: Portable AP view of the chest FINDINGS: The mediastinum and cardiac silhouette are stable and within normal limits for portable technique. The lung warren are clear without acute consolidation, effusion, or pneumothorax. Skeletal structures are intact. IMPRESSION: No acute cardiopulmonary process appreciated. <Electronically signed by Jamshid Morales > 05/26/20 [id number]
--- NOTE | 2020-05-26 21:02 | REPVR ---
PROCEDURE INFORMATION: Exam: US Duplex Lower Extremity Veins, Bilateral Exam date and time: 05/26/2020 8:44 PM Age: 45 years old Clinical indication: Swelling (edema) of limb; Lower extremity, bilateral; Additional info: Bilat pitting edema TECHNIQUE: Imaging protocol: Real-time duplex ultrasound of the extremities with 2-D rivas scale, color Doppler flow and spectral waveform analysis with image documentation. Complete exam focused on the bilateral lower extremity veins. COMPARISON: No relevant prior studies available. FINDINGS: Right deep veins: Unremarkable. The common femoral, femoral, proximal profunda femoral and popliteal veins are patent without thrombus. Normal Doppler waveforms. Normal compressibility and/or augmentation response. Right superficial veins: Saphenofemoral junction is patent without thrombus. Left deep veins: Unremarkable. The common femoral, femoral, proximal profunda femoral and popliteal veins are patent without thrombus. Normal Doppler waveforms. Normal compressibility and/or augmentation response. Left superficial veins: Saphenofemoral junction is patent without thrombus. Soft tissues: Unremarkable. IMPRESSION: No evidence of deep vein thrombosis. Electronically signed by: Chandan Solis On 05/26/2020 21:01:54 PM
[2020-05-26 21:13] LABS: BASO # 0.1 10^3/uL (0.0-0.2); BASO % 0.6 % (0.0-1.0); EOS # 0.5 10^3/uL (0.0-0.5); EOS % 4.9 % (0.0-3.0); HEMATOCRIT 35.8 % (36.0-47.0); HEMOGLOBIN 10.1 g/dl (12.0-15.5); LYMPH # 2.5 10^3/uL (1.5-5.0); LYMPH % 24.8 % (24.0-44.0); MEAN CORPUSCULAR HEMOGLOBIN 23.3 pg (27.0-33.0); MEAN CORPUSCULAR HGB CONC 28.2 g/dl (32.0-36.5); MEAN CORPUSCULAR VOLUME 82.7 fl (80.0-96.0); MONO # 0.8 10^3/uL (0.0-0.8); NEUTROPHILS # 6.3 10^3/uL (1.5-8.5); NEUTROPHILS % 61.3 % (36.0-66.0); PLATELET COUNT, AUTOMATED 373 10^3/uL (150-450); RED BLOOD COUNT 4.33 10^6/uL (4.00-5.40); WHITE BLOOD COUNT 10.2 10^3/uL (4.0-10.0)
[2020-05-26 21:40] LABS: ALBUMIN 3.2 GM/DL (3.2-5.2); ALT/SGPT 20 U/L (12-78); BILIRUBIN,DIRECT < 0.1 MG/DL (0.0-0.2); BILIRUBIN,TOTAL 0.3 MG/DL (0.2-1.0); BLOOD UREA NITROGEN 6 MG/DL (7-18); CALCIUM LEVEL 8.8 MG/DL (8.5-10.1); CARBON DIOXIDE LEVEL 26 MEQ/L (21-32); CHLORIDE LEVEL 110 MEQ/L (98-107); CK-MB VALUE MASS < 1.0 NG/ML (<3.6); CPK CREATINE PHOSPHOKINASE 82 U/L (26-192); CREATININE FOR GFR 0.59 MG/DL (0.55-1.30); GLOMERULAR FILTRATION RATE > 60.0 (>58); GLUCOSE, FASTING 86 MG/DL (70-100); MB/CK RELATIVE INDEX 1.22 (< OR =4); NT-PRO BNP 277 PG/ML (<125); POTASSIUM SERUM 3.8 MEQ/L (3.5-5.1); SODIUM LEVEL 141 MEQ/L (136-145); TOTAL PROTEIN 7.4 GM/DL (6.4-8.2); TROPONIN I < 0.02 NG/ML (< 0.10)
[2020-05-26] MEDS ORDERED: FUROSEMIDE 40MG/4ML VIAL (J1940) IV ONE (22:45)
[2020-05-26] MEDS ORDERED: LASI20TA3 PO (23:03)
[2020-05-26 23:49] VITALS: BP 112/80
--- NOTE | 2020-05-28 12:37 | ECGEPIP ---
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
== END 2020-05-26 23:51 | disposition home or self-care (01) ==
LOC: M ED 18:12
DX: R22.43 Localized swelling, mass and lump, lower limb, bilateral (principal); R20.2 Paresthesia of skin; E11.9 Type 2 diabetes mellitus without complications; K21.9 Gastro-esophageal reflux disease without esophagitis; Z79.899 Other long term (current) drug therapy
CPT/HCPCS: 71045; 80047; 80048; 80076; 82550; 82553; 83880; 84484; 85025; 93005; 93970; 96374; 99284; J1940

== ENCOUNTER → 2020-07-20 | Outpatient (CLI) | payer OTHER, MEDICAID ==
--- NOTE | 2020-07-21 10:46 | ECHO ---
ECHOCARDIOGRAM DATE OF PROCEDURE: 07/20/2020 Age: Gender: Height: 165 cm Weight: 137 kg REFERRING PROVIDER: JOSÉ ANTONIO Pizarro. INDICATION: Localized edema. MEASUREMENTS: IVS 0.9 cm LV 4.7 cm LVPW 0.9 cm LA 4.2 cm Aorta 2.7 cm IVC 1.7 cm Mitral E wave velocity 89 A wave 56 E prime septal 11.9 E prime lateral 11.4 FINDINGS: This study is of acceptable technical quality in spite of patient's body habitus. Underlying sinus rhythm. Left ventricle is normal size and systolic function with estimated EF 60 to 65%. No segmental wall motion abnormalities are appreciated. Right ventricle also has normal size and systolic function. Left atrium is mildly enlarged. Right atrium was poorly seen. Aortic valve is tricuspid. It has normal anatomy and normal mobility. Same applies for mitral and tricuspid valves. Pulmonic valve was not well seen. No pericardial effusion is present. Inferior vena cava is normal size and appropriately collapses with inspiration indicative of likely normal central venous pressure. Aortic root is normal. Aortic arch and abdominal aorta were not well seen. Doppler interrogation reveals competent aortic valve. There is trace mitral and trace tricuspid insufficiency. Calculated pulmonary artery pressure is in the low 30s corresponding to mild pulmonary hypertension. Mitral inflow pattern and tissue Doppler imaging of mitral annulus revealed normal diastolic function. CONCLUSIONS: 1. Study is of acceptable technical quality, underlying sinus rhythm. 2. Normal LV size with preserved LV systolic and diastolic function. 3. No hemodynamically significant valvular disease. 4. Likely normal central venous pressure and mild pulmonary hypertension.
== END ==
LOC: M CARPUL 10:02
PROVIDERS: ATTEND Physician Assistant
DX: I50.40 Unspecified combined systolic (congestive) and diastolic (congestive) heart failure (principal); I27.29 Other secondary pulmonary hypertension

== ENCOUNTER → 2020-08-26 | Outpatient (CLI) | payer OTHER, MEDICAID ==
--- NOTE | 2020-08-26 12:36 | REPMRS ---
Patient History The patient states she has not had a clinical breast exam in over a year. Family history of ovarian cancer under age 50 in maternal grandmother. Patient states no breast complaints today. Patient has signed MRS History Sheet. Digital Woman Screen Mammo: August 26, 2020 - Exam #: [id number] Bilateral CC and MLO view(s) were taken. Technologist: Yani Contreras, Technologist No prior studies available for comparison. FINDINGS: The breast tissue is almost entirely fat. The Volpara volumetric breast density category is: A. There is no evidence of dominant mass, architectural distortion, or grouped microcalcification typical of malignancy. 3-D tomosynthesis shows no additional findings. Assessment: BI-RADS/ACR category 1 mammogram. Negative Mammogram. Recommendation Routine screening mammogram of both breasts in 1 year (for women over age 40). This patient's [facility] Lifetime Breast Cancer RIsk is estimated at 12.3 %. This mammogram was interpreted with the aid of an FDA-approved computer-aided dectection system. Electronically Signed By: Rogelio Torres MD 08/26/20 [id number]
== END ==
LOC: M WHC 11:52
PROVIDERS: ATTEND Physician Assistant
DX: Z12.31 Encounter for screening mammogram for malignant neoplasm of breast (principal); Z80.41 Family history of malignant neoplasm of ovary

== ENCOUNTER 2020-09-24 07:47 | Emergency (ER) | payer OTHER, MEDICAID ==
[~2020-09-24] VITALS: Ht 165.1 cm; Wt 128.1 kg
[2020-09-24] MEDS ORDERED: LEVO75TA4 (08:03)
[2020-09-24] MEDS ORDERED: KETOROLAC 30 MG/ML 1ML VIAL IV ONE (11:35)
[2020-09-24] MEDS ORDERED: ONDANSETRON 4MG/2ML VIAL IV ONE (11:35)
[2020-09-24] MEDS ORDERED: NS 1,000 ML IV ONE (11:35)
[2020-09-24 12:03] LABS: BASO % 0.4 % (0.0-1.0); EOS # 0.1 10^3/uL (0.0-0.5); EOS % 0.6 % (0.0-3.0); HEMATOCRIT 42.2 % (36.0-47.0); HEMOGLOBIN 13.6 g/dl (12.0-15.5); LYMPH # 1.7 10^3/uL (1.5-5.0); LYMPH % 17.5 % (24.0-44.0); MEAN CORPUSCULAR HEMOGLOBIN 28.2 pg (27.0-33.0); MEAN CORPUSCULAR HGB CONC 32.2 g/dl (32.0-36.5); MEAN CORPUSCULAR VOLUME 87.4 fl (80.0-96.0); MONO # 0.5 10^3/uL (0.0-0.8); MONO % 4.5 % (2.0-8.0); NEUTROPHILS # 7.6 10^3/uL (1.5-8.5); NEUTROPHILS % 76.6 % (36.0-66.0); PLATELET COUNT, AUTOMATED 423 10^3/uL (150-450); RED BLOOD COUNT 4.83 10^6/uL (4.00-5.40); WHITE BLOOD COUNT 9.9 10^3/uL (4.0-10.0)
[2020-09-24] MEDS ORDERED: POTASSIUM CHLORIDE 10 MEQ SR TABLET PO ONE (12:25)
[2020-09-24] MEDS ORDERED: ISOVUE-370 76% 100ML VIAL As Ordered ONE (12:29)
[2020-09-24 12:30] LABS: BILIRUBIN,DIRECT 0.2 MG/DL (0.0-0.2); BILIRUBIN,TOTAL 0.4 MG/DL (0.2-1.0); TOTAL PROTEIN 6.7 GM/DL (6.4-8.2)
--- NOTE | 2020-09-24 12:58 | REP ---
INDICATION: rlq pain COMPARISON: 03/26/2009. TECHNIQUE: CT Scan of the abdomen and pelvis was performed with intravenous administration of 100 cc of Isovue 370, without oral contrast. Sagittal and coronal reconstruction images are performed. FINDINGS: Lung bases: Minimal fibro atelectatic changes. Liver: Normal Gallbladder: Unremarkable. Spleen: Normal. Adrenals: Normal. Pancreas: Normal. Kidneys: Normal. Small and large bowel: There is no free air or obstruction. Large ventral hernia to the right of midline has increased in size since the prior exam, containing noninflamed fat and nonobstructed bowel. Free fluid: None. Abdominal aorta: No aneurysm or dissection. Adenopathy: None. Appendix: Not inflamed. Osseous structures: There are degenerative changes of the spine. Pelvis: No mass. IMPRESSION: Large ventral hernia to the right of midline has increased in size since the prior exam, containing noninflamed fat and nonobstructed bowel. <Electronically signed by Jimmie Sampson > 09/24/20 [id number]
[2020-09-24 13:59] LABS: MAGNESIUM LEVEL 2.2 MG/DL (1.8-2.4)
[2020-09-24] MEDS ORDERED: ONDA4TAB6 PO (16:55)
[2020-09-24] MEDS ORDERED: BACT800T5 PO (16:55)
[2020-09-24 17:11] VITALS: BP 153/76
--- NOTE | 2020-09-25 10:10 | ECGEPIP ---
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
== END 2020-09-24 17:40 | disposition home or self-care (01) ==
LOC: M ED 07:47
DX: N39.0 Urinary tract infection, site not specified (principal); E87.6 Hypokalemia; K43.9 Ventral hernia without obstruction or gangrene; E11.9 Type 2 diabetes mellitus without complications; I10 Essential (primary) hypertension; E03.9 Hypothyroidism, unspecified; F33.9 Major depressive disorder, recurrent, unspecified; F41.9 Anxiety disorder, unspecified; K21.9 Gastro-esophageal reflux disease without esophagitis; Z98.84 Bariatric surgery status; Z79.899 Other long term (current) drug therapy; Z79.890 Hormone replacement therapy
CPT/HCPCS: 74177; 80047; 80076; 81001; 83690; 83735; 84702; 85025; 87088; 87186; 93005; 96361; 96374; 96375; 99284; J1885; J2405; Q9967

== ENCOUNTER 2020-10-08 16:07 | Emergency (ER) | payer OTHER, MEDICAID ==
[~2020-10-08] VITALS: Ht 165.1 cm; Wt 118.6 kg
[~2020-10-08 16:07] MED LIST changes: +BACT800T5 PO; +LEVO75TA4; +ONDA4TAB6 PO
[2020-10-08] MEDS ORDERED: KETOROLAC 30 MG/ML 1ML VIAL IV ONE (20:00)
[2020-10-08 20:38] LABS: BASO % 0.4 % (0.0-1.0); EOS # 0.3 10^3/uL (0.0-0.5); EOS % 2.4 % (0.0-3.0); HEMATOCRIT 43.5 % (36.0-47.0); HEMOGLOBIN 13.9 g/dl (12.0-15.5); LYMPH # 3.3 10^3/uL (1.5-5.0); MEAN CORPUSCULAR HEMOGLOBIN 28.8 pg (27.0-33.0); MEAN CORPUSCULAR VOLUME 90.1 fl (80.0-96.0); MONO # 0.6 10^3/uL (0.0-0.8); MONO % 5.8 % (2.0-8.0); NEUTROPHILS # 6.8 10^3/uL (1.5-8.5); NEUTROPHILS % 61.2 % (36.0-66.0); PLATELET COUNT, AUTOMATED 337 10^3/uL (150-450); RED BLOOD COUNT 4.83 10^6/uL (4.00-5.40); WHITE BLOOD COUNT 11.1 10^3/uL (4.0-10.0)
[2020-10-08 20:51] LABS: ALBUMIN 2.7 GM/DL (3.2-5.2); ALT/SGPT 19 U/L (12-78); BILIRUBIN,DIRECT 0.1 MG/DL (0.0-0.2); BILIRUBIN,TOTAL 0.2 MG/DL (0.2-1.0); BLOOD UREA NITROGEN 7 MG/DL (7-18); CALCIUM LEVEL 8.5 MG/DL (8.5-10.1); CARBON DIOXIDE LEVEL 22 MEQ/L (21-32); CHLORIDE LEVEL 114 MEQ/L (98-107); CREATININE FOR GFR 0.65 MG/DL (0.55-1.30); GLOMERULAR FILTRATION RATE > 60.0 (>58); GLUCOSE, FASTING 97 MG/DL (70-100); POTASSIUM SERUM 3.8 MEQ/L (3.5-5.1); SODIUM LEVEL 143 MEQ/L (136-145); TOTAL PROTEIN 6.5 GM/DL (6.4-8.2)
[2020-10-08] MEDS ORDERED: MORPHINE 2 MG/ML 1ML VIAL (J2270) IV ONE (22:35)
[2020-10-08] MEDS ORDERED: ISOVUE-370 76% 100ML VIAL As Ordered ONE (22:43)
--- NOTE | 2020-10-08 23:44 | REPVR ---
PROCEDURE INFORMATION: Exam: CT Abdomen And Pelvis With Contrast Exam date and time: 10/08/2020 10:51 PM Age: 45 years old Clinical indication: Abdominal pain; Localized; Lower; Prior surgery; Additional info: Severe lower abdominal pain TECHNIQUE: Imaging protocol: Computed tomography of the abdomen and pelvis with contrast. Radiation optimization: All CT scans at this facility use at least one of these dose optimization techniques: automated exposure control; mA and/or kV adjustment per patient size (includes targeted exams where dose is matched to clinical indication); or iterative reconstruction. Contrast material: ISOVUE 370; Contrast volume: 100 ml; Contrast route: INTRAVENOUS (IV); COMPARISON: CT ABD/PEL W/IV CONTRAST ONLY 09/24/2020 12:29 PM FINDINGS: Lung bases are clear. No pleural or pericardial effusion. Probable mild fatty infiltration of the liver. No focal hepatic abnormalities. The spleen, pancreas and adrenals are grossly normal. Gallbladder is normally distended with no evidence of calcified gallstones. Kidneys demonstrate symmetric function. No focal parenchymal abnormalities or obstructive uropathy. Abdominal aorta is normal in caliber with no evidence of aneurysmal dilatation. Surgical suture near the gastroesophageal junction likely consistent with prior bariatric surgery. Small and large bowel loops are grossly normal. There is no evidence of diverticulitis or appendicitis. There is a supraumbilical right paramedian anterior abdominal wall defect measuring up to 5.7 cm. This contains herniated small and large bowel loops. There is no definite evidence of enteric obstruction. Appearance is similar to previous examination. Pelvic organs are grossly normal. No significant free fluid in the abdomen or pelvis. There is a mildly displaced fracture of the right inferior pubic ramus. There is a mildly displaced fracture of the lateral aspect of the right superior pubic ramus. These were not seen on recent examination of September 24, 2020. Visualized osseous structures are otherwise unremarkable for age. IMPRESSION: Acute, mildly displaced fractures of the right inferior pubic ramus and lateral aspect of the right superior pubic ramus. No other acute intra-abdominal or pelvic process. Right paramedian supraumbilical anterior abdominal wall defect containing herniated small and large bowel loops. No evidence of enteric obstruction. Electronically signed by: Ismael Garcia On 10/08/2020 23:44:19 PM
[2020-10-08] MEDS ORDERED: OXYCODONE/APAP 5MG/325MG(BULK FOR ED) 1 TABLET PO ONE (23:55)
[2020-10-09] VITALS: BP 123/67
[2020-10-09] MEDS ORDERED: PERC5TAB12 PO (00:14)
== END 2020-10-09 00:24 | disposition home or self-care (01) ==
LOC: M ED 16:07
DX: S32.591A Other specified fracture of right pubis, initial encounter for closed fracture (principal); X58.XXXA Exposure to other specified factors, initial encounter; Y92.89 Other specified places as the place of occurrence of the external cause; Y93.89 Activity, other specified; Y99.8 Other external cause status; E11.9 Type 2 diabetes mellitus without complications; K21.9 Gastro-esophageal reflux disease without esophagitis; F41.9 Anxiety disorder, unspecified; F33.9 Major depressive disorder, recurrent, unspecified; Z79.890 Hormone replacement therapy; Z79.899 Other long term (current) drug therapy; Z98.890 Other specified postprocedural states
CPT/HCPCS: 74177; 80048; 80076; 81001; 85025; 96374; 96375; 99284; J1885; J2270; Q9967

== ENCOUNTER 2020-10-12 08:14 | Emergency (ER) | payer OTHER, MEDICAID ==
[~2020-10-12] VITALS: Ht 165.1 cm; Wt 132.6 kg
[~2020-10-12 08:14] MED LIST changes: +PERC5TAB12 PO
[2020-10-12] MEDS ORDERED: HYDR-3713 PO (09:18)
[2020-10-12 09:25] VITALS: BP 134/69
== END 2020-10-12 09:26 | disposition home or self-care (01) ==
LOC: M ED 08:14
DX: S32.9XXA Fracture of unspecified parts of lumbosacral spine and pelvis, initial encounter for closed fracture (principal); X58.XXXA Exposure to other specified factors, initial encounter; Y92.89 Other specified places as the place of occurrence of the external cause; I10 Essential (primary) hypertension; F41.9 Anxiety disorder, unspecified; K21.9 Gastro-esophageal reflux disease without esophagitis; Z79.899 Other long term (current) drug therapy; Z79.890 Hormone replacement therapy

== ENCOUNTER → 2020-11-16 | Outpatient (CLI) | payer OTHER, MEDICAID ==
[~2020-11-16] MED LIST changes: +HYDR-3713 PO
--- NOTE | 2020-11-16 11:10 | REP ---
INDICATION: FX PUBIS. COMPARISON: None. TECHNIQUE: Single frontal view of the pelvis FINDINGS: No obvious acute fracture or dislocation is appreciated. Nondisplaced right pubic rami fractures identified on CT dated 10/08/2020 are not visible by radiographic evaluation. IMPRESSION: Nondisplaced fracture of the right pubic rami not visible by current radiographic evaluation. <Electronically signed by Jamshid Morales > 11/16/20 1103
== END ==
LOC: M SOG 10:09
PROVIDERS: ATTEND Orthopaedic Surgery
DX: S32.591S Other specified fracture of right pubis, sequela (principal)

== ENCOUNTER → 2021-01-07 | Outpatient (CLI) | payer OTHER, MEDICAID ==
[~2021-01-07] MED LIST changes: +FLUO-96 PO; -FLUO20CA20 PO; -LEVO75TA4
== END ==
LOC: M LABSMTC 11:53
PROVIDERS: ATTEND Anesthesiology
DX: Z01.812 Encounter for preprocedural laboratory examination (principal); Z11.52 Encounter for screening for COVID-19
CPT/HCPCS: 90834; U0003

== ENCOUNTER 2021-01-12 08:45 | Day surgery (SDC) | payer OTHER, MEDICAID ==
[~2021-01-12] VITALS: Ht 165.1 cm; Wt 123.7 kg
[~2021-01-12 08:45] MED LIST changes: +LIDOCAINE 2% 100MG/5ML SDV (FOR ANES.) As Ordered ONE; +LR 1,000 ML IV ONE; +MIDAZOLAM INJ 2MG/2ML VIAL (J2250 PER 1MG) As Ordered ONE; +ROCURONIUM BROMIDE 50 MG/5 ML VIAL As Ordered ONE; +ceFAZolin SOD 2 GM in IV 1 EA IV ONE; +fentaNYL 250 MCG/5 ML INJECTION As Ordered ONE; +propofoL 200 MG/20 ML VIAL As Ordered ONE
[2021-01-12] MEDS ORDERED: BUPIVACAINE LIPOSOME/PF 1.3% 20ML VIAL (13.3MG/ML)(EXPAREL)(C9290 PER1MG) As Ordered ONE (11:29)
[2021-01-12] MEDS ORDERED: BUPIVACAINE/EPIN 0.25% 30 ML VIAL As Ordered ONE (11:29)
[2021-01-12] MEDS ORDERED: BUPIVACAINE HCL 0.25% 10ML VIAL As Ordered ONE (11:29)
[2021-01-12] MEDS ORDERED: LACRILUBE (AKWA TEARS) OPHTH OINT 3.5 GM As Ordered ONE (11:56)
[2021-01-12] MEDS ORDERED: ACETAMINOPHEN 1000MG 100ML IV BTL (OFIRMEV) (J0131 PER 10MG) As Ordered ONE (12:35)
[2021-01-12] MEDS ORDERED: ONDANSETRON 4MG/2ML VIAL As Ordered ONE (12:36)
[2021-01-12] MEDS ORDERED: dexameTHASONE 4 MG/ML 1ML VIAL (J1100 PER 1MG) As Ordered ONE (12:36)
[2021-01-12] MEDS ORDERED: KETOROLAC 60MG 2ML VIAL As Ordered ONE (12:36)
[2021-01-12] MEDS ORDERED: SUGAMMADEX SODIUM 500 MG/5 ML VIAL (BRIDION) As Ordered ONE (12:41)
[2021-01-12] MEDS ORDERED: LABETALOL 100MG/20ML VIAL As Ordered ONE (12:43)
[2021-01-12] MEDS ORDERED: hydrALAZINE 20MG/ML 1ML VIAL (J0360 PER 20MG) As Ordered ONE (12:55)
[2021-01-12] MEDS ORDERED: ROCURONIUM BROMIDE 50 MG/5 ML VIAL As Ordered ONE (13:18)
[2021-01-12] MEDS ORDERED: fentaNYL 100 MCG/2 ML INJECTION As Ordered ONE (13:53)
[2021-01-12] MEDS ORDERED: LR 1,000 ML IV SCH (14:40)
[2021-01-12] MEDS ORDERED: METOCLOPRAMIDE INJ 10MG/2ML VIAL (J2765 PER 1) IV PRN (14:40)
[2021-01-12] MEDS ORDERED: ONDANSETRON 4MG/2ML VIAL IV PRN (14:40)
[2021-01-12] MEDS ORDERED: NORCO, ANEXSIA 5/325MG TABLET (HYDROcodone/ACETAMINOPHEN) PO PRN ×2 (14:45)
[2021-01-12] MEDS ORDERED: NS 1,000 ML IV SCH (14:45)
[2021-01-12] MEDS: PERCOCET 5MG/325MG TAB PO PRN ×2 (14:50→15:27)
[2021-01-12] MEDS: fentaNYL 100 MCG/2 ML INJECTION IV PRN ×3 (14:50→15:15)
[2021-01-12 16:25] VITALS: BP 157/71
== END 2021-01-12 16:50 | disposition home or self-care (01) ==
LOC: M SDC 08:45
PROVIDERS: ATTEND Surgery
DX: K43.2 Incisional hernia without obstruction or gangrene (principal); I10 Essential (primary) hypertension; E03.9 Hypothyroidism, unspecified; F41.9 Anxiety disorder, unspecified; F32.9 Major depressive disorder, single episode, unspecified; Z98.84 Bariatric surgery status; Z79.899 Other long term (current) drug therapy
CPT/HCPCS: 49654; 81025; C1781; C9290; J0131; J0360; J0690; J1100; J1885; J2250; J2405; J3010; S2900

== ENCOUNTER 2021-01-31 15:14 | Emergency (ER) | payer OTHER, MEDICAID ==
[~2021-01-31] VITALS: Ht 165.1 cm; Wt 124.5 kg
[~2021-01-31 15:14] MED LIST changes: -LIDOCAINE 2% 100MG/5ML SDV (FOR ANES.) As Ordered ONE; -LR 1,000 ML IV ONE; -MIDAZOLAM INJ 2MG/2ML VIAL (J2250 PER 1MG) As Ordered ONE; -ROCURONIUM BROMIDE 50 MG/5 ML VIAL As Ordered ONE; -ceFAZolin SOD 2 GM in IV 1 EA IV ONE; -fentaNYL 250 MCG/5 ML INJECTION As Ordered ONE; -propofoL 200 MG/20 ML VIAL As Ordered ONE
[2021-01-31 18:10] LABS: BASO % 0.4 % (0.0-1.0); EOS # 0.3 10^3/uL (0.0-0.5); EOS % 3.1 % (0.0-3.0); HEMATOCRIT 41.1 % (36.0-47.0); HEMOGLOBIN 12.9 g/dl (12.0-15.5); LYMPH # 2.5 10^3/uL (1.5-5.0); LYMPH % 23.1 % (24.0-44.0); MEAN CORPUSCULAR HEMOGLOBIN 30.8 pg (27.0-33.0); MEAN CORPUSCULAR HGB CONC 31.4 g/dl (32.0-36.5); MEAN CORPUSCULAR VOLUME 98.1 fl (80.0-96.0); MONO # 0.9 10^3/uL (0.0-0.8); MONO % 8.1 % (2.0-8.0); NEUTROPHILS # 7.1 10^3/uL (1.5-8.5); NEUTROPHILS % 64.9 % (36.0-66.0); PLATELET COUNT, AUTOMATED 359 10^3/uL (150-450); RED BLOOD COUNT 4.19 10^6/uL (4.00-5.40)
[2021-01-31 18:35] LABS: BLOOD UREA NITROGEN 3 MG/DL (7-18); CALCIUM LEVEL 8.4 MG/DL (8.5-10.1); CARBON DIOXIDE LEVEL 27 MEQ/L (21-32); CHLORIDE LEVEL 111 MEQ/L (98-107); CREATININE FOR GFR 0.62 MG/DL (0.55-1.30); GLOMERULAR FILTRATION RATE > 60.0 (>58); GLUCOSE, FASTING 92 MG/DL (70-100); POTASSIUM SERUM 3.8 MEQ/L (3.5-5.1); SODIUM LEVEL 143 MEQ/L (136-145)
[2021-01-31 18:42] LABS: HCG, SERUM QUALITATIVE NEGATIVE (NEGATIVE)
[2021-01-31 19:09] LABS: APPEARANCE, URINE CLEAR (CLEAR); BACTERIA, URINE AUTO NEGATIVE (NEGATIVE); BILIRUBIN, URINE AUTO NEGATIVE (NEGATIVE); BLOOD, URINE BLOOD NEGATIVE (NEGATIVE); COLOR, URINE YELLOW (YELLOW); GLUCOSE, URINE (UA) AUTO NEGATIVE (NEGATIVE); KETONE, URINE AUTO NEGATIVE (NEGATIVE); LEUKOCYTE ESTERASE, URINE AUTO NEGATIVE (NEGATIVE); MUCUS, URINE SMALL (NEGATIVE); NITRITE, URINE AUTO NEGATIVE (NEGATIVE); PROTEIN, URINE AUTO NEGATIVE (NEGATIVE); RBC, URINE AUTO 0 /HPF (0-3); SPECIFIC GRAVITY URINE AUTO 1.012 (1.002-1.035); SQUAMOUS EPITHELIAL CELL UR AU 2 /HPF (0-6); WBC, URINE AUTO 1 /HPF (0-3)
[2021-01-31] MEDS ORDERED: NORCO, ANEXSIA 5/325MG TABLET (HYDROcodone/ACETAMINOPHEN) PO ONE (20:55)
[2021-01-31] MEDS ORDERED: HYDR-3713 PO (20:58)
[2021-01-31 21:12] VITALS: BP 120/80
== END 2021-01-31 21:13 | disposition home or self-care (01) ==
LOC: M ED 15:14
DX: G89.18 Other acute postprocedural pain (principal); R10.32 Left lower quadrant pain; K91.872 Postprocedural seroma of a digestive system organ or structure following a digestive system procedure; E03.9 Hypothyroidism, unspecified; F41.9 Anxiety disorder, unspecified; Z79.899 Other long term (current) drug therapy; Z79.890 Hormone replacement therapy

== ENCOUNTER → 2021-04-13 | Outpatient (REF) | payer OTHER, MEDICAID ==
[2021-04-13 18:21] LABS: BASO % 0.4 % (0.0-1.0); EOS # 0.3 10^3/uL (0.0-0.5); HEMATOCRIT 41.2 % (36.0-47.0); LYMPH # 2.7 10^3/uL (1.5-5.0); LYMPH % 30.2 % (24.0-44.0); MEAN CORPUSCULAR HEMOGLOBIN 30.7 pg (27.0-33.0); MEAN CORPUSCULAR HGB CONC 31.6 g/dl (32.0-36.5); MEAN CORPUSCULAR VOLUME 97.4 fl (80.0-96.0); MONO # 0.5 10^3/uL (0.0-0.8); MONO % 5.9 % (2.0-8.0); NEUTROPHILS # 5.4 10^3/uL (1.5-8.5); NEUTROPHILS % 60.2 % (36.0-66.0); PLATELET COUNT, AUTOMATED 290 10^3/uL (150-450); RED BLOOD COUNT 4.23 10^6/uL (4.00-5.40); WHITE BLOOD COUNT 8.9 10^3/uL (4.0-10.0)
[2021-04-13 18:50] LABS: ALBUMIN 3.2 GM/DL (3.2-5.2); ALT/SGPT 26 U/L (12-78); BILIRUBIN,TOTAL 0.3 MG/DL (0.2-1.0); BLOOD UREA NITROGEN 7 MG/DL (7-18); CALCIUM LEVEL 8.7 MG/DL (8.5-10.1); CARBON DIOXIDE LEVEL 26 MEQ/L (21-32); CHLORIDE LEVEL 110 MEQ/L (98-107); CHOLESTEROL LEVEL 173 MG/DL (<200); CHOLESTEROL RISK RATIO 4.325 (<5); CREATININE FOR GFR 0.65 MG/DL (0.55-1.30); FERRITIN 20 NG/ML (8-252); FREE T4 0.51 NG/DL (0.76-1.46); GLOMERULAR FILTRATION RATE > 60.0 (>58); GLUCOSE, FASTING 81 MG/DL (70-100); HDL CHOLESTEROL 40 MG/DL (>40); IRON (FE) 48 UG/DL (50-170); LDL CHOLESTEROL 105 MG/DL (<100); NON-HDL-C 133 MG/DL; PERCENT SATURATION 13.6 % (13.2-45.0); SODIUM LEVEL 141 MEQ/L (136-145); TOTAL IRON BINDING CAPACITY 352 UG/DL (250-450); TOTAL PROTEIN 6.8 GM/DL (6.4-8.2); TRIGLYCERIDES LEVEL 138 MG/DL (<150)
[2021-04-13 18:53] LABS: TOTAL 25(OH) VITAMIN D 18.3 NG/ML (30.0-100.0)
[2021-04-13 19:05] LABS: HEPATITIS B SURFACE ANTIGEN NEGATIVE (NEGATIVE)
[2021-04-13 19:31] LABS: HEPATITIS B CORE ANTIBODY IGM NEGATIVE (NEGATIVE); HEPATITIS C VIRUS ABY INDEX 0.1 INDEX (<0.8)
== END ==
LOC: M LAB REF 17:56
PROVIDERS: ATTEND Nurse Practitioner Family
DX: E03.9 Hypothyroidism, unspecified (principal); Z68.42 Body mass index [BMI] 45.0-49.9, adult; Z11.3 Encounter for screening for infections with a predominantly sexual mode of transmission

== ENCOUNTER 2021-05-19 23:31 | Observation (INO) | payer OTHER, MEDICAID ==
[~2021-05-19] VITALS: Ht 165.1 cm; Wt 116.9 kg
[2021-05-19] MEDS ORDERED: NS 1,000 ML IV ONE (23:40)
[2021-05-19] MEDS ORDERED: CHARCOAL ACTIVATED LIQUID 25 GM/120 ML BTL PO ONE (23:40)
[2021-05-20] VITALS (8 sets, daily range): BP systolic 138–167; BP diastolic 65–80
[2021-05-20 00:43] LABS: ACETAMINOPHEN LEVEL < 2.0 UG/ML (10.0-30.0); ALBUMIN 3.4 GM/DL (3.2-5.2); ALT/SGPT 29 U/L (12-78); BILIRUBIN,DIRECT 0.2 MG/DL (0.0-0.2); BILIRUBIN,TOTAL 0.6 MG/DL (0.2-1.0); BLOOD UREA NITROGEN 4 MG/DL (7-18); CALCIUM LEVEL 8.9 MG/DL (8.5-10.1); CARBON DIOXIDE LEVEL 24 MEQ/L (21-32); CHLORIDE LEVEL 109 MEQ/L (98-107); CREATININE FOR GFR 0.82 MG/DL (0.55-1.30); ETHYL ALCOHOL (ETHANOL) < 0.003 % (0.000-0.010); GLOMERULAR FILTRATION RATE > 60.0 (>58); GLUCOSE, FASTING 121 MG/DL (70-100); POTASSIUM SERUM 3.2 MEQ/L (3.5-5.1); SALICYLATE LEVEL < 1.7 MG/DL (5.0-30.0); SODIUM LEVEL 140 MEQ/L (136-145); TOTAL PROTEIN 6.7 GM/DL (6.4-8.2)
[2021-05-20 00:51] LABS: BASO % 0.2 % (0.0-1.0); EOS # 0.1 10^3/uL (0.0-0.5); EOS % 0.7 % (0.0-3.0); HEMATOCRIT 42.9 % (36.0-47.0); HEMOGLOBIN 14.2 g/dl (12.0-15.5); LYMPH # 3.4 10^3/uL (1.5-5.0); LYMPH % 32.1 % (24.0-44.0); MEAN CORPUSCULAR HEMOGLOBIN 31.6 pg (27.0-33.0); MEAN CORPUSCULAR HGB CONC 33.1 g/dl (32.0-36.5); MEAN CORPUSCULAR VOLUME 95.5 fl (80.0-96.0); MONO # 0.7 10^3/uL (0.0-0.8); MONO % 6.4 % (2.0-8.0); NEUTROPHILS # 6.3 10^3/uL (1.5-8.5); NEUTROPHILS % 60.3 % (36.0-66.0); PLATELET COUNT, AUTOMATED 278 10^3/uL (150-450); RED BLOOD COUNT 4.49 10^6/uL (4.00-5.40); WHITE BLOOD COUNT 10.5 10^3/uL (4.0-10.0)
[2021-05-20 00:58] LABS: RSV AMPLIFICATION NEGATIVE (NEGATIVE)
[2021-05-20 00:58] LABS: OSMOLALITY SERUM 286 MOSM/KG (275-295)
[2021-05-20] MEDS ORDERED: POTASSIUM CHLORIDE 10MEQ SR TABLET PO ONE (01:00)
[2021-05-20 01:02] LABS: HCG, SERUM QUALITATIVE NEGATIVE (NEGATIVE)
[2021-05-20 01:32] LABS: AMPHETAMINES LEVEL URINE NEGATIVE (NEGATIVE); BARBITURATES URINE NEGATIVE (NEGATIVE); BENZODIAZEPINES URINE NEGATIVE (NEGATIVE); CANNABINOIDS URINE NEGATIVE (NEGATIVE); COCAINE METABOLITE URINE NEGATIVE (NEGATIVE); METHADONE URINE NEGATIVE (NEGATIVE); OPIATES URINE POSITIVE (NEGATIVE); PHENCYCLIDINE URINE NEGATIVE (NEGATIVE)
[2021-05-20] MEDS ORDERED: SYNT100T PO (02:04)
[2021-05-20] MEDS ORDERED: CLON1TAB17 PO (02:04)
[2021-05-20] MEDS ORDERED: HOME MED LIST COMPLETE! XX SCH (02:05)
[2021-05-20] MEDS ORDERED: NS 1,000 ML IV SCH (02:20)
[2021-05-20] MEDS ORDERED: ACETAMINOPHEN 650 MG SUPP PR PRN (02:20)
[2021-05-20 03:43] LABS: FREE T4 0.72 NG/DL (0.76-1.46)
[2021-05-20] MEDS ORDERED: LEVOTHYROXINE 125MCG TABLET (0.125MG) PO SCH (06:00)
[2021-05-20] MEDS ORDERED: LEVOTHYROXINE 100MCG TABLET (0.1MG) PO SCH (06:00)
[2021-05-20 08:17] LABS: BASO % 0.1 % (0.0-1.0); EOS % 0.5 % (0.0-3.0); HEMATOCRIT 41.3 % (36.0-47.0); HEMOGLOBIN 13.4 g/dl (12.0-15.5); LYMPH # 2.2 10^3/uL (1.5-5.0); LYMPH % 28.9 % (24.0-44.0); MEAN CORPUSCULAR HGB CONC 32.4 g/dl (32.0-36.5); MEAN CORPUSCULAR VOLUME 95.6 fl (80.0-96.0); MONO # 0.5 10^3/uL (0.0-0.8); MONO % 6.6 % (2.0-8.0); NEUTROPHILS # 4.7 10^3/uL (1.5-8.5); NEUTROPHILS % 63.6 % (36.0-66.0); PLATELET COUNT, AUTOMATED 235 10^3/uL (150-450); RED BLOOD COUNT 4.32 10^6/uL (4.00-5.40); WHITE BLOOD COUNT 7.4 10^3/uL (4.0-10.0)
[2021-05-20 08:53] LABS: BLOOD UREA NITROGEN 2 MG/DL (7-18); CARBON DIOXIDE LEVEL 19 MEQ/L (21-32); CHLORIDE LEVEL 118 MEQ/L (98-107); CREATININE FOR GFR 0.61 MG/DL (0.55-1.30); GLOMERULAR FILTRATION RATE > 60.0 (>58); GLUCOSE, FASTING 111 MG/DL (70-100); MAGNESIUM LEVEL 2.1 MG/DL (1.8-2.4); POTASSIUM SERUM 3.6 MEQ/L (3.5-5.1); SODIUM LEVEL 146 MEQ/L (136-145)
[2021-05-20] MEDS ORDERED: LEVO125T4 PO (15:20)
[2021-05-21] MEDS ORDERED: SYNT125T PO (00:38)
== END 2021-05-20 23:42 ==
LOC: M ED 23:31 → EDBD 23:31 → M ED INP 23:32 → ENRESERV 05-20 03:25 → M PCU 05-20 03:56
PROVIDERS: ADMIT Internal Medicine; ATTEND Internal Medicine
DX: R45.851 Suicidal ideations (principal); T43.012A Poisoning by tricyclic antidepressants, intentional self-harm, initial encounter; T43.592A Poisoning by other antipsychotics and neuroleptics, intentional self-harm, initial encounter; T44.3X1A Poisoning by other parasympatholytics [anticholinergics and antimuscarinics] and spasmolytics, accidental (unintentional), initial encounter; Y92.89 Other specified places as the place of occurrence of the external cause; Y93.9 Activity, unspecified; Y99.9 Unspecified external cause status; F41.9 Anxiety disorder, unspecified; F32.9 Major depressive disorder, single episode, unspecified; F29 Unspecified psychosis not due to a substance or known physiological condition; E03.9 Hypothyroidism, unspecified; Z79.899 Other long term (current) drug therapy; Z98.84 Bariatric surgery status

== ENCOUNTER 2021-05-20 23:31 | Inpatient (IN) | payer OTHER, MEDICAID ==
[~2021-05-20] VITALS: Ht 165.1 cm; Wt 116.9 kg
[~2021-05-20 23:31] MED LIST changes: +CLON1TAB17 PO; +LEVO125T4 PO; +SYNT100T PO
[2021-05-20] MEDS ORDERED: MAALOX 30 ML SUSP *UDC PO PRN (23:35)
[2021-05-20] MEDS ORDERED: MOM 30ML SUSPENSION UDC PO PRN (23:35)
[2021-05-20 23:50] VITALS: BP 157/77
[2021-05-21] MEDS: traZODone 50 MG TAB PO PRN ×2 (00:17→20:38)
[2021-05-21] MEDS ORDERED: SYNT125T PO (00:38)
[2021-05-21] MEDS ORDERED: HOME MED LIST COMPLETE! XX SCH (00:40)
[2021-05-21 06:18] VITALS: BP 142/76
[2021-05-21] MEDS ORDERED: clonazePAM 0.5 MG TAB PO SCH ×3 (09:00→12:35)
[2021-05-21] MEDS ORDERED: NICOTINE 14 MG/24 HR TRANSDERMAL TD PRN (12:15)
[2021-05-21] MEDS: VENLAFAXINE **XR** 37.5 MG CAPSULE PO SCH (12:24)
[2021-05-21] MEDS: LIDOCAINE 5% (LIDODERM) PATCH TD SCH (13:44)
[2021-05-21] MEDS: LEVOTHYROXINE 125MCG TABLET (0.125MG) PO SCH (13:44)
[2021-05-21 16:41] VITALS: BP 131/75
[2021-05-21] MEDS: ARIPiprazole 2 MG TAB PO SCH (20:38)
[2021-05-21] MEDS: **NOTE PATIENT COMMENT** MISC XX SCH (20:40)
[2021-05-22] MEDS: LEVOTHYROXINE 125MCG TABLET (0.125MG) PO SCH (05:51)
[2021-05-22 07:00] VITALS: BP 161/80
[2021-05-22] MEDS: VENLAFAXINE **XR** 37.5 MG CAPSULE PO SCH (08:19)
[2021-05-22] MEDS: LIDOCAINE 5% (LIDODERM) PATCH TD SCH (08:19)
[2021-05-22] MEDS: clonazePAM 0.5 MG TAB PO SCH (08:20)
[2021-05-22] MEDS ORDERED: clonazePAM 0.5 MG TAB PO SCH (09:00)
[2021-05-22 09:27] LABS: CHOLESTEROL LEVEL 148 MG/DL (<200); CHOLESTEROL RISK RATIO 3.217 (<5); HDL CHOLESTEROL 46 MG/DL (>40); LDL CHOLESTEROL 85 MG/DL (<100); NON-HDL-C 102 MG/DL; TRIGLYCERIDES LEVEL 85 MG/DL (<150)
[2021-05-22 14:42] LABS: BLOOD UREA NITROGEN 7 MG/DL (7-18); CARBON DIOXIDE LEVEL 23 MEQ/L (21-32); CHLORIDE LEVEL 112 MEQ/L (98-107); CREATININE FOR GFR 0.69 MG/DL (0.55-1.30); GLOMERULAR FILTRATION RATE > 60.0 (>58); GLUCOSE, FASTING 107 MG/DL (70-100); MAGNESIUM LEVEL 1.9 MG/DL (1.8-2.4); POTASSIUM SERUM 3.7 MEQ/L (3.5-5.1); SODIUM LEVEL 144 MEQ/L (136-145)
[2021-05-22 16:10] VITALS: BP 144/90
[2021-05-22] MEDS: **NOTE PATIENT COMMENT** MISC XX SCH (20:59)
[2021-05-22] MEDS: traZODone 50 MG TAB PO PRN (21:01)
[2021-05-22] MEDS: ARIPiprazole 2 MG TAB PO SCH (21:01)
[2021-05-23 06:00] VITALS: BP 146/83
[2021-05-23] MEDS: LEVOTHYROXINE 125MCG TABLET (0.125MG) PO SCH (06:01)
[2021-05-23] MEDS: clonazePAM 0.5 MG TAB PO SCH (08:21)
[2021-05-23] MEDS: LIDOCAINE 5% (LIDODERM) PATCH TD SCH (08:21)
[2021-05-23] MEDS: VENLAFAXINE **XR** 37.5 MG CAPSULE PO SCH (08:21)
[2021-05-23 16:16] VITALS: BP 140/74
[2021-05-23] MEDS ORDERED: clonazePAM 0.5 MG TAB PO ONE (18:05)
[2021-05-23] MEDS: ARIPiprazole 2 MG TAB PO SCH (20:33)
[2021-05-23] MEDS: traZODone 50 MG TAB PO PRN (20:33)
[2021-05-23] MEDS: **NOTE PATIENT COMMENT** MISC XX SCH (20:34)
[2021-05-24] MEDS: LEVOTHYROXINE 125MCG TABLET (0.125MG) PO SCH (06:09)
[2021-05-24 06:55] VITALS: BP 127/79
[2021-05-24] MEDS: clonazePAM 0.5 MG TAB PO SCH (08:19)
[2021-05-24] MEDS: LIDOCAINE 5% (LIDODERM) PATCH TD SCH (08:19)
[2021-05-24] MEDS: VENLAFAXINE **XR** 37.5 MG CAPSULE PO SCH (08:19)
[2021-05-24] MEDS ORDERED: clonazePAM 0.5 MG TAB PO SCH (09:00)
[2021-05-24] MEDS ORDERED: BREXPIPRAZOLE 2MG TABLET (REXULTI) PO SCH (09:00)
[2021-05-24] MEDS: ACETAMINOPHEN TAB 650MG DOSE (2X325MG) PO PRN (18:47)
[2021-05-24 19:13] VITALS: BP 139/81
[2021-05-24] MEDS: **NOTE PATIENT COMMENT** MISC XX SCH (21:19)
[2021-05-24] MEDS: traZODone 50 MG TAB PO PRN (21:20)
[2021-05-25] MEDS: LEVOTHYROXINE 125MCG TABLET (0.125MG) PO SCH (05:26)
[2021-05-25 06:44] VITALS: BP 150/94
[2021-05-25] MEDS: VENLAFAXINE **XR** 37.5 MG CAPSULE PO SCH (08:09)
[2021-05-25] MEDS: LIDOCAINE 5% (LIDODERM) PATCH TD SCH (08:09)
[2021-05-25] MEDS ORDERED: VENLAFAXINE **XR** 37.5 MG CAPSULE PO ONE (08:50)
[2021-05-25 17:55] VITALS: BP 153/95
[2021-05-25] MEDS: ACETAMINOPHEN TAB 650MG DOSE (2X325MG) PO PRN (20:35)
[2021-05-25] MEDS: **NOTE PATIENT COMMENT** MISC XX SCH (20:36)
[2021-05-25] MEDS: traZODone 50 MG TAB PO PRN (21:16)
[2021-05-26] MEDS: LEVOTHYROXINE 125MCG TABLET (0.125MG) PO SCH (05:46)
[2021-05-26 06:53] VITALS: BP 150/94
[2021-05-26] MEDS ORDERED: ABIL1TAB11 PO (08:19)
[2021-05-26] MEDS ORDERED: TRAZ-252 PO (08:19)
[2021-05-26] MEDS ORDERED: VENL75CA47 PO (08:19)
[2021-05-26] MEDS: LIDOCAINE 5% (LIDODERM) PATCH TD SCH (08:28)
[2021-05-26] MEDS ORDERED: VENLAFAXINE **XR** 75MG CAPSULE PO SCH (09:00)
== END 2021-05-26 13:26 | disposition home or self-care (01) | DRG 885 ==
LOC: M PSY 23:46
PROVIDERS: ADMIT Student in an Organized Health Care Education/Training Program; ATTEND Student in an Organized Health Care Education/Training Program
DX: F33.3 Major depressive disorder, recurrent, severe with psychotic symptoms (principal); R45.851 Suicidal ideations; F11.10 Opioid abuse, uncomplicated; Z91.51 Personal history of suicidal behavior; E03.9 Hypothyroidism, unspecified; D50.9 Iron deficiency anemia, unspecified; Z98.84 Bariatric surgery status; Z79.899 Other long term (current) drug therapy; M54.2 Cervicalgia; Z63.8 Other specified problems related to primary support group

== ENCOUNTER 2021-11-20 19:39 | Emergency (ER) | payer OTHER, MEDICAID ==
[~2021-11-20] VITALS: Ht 165.1 cm; Wt 126.9 kg
[~2021-11-20 19:39] MED LIST changes: +ABIL1TAB11 PO; +SYNT125T PO; +VENL75CA47 PO
[2021-11-20 21:42] VITALS: BP 144/79
[2021-11-20] MEDS ORDERED: ALBU8.5H INH (21:59)
== END 2021-11-20 22:06 | disposition home or self-care (01) ==
LOC: M ED 19:39
DX: J20.9 Acute bronchitis, unspecified (principal); E66.9 Obesity, unspecified; E11.9 Type 2 diabetes mellitus without complications; I10 Essential (primary) hypertension; E03.9 Hypothyroidism, unspecified; K21.9 Gastro-esophageal reflux disease without esophagitis; R51.9 Headache, unspecified; F32.9 Major depressive disorder, single episode, unspecified; F41.9 Anxiety disorder, unspecified; Z91.51 Personal history of suicidal behavior; Z98.84 Bariatric surgery status; M54.50 Low back pain, unspecified; Z79.890 Hormone replacement therapy; Z79.899 Other long term (current) drug therapy

== ENCOUNTER 2021-11-24 00:13 | Emergency (ER) | payer OTHER, MEDICAID ==
[~2021-11-24] VITALS: Ht 165.1 cm; Wt 127.2 kg
[~2021-11-24 00:13] MED LIST changes: +ALBU8.5H INH
[2021-11-24] MEDS ORDERED: diazePAM 5MG TABLET PO ONE (07:05)
[2021-11-24] MEDS ORDERED: LIDOCAINE 5% (LIDODERM) PATCH TD ONE (07:05)
[2021-11-24] MEDS ORDERED: KETOROLAC 60MG 2ML VIAL IM ONE (07:05)
[2021-11-24] MEDS ORDERED: NAPR-837 PO (08:57)
[2021-11-24] MEDS ORDERED: METH-1165 PO (08:57)
[2021-11-24] MEDS ORDERED: ASPE4PAD TOP (08:57)
[2021-11-24 09:06] VITALS: BP 142/87
== END 2021-11-24 09:10 | disposition home or self-care (01) ==
LOC: M ED 00:13
DX: M54.50 Low back pain, unspecified (principal); M54.17 Radiculopathy, lumbosacral region; E11.9 Type 2 diabetes mellitus without complications; R51.9 Headache, unspecified; Z98.84 Bariatric surgery status; Z79.890 Hormone replacement therapy; Z79.899 Other long term (current) drug therapy
CPT/HCPCS: 72110; 96372; 99283; J1885

== ENCOUNTER → 2021-11-29 | Outpatient (REF) | payer OTHER, MEDICAID ==
[~2021-11-29] MED LIST changes: +ASPE4PAD TOP; +METH-1165 PO; +NAPR-837 PO
== END ==
LOC: M LAB REF 16:52
PROVIDERS: ATTEND Nurse Practitioner Family
DX: E03.9 Hypothyroidism, unspecified (principal)

== ENCOUNTER → 2021-12-21 | Outpatient (CLI) | payer OTHER, MEDICAID | LOC: M PLAIMG 07:03 | PROVIDERS: ATTEND Orthopaedic Surgery | DX: M54.16 Radiculopathy, lumbar region (principal); M51.26 Other intervertebral disc displacement, lumbar region; M51.27 Other intervertebral disc displacement, lumbosacral region ==

== ENCOUNTER 2022-06-28 18:59 | Emergency (ER) | payer OTHER, MEDICAID ==
[~2022-06-28] VITALS: Ht 165.1 cm; Wt 128.8 kg
[~2022-06-28 18:59] MED LIST changes: +BENZ0.5T2 PO; -BENZ0.5T23 PO; +DIPH-435 PO; -DIPH25CA32 PO; -PAXI20TA29 PO; +PAXI20TA30 PO
[2022-06-28 20:36] LABS: BASO # 0.1 10^3/uL (0.0-0.2); BASO % 0.6 % (0.0-1.0); EOS # 0.6 10^3/uL (0.0-0.5); EOS % 4.6 % (0.0-3.0); HEMATOCRIT 40.5 % (36.0-47.0); HEMOGLOBIN 13.4 g/dl (12.0-15.5); LYMPH # 3.8 10^3/uL (1.5-5.0); LYMPH % 30.1 % (24.0-44.0); MEAN CORPUSCULAR HGB CONC 33.1 g/dl (32.0-36.5); MEAN CORPUSCULAR VOLUME 93.8 fl (80.0-96.0); MONO # 0.7 10^3/uL (0.0-0.8); MONO % 5.8 % (2.0-8.0); NEUTROPHILS # 7.3 10^3/uL (1.5-8.5); NEUTROPHILS % 58.5 % (36.0-66.0); PLATELET COUNT, AUTOMATED 335 10^3/uL (150-450); RED BLOOD COUNT 4.32 10^6/uL (4.00-5.40); WHITE BLOOD COUNT 12.5 10^3/uL (4.0-10.0)
[2022-06-28 20:48] LABS: INR 0.86; PROTHROMBIN TIME 11.9 SECONDS (12.5-14.5)
[2022-06-28 20:49] LABS: PARTIAL THROMBOPLASTIN TIME 21.4 SECONDS (24.8-34.2)
[2022-06-28 20:51] LABS: D-DIMER QUANT 369.18 ng/ml (<500)
[2022-06-28] MEDS ORDERED: LORazepam 1 MG TAB PO ONE (21:05)
[2022-06-28 21:07] LABS: THYROID STIMULATING HORMONE 38.041 uIU/ML (0.55-4.78)
[2022-06-28 21:09] LABS: CK-MB VALUE MASS < 1.0 NG/ML (<3.6); CPK CREATINE PHOSPHOKINASE 107 U/L (34-145); MB/CK RELATIVE INDEX 0.93 (< OR =4)
[2022-06-28 21:45] VITALS: BP 154/81
[2022-06-28 21:53] LABS: CK-MB VALUE MASS < 1.0 NG/ML (<3.6)
[2022-06-28 22:02] LABS: CPK CREATINE PHOSPHOKINASE 82 U/L (34-145); MB/CK RELATIVE INDEX 1.21 (< OR =4)
== END 2022-06-28 22:32 | disposition home or self-care (01) ==
LOC: M ED 18:59
DX: F41.9 Anxiety disorder, unspecified (principal); F41.0 Panic disorder [episodic paroxysmal anxiety]; E03.9 Hypothyroidism, unspecified; Z79.51 Long term (current) use of inhaled steroids; Z79.899 Other long term (current) drug therapy

== ENCOUNTER → 2022-12-08 | Outpatient (REF) | payer OTHER, MEDICAID ==
[2022-12-08 16:51] LABS: BASO # 0.1 10^3/uL (0.0-0.2); BASO % 0.8 % (0.0-1.0); EOS # 0.5 10^3/uL (0.0-0.5); EOS % 5.3 % (0.0-3.0); HEMATOCRIT 41.1 % (36.0-47.0); HEMOGLOBIN 13.1 g/dl (12.0-15.5); LYMPH # 2.4 10^3/uL (1.5-5.0); MEAN CORPUSCULAR HEMOGLOBIN 29.4 pg (27.0-33.0); MEAN CORPUSCULAR HGB CONC 31.9 g/dl (32.0-36.5); MEAN CORPUSCULAR VOLUME 92.2 fl (80.0-96.0); MONO # 0.6 10^3/uL (0.0-0.8); NEUTROPHILS # 6.3 10^3/uL (1.5-8.5); NEUTROPHILS % 63.5 % (36.0-66.0); PLATELET COUNT, AUTOMATED 334 10^3/uL (150-450); RED BLOOD COUNT 4.46 10^6/uL (4.00-5.40); WHITE BLOOD COUNT 9.9 10^3/uL (4.0-10.0)
[2022-12-08 17:22] LABS: FERRITIN 9.4 NG/ML (7.3-270.7); LIPASE 35 U/L (12-53)
[2022-12-08 17:23] LABS: AMYLASE 39 U/L (30-118)
[2022-12-08 17:24] LABS: IRON (FE) 89 UG/DL (50-170); PERCENT SATURATION 20.7 % (13.2-45.0); TOTAL IRON BINDING CAPACITY 429 UG/DL (250-425)
[2022-12-08 17:25] LABS: FOLATE 11.1 NG/ML (>5.4); VITAMIN B12 LEVEL 222 PG/ML (211-911)
[2022-12-09 10:35] LABS: ALBUMIN 3.4 G/DL (3.2-5.2); ALKALINE PHOSPHATASE 134 U/L (46-116); ALT/SGPT 19 U/L (7.0-40); AST/SGOT 18 U/L (<34); BILIRUBIN,TOTAL 0.4 MG/DL (0.3-1.2); BLOOD UREA NITROGEN < 5 MG/DL (9-23); CALCIUM LEVEL 8.9 MG/DL (8.5-10.1); CARBON DIOXIDE LEVEL 24 MMOL/L (20-31); CHLORIDE LEVEL 106 MMOL/L (98-107); CREATININE FOR GFR 0.56 MG/DL (0.55-1.30); GLOMERULAR FILTRATION RATE > 60.0 (>58); GLUCOSE, FASTING 110 MG/DL (60-100); SODIUM LEVEL 137 MMOL/L (136-145); TOTAL 25(OH) VITAMIN D 11.4 NG/ML (20.0-100.0)
== END ==
LOC: M LAB REF 16:18
PROVIDERS: ATTEND Nurse Practitioner Family
DX: I10 Essential (primary) hypertension (principal); E03.9 Hypothyroidism, unspecified; E55.9 Vitamin D deficiency, unspecified; E61.1 Iron deficiency; Z98.84 Bariatric surgery status; R10.10 Upper abdominal pain, unspecified

== ENCOUNTER 2023-03-07 14:56 | Emergency (ER) | payer OTHER, MEDICAID ==
[~2023-03-07] VITALS: Ht 165.1 cm; Wt 128.8 kg
[2023-03-07] MEDS ORDERED: KETOROLAC 60MG 2ML VIAL IM ONE (19:50)
[2023-03-07] MEDS ORDERED: methocarbamoL 500 MG TAB PO ONE (19:50)
[2023-03-07] MEDS ORDERED: METH-1164 PO (20:52)
[2023-03-07 20:58] VITALS: BP 138/86; TEMP 98.4; O2SAT 98
== END 2023-03-07 20:59 | disposition home or self-care (01) ==
LOC: M ED 14:56
DX: M54.50 Low back pain, unspecified (principal); E11.9 Type 2 diabetes mellitus without complications; E03.9 Hypothyroidism, unspecified; M54.32 Sciatica, left side; F41.9 Anxiety disorder, unspecified; F32.A Depression, unspecified; Z98.84 Bariatric surgery status; Z79.899 Other long term (current) drug therapy
CPT/HCPCS: 72110; 96372; 99283; J1100; J1885

== ENCOUNTER → 2023-11-30 | Outpatient (REF) | payer OTHER, MEDICAID ==
[~2023-11-30] MED LIST changes: +FLUO-365 PO; -FLUO20CA22 PO; +METH-1164 PO; +ONDA-282 PO; -ONDA4TAB6 PO
== END ==
LOC: M LAB REF 16:35
PROVIDERS: ATTEND Family Medicine Addiction Medicine
DX: R35.0 Frequency of micturition (principal)

== ENCOUNTER 2024-03-18 09:34 | Emergency (ER) | payer OTHER, MEDICAID ==
[~2024-03-18] VITALS: Ht 165.1 cm; Wt 120.1 kg
[2024-03-18] MEDS: KETOROLAC 30 MG/ML 1ML VIAL IV ONE (11:08)
[2024-03-18] MEDS: ONDANSETRON 4MG 2ML VIAL IV ONE (11:08)
[2024-03-18 11:27] LABS: BASO % 0.3 % (0.0-1.0); EOS # 0.5 10^3/uL (0.0-0.5); EOS % 3.9 % (0.0-3.0); HEMATOCRIT 39.8 % (36.0-47.0); HEMOGLOBIN 12.1 g/dl (12.0-15.5); LYMPH # 2.9 10^3/uL (1.5-5.0); MEAN CORPUSCULAR HEMOGLOBIN 26.5 pg (27.0-33.0); MEAN CORPUSCULAR HGB CONC 30.4 g/dl (32.0-36.5); MEAN CORPUSCULAR VOLUME 87.1 fl (80.0-96.0); MONO # 0.7 10^3/uL (0.0-0.8); MONO % 6.1 % (2.0-8.0); NEUTROPHILS # 7.9 10^3/uL (1.5-8.5); NEUTROPHILS % 65.5 % (36.0-66.0); PLATELET COUNT, AUTOMATED 426 10^3/uL (150-450); RED BLOOD COUNT 4.57 10^6/uL (4.00-5.40)
[2024-03-18 11:32] LABS: KETONE, URINE AUTO RFX NEGATIVE (NEGATIVE); LEUKOCYTE ESTERASE UR AUTO RFX NEGATIVE (NEGATIVE); MUCUS, URINE RFX SMALL (NEGATIVE); NITRITE, URINE AUTO RFX NEGATIVE (NEGATIVE); RBC, URINE AUTO RFX 1 /HPF (0-3); SQUAM EPITHELIAL CELL UR AURFX 1 /HPF (0-6); WBC, URINE AUTO RFX 1 /HPF (0-3)
[2024-03-18 11:55] LABS: HCG, SERUM QUALITATIVE NEGATIVE (NEGATIVE)
[2024-03-18 11:58] LABS: ALBUMIN 3.5 G/DL (3.2-5.2); ALKALINE PHOSPHATASE 127 U/L (35-104); ALT/SGPT 25 U/L (7.0-40); AST/SGOT 46 U/L (<34); BILIRUBIN,DIRECT 0.1 MG/DL (<0.4); BILIRUBIN,TOTAL 0.5 MG/DL (0.3-1.2); BLOOD UREA NITROGEN < 5 MG/DL (9-23); CALCIUM LEVEL 8.8 MG/DL (8.5-10.1); CARBON DIOXIDE LEVEL 24 MMOL/L (20-31); CHLORIDE LEVEL 110 MMOL/L (98-107); CREATININE FOR GFR 0.59 MG/DL (0.55-1.30); GLOMERULAR FILTRATION RATE > 60.0 (>58); GLUCOSE, FASTING 120 MG/DL (60-100); LIPASE 27 U/L (12-53); POTASSIUM SERUM 4.6 MMOL/L (3.5-5.1); SODIUM LEVEL 143 MMOL/L (136-145); TOTAL PROTEIN 7.6 G/DL (5.7-8.2)
[2024-03-18] MEDS ORDERED: ISOVUE-370 76% 100ML VIAL As Ordered ONE (12:16)
[2024-03-18] MEDS ORDERED: PROT1TAB2 PO (13:38)
[2024-03-18] MEDS ORDERED: CARA1TAB6 PO (13:38)
[2024-03-18] MEDS ORDERED: CEFD1CAP9 PO (13:38)
[2024-03-18] MEDS: ACETAMINOPHEN *IV* 1,000 MG in IV 1 EA IV ONE (13:56)
[2024-03-18] MEDS: MAALOX 30 ML SUSP *UDC PO ONE (13:56)
[2024-03-18 14:15] VITALS: BP 135/63; TEMP 97.8; O2SAT 100
== END 2024-03-18 14:34 | disposition home or self-care (01) ==
LOC: M ED 09:34
DX: K29.00 Acute gastritis without bleeding (principal); R82.71 Bacteriuria; K21.9 Gastro-esophageal reflux disease without esophagitis; E03.9 Hypothyroidism, unspecified; F32.A Depression, unspecified; Z79.51 Long term (current) use of inhaled steroids; Z79.2 Long term (current) use of antibiotics; Z79.899 Other long term (current) drug therapy
CPT/HCPCS: 74177; 80048; 80076; 81001; 83605; 83690; 84703; 85025; 96365; 96375; 99284; J0131; J1885; J2405; Q9967

== ENCOUNTER → 2024-04-03 | Outpatient (REF) ==
[~2024-04-03] MED LIST changes: +CARA1TAB6 PO; +CEFD1CAP9 PO; +PROT1TAB2 PO
== END ==
LOC: M PLAIMG 12:37
PROVIDERS: ATTEND Internal Medicine
DX: M54.2 Cervicalgia (principal); M25.561 Pain in right knee; M17.11 Unilateral primary osteoarthritis, right knee

== ENCOUNTER 2024-07-21 11:42 | Emergency (ER) | payer OTHER, MEDICAID ==
[~2024-07-21] VITALS: Ht 165.1 cm; Wt 114.5 kg
[2024-07-21] MEDS ORDERED: ERGO500029 (12:11)
[2024-07-21] MEDS ORDERED: VENL150C43 (12:11)
[2024-07-21] MEDS ORDERED: HYDR-3363 (12:11)
[2024-07-21] MEDS ORDERED: METF500T13 (12:11)
[2024-07-21] MEDS ORDERED: FERR325T19 (12:11)
[2024-07-21] MEDS ORDERED: LEVO50TA5 (12:11)
[2024-07-21] MEDS ORDERED: FOLI1TAB11 (12:11)
[2024-07-21] MEDS ORDERED: MONT10TA97 (12:11)
[2024-07-21] MEDS ORDERED: PANT20TA6 (12:11)
[2024-07-21] MEDS ORDERED: ONDA-282 (12:11)
[2024-07-21] MEDS ORDERED: ARIP10TA63 (12:11)
[2024-07-21 12:35] LABS: BASO % 0.5 % (0.0-1.0); EOS # 0.5 10^3/uL (0.0-0.5); EOS % 5.3 % (0.0-3.0); HEMATOCRIT 37.1 % (36.0-47.0); HEMOGLOBIN 11.5 g/dl (12.0-15.5); LYMPH % 23.2 % (24.0-44.0); MEAN CORPUSCULAR HEMOGLOBIN 26.4 pg (27.0-33.0); MEAN CORPUSCULAR VOLUME 85.3 fl (80.0-96.0); MONO # 0.5 10^3/uL (0.0-0.8); MONO % 6.1 % (2.0-8.0); NEUTROPHILS # 5.5 10^3/uL (1.5-8.5); NEUTROPHILS % 64.7 % (36.0-66.0); PLATELET COUNT, AUTOMATED 378 10^3/uL (150-450); RED BLOOD COUNT 4.35 10^6/uL (4.00-5.40); WHITE BLOOD COUNT 8.5 10^3/uL (4.0-10.0)
[2024-07-21 13:15] LABS: LIPASE 36 U/L (12-53)
[2024-07-21 13:19] LABS: ALBUMIN 3.8 G/DL (3.2-5.2); ALKALINE PHOSPHATASE 102 U/L (35-104); ALT/SGPT 40 U/L (7.0-40); BILIRUBIN,DIRECT 0.1 MG/DL (<0.4); BILIRUBIN,TOTAL 0.4 MG/DL (0.3-1.2); TOTAL PROTEIN 7.3 G/DL (5.7-8.2)
[2024-07-21 13:33] LABS: AST/SGOT 65 U/L (<34)
[2024-07-21] MEDS: FAMOTIDINE 20 MG/2 ML VIAL IVP ONE (15:20)
[2024-07-21] MEDS: NS 500 ML IV ONE (15:20)
[2024-07-21] MEDS: ONDANSETRON 4MG 2ML VIAL IV PRN (15:20)
[2024-07-21 15:21] LABS: CK-MB VALUE MASS < 1.0 NG/ML (<3.6)
[2024-07-21 15:31] LABS: CPK CREATINE PHOSPHOKINASE 120 U/L (34-145)
[2024-07-21] MEDS: GASTROGRAFIN SOLUTION 30ML PO SCH (15:56)
[2024-07-21 15:57] LABS: KETONE, URINE AUTO RFX NEGATIVE (NEGATIVE); LEUKOCYTE ESTERASE UR AUTO RFX NEGATIVE (NEGATIVE); MUCUS, URINE RFX SMALL (NEGATIVE); NITRITE, URINE AUTO RFX NEGATIVE (NEGATIVE); RBC, URINE AUTO RFX 1 /HPF (0-3); SQUAM EPITHELIAL CELL UR AURFX 5 /HPF (0-6)
[2024-07-21 16:15] LABS: WBC, URINE AUTO RFX 15 /HPF (0-3)
[2024-07-21 16:24] LABS: CK-MB VALUE MASS < 1.0 NG/ML (<3.6)
[2024-07-21 16:27] LABS: CPK CREATINE PHOSPHOKINASE 90 U/L (34-145)
[2024-07-21] MEDS ORDERED: ISOVUE-370 76% 100 ML VIAL As Ordered ONE (16:29)
[2024-07-21] MEDS: ACETAMINOPHEN 500 MG TAB PO ONE (18:17)
[2024-07-21 19:03] VITALS: BP 143/68; TEMP 96.7; O2SAT 99
== END 2024-07-21 20:22 | disposition home or self-care (01) ==
LOC: M ED 11:42
DX: R11.10 Vomiting, unspecified (principal); E78.5 Hyperlipidemia, unspecified; F41.9 Anxiety disorder, unspecified; F32.A Depression, unspecified; M54.50 Low back pain, unspecified; E03.9 Hypothyroidism, unspecified; Z98.84 Bariatric surgery status; Z79.899 Other long term (current) drug therapy; Z79.4 Long term (current) use of insulin; Z79.83 Long term (current) use of bisphosphonates
CPT/HCPCS: 74177; 80047; 80076; 81000; 81001; 82550; 82553; 83690; 84484; 85025; 87088; 87186; 93005; 96374; 99284; J1308; J2405; Q9963; Q9967

== ENCOUNTER → 2024-08-23 | Outpatient (REF) | payer OTHER, MEDICAID ==
[~2024-08-23] MED LIST changes: +ARIP10TA63; +ERGO500029; +FERR325T19; +FOLI1TAB11; +HYDR-3363; +LEVO50TA5; +METF500T13; +MONT10TA97; +ONDA-282; +PANT20TA6; +VENL150C43
[2024-08-23 12:48] LABS: BASO # 0.0 10^3/uL (0.0-0.2); BASO % 0.5 % (0.0-1.0); EOS # 0.3 10^3/uL (0.0-0.5); EOS % 3.9 % (0.0-3.0); LYMPH # 1.9 10^3/uL (1.5-5.0); LYMPH % 23.2 % (24.0-44.0); MONO # 0.6 10^3/uL (0.0-0.8); MONO % 7.5 % (2.0-8.0); NEUTROPHILS # 5.3 10^3/uL (1.5-8.5); NEUTROPHILS % 64.7 % (36.0-66.0); PLATELET COUNT, AUTOMATED 300 10^3/uL (150-450)
[2024-08-23 12:51] LABS: IRON (FE) 54.0 UG/DL (50-170)
[2024-08-23 12:52] LABS: PERCENT SATURATION 15.0 % (13.2-45.0)
[2024-08-23 13:13] LABS: ESTIMATED AVERAGE GLUCOSE 105.0 MG/DL (60-110)
== END ==
LOC: M LAB REF 12:06
PROVIDERS: ATTEND Nurse Practitioner Family
DX: E03.9 Hypothyroidism, unspecified (principal); R73.03 Prediabetes; E61.1 Iron deficiency

== ENCOUNTER → 2024-10-03 | Outpatient (REF) | payer OTHER, MEDICAID ==
[~2024-10-03] MED LIST changes: +ACET-907 PO; -ARIP10TA63; +ARIP10TA63 PO; -ERGO500029; +ERGO500029 PO; -FERR325T19; +FERR325T19 PO; -FOLI1TAB11; +FOLI1TAB11 PO; -HYDR-3363; +HYDR-3363 PO; -LEVO50TA5; +LEVO50TA5 PO; -METF500T13; +METF500T13 PO; +MONT10TA97 PO; -ONDA-282; +ONDA-282 SL; -PANT20TA6; +PANT20TA6 PO; +SUCR1TA PO; +collagen powder PO
[2024-10-05 11:57] LABS: HPV APTIMA Not Detected (Not Detected)
== END ==
LOC: M LAB REF 12:54
PROVIDERS: ATTEND Nurse Practitioner Family
DX: Z12.4 Encounter for screening for malignant neoplasm of cervix (principal)
CPT/HCPCS: 87624; G0123

== ENCOUNTER 2024-10-17 10:29 | Day surgery (SDC) | payer OTHER, MEDICAID ==
[~2024-10-17] VITALS: Ht 165.1 cm; Wt 103.0 kg
[2024-10-17] MEDS ORDERED: LIDOCAINE 2% 100 MG/5 ML SDV (FOR ANES.) As Ordered ONE (11:15)
[2024-10-17] MEDS ORDERED: MIDAZOLAM INJ 2 MG/2 ML VIAL As Ordered ONE (11:15)
[2024-10-17 11:42] VITALS: TEMP 97.5
[2024-10-17 12:00] VITALS: BP 130/62; O2SAT 100
== END 2024-10-17 12:05 | disposition home or self-care (01) ==
LOC: M OPP 10:29
PROVIDERS: ATTEND Surgery
DX: Z12.11 Encounter for screening for malignant neoplasm of colon (principal); K64.8 Other hemorrhoids; K44.9 Diaphragmatic hernia without obstruction or gangrene; Z98.84 Bariatric surgery status; K95.89 Other complications of other bariatric procedure; R11.2 Nausea with vomiting, unspecified; Z79.84 Long term (current) use of oral hypoglycemic drugs; Z79.899 Other long term (current) drug therapy
CPT/HCPCS: 43200; 45378; J2250

== ENCOUNTER → 2024-11-01 | Outpatient (CLI) | payer OTHER, MEDICAID ==
[~2024-11-01] MED LIST changes: +E-Z-GAS II EFFERVESCENT PACKET (SODIUM BICARB./CITRIC ACID/SIMETHICONE) As Ordered ONE; +E-Z-HD 98% w/w 340 GM SUSP BTL As Ordered ONE; +E-Z-PAQUE 96% w/w SUSP 176 GM BTL As Ordered ONE
== END ==
LOC: M RAD 09:44
PROVIDERS: ATTEND Physician Assistant
DX: K95.89 Other complications of other bariatric procedure (principal)

== ENCOUNTER → 2024-12-12 | Outpatient (CLI) | payer OTHER, MEDICAID ==
[~2024-12-12] MED LIST changes: -E-Z-GAS II EFFERVESCENT PACKET (SODIUM BICARB./CITRIC ACID/SIMETHICONE) As Ordered ONE; -E-Z-HD 98% w/w 340 GM SUSP BTL As Ordered ONE; -E-Z-PAQUE 96% w/w SUSP 176 GM BTL As Ordered ONE
== END ==
LOC: M PLARAD 10:42
PROVIDERS: ATTEND Nurse Practitioner Family
DX: M54.40 Lumbago with sciatica, unspecified side (principal); M48.061 Spinal stenosis, lumbar region without neurogenic claudication

== ENCOUNTER 2025-01-07 19:44 | Inpatient (IN) | payer OTHER, MEDICAID ==
[~2025-01-07] VITALS: Ht 165.1 cm; Wt 96.5 kg
[~2025-01-07 19:44] MED LIST changes: -VENL150C43; +VENL150C43 PO
[2025-01-07] MEDS: KETOROLAC 30 MG/ML 1 ML VIAL IV ONE (23:50)
[2025-01-07] MEDS: METHOCARBAMOL 1,000 MG/10 ML VIAL IV ONE (23:51)
[2025-01-08 00:22] LABS: BASO # 0.1 10^3/uL (0.0-0.2); BASO % 0.6 % (0.0-1.0); EOS # 0.3 10^3/uL (0.0-0.5); EOS % 2.5 % (0.0-3.0); LYMPH # 3.2 10^3/uL (1.5-5.0); LYMPH % 29.8 % (24.0-44.0); MONO # 0.7 10^3/uL (0.0-0.8); MONO % 6.7 % (2.0-8.0); NEUTROPHILS # 6.3 10^3/uL (1.5-8.5); NEUTROPHILS % 59.7 % (36.0-66.0); PLATELET COUNT, AUTOMATED 290 10^3/uL (150-450)
[2025-01-08 00:25] LABS: C REACTIVE PROTEIN QUANTITATIV < 0.50 MG/DL (<1.0)
[2025-01-08 00:31] LABS: CALCIUM LEVEL 8.1 MG/DL (8.5-10.1); CARBON DIOXIDE LEVEL 25 MMOL/L (20-31); CHLORIDE LEVEL 109 MMOL/L (98-107); CREATININE FOR GFR 0.62 MG/DL (0.55-1.30); GLOMERULAR FILTRATION RATE > 90.0 (>58); POTASSIUM SERUM 2.3 MMOL/L (3.5-5.1); SODIUM LEVEL 146 MMOL/L (136-145)
[2025-01-08] MEDS: POTASSIUM CHLORIDE 10MEQ SR TABLET PO ONE (00:43)
[2025-01-08] MEDS: KCL 10MEQ/100ML SWI (KRUN) 10 MEQ in IV 1 EA IV ONE (00:44)
[2025-01-08 00:53] LABS: MAGNESIUM LEVEL 1.7 MG/DL (1.8-2.4)
[2025-01-08] MEDS: MAG SULF 1GM/100ML (MAG RUN) 1 GM in IV 1 EA IV ONE (01:54)
[2025-01-08 04:23] LABS: BASO # 0.0 10^3/uL (0.0-0.2); BASO % 0.4 % (0.0-1.0); EOS # 0.3 10^3/uL (0.0-0.5); EOS % 3.2 % (0.0-3.0); LYMPH # 2.9 10^3/uL (1.5-5.0); LYMPH % 30.9 % (24.0-44.0); MONO # 0.7 10^3/uL (0.0-0.8); MONO % 7.7 % (2.0-8.0); NEUTROPHILS # 5.3 10^3/uL (1.5-8.5); NEUTROPHILS % 57.6 % (36.0-66.0); PLATELET COUNT, AUTOMATED 272 10^3/uL (150-450)
[2025-01-08] MEDS: ACETAMINOPHEN *IV* 1,000 MG in IV 1 EA IV ONE (04:23)
[2025-01-08] MEDS: KCL 10MEQ/100ML SWI (KRUN) 10 MEQ in IV 1 EA IV SCH ×3 (04:44→15:53)
[2025-01-08 04:48] LABS: INR 0.99
[2025-01-08 04:57] LABS: CALCIUM LEVEL 8.2 MG/DL (8.5-10.1); CARBON DIOXIDE LEVEL 26 MMOL/L (20-31); CHLORIDE LEVEL 109 MMOL/L (98-107); CREATININE FOR GFR 0.65 MG/DL (0.55-1.30); GLOMERULAR FILTRATION RATE > 90.0 (>58); MAGNESIUM LEVEL 2.1 MG/DL (1.8-2.4); POTASSIUM SERUM 3.4 MMOL/L (3.5-5.1); SODIUM LEVEL 146 MMOL/L (136-145)
[2025-01-08 08:15] VITALS: BP 128/71; TEMP 97.5; O2SAT 98
[2025-01-08] MEDS: PANTOPRAZOLE 40MG VIAL IV SCH (08:31)
[2025-01-08] MEDS: POTASSIUM CHLORIDE 10% LIQ 20MEQ/15ML UDC PO SCH ×2 (08:31→20:56)
[2025-01-08] MEDS: D5W/0.45% SODIUM CHLORIDE 1,000 ML IV SCH (08:35)
[2025-01-08] MEDS ORDERED: IBUP200C25 PO (09:55)
[2025-01-08] MEDS ORDERED: HOME MED LIST COMPLETE! XX SCH (09:55)
[2025-01-08] MEDS ORDERED: VENL75CA47 PO (09:55)
[2025-01-08 12:14] LABS: CALCIUM LEVEL 7.6 MG/DL (8.5-10.1); CARBON DIOXIDE LEVEL 25 MMOL/L (20-31); CHLORIDE LEVEL 112 MMOL/L (98-107); CREATININE FOR GFR 0.60 MG/DL (0.55-1.30); GLOMERULAR FILTRATION RATE > 90.0 (>58); POTASSIUM SERUM 3.2 MMOL/L (3.5-5.1); SODIUM LEVEL 146 MMOL/L (136-145)
[2025-01-08 12:30] VITALS: BP 126/58; TEMP 97.6; O2SAT 98
[2025-01-08] MEDS: IBUPROFEN 200 MG TAB PO PRN (17:58)
[2025-01-08 20:10] VITALS: BP 120/67; TEMP 97.2; O2SAT 99
[2025-01-08] MEDS: FERROUS SULFATE 325 MG TAB PO SCH (20:55)
[2025-01-08] MEDS: HEPARIN SOD 5000 UNITS/ML 1 ML VIAL/SYRINGE SC SCH (20:56)
[2025-01-09 04:24] VITALS: BP 117/64; TEMP 98; O2SAT 98
[2025-01-09] MEDS: LEVOTHYROXINE 50 MCG TABLET (0.05 MG) PO SCH (05:39)
[2025-01-09 07:42] LABS: MAGNESIUM LEVEL 1.8 MG/DL (1.8-2.4)
[2025-01-09 08:34] LABS: CALCIUM LEVEL 7.8 MG/DL (8.5-10.1); CARBON DIOXIDE LEVEL 23 MMOL/L (20-31); CHLORIDE LEVEL 112 MMOL/L (98-107); CREATININE FOR GFR 0.52 MG/DL (0.55-1.30); GLOMERULAR FILTRATION RATE > 90.0 (>58); POTASSIUM SERUM 3.7 MMOL/L (3.5-5.1); SODIUM LEVEL 146 MMOL/L (136-145)
[2025-01-09] MEDS ORDERED: VENLAFAXINE **XR** 75MG CAPSULE PO SCH (09:00)
[2025-01-09] MEDS: VENLAFAXINE **XR** 75MG CAPSULE PO SCH (10:05)
[2025-01-09] MEDS: FOLIC ACID 1 MG TAB PO SCH (10:05)
[2025-01-09] MEDS: MAGNESIUM OXIDE 400 MG TAB PO SCH (10:05)
[2025-01-09 11:52] VITALS: BP 127/62; TEMP 97.9; O2SAT 98
[2025-01-09] MEDS: POTASSIUM CHLORIDE 10% LIQ 20MEQ/15ML UDC PO ONE (12:27)
[2025-01-09] MEDS ORDERED: MAGN400T33 PO (14:05)
[2025-01-09] MEDS ORDERED: POTA20LI16 PO (14:05)
== END 2025-01-09 16:35 | disposition home or self-care (01) | DRG 641 ==
LOC: M ED 19:44 → M ED INP 19:45 → M MS4PR 01-08 08:16 → OBSVTOIN 01-08 14:53
PROVIDERS: ADMIT Student in an Organized Health Care Education/Training Program; ATTEND Student in an Organized Health Care Education/Training Program
DX: E87.6 Hypokalemia (principal); R20.2 Paresthesia of skin; K22.2 Esophageal obstruction; M51.362 Other intervertebral disc degeneration, lumbar region with discogenic back pain and lower extremity pain; E83.42 Hypomagnesemia; E03.9 Hypothyroidism, unspecified; R73.03 Prediabetes; R53.1 Weakness; F32.A Depression, unspecified; K21.9 Gastro-esophageal reflux disease without esophagitis; F41.9 Anxiety disorder, unspecified; Z98.84 Bariatric surgery status; Z79.890 Hormone replacement therapy; Z79.899 Other long term (current) drug therapy

== ENCOUNTER → 2025-01-17 | Outpatient (REF) | payer OTHER, MEDICAID ==
[~2025-01-17] MED LIST changes: +MAGN400T33 PO; +POTA20LI16 PO
[2025-01-17 17:59] LABS: CALCIUM LEVEL 9.4 MG/DL (8.5-10.1); CARBON DIOXIDE LEVEL 24 MMOL/L (20-31); CHLORIDE LEVEL 104 MMOL/L (98-107); CREATININE FOR GFR 0.69 MG/DL (0.55-1.30); GLOMERULAR FILTRATION RATE > 90.0 (>58); MAGNESIUM LEVEL 1.9 MG/DL (1.8-2.4); POTASSIUM SERUM 5.1 MMOL/L (3.5-5.1); SODIUM LEVEL 139 MMOL/L (136-145)
== END ==
LOC: M LAB REF 16:43
PROVIDERS: ATTEND Nurse Practitioner Family
DX: E03.9 Hypothyroidism, unspecified (principal)